=== PATIENT | female | born 1960 | race Caucasian/White ===

== ENCOUNTER 2020-02-07 09:29 | Outpatient (REF) | payer OTHER, MEDICAID, SELFPAY ==
[2020-02-07 10:11] LABS: MANUAL DIFF FLAG NO
[2020-02-07 10:12] LABS: Glucose Urine UA NEG (NEG); Leukocyte Esterase Urine NEG (NEG); Nitrite Urine NEG (NEG); Urine Blood TRACE (NEG); Urine Ketones NEG (NEG); Urine Protein NEG (NEG-TRACE)
[2020-02-07 10:14] LABS: Appearance Urine CLEAR; Color Urine YELLOW
[2020-02-07 10:17] LABS: Basophils Percent Auto 0.4 % (0-2); Eosinophils Percent Auto 0.6 % (0-4); Hematocrit 42.8 % (37-47); Imm Gran Abs Auto 0.02 X10*3/uL (0.00-0.03); Imm Gran Pct Auto 0.4 % (0.0-0.4); Lymphocytes Absolute Auto 1.8 X10*3/uL (1.2-4.9); Lymphocytes Percent Auto 33.3 % (20-40); Mean Corpuscular HGB Conc 32.7 g/dl (31.0-35.0); Mean Corpuscular Hemoglobin 30.2 pg (27.0-33.0); Mean Corpuscular Volume 92.4 fL (80-98); Mean Platelet Volume 10.6 fL (9.4-12.3); Monocytes Absolute Auto 0.3 X10*3/uL (0.1-1.2); Monocytes Percent Auto 5.4 % (2-11); Neutrophils Absolute Auto 3.2 X10*3/uL (2.0-8.3); Neutrophils Percent Auto 59.9 % (45-73); Platelet Count 236 X10*3/uL (160-400); Red Blood Count 4.63 X10*6/uL (4.20-5.50); Red Cell Distribution Width 11.9 % (11.0-16.0); White Blood Count 5.3 X10*3/uL (4.8-10.8)
[2020-02-07 11:19] LABS: Mucus Urine TRACE /LPF; RBC Urine 0-2 /HPF (0); Squamous Epithelial Cell Urine 1+ /LPF; WBC Urine 0 /HPF (0-4)
[2020-02-07 11:24] LABS: Alanine Aminotransferase 26 U/L (0-31); Albumin Level 4.7 g/dL (3.5-5.0); Alkaline Phosphatase 58 U/L (39-117); Anion Gap 10 (12-20); Aspartate Amino Transferase 19 U/L (5-31); Bilirubin Total 0.6 mg/dL (0.0-1.0); Blood Urea Nitrogen 17 mg/dL (9-16); Calcium 9.6 mg/dL (8.4-10.2); Carbon Dioxide 33 mmol/L (22-29); Chloride 102 mmol/L (96-108); Cholesterol 186 mg/dL; Estimated Glomerular Filt Rate > 60; Glucose Fasting 97 mg/dL (60-99); HDL Cholesterol 62 mg/dL; LDL Cholesterol Calculated 100 mg/dl; Potassium 4.1 mmol/l (3.3-5.1); Sodium 141 mmol/L (135-145); Total Protein 7.5 g/dL (6.5-8.0); Triglycerides 120 mg/dL
[2020-02-07 11:30] LABS: TSH reflex Free T4 0.49 mIU/mL (0.32-4.0); Vitamin D 25-OH Total 33.2 ng/mL (>30)
== END 2020-02-07 09:30 | disposition home or self-care (01) ==
LOC: HO.10HDL 09:29
PROVIDERS: Visit Provider Internal Medicine
DX: I10 Essential (primary) hypertension (principal); E55.9 Vitamin D deficiency, unspecified; Z93.1 Gastrostomy status; Z93.4 Other artificial openings of gastrointestinal tract status
CPT/HCPCS: 36415; 80053; 80061; 81001; 82306; 84443; 85025

== ENCOUNTER 2020-05-15 15:07 | Outpatient (REF) | payer OTHER, MEDICAID, SELFPAY ==
--- NOTE | ~2020-05-15 | XR_ITS ---
EXAMINATION: XR ABDOMEN COMPLETE CLINICAL INDICATION: Abdominal pain. COMPARISON: Most recent CT abdomen/pelvis dated 02/19/2019. TECHNIQUE: AP supine views of the abdomen. FINDINGS: Partially visualized gastrostomy tube. Nonobstructive bowel gas pattern. Moderate stool burden. No abnormal soft tissue calcification. No acute osseous abnormality. XR/XR abdomen 3V IMPRESSION: Gastrostomy tube. Moderate stool burden. Nonobstructive bowel gas pattern.
--- NOTE | ~2020-05-15 | XR_ITS ---
EXAMINATION: XR LUMBAR SPINE XR HIP, LEFT CLINICAL INFORMATION: Lower back pain and left hip pain. COMPARISON: None TECHNIQUE: AP, lateral, and coned-down views of the lumbar spine. AP and frog-leg lateral views of the left hip. FINDINGS: Lumbar Spine: Normal vertebral body alignment. The lumbar lordosis is maintained. No acute fracture or subluxation. Loss of intervertebral disc height with tiny anterior endplate osteophytes at L5-S1 as well as to a lesser degree at L4-L5. No lytic or blastic osseous lesion. Partially visualized gastrostomy tube. Left Hip: No acute fracture or dislocation. No significant joint space narrowing. Tiny marginal osteophytes. No osseous erosion. No abnormal soft tissue calcification. XR/XR hip LT min 2V IMPRESSION: Lumbar Spine: Mild degenerative disc disease at L5-S1 as well as to a lesser degree at L4-L5. Left Hip: Mild degenerative arthritis.
--- NOTE | ~2020-05-15 | XR_ITS ---
EXAMINATION: XR LUMBAR SPINE XR HIP, LEFT CLINICAL INFORMATION: Lower back pain and left hip pain. COMPARISON: None TECHNIQUE: AP, lateral, and coned-down views of the lumbar spine. AP and frog-leg lateral views of the left hip. FINDINGS: Lumbar Spine: Normal vertebral body alignment. The lumbar lordosis is maintained. No acute fracture or subluxation. Loss of intervertebral disc height with tiny anterior endplate osteophytes at L5-S1 as well as to a lesser degree at L4-L5. No lytic or blastic osseous lesion. Partially visualized gastrostomy tube. Left Hip: No acute fracture or dislocation. No significant joint space narrowing. Tiny marginal osteophytes. No osseous erosion. No abnormal soft tissue calcification. XR/XR lumbar spine 2-3V IMPRESSION: Lumbar Spine: Mild degenerative disc disease at L5-S1 as well as to a lesser degree at L4-L5. Left Hip: Mild degenerative arthritis.
== END 2020-05-15 15:08 | disposition home or self-care (01) ==
LOC: HO.XRAY 15:07
PROVIDERS: PCP Internal Medicine; Visit Provider Internal Medicine
DX: M25.552 Pain in left hip (principal); M54.5 Low back pain; M54.17 Radiculopathy, lumbosacral region; R10.9 Unspecified abdominal pain
CPT/HCPCS: 72100; 73502; 74021

== ENCOUNTER 2020-09-05 10:08 | Outpatient (REF) | payer OTHER, MEDICAID, SELFPAY ==
--- NOTE | ~2020-09-05 | XR_ITS ---
EXAMINATION: XR ABDOMEN WITH DECUBITUS VIEWS CLINICAL INDICATION: Abdominal pain. COMPARISON: 05/15/2020 TECHNIQUE: Five views of the abdomen with supine and upright views. FINDINGS: No free air is identified. No dilated loops of large or small bowel. There is a moderate stool burden seen throughout the colon. There appear to be T fasteners from previous gastrostomy tube, however, the gastrostomy tube is not definitely identified on today's study. No significant bony abnormality appreciated. Psoas margins are intact. XR/XR abdomen w decubitus IMPRESSION: No evidence of ileus or obstruction. Moderate stool burden.
== END 2020-09-05 10:09 | disposition home or self-care (01) ==
LOC: HO.XRAY 10:08
PROVIDERS: PCP Internal Medicine; Visit Provider Internal Medicine
DX: R10.9 Unspecified abdominal pain (principal); K59.00 Constipation, unspecified
CPT/HCPCS: 74021

== ENCOUNTER 2021-04-16 08:51 | Outpatient (REF) | payer OTHER, MEDICAID, SELFPAY ==
[2021-04-16 10:35] LABS: MANUAL DIFF FLAG NO
[2021-04-16 10:42] LABS: Basophils Percent Auto 0.5 % (0-2); Eosinophils Absolute Auto 0.1 X10*3/uL (0.0-0.4); Eosinophils Percent Auto 2.2 % (0-4); Hematocrit 43.4 % (37.0-47.0); Hemoglobin 13.9 g/dl (12.0-16.0); Imm Gran Abs Auto 0.01 X10*3/uL (0.00-0.03); Imm Gran Pct Auto 0.2 % (0.0-0.4); Lymphocytes Absolute Auto 1.9 X10*3/uL (1.2-4.9); Lymphocytes Percent Auto 32.6 % (20-40); Mean Corpuscular Hemoglobin 29.2 pg (27.0-33.0); Mean Corpuscular Volume 91.2 fL (80.0-98.0); Mean Platelet Volume 10.3 fL (9.4-12.3); Monocytes Absolute Auto 0.3 X10*3/uL (0.1-1.2); Monocytes Percent Auto 4.2 % (2-11); Neutrophils Absolute Auto 3.6 x10*3/uL (2.0-8.3); Neutrophils Percent Auto 60.3 % (45-73); Platelet Count 263 X10*3/uL (160-400); Red Blood Count 4.76 X10*6/uL (4.20-5.50); White Blood Count 5.9 X10*3/uL (4.8-10.8)
[2021-04-16 10:59] LABS: Appearance Urine CLEAR; Color Urine YELLOW; Glucose Urine UA NEG (NEG); Leukocyte Esterase Urine NEG (NEG); Nitrite Urine NEG (NEG); UACC Culture Trigger NO; Urine Blood TRACE (NEG); Urine Ketones NEG (NEG); Urine Protein NEG (NEG-TRACE)
[2021-04-16 11:18] LABS: Mucus Urine 1+ /LPF; Squamous Epithelial Cell Urine TRACE /LPF
[2021-04-16 11:19] LABS: Amorphous Sediment Urine 2+ /LPF; RBC Urine 0-2 /HPF (0)
[2021-04-16 11:20] LABS: WBC Urine 0-2 /HPF (0-4)
[2021-04-16 11:26] LABS: Alanine Aminotransferase 22 U/L (0-31); Albumin Level 4.5 g/dL (3.5-5.0); Alkaline Phosphatase 74 U/L (39-117); Anion Gap 13 (12-20); Aspartate Amino Transferase 19 U/L (5-31); Bilirubin Total 0.6 mg/dL (0.0-1.0); Blood Urea Nitrogen 14 mg/dL (9-16); Calcium 9.8 mg/dL (8.4-10.2); Carbon Dioxide 29 mmol/L (22-29); Chloride 105 mmol/L (96-108); Cholesterol 205 mg/dL; Estimated Glomerular Filt Rate > 60; Glucose Fasting 96 mg/dL (60-99); HDL Cholesterol 62 mg/dL; LDL Cholesterol Calculated 125 mg/dl; Potassium 4.2 mmol/L (3.3-5.1); Sodium 143 mmol/L (135-145); TSH reflex Free T4 1.03 uIU/mL (0.32-4.0); Total Protein 7.6 g/dL (6.5-8.0); Triglycerides 91 mg/dL; Vitamin D 25-OH Total 31.7 ng/mL (>30)
== END 2021-04-16 08:52 | disposition home or self-care (01) ==
LOC: HO.10HDL 08:51
PROVIDERS: Visit Provider Internal Medicine
DX: I10 Essential (primary) hypertension (principal); E55.9 Vitamin D deficiency, unspecified; E78.00 Pure hypercholesterolemia, unspecified
CPT/HCPCS: 36415; 80053; 80061; 81001; 81003; 82306; 84443; 85025

== ENCOUNTER 2021-08-12 09:12 | Outpatient (REF) | payer OTHER, MEDICAID, SELFPAY ==
[2021-08-12 11:18] LABS: Alanine Aminotransferase 23 U/L (0-31); Albumin Level 4.5 g/dL (3.5-5.0); Alkaline Phosphatase 74 U/L (39-117); Anion Gap 12 (12-20); Aspartate Amino Transferase 20 U/L (5-31); Bilirubin Total 0.6 mg/dL (0.0-1.0); Blood Urea Nitrogen 15 mg/dL (9-16); Calcium 9.8 mg/dL (8.4-10.2); Carbon Dioxide 28 mmol/L (22-29); Chloride 103 mmol/L (96-108); Cholesterol 205 mg/dL; Estimated Glomerular Filt Rate > 60; Glucose Fasting 96 mg/dL (60-99); HDL Cholesterol 60 mg/dL; LDL Cholesterol Calculated 127 mg/dl; Potassium 4.2 mmol/L (3.3-5.1); Sodium 139 mmol/L (135-145); Total Protein 7.5 g/dL (6.5-8.0); Triglycerides 93 mg/dL
== END 2021-08-12 09:13 | disposition home or self-care (01) ==
LOC: HO.10HDL 09:12
PROVIDERS: Visit Provider Internal Medicine
DX: E78.00 Pure hypercholesterolemia, unspecified (principal)
CPT/HCPCS: 36415; 80053; 80061

== ENCOUNTER 2021-12-17 09:05 | Outpatient (REF) | payer OTHER, SELFPAY ==
[2021-12-17 11:18] LABS: Alanine Aminotransferase 17 U/L (0-31); Albumin Level 4.6 g/dL (3.5-5.0); Alkaline Phosphatase 74 U/L (39-117); Anion Gap 14 (12-20); Aspartate Amino Transferase 18 U/L (5-31); Bilirubin Total 0.7 mg/dL (0.0-1.0); Blood Urea Nitrogen 15 mg/dL (9-16); C Reactive Protein 0.05 mg/dL (< or = 0.50); Calcium 9.7 mg/dL (8.4-10.2); Carbon Dioxide 27 mmol/L (22-29); Chloride 103 mmol/L (96-108); Cholesterol 221 mg/dL; Estimated Glomerular Filt Rate > 60; Glucose Fasting 101 mg/dL (60-99); HDL Cholesterol 61 mg/dL; LDL Cholesterol Calculated 144 mg/dl; Sodium 140 mmol/L (135-145); Total Protein 7.4 g/dL (6.5-8.0); Triglycerides 81 mg/dL
[2021-12-17 11:43] LABS: TSH reflex Free T4 0.76 uIU/mL (0.32-4.0); Vitamin D 25-OH Total 29.6 ng/mL (>30)
[2021-12-17 11:47] LABS: Erythrocyte Sedimentation Rate 5 MM/HR (0-20)
[2021-12-17 11:58] LABS: Folate > 20.0 ng/mL (> or = 4.0); Vitamin B12 391 pg/mL (200-900)
[2021-12-20 11:52] LABS: Vitamin B6 10.8 ng/mL (2.1-21.7)
[2021-12-21 06:36] LABS: Vitamin B1 13 nmol/L (8-30)
== END 2021-12-17 09:06 | disposition home or self-care (01) ==
LOC: HO.10HDL 09:05
PROVIDERS: Visit Provider Internal Medicine
DX: M54.17 Radiculopathy, lumbosacral region (principal); R20.2 Paresthesia of skin; M79.7 Fibromyalgia; E78.00 Pure hypercholesterolemia, unspecified; E53.8 Deficiency of other specified B group vitamins; E55.9 Vitamin D deficiency, unspecified
CPT/HCPCS: 36415; 80053; 80061; 82306; 82607; 82746; 84207; 84425; 84443; 85652; 86140

== ENCOUNTER 2022-04-21 08:47 | Outpatient (REF) | payer OTHER, SELFPAY ==
[2022-04-21 11:14] LABS: Alanine Aminotransferase 15 U/L (0-31); Albumin Level 4.4 g/dL (3.5-5.0); Alkaline Phosphatase 72 U/L (39-117); Anion Gap 13 (12-20); Aspartate Amino Transferase 16 U/L (5-31); Bilirubin Total 0.6 mg/dL (0.0-1.0); Blood Urea Nitrogen 14 mg/dL (9-16); Calcium 9.7 mg/dL (8.4-10.2); Carbon Dioxide 30 mmol/L (22-29); Chloride 104 mmol/L (96-108); Cholesterol 192 mg/dL; Estimated Glomerular Filt Rate > 60; Glucose Fasting 96 mg/dL (60-99); HDL Cholesterol 59 mg/dL; LDL Cholesterol Calculated 115 mg/dl; Potassium 4.6 mmol/L (3.3-5.1); Sodium 142 mmol/L (135-145); Total Protein 7.2 g/dL (6.5-8.0); Triglycerides 90 mg/dL
== END 2022-04-21 08:48 | disposition home or self-care (01) ==
LOC: HO.10HDL 08:47
PROVIDERS: Visit Provider Internal Medicine
DX: E78.00 Pure hypercholesterolemia, unspecified (principal)
CPT/HCPCS: 36415; 80053; 80061

== ENCOUNTER 2022-09-09 09:37 | Outpatient (REF) | payer OTHER, SELFPAY ==
[2022-09-09 10:43] LABS: MANUAL DIFF FLAG NO
[2022-09-09 10:51] LABS: Basophils Percent Auto 0.7 % (0-2); Eosinophils Absolute Auto 0.1 X10*3/uL (0.0-0.4); Eosinophils Percent Auto 0.8 % (0-4); Hematocrit 41.6 % (37.0-47.0); Hemoglobin 13.6 g/dl (12.0-16.0); Imm Gran Abs Auto 0.01 X10*3/uL (0.00-0.03); Imm Gran Pct Auto 0.2 % (0.0-0.4); Lymphocytes Absolute Auto 1.7 X10*3/uL (1.2-4.9); Lymphocytes Percent Auto 28.4 % (20-40); Mean Corpuscular HGB Conc 32.7 g/dl (31.0-35.0); Mean Corpuscular Volume 91.6 fL (80.0-98.0); Mean Platelet Volume 10.3 fL (9.4-12.3); Monocytes Absolute Auto 0.3 X10*3/uL (0.1-1.2); Monocytes Percent Auto 5.1 % (2-11); Neutrophils Absolute Auto 3.9 x10*3/uL (2.0-8.3); Neutrophils Percent Auto 64.8 % (45-73); Platelet Count 244 X10*3/uL (160-400); Red Blood Count 4.54 X10*6/uL (4.20-5.50); Red Cell Distribution Width 12.2 % (11.0-16.0); White Blood Count 6.1 X10*3/uL (4.8-10.8)
[2022-09-09 13:57] LABS: Alanine Aminotransferase 16 U/L (0-31); Albumin Level 4.3 g/dL (3.5-5.0); Alkaline Phosphatase 59 U/L (39-117); Anion Gap 15 (12-20); Aspartate Amino Transferase 17 U/L (5-31); Bilirubin Total 0.7 mg/dL (0.0-1.0); Blood Urea Nitrogen 11 mg/dL (9-16); Calcium 9.7 mg/dL (8.4-10.2); Carbon Dioxide 26 mmol/L (22-29); Chloride 103 mmol/L (96-108); Cholesterol 200 mg/dL; Estimated Glomerular Filt Rate > 60; Glucose Fasting 98 mg/dL (60-99); HDL Cholesterol 66 mg/dL; Iron 103 mcg/dL (30-160); LDL Cholesterol Calculated 118 mg/dl; Percent Iron Saturation 35 % (15-50); Potassium 3.6 mmol/L (3.3-5.1); Sodium 140 mmol/L (135-145); Total Iron Binding Capacity 295 mcg/dL (228-428); Total Protein 7.3 g/dL (6.5-8.0); Triglycerides 84 mg/dL; Unsaturated Iron Binding 192 ug/dL
== END 2022-09-09 09:38 | disposition home or self-care (01) ==
LOC: HO.10HDL 09:37
PROVIDERS: Visit Provider Internal Medicine
DX: E78.00 Pure hypercholesterolemia, unspecified (principal); D50.9 Iron deficiency anemia, unspecified; I10 Essential (primary) hypertension
CPT/HCPCS: 36415; 80053; 80061; 83540; 85025

== ENCOUNTER 2023-01-10 08:55 | Outpatient (REF) | payer OTHER, SELFPAY ==
[2023-01-10 10:35] LABS: MANUAL DIFF FLAG NO
[2023-01-10 10:42] LABS: Appearance Urine Cloudy; Basophils Percent Auto 0.7 % (0-2); Color Urine Yellow; Eosinophils Absolute Auto 0.1 X10*3/uL (0.0-0.4); Eosinophils Percent Auto 1.2 % (0-4); Glucose Urine UA Negative (Negative); Hematocrit 44.8 % (37.0-47.0); Hemoglobin 14.7 g/dl (12.0-16.0); Imm Gran Abs Auto 0.01 X10*3/uL (0.00-0.03); Imm Gran Pct Auto 0.2 % (0.0-0.4); Leukocyte Esterase Urine Small (1+) (Negative); Lymphocytes Absolute Auto 1.6 X10*3/uL (1.2-4.9); Lymphocytes Percent Auto 27.8 % (20-40); Mean Corpuscular HGB Conc 32.8 g/dl (31.0-35.0); Mean Corpuscular Hemoglobin 30.1 pg (27.0-33.0); Mean Corpuscular Volume 91.8 fL (80.0-98.0); Mean Platelet Volume 10.4 fL (9.4-12.3); Monocytes Absolute Auto 0.3 X10*3/uL (0.1-1.2); Monocytes Percent Auto 5.9 % (2-11); Neutrophils Absolute Auto 3.6 x10*3/uL (2.0-8.3); Neutrophils Percent Auto 64.2 % (45-73); Nitrite Urine Negative (Negative); Platelet Count 259 X10*3/uL (160-400); Red Blood Count 4.88 X10*6/uL (4.20-5.50); Red Cell Distribution Width 12.3 % (11.0-16.0); Specific Gravity - Urine 1.015 (1.005-1.025); UMIC TRIGGER UACC YES; Urine Blood Small (1+) (Negative); Urine Ketones Negative (Negative); Urine Protein Trace mg/dL (Neg-Trace); White Blood Count 5.6 X10*3/uL (4.8-10.8)
[2023-01-10 11:01] LABS: Bacteria Urine None Seen (None Seen); Hyaline Casts Urine 0-2 /LPF (0-2); RBC Urine 0-2 /HPF (0-2); Renal Epithelial Cells Urine Present; Squamous Epithelial Cell Urine 0-2 /HPF (0-2); UACC Culture Trigger YES; WBC Urine 0-5 /HPF (0-5)
[2023-01-10 13:02] LABS: Alanine Aminotransferase 17 U/L (0-31); Albumin Level 4.6 g/dL (3.5-5.0); Alkaline Phosphatase 63 U/L (39-117); Anion Gap 16 (12-20); Aspartate Amino Transferase 17 U/L (5-31); Bilirubin Total 0.6 mg/dL (0.0-1.0); Blood Urea Nitrogen 18 mg/dL (9-16); Carbon Dioxide 28 mmol/L (22-29); Chloride 103 mmol/L (96-108); Cholesterol 205 mg/dL (<200); Estimated Glomerular Filt Rate > 60; Glucose Fasting 107 mg/dL (60-99); HDL Cholesterol 65 mg/dL (>40); LDL Cholesterol Calculated 120 mg/dL (<100); Potassium 3.6 mmol/L (3.3-5.1); Sodium 143 mmol/L (135-145); TSH reflex Free T4 0.81 uIU/mL (0.32-4.0); Total Protein 7.8 g/dL (6.5-8.0); Triglycerides 103 mg/dL (<150); Vitamin D 25-OH Total 40.7 ng/mL (>30)
== END 2023-01-10 08:56 | disposition home or self-care (01) ==
LOC: HO.10HDL 08:55
PROVIDERS: Visit Provider Internal Medicine
DX: I10 Essential (primary) hypertension (principal); E55.9 Vitamin D deficiency, unspecified; E78.00 Pure hypercholesterolemia, unspecified
CPT/HCPCS: 36415; 80053; 80061; 81001; 82306; 84443; 85025

== ENCOUNTER 2023-01-14 15:13 | Outpatient (AMB) | payer OTHER, SELFPAY ==
[2023-01-14 15:26] VITALS: BP 124/80; PULSE 72; O2SAT 98; BMI 24.5
--- NOTE | 2023-01-14 15:26 | MHC.PC.OV ---
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 Accompanied by: Self / Same As Patient Allergies trazodone [TRAZODONE] Allergy (Mild, Verified 01/14/23 16:13) RASH amlodipine Allergy (Unknown, Verified 01/14/23 16:13) Depression aspirin Allergy (Unknown, Verified 01/14/23 16:13) Unknown diphenhydramine [Benadryl] Allergy (Unknown, Verified 01/14/23 16:13) Unknown duloxetine Allergy (Unknown, Verified 01/14/23 16:13) worsening depression lisinopril Allergy (Unknown, Verified 01/14/23 16:13) Cough morphine Allergy (Unknown, Verified 01/14/23 16:13) Unknown Penicillins Allergy (Unknown, Verified 01/14/23 16:13) Unknown pregabalin Allergy (Unknown, Verified 01/14/23 16:13) sleepwalking, confusion verapamil Adverse Reaction (Unknown, Verified 01/14/23 16:13) rash Medication List - Last Reconciled 01/16/23 by Venkata Banegas MD albuterol sulfate 90 mcg/actuation 2 puffs PO QID PRN beclomethasone dipropionate 80 mcg/actuation (Qvar RediHaler) 1 inh inhalation BID cetirizine (Zyrtec) 10 mg PO DAILY clobetasol 0.05% grams topical Q3D CPAP (CPAP Machine/Device) As directed dicyclomine 20 mg PO TID PRN 30 days ergocalciferol (vitamin D2) 1,250 mcg PO QWEEK fluticasone propionate 50 mcg/actuation 1 spray intranasal DAILY gabapentin 2 capsules BID (in AM and in the early afternoon) and 5 capsules at bedtime ipratropium bromide 2 sprays intranasal BID losartan 25 mg PO DAILY 30 days nortriptyline 10 mg PO BEDTIME 30 days ondansetron HCl 4 mg PO Q6H PRN 30 days riboflavin (vitamin B2) (Vitamin B-2) 400 mg PO DAILY tizanidine 4 mg PO TID PRN 10 days trazodone 1/2 to 1 tablet orally bedtime PRN; 30 days Tobacco use date assessed: 01/14/23 Dental Screening Dental Screen Date: 01/14/23 Did you have a dental visit in the last 12 months?: Yes Did you have a dental problem in the last 6 months where you did not have access to dental care?: No Was dental information given to patient?: Patient has dentist HPI 4mth f/u HPI Details Patient comes in today for her follow up visit She continues to have trouble sleeping at night (chronic) - is currently taking Trazodone with some relief Relates (+) recurrent headaches lately Was seen for follow up by nurse practitioner at neurology office in [facility] last month for follow up and had her Vitamin D2 dosage increased; was reportedly also advised to speak to me about trialing her on Nortriptyline for her headaches although there is no mention of this in her OV notes from last month She denies any dizziness Denies any chest pains, no SOB (+) occasional nausea but denies any vomiting, no abdominal pain She reports that she has been experiencing on and off diarrhea for a while now, especially after she takes her Losartan Is wondering if she really needs to be taking Losartan since her BP has been normal lately and would like to try stopping her Losartan as she is tired of getting diarrhea often She also continues to receive 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[facility] for her spasmodic dysphonia Has a follow up with Sleep Medicine next month - states that she has been using her CPAP device when sleeping at night with (+) overall improvement in her sleep quality and symptoms Had her follow up labs done last week - to discuss her results Would also like to get her flu shot today [facility] Medical History (Updated 01/16/23 @ 12:44 by Venkata Banegas MD) Benign essential hypertension Insomnia Anxiety and depression Strain of left trapezius muscle Left hip pain Left lumbosacral radiculopathy Abdominal pain Constipation Gastritis Dysphagia Epilepsy Depression Asthma Vitamin D deficiency 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 Surgical History No pertinent past surgical history Family History Father CAD (coronary artery disease) Hypertension CVD (cardiovascular disease) Mother Hypertension Maternal Aunt Vaginal cancer Paternal Uncle Throat cancer Social History Household Members: Spouse Housing: House Alcohol intake: never Patient Tobacco Use Status: Never used Tobacco e-Cigarette/Vaping Use: Never Used Second Hand Smoke Exposure: Yes service: No Current occupational status: disabled Cognitive needs: No Hearing needs: No Vision needs: Yes (gasses) Questionnaire PHQ-9 Over the last 2 weeks, how often have you been bothered by any of the following problems? 1. Little interest or pleasure in doing things: not at all 2. Feeling down, depressed, or hopeless: not at all 3. Trouble falling or staying asleep, or sleeping too much: not at all 4. Feeling tired or having little energy: not at all 5. Poor appetite or overeating: not at all 6. Feeling bad about yourself - or that you are a failure or have let yourself or your family down: not at all 7. Trouble concentrating on things, such as reading the newspaper or watching television: not at all 8. Moving or speaking so slowly that other people could have noticed. Or the opposite - being so fidgety or restless that you have been moving around a lot more than usual: not at all 9. Thoughts that you would be better off or of hurting yourself in some way: not at all Total score: 0 Depression Screening Interpretation: Negative (Rx helps) Depression Screening Done: Yes 18560 - PHQ-9 Billing: Yes Source: Developed by Drs. Rashawn Deutsch, Becca Rivera, Abdon Dominguez and colleagues, with an educational braydon from [employer]. Thrive Questionnaire Date Thrive assessed: 01/14/23 I am a: Patient What is your living situation today?: I have a steady place to live Within the past 12 months, did the food you bought not last and you didn't have the money to get more?: Never true Within the past 12 months, did you worry whether your food would run out before you got money to buy more?: Never true Do you have trouble paying for medicines?: No Do you have trouble getting transportation to medical appointments?: No Do you have trouble paying your heating and electricity bill?: No Do you have trouble taking care of your child, family member or friend?: No Do you have trouble with day-to-day activities such as bathing, preparing meals, shopping, managing finances, etc.?: No Are you currently unemployed and looking for a job?: No Are you interested in more education?: No Please select the resources that you would like help with: None Currently or been in a relationship where the following occur: no concerns reported AUDIT C Alcohol Use Questionnaire (AUDIT-C) 1. How often do you have a drink containing alcohol?: Never 3. How often do you have six or more drinks on one occasion?: Never Total Score: 0 Score Reviewed/Action Taken: Yes KATHERYN-7 AMB Questionnaire KATHERYN-7 Date KATHERYN - 7 assessed: 01/14/23 Feeling nervous, anxious, or on edge: 3 = Nearly every day Not being able to stop or control worryin = Nearly every day Worrying too much about different things: 3 = Nearly every day Trouble relaxin = Nearly every day Being so restless that it is hard to sit still: 3 = Nearly every day Becoming easily annoyed or irritable: 3 = Nearly every day Feeling afraid as if something awful might happen: 3 = Nearly every day Total KATHERYN-7 score (0-4 normal; 5-9 mild; 10-14 moderate; 15-21 severe): 21 Source: Developed by Drs. Rashawn Deutsch, Becca Rivera, Abdon Dominguze and colleagues, with an educational braydon from [employer]. Review of Systems Const Denies chills, Reports difficulty sleeping, Reports fatigue, Denies fever(s) and Reports headache(s) (recurrent) ENT Denies dysphagia, Denies dizziness, Reports headache(s) (recurrent), Reports hoarseness (chronic), Reports neck pain (at times), Denies odynophagia and Denies sore throat Card Denies chest pain, Denies palpitations and Denies dyspnea Resp Denies cough, Denies dyspnea and Denies wheezing GI Denies abdominal pain, Reports constipation (on and off), Denies dysphagia, Denies heartburn, Reports diarrhea (on and off lately - thinks is due to Losartan), Reports nausea (occasionally, often with headaches), Denies odynophagia and Denies vomiting Denies difficulty voiding, Denies nocturia and Denies dysuria Musc Reports back pain (over the left SI joint), Reports arthralgias (left hip), Reports neck pain (at times) and Reports radiating pain into limb (into the left thigh and leg) Neuro Denies dizziness, Reports headache(s) (recurrent), Denies focal weakness and Denies seizure-like activity Endo Reports fatigue and Denies palpitations Augustus/Lymph Denies easy bruising Aller/Immun Denies wheezing Physical exam (Primary Care) Vital Signs: Last Vital Signs Pulse 72 01/14/23 15:26 BP 124/80 01/14/23 15:26 Pulse Ox 98 01/14/23 15:26 Oxygen Delivery Method Room Air 01/14/23 15:26 BMI result Body Mass Index 24.5 Tobacco/Smoking Status: Tobacco use Status Tobacco use date assessed 01/14/23 01/14/23 15:27 Patient Tobacco Use Status Never used Tobacco 01/14/23 15:27 e-Cigarette/Vaping Use Never Used 01/14/23 15:27 PHQ-9: PHQ-9 Score PHQ-9: Total score 0 01/14/23 16:15 Depression Screening Interpretation: Negative (Rx helps) Thrive Assessment: Date of Thrive Assessment Date Thrive assessed 01/14/23 01/14/23 15:27 Currently or been in a relationship where the following occur: no concerns reported Const General: no acute distress and alert HENMT Ears: TM's normal bilaterally and EAC's normal Throat: Yes posterior oropharynx normal and Yes tonsils normal (no TP congestion) Neck Neck: Yes no lymphadenopathy and Yes supple Resp Auscultation: clear to auscultation bilaterally, no rales and no wheezes Cardio Rate: regular rate Rhythm: regular rhythm Heart sounds: no murmurs GI Palpation (GI): Soft to palpation and nontender Auscultation: normal bowel sounds Back/Spine/Pelvis Thoracic/Lumbar Spine: No lumbar spinal tenderness Sacroiliac joints: on the left tender to palpation Extrem General: Yes no clubbing, cyanosis or edema Left lower extremity: hip/thigh Details: tenderness Location: of the hip Office Procedures Flu Questionnaire Does the patient have a severe egg allergy?: No Does the patient have severe life threatening allergies?: No Does the patient have a fever or illness today?: No Has the patient ever had Guillain-[place] Syndrome?: No Has the patient ever had any past reaction to a flu shot?: No Immunizations flu vacc [id number] 6mos up(PF) 60 mcg(15 mcgx4)/0.5 mL IM syringe Performing Provider: Venkata Banegas MD [facility] Administered by: Luca Reid on 01/14/23 15:42 Dose Route Admin Location Dispensed Lot Number Expiration Date 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 0.5 mL IM Right Deltoid 0.5 mL [id number] 09/25/23 35571-574-00 [employer] VIS Given Date VIS Provided VIS Publication Date 01/14/23 Single Vaccine 20 Eligibility Eligibility Date Funding Source Not [facility] Eligible 01/14/23 Private Results Reviewed Results Reviewed: Laboratory Tests 01/10/23 09:00 WBC 5.6 Hgb 14.7 Hct 44.8 Plt Count 259 Sodium 143 Potassium 3.6 Creatinine 0.79 Estimated GFR > 60 Fasting Glucose 107 H Calcium 10.0 AST 17 ALT 17 Triglycerides 103 Cholesterol 205 H LDL Cholesterol, Calc 120 H HDL Cholesterol 65 25-OH Vitamin D Total 40.7 TSH 0.81 Ur Specific [place] 1.015 Urine Protein Trace Urine Glucose (UA) Negative Urine Blood Small (1+) H Assessment and Plan Assessment & Plan (1) Headache: Code(s): R51.9 - Headache, unspecified Qualifiers: Headache type: unspecified Headache chronicity pattern: unspecified pattern Intractability: not intractable Qualified Code(s): R51.9 - Headache, unspecified Plan: Most likely multifactorial headaches Continue Riboflavin 400 mg QD - dose increased by neurology last month Is also on Gabapentin and Magnesium tablets although patient does not feel that the Magnesium tablets have helped at all Has reportedly been advised to speak to PCP about trialing on Nortriptyline for her headaches but there is no mention of this in her last OV notes Per request, will start her on a trial of Nortriptyline 10 mg Q HS; have advised patient to HOLD her Trazodone while she is on Nortriptyline as we do not recommend she be on both if avoidable Follow up with neurology as scheduled (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; still has minimal residual dysphasia, dysphagia and impaired memory recall Repeat MRI of the brain done in early 2019 showed no acute pathology or abnormal enhancement, (+) cystic encephalomalacia in the right anterior temporal lobe associated with volume loss and surrounding gliosis and smaller areas of abnormal signal in the left temporal lobe - findings are consistent with sequela of prior HSV encephalitis Repeat EEG done showed remained abnormal with slowing of right temporal cortical region, no epileptiform activities were seen Has been slowly tapered off her Keppra and patient is advised to call if seizures recur or occur Code(s): B00.4 - Herpesviral encephalitis Plan: S/P Tx Symptoms have been stable with no regression so far Follow-up with Neurology as scheduled (3) Cystic encephalomalacia: Code(s): G93.89 - Other specified disorders of brain Plan: Findings of cystic encephalomalacia seen on her most recent MRI, consistent with her previous HSV encephalitis diagnosis Patient still has some minimal problems with memory recall and residual dysphasia/aphasia but these have stabilized and have been gradually improving over time (4) Epilepsy: Code(s): G40.909 - Epilepsy, unspecified, not intractable, without status epilepticus Qualifiers: Epilepsy type: unspecified Intractability: not intractable Status epilepticus: without status epilepticus Qualified Code(s): G40.909 - Epilepsy, unspecified, not intractable, without status epilepticus Plan: Patient has not had any seizures in a while now and has been slowly tapered off her Keppra by Neurology months ago Follow-up with Neurology as scheduled (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 Plan: Patient continues to receive Botox injections (from [facility]) as needed Treatments were interrupted for about a year when she contracted HSV encephalitis and by the COVID-19 pandemic but she has since resumed her Botox injection treatments (6) Pure hypercholesterolemia: Code(s): E78.00 - Pure hypercholesterolemia, unspecified Plan: Results of her labs done last week reviewed and discussed with patient Reinforced low cholesterol diet; patient would like to continue working on improving her diet and did not want to take cholesterol-lowering medications as much as possible Will recheck her labs and fasting lipids in 4 months for follow up (7) Benign essential hypertension: Code(s): I10 - Essential (primary) hypertension Plan: Reinforced low sodium diet - goal is systolic BP of at least 130 mm or less Is requesting to try stopping her Losartan 25 mg QD as she suspects that her on and off diarrhea is a side effect of the Rx Have instructed her to STOP taking Losartan over the next few days and if her diarrhea resolves off the Rx, then she is to call back for further instructions and alternative BP Rx if needed; conversely, if her diarrhea does not change at all with cessation of the Rx, then she should start back on her Losartan STUART She is reminded to continue monitoring her blood pressure regularly, especially as she is going to be stopping Losartan to see if her diarrhea will resolve OFF the Rx (8) Diarrhea: Code(s): R19.7 - Diarrhea, unspecified Qualifiers: Diarrhea type: unspecified type Qualified Code(s): R19.7 - Diarrhea, unspecified Plan: She is presuming this to be a side effect of her BP Rx (Losartan) and will try to stop this for a few days to see if her diarrhea will resolve OFF Rx (see above) (9) Asthma: Code(s): J45.909 - Unspecified asthma, uncomplicated Qualifiers: Asthma severity: mild Asthma persistence: persistent Asthma complication type: uncomplicated Qualified Code(s): J45.30 - Mild persistent asthma, uncomplicated Plan: Stable Continue Qvar 80 mcg 1 puff twice a day and Albuterol HFA 2 puffs 4 times a day as needed (10) Gastritis: Code(s): K29.70 - Gastritis, unspecified, without bleeding Qualifiers: Gastritis type: unspecified gastritis Chronicity: unspecified Gastritis bleeding: without bleeding Qualified Code(s): K29.70 - Gastritis, unspecified, without bleeding Plan: Dietary restrictions reinforced Continue Omeprazole 40 mg QD and Famotidine 20 mg 1 to 2 tablets a day at bedtime as needed Follow up with GI as scheduled (11) Constipation: Code(s): K59.00 - Constipation, unspecified Qualifiers: Constipation type: unspecified constipation type Qualified Code(s): K59.00 - Constipation, unspecified Plan: May have IBS with constipation Symptoms have Improved and has been controlled lately; encouraged again to continue increased oral fluids and dietary fiber Abdominal x-rays done a few months ago showed (+) moderate stool burden; x-rays were otherwise normal Continue OTC stool softeners as needed Continue Dicyclomine 20 mg TID PRN (12) Vitamin D deficiency: Code(s): E55.9 - Vitamin D deficiency, unspecified Plan: Corrected - continue Vitamin D2 85732 units once a week Will recheck her Vitamin D level in 4 months for follow-up (13) Insomnia: Code(s): G47.00 - Insomnia, unspecified Qualifiers: Insomnia type: unspecified Qualified Code(s): G47.00 - Insomnia, unspecified Plan: Sleep hygiene reinforced Was on Trazodone 50 mg Q HS PRN but as she would like to start on a trial of Nortriptyline for her headaches, will have her HOLD Trazodone at this time Advised that if Nortriptyline helps with her headaches, it may also help with her sleep issues (14) Anxiety and depression: Code(s): F41.9 - Anxiety disorder, unspecified; F32.9 - Major depressive disorder, single episode, unspecified Plan: Was on Hydroxyzine 10 mg BID PRN in the past but reports that Hydroxyzine made her feel nauseous Took herself off Sertraline in the past as she felt that Sertraline was causing her to become forgetful Was most recently on Mirtazapine 7.5 mg Q AM and 15 mg Q HS but she also stopped taking Rx as she wants to avoid taking antidepressants as much as possible Advised that her anxiety may actually be the main reason for her trouble sleeping and a few of her symptoms but she remains resolute in her refusal to take antidepressants or Rx for anxiety as much as possible Plan Per request, flu vaccine given todqy Follow up in 4 months Orders: Orders Comprehensive [place]. Panel Fast 4 Months E78.00 - Pure hypercholesterolemia, unspecified Lipid Panel 4 Months E78.00 - Pure hypercholesterolemia, unspecified Vitamin D 25-OH Total 4 Months E55.9 - Vitamin D deficiency, unspecified Influenza [id number] Immunization 01/14/23 Z23 - Encounter for immunization Complete Blood Count Auto Diff 4 Months I10 - Essential (primary) hypertension TSH reflex Free T4 4 Months E78.00 - Pure hypercholesterolemia, unspecified Medications: New nortriptyline 10 mg PO BEDTIME 30 days 30 caps 3RF On Hold trazodone Hold Comment: Doctor's Order 1/2 to 1 tablet orally bedtime PRN; 30 days 30 tabs 3RF sleep Coding Level of Care Code Est Pt Level 4 (35302) Diagnoses Nonintractable headache, unspecified chronicity pattern, unspecified headache type R51.9 Headache type: unspecified Headache chronicity pattern: unspecified pattern Intractability: not intractable Herpes simplex encephalitis B00.4 Cystic encephalomalacia G93.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, unspecified epilepsy type G40.909 Epilepsy type: unspecified Intractability: not intractable Status epilepticus: without status epilepticus 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 Pure hypercholesterolemia E78.00 Benign essential hypertension I10 Diarrhea, unspecified type R19.7 Diarrhea type: unspecified type Mild persistent asthma without complication J45.30 Asthma severity: mild Asthma persistence: persistent Asthma complication type: uncomplicated Gastritis without bleeding, unspecified chronicity, unspecified gastritis type K29.70 Gastritis type: unspecified gastritis Chronicity: unspecified Gastritis bleeding: without bleeding Constipation, unspecified constipation type K59.00 Constipation type: unspecified constipation type Vitamin D deficiency E55.9 Insomnia, unspecified type G47.00 Insomnia type: unspecified Anxiety and depression F41.9; F32.9
== END 2023-01-14 16:43 | disposition home or self-care (01) ==
PROVIDERS: PCP Internal Medicine; Visit Provider Internal Medicine
DX: Z23 Encounter for immunization (principal)
CPT/HCPCS: 90471; 90686; 99214

== ENCOUNTER 2023-05-20 08:21 | Outpatient (REF) | payer BC, MEDICARE, SELFPAY ==
[2023-05-20 10:31] LABS: MANUAL DIFF FLAG NO
[2023-05-20 10:46] LABS: Appearance Urine Clear; Color Urine Yellow; Glucose Urine UA Negative (Negative); Leukocyte Esterase Urine Trace (Negative); Nitrite Urine Negative (Negative); PH 8.5 (5.0-9.0); UMIC TRIGGER UACC YES; Urine Blood Negative (Negative); Urine Ketones Negative (Negative); Urine Protein Negative (Neg-Trace)
[2023-05-20 10:49] LABS: Basophils Percent Auto 0.6 % (0-2); Eosinophils Absolute Auto 0.1 X10*3/uL (0.0-0.4); Eosinophils Percent Auto 1.1 % (0-4); Hematocrit 44.9 % (37.0-47.0); Hemoglobin 14.8 g/dl (12.0-16.0); Imm Gran Abs Auto 0.02 X10*3/uL (0.00-0.03); Imm Gran Pct Auto 0.3 % (0.0-0.4); Lymphocytes Absolute Auto 1.7 X10*3/uL (1.2-4.9); Lymphocytes Percent Auto 26.5 % (20-40); Mean Corpuscular Hemoglobin 30.1 pg (27.0-33.0); Mean Corpuscular Volume 91.3 fL (80.0-98.0); Mean Platelet Volume 10.3 fL (9.4-12.3); Monocytes Absolute Auto 0.3 X10*3/uL (0.1-1.2); Monocytes Percent Auto 5.1 % (2-11); Neutrophils Absolute Auto 4.2 x10*3/uL (2.0-8.3); Neutrophils Percent Auto 66.4 % (45-73); Platelet Count 250 X10*3/uL (160-400); Red Blood Count 4.92 X10*6/uL (4.20-5.50); Red Cell Distribution Width 12.4 % (11.0-16.0); White Blood Count 6.3 X10*3/uL (4.8-10.8)
[2023-05-20 10:55] LABS: Bacteria Urine None Seen (None Seen); Hyaline Casts Urine 0-2 /LPF (0-2); RBC Urine 0-2 /HPF (0-2); Squamous Epithelial Cell Urine 0-2 /HPF (0-2); WBC Urine 0-5 /HPF (0-5)
[2023-05-20 11:02] LABS: Alanine Aminotransferase 20 U/L (0-31); Albumin Level 4.5 g/dL (3.5-5.0); Alkaline Phosphatase 66 U/L (39-117); Anion Gap 12 (12-20); Aspartate Amino Transferase 19 U/L (5-31); Bilirubin Total 0.6 mg/dL (0.0-1.0); Blood Urea Nitrogen 11 mg/dL (9-16); Calcium 9.5 mg/dL (8.4-10.2); Carbon Dioxide 29 mmol/L (22-29); Chloride 104 mmol/L (96-108); Cholesterol 206 mg/dL (<200); Estimated Glomerular Filt Rate > 60; Glucose Fasting 105 mg/dL (60-99); HDL Cholesterol 64 mg/dL (>40); LDL Cholesterol Calculated 121 mg/dL (<100); Potassium 3.9 mmol/L (3.3-5.1); Sodium 141 mmol/L (135-145); Total Protein 7.6 g/dL (6.5-8.0); Triglycerides 107 mg/dL (<150)
[2023-05-20 11:10] LABS: TSH reflex Free T4 0.98 uIU/mL (0.32-4.0); Vitamin D 25-OH Total 46.8 ng/mL (>30)
== END 2023-05-20 08:22 | disposition home or self-care (01) ==
LOC: HO.10HDL 08:21
PROVIDERS: Visit Provider Internal Medicine
DX: I10 Essential (primary) hypertension (principal); E55.9 Vitamin D deficiency, unspecified; E78.00 Pure hypercholesterolemia, unspecified
CPT/HCPCS: 36415; 80053; 80061; 81001; 82306; 84443; 85025

== ENCOUNTER 2023-05-24 15:17 | Outpatient (AMB) | payer BC, MEDICARE, SELFPAY ==
[2023-05-24 15:23] VITALS: BP 126/82; PULSE 71; O2SAT 99; BMI 25.0
--- NOTE | 2023-05-24 15:23 | A.OFFPC_ITS ---
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 Required: No Inspector Aligning: Not Required per policy Accompanied by: Self / Same As Patient Allergies trazodone [TRAZODONE] Allergy (Mild, Verified 10/11/23 16:16) RASH amlodipine Allergy (Unknown, Verified 10/11/23 16:16) Depression aspirin Allergy (Unknown, Verified 10/11/23 16:16) Unknown diphenhydramine [Benadryl] Allergy (Unknown, Verified 10/11/23 16:16) Unknown duloxetine Allergy (Unknown, Verified 10/11/23 16:16) worsening depression lisinopril Allergy (Unknown, Verified 10/11/23 16:16) Cough morphine Allergy (Unknown, Verified 10/11/23 16:16) Unknown Penicillins Allergy (Unknown, Verified 10/11/23 16:16) Unknown pregabalin Allergy (Unknown, Verified 10/11/23 16:16) sleepwalking, confusion verapamil Adverse Reaction (Unknown, Verified 10/11/23 16:16) rash Medication List - Last Reconciled 05/24/23 by Venkata Banegas MD albuterol sulfate 90 mcg/actuation 2 puffs PO QID PRN beclomethasone dipropionate 80 mcg/actuation (Qvar RediHaler) 1 inh inhalation BID cetirizine (Zyrtec) 10 mg PO DAILY clobetasol 0.05% grams topical Q3D CPAP (CPAP Machine/Device) As directed dicyclomine 20 mg PO TID PRN 30 days ergocalciferol (vitamin D2) 1,250 mcg PO QWEEK fluticasone propionate 50 mcg/actuation 1 spray intranasal DAILY gabapentin 2 capsules BID (in AM and in the early afternoon) and 5 capsules at bedtime ipratropium bromide 2 sprays intranasal BID losartan 25 mg PO DAILY 30 days ondansetron HCl 4 mg PO Q6H PRN 30 days riboflavin (vitamin B2) (Vitamin B-2) 400 mg PO DAILY tizanidine 4 mg PO TID PRN 10 days trazodone 1/2 to 1 tablet orally bedtime PRN; 30 days Tobacco use date assessed: 05/24/23 Dental Screening Dental Screen Date: 05/24/23 Did you have a dental visit in the last 12 months?: Yes Did you have a dental problem in the last 6 months where you did not have access to dental care?: No Was dental information given to patient?: Patient has dentist HPI 4MTH F/U HPI Details Patient comes in today for her follow up visit She still has recurrent headaches and dizziness - will be seeing neurology/headache specialist at [facility] (Dr. Singleton) next week about getting nerve blocks/injections for her headaches She also has an appointment scheduled with Dr. Ita tejada at [facility] next month on 06/16/23 for her tremors and other issues Patient still has chronic hoarseness for which she gets Botox injections to her vocal cords but states that it has been a while since she had Botox injections from [facility]; she denies any trouble swallowing lately Relates that she is still experiencing increased anxiety and would like to get something to help calm her down She was tried on Hydroxyzine previously but reports experiencing increased nausea every time she takes the Rx and she eventually stopped taking it She denies any chest pains, no SOB No nausea/vomiting, no abdominal pain No change in bowel habits noted Also needs her Dicyclomine Rx refilled Had her follow up labs done a few days ago - to discuss her results [facility], [facility] Medical History Spasmodic torticollis Left hand weakness Coarse tremors Vertigo Spasmodic torticollis Feeding by G-tube Benign essential hypertension Insomnia Anxiety and depression Strain of left trapezius muscle Left hip pain Left lumbosacral radiculopathy Abdominal pain Constipation Gastritis Dysphagia Epilepsy Depression Asthma Vitamin D deficiency 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 Surgical History H/O tubal ligation No pertinent past surgical history Family History Father CAD (coronary artery disease) Hypertension CVD (cardiovascular disease) Mother Hypertension Maternal Aunt Vaginal cancer Paternal Uncle Throat cancer Social History Household Members: Spouse Housing: House Alcohol intake: never Patient Tobacco Use Status: Never used Tobacco e-Cigarette/Vaping Use: Never Used Second Hand Smoke Exposure: Yes service: No Current occupational status: disabled Cognitive needs: No Hearing needs: No Vision needs: Yes (gasses) Questionnaire PHQ-9 Over the last 2 weeks, how often have you been bothered by any of the following problems? 1. Little interest or pleasure in doing things: more than half the days 2. Feeling down, depressed, or hopeless: more than half the days 3. Trouble falling or staying asleep, or sleeping too much: more than half the days 4. Feeling tired or having little energy: several days 5. Poor appetite or overeating: not at all 6. Feeling bad about yourself - or that you are a failure or have let yourself or your family down: several days 7. Trouble concentrating on things, such as reading the newspaper or watching television: several days 8. Moving or speaking so slowly that other people could have noticed. Or the opposite - being so fidgety or restless that you have been moving around a lot more than usual: several days 9. Thoughts that you would be better off or of hurting yourself in some way: not at all Total score: 10 Depression Screening Interpretation: Positive (Rx helps) Depression Screening Follow-up: Existing condition and In treatment Depression Screening Done: Yes 13961 - PHQ-9 Billing: Yes Source: Developed by Drs. Rashawn Deutsch, Becca Rivera, Abdon Dominguez and colleagues, with an educational braydon from [employer]. Thrive Questionnaire Date Thrive assessed: 05/24/23 I am a: Patient What is your living situation today?: I have a steady place to live Within the past 12 months, did the food you bought not last and you didn't have the money to get more?: Never true Within the past 12 months, did you worry whether your food would run out before you got money to buy more?: Never true Do you have trouble paying for medicines?: No Do you have trouble getting transportation to medical appointments?: No Do you have trouble paying your heating and electricity bill?: No Do you have trouble taking care of your child, family member or friend?: No Do you have trouble with day-to-day activities such as bathing, preparing meals, shopping, managing finances, etc.?: No Are you currently unemployed and looking for a job?: No Are you interested in more education?: No Please select the resources that you would like help with: None Currently or been in a relationship where the following occur: no concerns reported THRIVE Score: 0 AUDIT C Alcohol Use Questionnaire (AUDIT-C) 1. How often do you have a drink containing alcohol?: Never 3. How often do you have six or more drinks on one occasion?: Never Total Score: 0 Score Reviewed/Action Taken: Yes KATHERYN-7 AMB Questionnaire KATHERYN-7 Date KATHERYN - 7 assessed: 05/24/23 Feeling nervous, anxious, or on edge: 2 = More than half the days Not being able to stop or control worryin = Several days Worrying too much about different things: 1 = Several days Trouble relaxin = Several days Being so restless that it is hard to sit still: 0 = Not at all Becoming easily annoyed or irritable: 0 = Not at all Feeling afraid as if something awful might happen: 0 = Not at all Total KATHERYN-7 score (0-4 normal; 5-9 mild; 10-14 moderate; 15-21 severe): 5 Source: Developed by Drs. Rashawn Deutsch, Becca Rivera, Abdon Dominguez and colleagues, with an educational braydon from [employer]. Review of Systems Const Denies chills, Reports difficulty sleeping, Reports fatigue, Denies fever(s) and Reports headache(s) (recurrent) ENT Denies dysphagia, Reports vertigo, Reports dizziness (on and off; also has vertigo/motion sickness), Reports headache(s) (recurrent), Reports hoarseness (chronic), Reports neck pain (at times - mostly spasms), Denies odynophagia, Reports tinnitus (chronic) and Denies sore throat Card Denies chest pain, Denies palpitations and Denies dyspnea Resp Denies cough, Denies dyspnea and Denies wheezing GI Denies abdominal pain, Reports constipation (on and off), Denies dysphagia, Denies heartburn, Reports diarrhea (on and off lately - thinks is due to Losartan), Reports nausea (occasionally, often with headaches), Denies odynophagia and Denies vomiting Denies difficulty voiding, Denies nocturia, Denies dysuria and Denies urinary urgency Musc Reports back pain (over the left SI joint), Reports arthralgias (left hip), Reports neck pain (at times - mostly spasms) and Reports radiating pain into limb (into the left thigh and leg) Skin/Breast Denies rash Neuro Reports vertigo, Reports dizziness (on and off; also has vertigo/motion sickness), Reports headache(s) (recurrent), Denies focal weakness, Denies seizure-like activity and Reports tremor(s) Psych Reports anxiety (increasing) and Reports depression Endo Reports fatigue and Denies palpitations Augustus/Lymph Denies easy bruising Aller/Immun Denies wheezing Physical exam (Primary Care) Vital Signs: Last Vital Signs Pulse 71 05/24/23 15:23 BP 126/82 05/24/23 15:23 Pulse Ox 99 05/24/23 15:23 Oxygen Delivery Method Room Air 05/24/23 15:23 BMI result Body Mass Index 25.0 Tobacco/Smoking Status: Tobacco use Status Tobacco use date assessed 05/24/23 05/24/23 15:24 Patient Tobacco Use Status Never used Tobacco 05/24/23 15:24 e-Cigarette/Vaping Use Never Used 05/24/23 15:24 PHQ-9: PHQ-9 Score PHQ-9: Total score 10 05/24/23 15:59 Depression Screening Interpretation: Positive (Rx helps) Depression Screening Follow-up: Existing condition and In treatment Thrive Assessment: Date of Thrive Assessment Date Thrive assessed 01/14/23 05/24/23 15:24 Currently or been in a relationship where the following occur: no concerns reported Const General: no acute distress and alert HENMT Ears: TM's normal bilaterally and EAC's normal Throat: Yes posterior oropharynx normal and Yes tonsils normal (no TP congestion) Neck Neck: Yes no lymphadenopathy and Yes tender Thyroid: Thyroid normal Resp Auscultation: clear to auscultation bilaterally, no rales and no wheezes Cardio Rate: regular rate Rhythm: regular rhythm Heart sounds: no murmurs GI Palpation (GI): Soft to palpation and nontender Auscultation: normal bowel sounds General: Yes no CVA tenderness Back/Spine/Pelvis Back: no CVA tenderness Cervical Spine: cervical muscular tenderness, cervical spasm and No Cervical spine tenderness Thoracic/Lumbar Spine: No lumbar spinal tenderness Sacroiliac joints: on the left tender to palpation Skin Rashes: no rashes Neuro Motor exam (neuro): Tremors during motor activity present (mild, over both hands; (+) head tremors noted as well) Extrem General: Yes no clubbing, cyanosis or edema Left lower extremity: hip/thigh Details: tenderness Location: of the hip Results Reviewed Results Reviewed: Laboratory Tests 05/20/23 08:30 WBC 6.3 Hgb 14.8 Hct 44.9 Plt Count 250 Sodium 141 Potassium 3.9 Creatinine 0.79 Estimated GFR > 60 Fasting Glucose 105 H Calcium 9.5 AST 19 ALT 20 Triglycerides 107 Cholesterol 206 H LDL Cholesterol, Calc 121 H HDL Cholesterol 64 25-OH Vitamin D Total 46.8 TSH 0.98 Ur Specific [place] 1.010 Urine Protein Negative Urine Glucose (UA) Negative Urine Blood Negative Urine Nitrite Negative Ur Leukocyte Esterase Trace H Assessment and Plan Assessment & Plan (1) Headache: Code(s): R51.9 - Headache, unspecified Qualifiers: Headache type: unspecified Headache chronicity pattern: unspecified pattern Intractability: not intractable Qualified Code(s): R51.9 - Headache, unspecified Plan: These are most likely multifactorial Continue Riboflavin 400 mg QD - dose was increased by neurology a few months ago She also takes Gabapentin and Magnesium tablets although patient does not feel that the Magnesium tablets are helping Per request, we started her on a trial of Nortriptyline 10 mg Q HS at her last visit but she could not tolerate the Rx She will be seeing a headache specialist at [facility] (Dr. 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; still has minimal residual dysphasia, dysphagia and impaired memory recall Repeat MRI of the brain done in early 2019 showed no acute pathology or abnormal enhancement, (+) cystic encephalomalacia in the right anterior temporal lobe associated with volume loss and surrounding gliosis and smaller areas of abnormal signal in the left temporal lobe - findings are consistent with sequela of prior HSV encephalitis Repeat EEG done showed remained abnormal with slowing of right temporal cortical region, no epileptiform activities were seen Has been slowly tapered off her Keppra and patient is advised to call if seizures recur or occur Code(s): B00.4 - Herpesviral encephalitis Plan: S/P Tx; symptoms have been stable with no regression so far Follow-up with Neurology as scheduled (3) Cystic encephalomalacia: Code(s): G93.89 - Other specified disorders of brain Plan: Findings of cystic encephalomalacia were seen on her most recent MRI, consistent with her previous HSV encephalitis diagnosis Patient still has some minimal problems with memory recall and residual dysphasia/aphasia but these have stabilized over time (4) Epilepsy: Code(s): G40.909 - Epilepsy, unspecified, not intractable, without status epilepticus Qualifiers: Epilepsy type: unspecified Intractability: not intractable Status epilepticus: without status epilepticus Qualified Code(s): G40.909 - Epilepsy, unspecified, not intractable, without status epilepticus Plan: Patient has not had any seizures in a while now and she has been slowly tapered off her Keppra by Neurology months ago Follow-up with Neurology as scheduled (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 Jean Baptiste) here at [facility] next month regarding these as well as for her epilepsy and encephalomalacia (7) Pure hypercholesterolemia: Code(s): E78.00 - Pure hypercholesterolemia, unspecified Plan: Results of her labs done a few days ago reviewed and discussed with patient - is advised that her cholesterol levels are mostly unchanged from previous Reinforced low cholesterol diet; patient would like to continue working on improving her diet and did not want to take cholesterol-lowering medications as much as possible Will recheck her labs and fasting lipids in 4 months for follow up (8) Benign essential hypertension: Code(s): I10 - Essential (primary) hypertension Plan: Reinforced low sodium diet - goal is systolic BP of at least 130 mm or less Per our instructions, she stopped taking her Losartan 25 mg QD after her last visit as she was suspecting that her on and off diarrhea was a side effect of the Rx Feels that her diarrhea has improved a lot since then; she is presently not on any Rx for her blood pressure and her BP appears okay today She is reminded to continue monitoring her blood pressure regularly (9) Asthma: Code(s): J45.909 - Unspecified asthma, uncomplicated Qualifiers: Asthma severity: mild Asthma persistence: persistent Asthma complication type: uncomplicated Qualified Code(s): J45.30 - Mild persistent asthma, uncomplicated Plan: Stable Continue Qvar 80 mcg 1 puff twice a day and Albuterol HFA 2 puffs 4 times a day as needed (10) Gastritis: Code(s): K29.70 - Gastritis, unspecified, without bleeding Qualifiers: Gastritis type: unspecified gastritis Chronicity: unspecified Gastritis bleeding: without bleeding Qualified Code(s): K29.70 - Gastritis, unspecified, without bleeding Plan: Dietary restrictions reinforced Continue Omeprazole 40 mg QD and Famotidine 20 mg 1 to 2 tablets a day at bedtime as needed Follow up with GI as scheduled (11) Constipation: Code(s): K59.00 - Constipation, unspecified Qualifiers: Constipation type: unspecified constipation type Qualified Code(s): K59.00 - Constipation, unspecified Plan: She likely has IBS with constipation Symptoms have Improved and has been controlled lately; she is encouraged again to continue increased oral fluids and dietary fiber Abdominal x-rays done a few months ago showed (+) moderate stool burden; x-rays were otherwise normal Continue OTC stool softeners as needed Continue Dicyclomine 20 mg TID PRN - Rx refilled (12) Vitamin D deficiency: Code(s): E55.9 - Vitamin D deficiency, unspecified Plan: Continue Vitamin D2 06072 units once a week Will recheck her Vitamin D level in 4 months for follow-up (13) Insomnia: Code(s): G47.00 - Insomnia, unspecified Qualifiers: Insomnia type: unspecified Qualified Code(s): G47.00 - Insomnia, unspecified Plan: Sleep hygiene reinforced Her Trazodone was previously held when she was started on a trial of Nortriptyline but she was not able to tolerate Nortrtiptyline She prefers to hold off on resuming Trazodone for now (14) Anxiety and depression: Code(s): F41.9 - Anxiety disorder, unspecified; F32.9 - Major depressive disorder, single episode, unspecified Plan: She was on Hydroxyzine 10 mg BID PRN in the past but reports that Hydroxyzine made her feel nauseous She also took herself off Sertraline in the past as she felt that Sertraline was causing her to become forgetful Was most recently on Mirtazapine 7.5 mg Q AM and 15 mg Q HS but she also stopped taking Rx as she wants to avoid taking antidepressants as much as possible Have advised her previously that her anxiety may actually be the main reason for her trouble sleeping as well as a few of her symptoms Per request, we will start her on Lorazepam 0.5 mg QD PRN to see how she does on this Plan Follow up in 4 months Orders: Orders Hemoglobin A1c 4 Months R73.01 - Impaired fasting glucose UA CC w/rflx Micro + Cult 4 Months R30.0 - Dysuria Vitamin B12 and Folate 4 Months E53.8 - Deficiency of other specified B group vitamins Vitamin D 25-OH Total 4 Months E55.9 - Vitamin D deficiency, unspecified Complete Blood Count Auto Diff 4 Months D64.9 - Anemia, unspecified Comprehensive [place]. Panel Fast 4 Months E78.00 - Pure hypercholesterolemia, unspecified TSH reflex Free T4 4 Months E78.00 - Pure hypercholesterolemia, unspecified Lipid Panel 4 Months E78.00 - Pure hypercholesterolemia, unspecified Medications: New lorazepam 0.5 mg PO DAILY PRN 30 tabs 0RF anxiety Refilled dicyclomine 20 mg PO TID PRN 90 tabs 2RF bowel / abdominal spasms 30 days Coding Level of Care Code Est Pt Level 4 (89412) Complex EM visit Add On G2211 Diagnoses Nonintractable headache, unspecified chronicity pattern, unspecified headache type R51.9 Headache type: unspecified Headache chronicity pattern: unspecified pattern Intractability: not intractable Herpes simplex encephalitis B00.4 Cystic encephalomalacia G93.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, unspecified epilepsy type G40.909 Epilepsy type: unspecified Intractability: not intractable Status epilepticus: without status epilepticus 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 Coarse tremors G25.2 Pure hypercholesterolemia E78.00 Benign essential hypertension I10 Mild persistent asthma without complication J45.30 Asthma severity: mild Asthma persistence: persistent Asthma complication type: uncomplicated Gastritis without bleeding, unspecified chronicity, unspecified gastritis type K29.70 Gastritis type: unspecified gastritis Chronicity: unspecified Gastritis bleeding: without bleeding Constipation, unspecified constipation type K59.00 Constipation type: unspecified constipation type Vitamin D deficiency E55.9 Insomnia, unspecified type G47.00 Insomnia type: unspecified Anxiety and depression F41.9; F32.9
== END 2023-05-24 16:43 | disposition home or self-care (01) ==
PROVIDERS: PCP Internal Medicine; Visit Provider Internal Medicine
DX: R51.9 Headache, unspecified (principal); B00.4 Herpesviral encephalitis; G93.89 Other specified disorders of brain; G40.909 Epilepsy, unspecified, not intractable, without status epilepticus; J38.3 Other diseases of vocal cords; G25.2 Other specified forms of tremor; E78.00 Pure hypercholesterolemia, unspecified; I10 Essential (primary) hypertension; J45.30 Mild persistent asthma, uncomplicated; K29.70 Gastritis, unspecified, without bleeding; K59.00 Constipation, unspecified; E55.9 Vitamin D deficiency, unspecified; G47.00 Insomnia, unspecified; F41.9 Anxiety disorder, unspecified; F32.9 Major depressive disorder, single episode, unspecified
CPT/HCPCS: 99214; G2211

== ENCOUNTER 2023-06-16 07:49 | Outpatient (AMB) | payer BC, MEDICARE, SELFPAY ==
--- NOTE | 2023-06-16 07:53 | A.OFFVIS_ITS ---
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 Service Provider Required: No Allergies trazodone [TRAZODONE] Allergy (Mild, Verified 06/16/23 07:54) RASH amlodipine Allergy (Unknown, Verified 06/16/23 07:54) Depression aspirin Allergy (Unknown, Verified 06/16/23 07:54) Unknown diphenhydramine [Benadryl] Allergy (Unknown, Verified 06/16/23 07:54) Unknown duloxetine Allergy (Unknown, Verified 06/16/23 07:54) worsening depression lisinopril Allergy (Unknown, Verified 06/16/23 07:54) Cough morphine Allergy (Unknown, Verified 06/16/23 07:54) Unknown Penicillins Allergy (Unknown, Verified 06/16/23 07:54) Unknown pregabalin Allergy (Unknown, Verified 06/16/23 07:54) sleepwalking, confusion verapamil Adverse Reaction (Unknown, Verified 06/16/23 07:54) rash Medication List - Last Reconciled 06/16/23 by Gabby Jean Baptiste MD albuterol sulfate 90 mcg/actuation 2 puffs PO QID PRN beclomethasone dipropionate 80 mcg/actuation (Qvar RediHaler) 1 inh inhalation BID cetirizine (Zyrtec) 10 mg PO DAILY clobetasol 0.05% grams topical Q3D CPAP (CPAP Machine/Device) As directed dicyclomine 20 mg PO TID PRN 30 days ergocalciferol (vitamin D2) 1,250 mcg PO QWEEK fluticasone propionate 50 mcg/actuation 1 spray intranasal DAILY gabapentin 2 capsules BID (in AM and in the early afternoon) and 5 capsules at bedtime ipratropium bromide 2 sprays intranasal BID lorazepam 0.5 mg PO DAILY PRN losartan 25 mg PO DAILY 30 days ondansetron HCl 4 mg PO Q6H PRN 30 days propranolol 40 mg PO BID propranolol 20 mg PO BID riboflavin (vitamin B2) (Vitamin B-2) 400 mg PO DAILY tizanidine 4 mg PO TID PRN 10 days trazodone 1/2 to 1 tablet orally bedtime PRN; 30 days HPI HPI Comments History of Present Illness Details 62y/o female comes for evaluation of abel rai. 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 Lundberg for fibromyalgia, headaches and myofascial pain. Recently she has nerve block for occipital neuralgia - [facility]. she had a home sleep test 1 year ago and was given CPAP - buts he could not use it. She is here for opinion regrading her tremors. she has h/o spasmodic dysphonia since age 26. she also has vertigo , tinnitus - chronic . She had motion sickness anytime she travelled but since her Herpes - her vertigo has worsened. she used to have mild tremors in her hands L>R even before herpes encephalitis. Since her herpes her tremors have worsened and also reports spasms in her neck. SHe reports head tremors in different positions and feels like head is pulling and has pain. Hand tremors L>R and is both action , postural. when her tremors and anxiety worsens she feels nauseous.she is fully awake during episodes she also wakes up in the middle of the night with tremors. 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 Surgical History H/O tubal ligation No pertinent past surgical history Family History Father CAD (coronary artery disease) Hypertension CVD (cardiovascular disease) Mother Hypertension Maternal Aunt Vaginal cancer Paternal Uncle Throat cancer Social History Household Members: Spouse Housing: House Alcohol intake: never Patient Tobacco Use Status: Never used Tobacco e-Cigarette/Vaping Use: Never Used Second Hand Smoke Exposure: Yes service: No Current occupational status: disabled Cognitive needs: No Hearing needs: No Vision needs: Yes (gasses) Physical Exam Vital Signs: Last Vital Signs Pulse 64 06/16/23 07:56 Resp 16 06/16/23 07:56 BP 148/90 H 06/16/23 07:56 Pulse Ox 97 06/16/23 07:56 Oxygen Delivery Method Room Air 06/16/23 07:56 BMI result Body Mass Index 25.0 Const General: cooperative, healthy appearing and anxious Nutritional Appearance: average body habitus Orientation/consciousness: patient oriented x3 Eyes Pupils: Equal, round and reactive pupils present Neuro Other: voice tremors Mild dysphonia Mild head tremors Tenderness in shay trapezius and scalene muscles with dystonia Mild left hand slowness with intermittent tremors retrognathia, mallampatti grade 4 General: patient oriented x3, gait normal, moves all extremities and no focal motor deficits Cranial nerves: Yes Facial sensation intact/muscles of mastication intact, Yes Equal, round and reactive pupils present, Yes Bilaterally intact EOM present, Yes Nystagmus not present, Yes Normal facial strength present and Yes Midline tongue present Cognition (Neuro): normal cognition Gait exam (Neuro): Normal gait present Motor exam (neuro): Normal motor muscle tone present throughout Deep tendon reflexes (DTR's): Right triceps reflex intensity grade: 2+, Left triceps reflex intensity grade: 2+, Rt Biceps (C5, C6): 2+, Left biceps reflex intensity grade: 2+, Right brachioradialis reflex intensity grade: 2+, Left brachioradialis reflex intensity grade: 2+, Right patellar reflex intensity grade: 2+ and Left patellar reflex intensity grade: 2+ Coordination: [id number] test normal Psych Affect: Anxious affect present Results Reviewed Results Reviewed: EEG 12/22/21- 24 hr EEG Abnormal due to focla slowing in the Right Temporla region MRI Brain 11/2019- 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 smaller areas of abnormal signal in left temporal lobe Assessment & Plan Assessment & Plan (1) Coarse tremors: Comment: postural tremors with intermittent worsening, post viral worsened by poorly controlled mood Code(s): G25.2 - Other specified forms of tremor (2) Spasmodic torticollis: Code(s): G24.3 - Spasmodic torticollis Plan She wants to wait for treatment with botox. C spine X ray Vestibular therapy Psychiatry evaluation for anxiety and depression F/u [facility] Sleep F/u [facility] Neurology Dr. Singleton for chronic headaches and pain. Orders: Orders XR cervical spine 3V Today G24.3 - Spasmodic torticollis PT Evaluation and Treatment Today R42 - Dizziness and giddiness OT Evaluation and Treatment Today G25.2 - Other specified forms of tremor, R29.898 - Other symptoms and signs involving the musculoskeletal system Medications: New propranolol 40 mg PO BID 60 tabs 6RF Coding Level of Care Code New Pt Level 4 (13730) Diagnoses Coarse tremors G25.2 Spasmodic torticollis G24.3
[2023-06-16 07:56] VITALS: BP 148/90; PULSE 64; RESP 16; O2SAT 97; BMI 25.0
== END 2023-06-16 08:55 | disposition home or self-care (01) ==
PROVIDERS: PCP Internal Medicine; Visit Provider Psychiatry & Neurology Neurology
DX: G25.2 Other specified forms of tremor (principal); G24.3 Spasmodic torticollis
CPT/HCPCS: 99204

== ENCOUNTER → 2023-06-16 07:49 | Outpatient (BNVA) | payer BC, MEDICARE, SELFPAY | PROVIDERS: PCP Internal Medicine; Visit Provider Psychiatry & Neurology Neurology | DX: G25.2 Other specified forms of tremor (principal); G24.3 Spasmodic torticollis | CPT/HCPCS: 99202 ==

== ENCOUNTER 2023-06-18 10:22 | Outpatient (REF) | payer BC, MEDICARE, SELFPAY ==
--- NOTE | ~2023-06-18 | XR_ITS ---
EXAMINATION: XR CERVICAL SPINE CLINICAL INFORMATION: Spasmodic torticollis. COMPARISON: None available. TECHNIQUE: Four views of the cervical spine. FINDINGS: Straightening of the normal cervical lordosis. The bones are diffusely demineralized. Multilevel cervical spondylosis with advanced degenerative changes and loss of disc space height at C6-C7. XR/XR cervical spine 3V IMPRESSION: Multilevel cervical spondylosis with advanced degenerative changes at C6-C7.
== END 2023-06-18 10:23 | disposition home or self-care (01) ==
LOC: HO.XRAY 10:22
PROVIDERS: PCP Internal Medicine; Visit Provider Psychiatry & Neurology Neurology
DX: G24.3 Spasmodic torticollis (principal)
CPT/HCPCS: 72040

== ENCOUNTER 2023-07-28 14:00 | Outpatient (RCR) | payer BC, MEDICARE, SELFPAY ==
[2023-06-29 13:55] VITALS: BP 156/81; PULSE 60; O2SAT 97
--- NOTE | 2023-06-29 15:12 | MHC.PT.EP ---
[facility] [place] [facility] [place] [facility] [place] Office [address] Luisa Pierce [address] [phone] F: [phone] F: [phone] F: [phone] F: [phone] Physical Therapy Plan of Care Date of Evaluation: Date of Surgery: Diagnosis: dizziness and giddiness Assessment: 62 y/o female referred to PT with dizziness and giddiness. Pt with complex PMH including chronic migraines, herpes simplex encephalitis in 2019 (4 months in hospital, had a g-tube and 1 year in rehab), spasmodic dysphonia (gets Botox), anxiety, depression, toriticollis and fibromyalgia. She recently had a recent nerve block for occipital neuralgia and migrane, which has helped. Describes dizziness as wooziness, lightheaded, feels off, has nausea and things are not spinning. Dizziness can last 15-30minutes. No falls. Denies diplopia. Has tinnitus for several years and has become worse since HSV encephalitis. Examination shows increased nausea and feeling off with saccades/ smooth pursuits, normal coordination, 19/24 DGI with impairments H/V head turns and pivot turns, mildy impaired balance wiht eyes closed. BPPV not assessed d/t time limitations and will assess next visit. At this time, presents with vestibular hypofunction as well as residual central sx seen with smooth pursuits and saccades. Educated pt on vestibular therapy, safety, and HEP. Frequency and Duration: The patient will be seen 2x/week for 4 weeks Short Term Goals: Pt to be able to functionally move in all planes without provocation of dizziness and return to PLOF Pt to be educated on sx and indications to return to therapy when needed Care Home Goals: Pt will successfully keep center of gravity over her SAVANNA for 20 seconds while reaching overhead to grab a dish from overhead cabinets Pt will look up to rinse hair in shower without LOB or dizziness Pt will bend over to tie shoes without dizziness or difficulty I with balance HEP in order to prevent falls Treatment Plan: Modalities to reduce pain, spasms and effusion. Manual therapy to restore motion and function. Therapeutic exercise to improve strength and flexibility. Neuromuscular re-education for posture and balance. Therapeutic activities to return to functional activities of daily living. Electronically signed by: Rosa Ling PT Please sign and return to therapist. Thank you for your referral.
--- NOTE | 2023-07-28 14:58 | MHC.PT.DC ---
[facility] [place] Office [place] Office [address] Luisa Pierce [address] [phone] F: [phone] F: [phone] F: [phone] F: [phone] Physical Therapy Discharge Report Diagnosis: dizziness and giddiness Date of Surgery: Date of Evaluation: 06/29/23 Date of Discharge: 07/28/23 Treatments to Date: 6 Cancellations to Date: 0 No Shows to Date: 0 Discharge Status: Improved Function Independent with HEP Discharge Summary: Improved balance during transitional activities noted today such as getting up from a chair maintaining conversation and moving head and body quickly with no imbalance. Reviewed HEP and progressed to add yellow theraband with hip strengthening. Overall pt reports feeling better overall with less episodes of dizziness, feels more steady with walking, and is I with HEP. At this time, appropriate for d/c to I HEP. Electronically signed by: Rosa Ling PT Please sign and return to therapist. Thank you for your referral.
== END 2023-07-28 14:58 | disposition home or self-care (01) ==
LOC: HO.PT 14:00
PROVIDERS: PCP Internal Medicine; Visit Provider Psychiatry & Neurology Neurology
DX: R42 Dizziness and giddiness (principal)
CPT/HCPCS: 97110; 97112; 97162

== ENCOUNTER 2023-10-07 07:41 | Outpatient (REF) | payer BC, MEDICARE, SELFPAY ==
[2023-10-07 11:23] LABS: MANUAL DIFF FLAG NO
[2023-10-07 11:30] LABS: Appearance Urine Turbid; Color Urine Yellow; Glucose Urine UA Negative (Negative); Leukocyte Esterase Urine Trace (Negative); Nitrite Urine Negative (Negative); PH 7.5 (5.0-9.0); UMIC TRIGGER UACC YES; Urine Blood Negative (Negative); Urine Ketones Negative (Negative); Urine Protein Negative (Neg-Trace)
[2023-10-07 11:33] LABS: Alanine Aminotransferase 17 U/L (0-31); Albumin Level 4.3 g/dL (3.5-5.0); Alkaline Phosphatase 61 U/L (39-117); Anion Gap 11 (12-20); Aspartate Amino Transferase 16 U/L (5-31); Bilirubin Total 0.7 mg/dL (0.0-1.0); Blood Urea Nitrogen 17 mg/dL (9-16); Calcium 9.5 mg/dL (8.4-10.2); Carbon Dioxide 28 mmol/L (22-29); Chloride 105 mmol/L (96-108); Cholesterol 202 mg/dL (<200); Estimated Glomerular Filt Rate > 60; Glucose Fasting 108 mg/dL (60-99); HDL Cholesterol 56 mg/dL (>40); LDL Cholesterol Calculated 122 mg/dL (<100); Potassium 3.9 mmol/L (3.3-5.1); Sodium 140 mmol/L (135-145); Triglycerides 124 mg/dL (<150)
[2023-10-07 11:37] LABS: Basophils Percent Auto 0.7 % (0-2); Eosinophils Absolute Auto 0.1 X10*3/uL (0.0-0.4); Eosinophils Percent Auto 1.5 % (0-4); Hematocrit 40.8 % (37.0-47.0); Hemoglobin 13.5 g/dl (12.0-16.0); Imm Gran Abs Auto 0.02 X10*3/uL (0.00-0.03); Imm Gran Pct Auto 0.3 % (0.0-0.4); Lymphocytes Absolute Auto 1.6 X10*3/uL (1.2-4.9); Mean Corpuscular HGB Conc 33.1 g/dl (31.0-35.0); Mean Corpuscular Hemoglobin 30.7 pg (27.0-33.0); Mean Corpuscular Volume 92.7 fL (80.0-98.0); Mean Platelet Volume 10.2 fL (9.4-12.3); Monocytes Absolute Auto 0.4 X10*3/uL (0.1-1.2); Neutrophils Percent Auto 65.5 % (45-73); Platelet Count 234 X10*3/uL (160-400); Red Cell Distribution Width 12.2 % (11.0-16.0); White Blood Count 6.1 X10*3/uL (4.8-10.8)
[2023-10-07 11:48] LABS: TSH reflex Free T4 0.87 uIU/mL (0.32-4.0); Vitamin D 25-OH Total 25.3 ng/mL (>30)
[2023-10-07 11:52] LABS: Folate 13.3 ng/mL (> or = 4.0); Vitamin B12 353 pg/mL (200-900)
[2023-10-07 11:58] LABS: Bacteria Urine None Seen (None Seen); Hyaline Casts Urine 0-2 /LPF (0-2); RBC Urine 0-2 /HPF (0-2); Squamous Epithelial Cell Urine 0-2 /HPF (0-2); WBC Urine 0-5 /HPF (0-5)
[2023-10-07 12:08] LABS: Estimated Average Glucose 108 mg/dL; Hemoglobin A1c % 5.4 % (<6.0)
== END 2023-10-07 07:42 | disposition home or self-care (01) ==
LOC: HO.10HDL 07:41
PROVIDERS: Visit Provider Internal Medicine
DX: D64.9 Anemia, unspecified (principal); R73.01 Impaired fasting glucose; E53.8 Deficiency of other specified B group vitamins; E55.9 Vitamin D deficiency, unspecified; E78.00 Pure hypercholesterolemia, unspecified
CPT/HCPCS: 36415; 80053; 80061; 81001; 82306; 82607; 82746; 83036; 84443; 85025

== ENCOUNTER 2023-10-11 15:24 | Outpatient (AMB) | payer BC, MEDICARE, SELFPAY ==
--- NOTE | 2023-10-11 15:31 | MHC.PC.OV ---
Vital Signs 10/11/23 15:33 Height 5 ft 3 in Weight 147 lb 6 oz BMI 26.1 BP 140/70 H Blood Pressure Location Lt brachial Position Sitting Pulse 70 Pulse Source Pulse Oximeter Pulse Oximetry (%) 98 Oxygen Delivery Method Room Air Intake Visit Reasons: 4mth f/u Intake Note: Patient is here to follow up on Tremors, Encephalopathy, IFG, Dyslipidemia, Dysphonia. 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: No Milk Sampler: Present Accompanied by: Spouse Allergies trazodone [TRAZODONE] Allergy (Mild, Verified 10/11/23 16:16) RASH amlodipine Allergy (Unknown, Verified 10/11/23 16:16) Depression aspirin Allergy (Unknown, Verified 10/11/23 16:16) Unknown diphenhydramine [Benadryl] Allergy (Unknown, Verified 10/11/23 16:16) Unknown duloxetine Allergy (Unknown, Verified 10/11/23 16:16) worsening depression lisinopril Allergy (Unknown, Verified 10/11/23 16:16) Cough morphine Allergy (Unknown, Verified 10/11/23 16:16) Unknown Penicillins Allergy (Unknown, Verified 10/11/23 16:16) Unknown pregabalin Allergy (Unknown, Verified 10/11/23 16:16) sleepwalking, confusion verapamil Adverse Reaction (Unknown, Verified 10/11/23 16:16) rash Medication List - Last Reconciled 10/11/23 by Venkata Banegas MD albuterol sulfate 90 mcg/actuation 2 puffs PO QID PRN beclomethasone dipropionate 80 mcg/actuation (Qvar RediHaler) 1 inh inhalation BID cetirizine (Zyrtec) 10 mg PO DAILY clobetasol 0.05% grams topical Q3D CPAP (CPAP Machine/Device) As directed dicyclomine 20 mg PO TID PRN 30 days ergocalciferol (vitamin D2) 1,250 mcg PO QWEEK fluticasone propionate 50 mcg/actuation 1 spray intranasal DAILY gabapentin 2 capsules BID (in AM and in the early afternoon) and 5 capsules at bedtime ipratropium bromide 2 sprays intranasal BID lorazepam 0.5 mg PO BID PRN ondansetron HCl 4 mg PO Q6H PRN 30 days propranolol 40 mg PO BID riboflavin (vitamin B2) (Vitamin B-2) 400 mg PO DAILY tizanidine 4 mg PO TID PRN 10 days trazodone 1/2 to 1 tablet orally bedtime PRN; 30 days Tobacco use date assessed: 10/11/23 Dental Screening Dental Screen Date: 05/24/23 HPI 4mth f/u HPI Details Patient comes in today for her follow up visit States that she continues to struggle with difficulty sleeping at night lately - would like to try going back on Trazodone Admits that she has been experiencing increasing stress and anxiety lately and also appears to be having some issues with certain family members, which is making her feel more stressed out - states that she had to take her Lorazepam more often lately as a result Would like to get a referral to see psychiatry/clinical psychology at [facility] She still has on and off headaches as well as recurrent dizziness/vertigo - has been receiving nerve block from [facility] headache specialist (Dr. Singleton) with some relief Still has chronic hoarseness, which sound slightly worse than before - states that it has been a while since she had Botox injections into her vocal cords but she denies any trouble swallowing lately She denies any chest pains, no SOB No nausea/vomiting, no abdominal pain No change in bowel habits noted Needs a couple of her Rx refilled Had her follow up labs done a few days ago - to discuss her results [facility] Medical History Spasmodic torticollis Left hand weakness Coarse tremors Vertigo Spasmodic torticollis Feeding by G-tube Benign essential hypertension Insomnia Anxiety and depression Strain of left trapezius muscle Left hip pain Left lumbosacral radiculopathy Abdominal pain Constipation Gastritis Dysphagia Epilepsy Depression Asthma Vitamin D deficiency 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 Surgical History H/O tubal ligation No pertinent past surgical history Family History Father CAD (coronary artery disease) Hypertension CVD (cardiovascular disease) Mother Hypertension Maternal Aunt Vaginal cancer Paternal Uncle Throat cancer Social History Household Members: Spouse Housing: House Alcohol intake: never Patient Tobacco Use Status: Never used Tobacco e-Cigarette/Vaping Use: Never Used Second Hand Smoke Exposure: Yes service: No Current occupational status: disabled Cognitive needs: No Hearing needs: No Vision needs: Yes (gasses) Questionnaire PHQ-9 Over the last 2 weeks, how often have you been bothered by any of the following problems? 1. Little interest or pleasure in doing things: more than half the days 2. Feeling down, depressed, or hopeless: more than half the days 3. Trouble falling or staying asleep, or sleeping too much: more than half the days 4. Feeling tired or having little energy: several days 5. Poor appetite or overeating: not at all 6. Feeling bad about yourself - or that you are a failure or have let yourself or your family down: several days 7. Trouble concentrating on things, such as reading the newspaper or watching television: several days 8. Moving or speaking so slowly that other people could have noticed. Or the opposite - being so fidgety or restless that you have been moving around a lot more than usual: several days 9. Thoughts that you would be better off or of hurting yourself in some way: not at all Total score: 10 Depression Screening Interpretation: Positive Depression Screening Follow-up: Existing condition and In treatment Depression Screening Done: Yes 56494 - PHQ-9 Billing: Yes Source: Developed by Drs. Rashawn Deutsch, Becca Rivera, Abdon Dominguez and colleagues, with an educational braydon from [employer]. Thrive Questionnaire Date Thrive assessed: 10/11/23 I am a: Patient What is your living situation today?: I have a steady place to live Within the past 12 months, did the food you bought not last and you didn't have the money to get more?: Never true Within the past 12 months, did you worry whether your food would run out before you got money to buy more?: Never true Do you have trouble paying for medicines?: No Do you have trouble getting transportation to medical appointments?: No Do you have trouble paying your heating and electricity bill?: No Do you have trouble taking care of your child, family member or friend?: No Do you have trouble with day-to-day activities such as bathing, preparing meals, shopping, managing finances, etc.?: No Are you currently unemployed and looking for a job?: No Are you interested in more education?: No Please select the resources that you would like help with: None Currently or been in a relationship where the following occur: No concerns reported THRIVE Score: 0 AUDIT C Alcohol Use Questionnaire (AUDIT-C) 1. How often do you have a drink containing alcohol?: Never 3. How often do you have six or more drinks on one occasion?: Never Total Score: 0 Score Reviewed/Action Taken: Yes KATHERYN-7 AMB Questionnaire KATHERYN-7 Date KATHERYN - 7 assessed: 05/24/23 Source: Developed by Drs. Rashawn Deutsch, Becca Rivera, Abdon Dominguez and colleagues, with an educational braydon from [employer]. Review of Systems Const Denies chills, Reports difficulty sleeping, Reports fatigue, Denies fever(s) and Reports headache(s) (recurrent) Eyes Denies blurry vision ENT Denies dysphagia, Reports vertigo, Reports dizziness (on and off; also has vertigo/motion sickness), Reports headache(s) (recurrent), Reports hoarseness (chronic), Reports neck pain (at times - mostly spasms), Denies odynophagia, Reports tinnitus (chronic) and Denies sore throat Card Denies chest pain, Denies palpitations and Denies dyspnea Resp Denies cough, Denies dyspnea and Denies wheezing GI Denies abdominal pain, Reports constipation (on and off), Denies dysphagia, Denies heartburn, Reports diarrhea (on and off lately - thinks is due to Losartan), Reports nausea (occasionally, often with headaches), Denies odynophagia and Denies vomiting Denies difficulty voiding, Denies nocturia, Denies dysuria and Denies urinary urgency Musc Reports back pain (over the left SI joint), Reports arthralgias (left hip), Reports neck pain (at times - mostly spasms) and Reports radiating pain into limb (into the left thigh and leg) Skin/Breast Denies rash Neuro Reports vertigo, Reports dizziness (on and off; also has vertigo/motion sickness), Reports headache(s) (recurrent), Denies focal weakness, Denies seizure-like activity and Reports tremor(s) Psych Reports anxiety and Reports depression Endo Reports fatigue and Denies palpitations Augustus/Lymph Denies easy bruising Aller/Immun Denies wheezing Physical exam (Primary Care) Vital Signs: Last Vital Signs Pulse 70 10/11/23 15:33 BP 140/70 H 10/11/23 15:33 Pulse Ox 98 10/11/23 15:33 Oxygen Delivery Method Room Air 10/11/23 15:33 BMI result Body Mass Index 26.1 Tobacco/Smoking Status: Tobacco use Status Tobacco use date assessed 10/11/23 10/11/23 15:41 Patient Tobacco Use Status Never used Tobacco 10/11/23 15:41 e-Cigarette/Vaping Use Never Used 10/11/23 15:41 Depression Screening Interpretation: Positive Depression Screening Follow-up: Existing condition and In treatment Thrive Assessment: Date of Thrive Assessment Date Thrive assessed 01/14/23 10/11/23 15:41 Currently or been in a relationship where the following occur: No concerns reported Const General: no acute distress and alert Orientation/consciousness: patient oriented x3 HENMT Ears: TM's normal bilaterally and EAC's normal Throat: Yes posterior oropharynx normal and Yes tonsils normal (no TP congestion) Neck Neck: Yes no lymphadenopathy and Yes tender Thyroid: Thyroid normal Resp Auscultation: clear to auscultation bilaterally, no rales and no wheezes Cardio Rate: regular rate Rhythm: regular rhythm Heart sounds: no murmurs GI Palpation (GI): Soft to palpation and nontender Auscultation: normal bowel sounds General: Yes no CVA tenderness Back/Spine/Pelvis Back: no CVA tenderness Cervical Spine: cervical muscular tenderness, cervical spasm and No Cervical spine tenderness Thoracic/Lumbar Spine: No lumbar spinal tenderness Sacroiliac joints: on the left tender to palpation Skin Rashes: no rashes Neuro General: patient oriented x3 Motor exam (neuro): Tremors during motor activity present (mild, over both hands; (+) head tremors noted as well) Extrem General: Yes no clubbing, cyanosis or edema Left lower extremity: hip/thigh Details: tenderness Location: of the hip Results Reviewed Results Reviewed: Laboratory Tests 09/09/22 10/07/23 09:39 07:48 WBC 6.1 Hgb 13.5 Hct 40.8 Plt Count 234 Sodium 140 Potassium 3.9 Creatinine 0.75 Estimated GFR > 60 Fasting Glucose 108 H Hemoglobin A1c % 5.4 Calcium 9.5 Iron 103 TIBC 295 % Saturation 35 AST 16 ALT 17 Triglycerides 124 Cholesterol 202 H LDL Cholesterol, Calc 122 H HDL Cholesterol 56 Vitamin B12 353 25-OH Vitamin D Total 25.3 L TSH 0.87 Urine pH 7.5 Ur Specific Norris 1.020 Urine Protein Negative Urine Glucose (UA) Negative Urine Blood Negative Urine Nitrite Negative Ur Leukocyte Esterase Trace H Assessment and Plan Assessment & Plan (1) Headache: Code(s): R51.9 - Headache, unspecified Qualifiers: Headache chronicity pattern: unspecified pattern Headache type: unspecified Intractability: not intractable Qualified Code(s): R51.9 - Headache, unspecified Plan: These are most likely multifactorial headaches Continue Riboflavin 400 mg QD - dose increased by neurology a few months ago She is also on Gabapentin and Magnesium tablets although patient does not feel that the Magnesium tablets are helping Per request, we started her on a trial of Nortriptyline 10 mg Q HS late last year but she could not tolerate the Rx We have previously instructed patient to HOLD her Trazodone while she is on Nortriptyline - will start her back on Trazodone at this time She is also now receiving occipital nerve blocks from a headaches specialist at [facility] (Dr. 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; still has minimal residual dysphasia, dysphagia and impaired memory recall Repeat MRI of the brain done in early 2019 showed no acute pathology or abnormal enhancement, (+) cystic encephalomalacia in the right anterior temporal lobe associated with volume loss and surrounding gliosis and smaller areas of abnormal signal in the left temporal lobe - findings are consistent with sequela of prior HSV encephalitis Repeat EEG done showed remained abnormal with slowing of right temporal cortical region, no epileptiform activities were seen Has been slowly tapered off her Keppra and patient is advised to call if seizures recur or occur Code(s): B00.4 - Herpesviral encephalitis Plan: S/P Tx Symptoms have been stable with no regression so far Follow-up with Neurology as scheduled (3) Cystic encephalomalacia: Code(s): G93.89 - Other specified disorders of brain Plan: Findings of cystic encephalomalacia seen on her most recent MRI, consistent with her previous HSV encephalitis diagnosis Patient still has some minimal/residual problems with memory recall and residual dysphasia/aphasia but these have stabilized over time (4) Epilepsy: Code(s): G40.909 - Epilepsy, unspecified, not intractable, without status epilepticus Qualifiers: Epilepsy type: unspecified Intractability: not intractable Status epilepticus: without status epilepticus Qualified Code(s): G40.909 - Epilepsy, unspecified, not intractable, without status epilepticus Plan: Patient has not had any seizures in a while now and has been slowly tapered off her Keppra by Neurology months ago Follow-up with Neurology as scheduled (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 Plan: Patient continues to receive Botox injections (from [facility]) as needed Treatments were interrupted for about a year when she contracted HSV encephalitis and by the COVID-19 pandemic but she has since resumed her Botox injection treatments although she states that it has been a while now (about 9 months) since she went back for Botox injections Her hoarseness appears worse during her visit today but she denies any difficulty swallowing - plans to contact [facility] [place] to get Botox injections again soon when things calm down for her (6) Coarse tremors: Comment: postural tremors with intermittent worsening, post viral worsened by poorly controlled mood Code(s): G25.2 - Other specified forms of tremor Plan: Continue Propranolol 40 mg BID Follow up with neurology as scheduled (7) Pure hypercholesterolemia: Code(s): E78.00 - Pure hypercholesterolemia, unspecified Plan: Results of her labs done a few days ago reviewed and discussed with patient - is advised that her cholesterol levels are mostly unchanged from previous Reinforced low cholesterol diet; patient would like to continue working on improving her diet and did not want to take cholesterol-lowering medications as much as possible Will recheck her labs and fasting lipids in 4 months for follow up (8) Benign essential hypertension: Code(s): I10 - Essential (primary) hypertension Plan: Reinforced low sodium diet - goal is systolic BP of at least 130 mm or less Per our instructions, she stopped taking her Losartan 25 mg QD after her last visit as she was suspecting that her on and off diarrhea was a side effect of the Rx Feels that her diarrhea has improved a lot since then and she is currently not on any Rx for her blood pressure although she is on Propranolol 40 mg BID that was started by neurology a few months ago for her tremors She is reminded to continue monitoring her blood pressure regularly (9) Asthma: Code(s): J45.909 - Unspecified asthma, uncomplicated Qualifiers: Asthma complication type: uncomplicated Asthma persistence: persistent Asthma severity: mild Qualified Code(s): J45.30 - Mild persistent asthma, uncomplicated Plan: Stable Continue Qvar 80 mcg 1 puff twice a day and Albuterol HFA 2 puffs 4 times a day as needed (10) Spasmodic torticollis: Code(s): G24.3 - Spasmodic torticollis Plan: She has been referred by neurology to physical therapy to help with her recurrent neck spasms (11) Gastritis: Code(s): K29.70 - Gastritis, unspecified, without bleeding Qualifiers: Chronicity: unspecified Gastritis bleeding: without bleeding Gastritis type: unspecified gastritis Qualified Code(s): K29.70 - Gastritis, unspecified, without bleeding Plan: Dietary restrictions reinforced Continue Omeprazole 40 mg QD and Famotidine 20 mg 1 to 2 tablets a day at bedtime as needed Follow up with GI as scheduled (12) Constipation: Code(s): K59.00 - Constipation, unspecified Qualifiers: Constipation type: unspecified constipation type Qualified Code(s): K59.00 - Constipation, unspecified Plan: She likely has IBS with constipation Symptoms have Improved and has been controlled lately; she is encouraged again to continue increased oral fluids and dietary fiber Abdominal x-rays done a few months ago showed (+) moderate stool burden; x-rays were otherwise normal Continue OTC stool softeners as needed Continue Dicyclomine 20 mg TID PRN (13) Vitamin D deficiency: Code(s): E55.9 - Vitamin D deficiency, unspecified Plan: Corrected - continue Vitamin D2 78900 units once a week Will recheck her Vitamin D level in 4 months for follow-up (14) Insomnia: Code(s): G47.00 - Insomnia, unspecified Qualifiers: Insomnia type: unspecified Qualified Code(s): G47.00 - Insomnia, unspecified Plan: Sleep hygiene reinforced Will resume her Trazodone 50 mg Q HS PRN at this time (15) Anxiety and depression: Code(s): F41.9 - Anxiety disorder, unspecified; F32.9 - Major depressive disorder, single episode, unspecified Plan: She was on Hydroxyzine 10 mg BID PRN in the past but reports that Hydroxyzine made her feel nauseous She also took herself off Sertraline in the past as she felt that Sertraline was causing her to become forgetful Was most recently on Mirtazapine 7.5 mg Q AM and 15 mg Q HS but she also stopped taking Rx as she wants to avoid taking antidepressants as much as possible Have advised her previously that her anxiety may actually be the main reason for her trouble sleeping as well as a few of her symptoms She is currently on Lorazepam 0.5 mg BID PRN and per her request, is being referred to [facility] for counseling and therapy Plan Follow up in 4 months Orders: Orders Complete Blood Count Auto Diff 4 Months D64.9 - Anemia, unspecified TSH reflex Free T4 4 Months E78.00 - Pure hypercholesterolemia, unspecified Lipid Panel 4 Months E78.00 - Pure hypercholesterolemia, unspecified Comprehensive [place]. Panel Fast 4 Months E78.00 - Pure hypercholesterolemia, unspecified UA CC w/rflx Micro + Cult 4 Months R30.0 - Dysuria Vitamin D 25-OH Total 4 Months E55.9 - Vitamin D deficiency, unspecified Referrals Psychiatry Referral F32.9 - Major depressive disorder, single episode, unspecified, F41.9 - Anxiety disorder, unspecified Medications: Refilled dicyclomine 20 mg PO TID 30 days PRN 90 tabs 2RF bowel / abdominal spasms lorazepam 0.5 mg PO BID PRN 60 tabs 0RF anxiety Resumed trazodone 1/2 to 1 tablet orally bedtime PRN; 30 days 30 tabs 3RF sleep Coding Level of Care Code Est Pt Level 4 (25235) Complex EM visit Add On G2211 Diagnoses Nonintractable headache, unspecified chronicity pattern, unspecified headache type R51.9 Headache chronicity pattern: unspecified pattern Headache type: unspecified Intractability: not intractable Herpes simplex encephalitis B00.4 Cystic encephalomalacia G93.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, unspecified epilepsy type G40.909 Epilepsy type: unspecified Intractability: not intractable Status epilepticus: without status epilepticus 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 Coarse tremors G25.2 Pure hypercholesterolemia E78.00 Benign essential hypertension I10 Mild persistent asthma without complication J45.30 Asthma complication type: uncomplicated Asthma persistence: persistent Asthma severity: mild Spasmodic torticollis G24.3 Gastritis without bleeding, unspecified chronicity, unspecified gastritis type K29.70 Chronicity: unspecified Gastritis bleeding: without bleeding Gastritis type: unspecified gastritis Constipation, unspecified constipation type K59.00 Constipation type: unspecified constipation type Vitamin D deficiency E55.9 Insomnia, unspecified type G47.00 Insomnia type: unspecified Anxiety and depression F41.9; F32.9
[2023-10-11 15:33] VITALS: BP 140/70; PULSE 70; O2SAT 98; BMI 26.1
== END 2023-10-11 16:37 | disposition home or self-care (01) ==
PROVIDERS: PCP Internal Medicine; Visit Provider Internal Medicine
DX: R51.9 Headache, unspecified (principal); B00.4 Herpesviral encephalitis; G93.89 Other specified disorders of brain; G40.909 Epilepsy, unspecified, not intractable, without status epilepticus; J38.3 Other diseases of vocal cords; G25.2 Other specified forms of tremor; E78.00 Pure hypercholesterolemia, unspecified; I10 Essential (primary) hypertension; J45.30 Mild persistent asthma, uncomplicated; G24.3 Spasmodic torticollis; K29.70 Gastritis, unspecified, without bleeding; K59.00 Constipation, unspecified; E55.9 Vitamin D deficiency, unspecified; G47.00 Insomnia, unspecified; F41.9 Anxiety disorder, unspecified
CPT/HCPCS: 99214

== ENCOUNTER 2023-10-14 07:25 | Outpatient (AMB) | payer BC, MEDICARE, SELFPAY ==
[2023-10-14 07:30] VITALS: BMI 26.0
--- NOTE | 2023-10-14 07:30 | A.OFFVIS_ITS ---
Vital Signs 10/14/23 07:30 Height 5 ft 3 in Weight 147 lb BMI 26.0 Intake Visit Reasons: Follow up - Confirmed Intake Note: Patient presents for follow up. patient states tremors are worst especially her upper body and neck. Allergies trazodone [TRAZODONE] Allergy (Mild, Verified 10/14/23 07:33) RASH amlodipine Allergy (Unknown, Verified 10/14/23 07:33) Depression aspirin Allergy (Unknown, Verified 10/14/23 07:33) Unknown diphenhydramine [Benadryl] Allergy (Unknown, Verified 10/14/23 07:33) Unknown duloxetine Allergy (Unknown, Verified 10/14/23 07:33) worsening depression lisinopril Allergy (Unknown, Verified 10/14/23 07:33) Cough morphine Allergy (Unknown, Verified 10/14/23 07:33) Unknown Penicillins Allergy (Unknown, Verified 10/14/23 07:33) Unknown pregabalin Allergy (Unknown, Verified 10/14/23 07:33) sleepwalking, confusion verapamil Adverse Reaction (Unknown, Verified 10/14/23 07:33) rash HPI Comments Details: 63y/o female comes for follow up of cervical dystonia and head tremors. C spine X ray shows multilevel deg changes severe at C 6-7. Vestibular therapy helped her vertigo. she still has anxiety but was unable to see a psychiatrist. 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 Lundberg for fibromyalgia, headaches and myofascial pain. Recently she has nerve block for occipital neuralgia - [facility]. she had a home sleep test 1 year ago and was given CPAP - buts he could not use it. 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 Surgical History H/O tubal ligation No pertinent past surgical history Family History Father CAD (coronary artery disease) Hypertension CVD (cardiovascular disease) Mother Hypertension Maternal Aunt Vaginal cancer Paternal Uncle Throat cancer Social History Household Members: Spouse Housing: House Alcohol intake: never Patient Tobacco Use Status: Never used Tobacco e-Cigarette/Vaping Use: Never Used Second Hand Smoke Exposure: Yes service: No Current occupational status: disabled Cognitive needs: No Hearing needs: No Vision needs: Yes (gasses) Physical Exam Vital Signs: BMI result Body Mass Index 26.0 Const General: cooperative, healthy appearing and anxious Nutritional Appearance: average body habitus Orientation/consciousness: patient oriented x3 Eyes Pupils: Equal, round and reactive pupils present Neuro Other: voice tremors Mild dysphonia Mild head tremors Tenderness in shay trapezius and scalene muscles with dystonia Mild left hand slowness with intermittent tremors retrognathia, mallampatti grade 4 General: patient oriented x3, gait normal, moves all extremities and no focal motor deficits Cranial nerves: Yes Facial sensation intact/muscles of mastication intact, Yes Equal, round and reactive pupils present, Yes Bilaterally intact EOM present, Yes Nystagmus not present, Yes Normal facial strength present and Yes Midline tongue present Cognition (Neuro): normal cognition Gait exam (Neuro): Normal gait present Motor exam (neuro): Normal motor muscle tone present throughout Deep tendon reflexes (DTR's): Right triceps reflex intensity grade: 2+, Left triceps reflex intensity grade: 2+, Rt Biceps (C5, C6): 2+, Left biceps reflex intensity grade: 2+, Right brachioradialis reflex intensity grade: 2+, Left brachioradialis reflex intensity grade: 2+, Right patellar reflex intensity grade: 2+ and Left patellar reflex intensity grade: 2+ Coordination: [id number] test normal Psych Affect: Anxious affect present Assessment & Plan Assessment & Plan (1) Coarse tremors: Comment: postural tremors with intermittent worsening, post viral worsened by poorly controlled mood Code(s): G25.2 - Other specified forms of tremor Category: Medical (2) Spasmodic torticollis: Code(s): G24.3 - Spasmodic torticollis Category: Medical Plan She will call after discussing with her spouse about Botox. Psychiatry evaluation for anxiety and depression F/u [facility] F/u [facility] Dr. Singleton for chronic headaches and pain. Coding Level of Care Code Est Pt Level 4 (42547) Diagnoses Coarse tremors G25.2 Spasmodic torticollis G24.3
== END 2023-10-14 08:05 | disposition home or self-care (01) ==
PROVIDERS: PCP Internal Medicine; Visit Provider Psychiatry & Neurology Neurology
DX: G25.2 Other specified forms of tremor (principal); G24.3 Spasmodic torticollis
CPT/HCPCS: 99214

== ENCOUNTER → 2023-10-14 07:25 | Outpatient (BNVA) | payer BC, MEDICARE, SELFPAY | PROVIDERS: PCP Internal Medicine; Visit Provider Psychiatry & Neurology Neurology ==

== ENCOUNTER 2023-12-23 13:45 | Outpatient (AMB) | payer BC, MEDICARE, SELFPAY ==
[2023-12-23 13:46] VITALS: BP 122/78; PULSE 72; O2SAT 98; BMI 26.2
--- NOTE | 2023-12-23 13:46 | MHC.PC.OV ---
Vital Signs 12/23/23 13:46 Height 5 ft 3 in Weight 148 lb BMI 26.2 BP 122/78 Blood Pressure Location Lt brachial Position Sitting Pulse 72 Pulse Source Pulse Oximeter Pulse Oximetry (%) 98 Oxygen Delivery Method Room Air Intake Visit Reasons: discuss medications Manager Custom Required: No Accompanied by: Self / Same As Patient Allergies trazodone [TRAZODONE] Allergy (Mild, Verified 12/23/23 14:49) RASH amlodipine Allergy (Unknown, Verified 12/23/23 14:49) Depression aspirin Allergy (Unknown, Verified 12/23/23 14:49) Unknown diphenhydramine [Benadryl] Allergy (Unknown, Verified 12/23/23 14:49) Unknown duloxetine Allergy (Unknown, Verified 12/23/23 14:49) worsening depression lisinopril Allergy (Unknown, Verified 12/23/23 14:49) Cough morphine Allergy (Unknown, Verified 12/23/23 14:49) Unknown Penicillins Allergy (Unknown, Verified 12/23/23 14:49) Unknown pregabalin Allergy (Unknown, Verified 12/23/23 14:49) sleepwalking, confusion verapamil Adverse Reaction (Unknown, Verified 12/23/23 14:49) rash Medication List - Last Reconciled 12/23/23 by Venkata Banegas MD albuterol sulfate 90 mcg/actuation 2 puffs PO QID PRN beclomethasone dipropionate 80 mcg/actuation (Qvar RediHaler) 1 inh inhalation BID cetirizine (Zyrtec) 10 mg PO DAILY clobetasol 0.05% grams topical Q3D CPAP (CPAP Machine/Device) As directed dicyclomine 20 mg PO TID PRN 30 days ergocalciferol (vitamin D2) 1,250 mcg PO QWEEK fluticasone propionate 50 mcg/actuation 1 spray intranasal DAILY gabapentin 2 capsules BID (in AM and in the early afternoon) and 5 capsules at bedtime ipratropium bromide 2 sprays intranasal BID lorazepam 0.5 mg PO BID PRN ondansetron HCl 4 mg PO Q6H PRN 30 days propranolol 40 mg PO BID riboflavin (vitamin B2) (Vitamin B-2) 400 mg PO DAILY tizanidine 4 mg PO TID PRN 10 days trazodone 1/2 to 1 tablet orally bedtime PRN; 30 days Tobacco use date assessed: 12/23/23 Dental Screening Dental Screen Date: 12/23/23 Did you have a dental visit in the last 12 months?: Yes Did you have a dental problem in the last 6 months where you did not have access to dental care?: No Was dental information given to patient?: Patient has dentist HPI discuss medications HPI Details Patient comes in today to discuss her recent psychiatry recommendations She was seen by a Dr. Springer with [facility] over the past couple of months for her anxiety and depression and she had some recommendations/medications proposed that she was advised to speak to her PCP about Dr. Springer has advised patient that majority of her symptoms are consistent with major depressive disorder stemming from difficulties adjusting to significant changes in her work and personal life after her bout with encephalitis a few years ago She has advised patient that her anxiety, chronic pain and cognitive deficits due to her encephalitis are also contributing to her overall mood symptoms and further neuropsychological testing may be helpful in further clarification of her issues and symptoms Patient comes in today for further discussion on these and to request that she be started on the proposed meds if possible She states that she is finally coming to terms with her issues and would like to try getting these controlled better so she can start feeling better States that she is still getting botox injections for her occipital headaches at [facility] but she has not been back to [place] to get vocal cord injections in over a year now States that her voice is still hoarse but she does not think that it is any worse even though she has not had botox injections into her vocal cords in a while now She denies any dysphagia She still has on and off headaches but the occipital nerve blocks that she has been receiving have been helping; she still has on and off dizziness Denies any chest pains, no increased SOB No nausea/vomiting, no abdominal pain No change in bowel habits noted She also needs her Propranolol and Lorazepam Rx refilled today [facility] Medical History Spasmodic torticollis Left hand weakness Coarse tremors Vertigo Spasmodic torticollis Feeding by G-tube Benign essential hypertension Insomnia Anxiety and depression Strain of left trapezius muscle Left hip pain Left lumbosacral radiculopathy Abdominal pain Constipation Gastritis Dysphagia Epilepsy Depression Asthma Vitamin D deficiency 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 Surgical History H/O tubal ligation No pertinent past surgical history Family History Father CAD (coronary artery disease) Hypertension CVD (cardiovascular disease) Mother Hypertension Maternal Aunt Vaginal cancer Paternal Uncle Throat cancer Social History Household Members: Spouse Housing: House Alcohol intake: never Patient Tobacco Use Status: Never used Tobacco e-Cigarette/Vaping Use: Never Used Second Hand Smoke Exposure: Yes service: No Current occupational status: disabled Cognitive needs: No Hearing needs: No Vision needs: Yes (gasses) Questionnaire PHQ-9 Over the last 2 weeks, how often have you been bothered by any of the following problems? 1. Little interest or pleasure in doing things: more than half the days 2. Feeling down, depressed, or hopeless: more than half the days 3. Trouble falling or staying asleep, or sleeping too much: more than half the days 4. Feeling tired or having little energy: several days 5. Poor appetite or overeating: not at all 6. Feeling bad about yourself - or that you are a failure or have let yourself or your family down: several days 7. Trouble concentrating on things, such as reading the newspaper or watching television: several days 8. Moving or speaking so slowly that other people could have noticed. Or the opposite - being so fidgety or restless that you have been moving around a lot more than usual: several days 9. Thoughts that you would be better off or of hurting yourself in some way: not at all Total score: 10 Depression Screening Interpretation: Positive Depression Screening Follow-up: Existing condition and In treatment Depression Screening Done: Yes 90107 - PHQ-9 Billing: Yes Source: Developed by Drs. Rashawn Deutsch, Becca Rivera, Abdon Dominguez and colleagues, with an educational braydon from [employer]. Thrive Questionnaire Date Thrive assessed: 12/23/23 I am a: Patient What is your living situation today?: I have a steady place to live Within the past 12 months, did the food you bought not last and you didn't have the money to get more?: Never true Within the past 12 months, did you worry whether your food would run out before you got money to buy more?: Never true Do you have trouble paying for medicines?: No Do you have trouble getting transportation to medical appointments?: No Do you have trouble paying your heating and electricity bill?: No Do you have trouble taking care of your child, family member or friend?: No Do you have trouble with day-to-day activities such as bathing, preparing meals, shopping, managing finances, etc.?: No Are you currently unemployed and looking for a job?: No Are you interested in more education?: No Please select the resources that you would like help with: None Currently or been in a relationship where the following occur: No concerns reported THRIVE Score: 0 AUDIT C Alcohol Use Questionnaire (AUDIT-C) 1. How often do you have a drink containing alcohol?: Never 3. How often do you have six or more drinks on one occasion?: Never Total Score: 0 Score Reviewed/Action Taken: Yes KATHERYN-7 AMB Questionnaire KATHERYN-7 Date KATHERYN - 7 assessed: 12/23/23 Feeling nervous, anxious, or on edge: 0 = Not at all Not being able to stop or control worryin = Not at all Worrying too much about different things: 0 = Not at all Trouble relaxin = Not at all Being so restless that it is hard to sit still: 0 = Not at all Becoming easily annoyed or irritable: 0 = Not at all Feeling afraid as if something awful might happen: 0 = Not at all Total KATHERYN-7 score (0-4 normal; 5-9 mild; 10-14 moderate; 15-21 severe): 0 Source: Developed by Drs. Rashawn Deutsch, Becca Rivera, Abdon Dominguez and colleagues, with an educational braydon from [employer]. Review of Systems Const Denies chills, Reports difficulty sleeping, Reports fatigue, Denies fever(s) and Reports headache(s) (on and off) ENT Denies dysphagia, Reports dizziness (on and off), Reports headache(s) (on and off), Reports hoarseness (chronic), Reports neck pain (recurrent), Denies odynophagia, Reports tinnitus (chronic) and Denies sore throat Card Denies chest pain, Denies palpitations and Denies dyspnea Resp Denies cough, Denies dyspnea and Denies wheezing GI Denies abdominal pain, Reports constipation (on and off), Denies dysphagia, Denies heartburn, Denies diarrhea, Denies nausea, Denies odynophagia and Denies vomiting Denies difficulty voiding, Denies nocturia, Denies dysuria and Denies urinary urgency Musc Reports back pain (over the left SI joint), Reports arthralgias (left hip), Reports neck pain (recurrent) and Reports radiating pain into limb (into the left thigh and leg) Skin/Breast Denies rash Neuro Reports dizziness (on and off), Reports headache(s) (on and off), Denies focal weakness, Denies seizure-like activity and Reports tremor(s) Psych Reports anxiety and Reports depression Endo Reports fatigue and Denies palpitations Augustus/Lymph Denies easy bruising Aller/Immun Denies wheezing Physical exam (Primary Care) Vital Signs: Last Vital Signs Pulse 72 12/23/23 13:46 BP 122/78 12/23/23 13:46 Pulse Ox 98 12/23/23 13:46 Oxygen Delivery Method Room Air 12/23/23 13:46 BMI result Body Mass Index 26.2 Tobacco/Smoking Status: Tobacco use Status Tobacco use date assessed 12/23/23 12/23/23 13:51 Patient Tobacco Use Status Never used Tobacco 12/23/23 13:51 e-Cigarette/Vaping Use Never Used 12/23/23 13:51 PHQ-9: PHQ-9 Score PHQ-9: Total score 10 12/23/23 14:51 Depression Screening Interpretation: Positive Depression Screening Follow-up: Existing condition and In treatment Thrive Assessment: Date of Thrive Assessment Date Thrive assessed 12/23/23 12/23/23 13:51 Currently or been in a relationship where the following occur: No concerns reported Const General: no acute distress and alert HENMT Ears: TM's normal bilaterally and EAC's normal Throat: Yes posterior oropharynx normal and Yes tonsils normal (no TP congestion) Neck Neck: Yes no lymphadenopathy and Yes tender Thyroid: Thyroid normal Resp Auscultation: clear to auscultation bilaterally, no rales and no wheezes Cardio Rate: regular rate Rhythm: regular rhythm Heart sounds: no murmurs GI Palpation (GI): Soft to palpation and nontender Auscultation: normal bowel sounds General: Yes no CVA tenderness Back/Spine/Pelvis Back: no CVA tenderness Cervical Spine: cervical muscular tenderness, cervical spasm and No Cervical spine tenderness Thoracic/Lumbar Spine: No lumbar spinal tenderness Sacroiliac joints: on the left tender to palpation Skin Rashes: no rashes Neuro Motor exam (neuro): Tremors during motor activity present (mild, over both hands; (+) head tremors noted as well) Extrem General: Yes no clubbing, cyanosis or edema Left lower extremity: hip/thigh Details: tenderness Location: of the hip Assessment and Plan Assessment & Plan (1) Headache: Code(s): R51.9 - Headache, unspecified Qualifiers: Headache type: unspecified Headache chronicity pattern: unspecified pattern Intractability: not intractable Qualified Code(s): R51.9 - Headache, unspecified Plan: These are most likely multifactorial headaches Continue Riboflavin 400 mg QD She has also been receiving occipital nerve blocks from a headaches specialist at [facility] (Dr. Singleton) for a couple of months now and feels that these are helping somewhat - she is scheduled for her next injection next week Follow up with neurology as scheduled (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; still has minimal residual dysphasia, dysphagia and impaired memory recall Repeat MRI of the brain done in early 2019 showed no acute pathology or abnormal enhancement, (+) cystic encephalomalacia in the right anterior temporal lobe associated with volume loss and surrounding gliosis and smaller areas of abnormal signal in the left temporal lobe - findings are consistent with sequela of prior HSV encephalitis Repeat EEG done showed remained abnormal with slowing of right temporal cortical region, no epileptiform activities were seen Has been slowly tapered off her Keppra and patient is advised to call if seizures recur or occur Code(s): B00.4 - Herpesviral encephalitis Plan: S/P Tx Symptoms have been stable with no regression so far Follow-up with Neurology as scheduled (3) Cystic encephalomalacia: Code(s): G93.89 - Other specified disorders of brain Plan: Findings of cystic encephalomalacia seen on her most recent MRI, consistent with her previous HSV encephalitis diagnosis Patient still has some minimal/residual problems with memory recall and residual dysphasia/aphasia but these have stabilized over time (4) Epilepsy: Code(s): G40.909 - Epilepsy, unspecified, not intractable, without status epilepticus Qualifiers: Epilepsy type: unspecified Intractability: not intractable Status epilepticus: without status epilepticus Qualified Code(s): G40.909 - Epilepsy, unspecified, not intractable, without status epilepticus Plan: Patient has not had any seizures in a while now and has been slowly tapered off her Keppra by Neurology months ago Follow-up with Neurology as scheduled (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 Plan: Patient was receiving Botox injections (from [facility]) as needed in the past but states that she has not been getting this for over a year now States that her hoarseness has not felt any worse since she last had her injection over a year ago and she denies any difficulty swallowing She is currently still debating whether she wants to continue with the injections or not (6) Coarse tremors: Comment: postural tremors with intermittent worsening, post viral worsened by poorly controlled mood Code(s): G25.2 - Other specified forms of tremor Plan: Continue Propranolol 40 mg BID (Rx refilled) Follow up with neurology as scheduled (7) Spasmodic torticollis: Code(s): G24.3 - Spasmodic torticollis Plan: She has been referred by neurology to physical therapy to help with her recurrent neck spasms States that the botox injections she has been receiving are also helping with her symptoms (8) Insomnia: Code(s): G47.00 - Insomnia, unspecified Qualifiers: Insomnia type: unspecified Qualified Code(s): G47.00 - Insomnia, unspecified Plan: Sleep hygiene reinforced Continue Trazodone 50 mg Q HS PRN (9) Anxiety and depression: Code(s): F41.9 - Anxiety disorder, unspecified; F32.9 - Major depressive disorder, single episode, unspecified Plan: She was on Hydroxyzine 10 mg BID PRN in the past but reports that Hydroxyzine made her feel nauseous She also took herself off Sertraline in the past as she felt that Sertraline was causing her to become forgetful Was most recently on Mirtazapine 7.5 mg Q AM and 15 mg Q HS but she also stopped taking Rx as she wants to avoid taking antidepressants as much as possible Have advised her previously that her anxiety may actually be the main reason for her trouble sleeping as well as a few of her symptoms Per her request, she was referred to [facility] for counseling and therapy at her last visit and she was seen by Dr. Springer about a month ago and was advised of her depression Dx (see today's HPI for details) and her current recommendations is for her to start taking some Rx Will go ahead and start her on Escitalopram 5 mg QD She is advised that she can continue on Lorazepam 0.5 mg BID PRN but if her mood disorder is better controlled on a maintenance medication, then she may find that she does not need to take her Lorazepam as much Will also refer her to the [facility] for neuropsychiatry evaluation and management Plan Follow up as scheduled in January 2024 Orders: Referrals Neuropsychiatry Referral F32.9 - Major depressive disorder, single episode, unspecified, F41.9 - Anxiety disorder, unspecified Medications: New escitalopram oxalate 5 mg PO DAILY 30 days 30 tabs 2RF Changed From gabapentin 2 capsules BID (in AM and in the early afternoon) and 5 capsules at bedtime To gabapentin 2 capsules in AM, 2 capsules in PM (early afternoon) and 3 capsules at bedtime Refilled lorazepam 0.5 mg PO BID PRN 60 tabs 0RF anxiety propranolol 40 mg PO BID 60 tabs 6RF Coding Level of Care Code Est Pt Level 4 (12729) Diagnoses Nonintractable headache, unspecified chronicity pattern, unspecified headache type R51.9 Headache type: unspecified Headache chronicity pattern: unspecified pattern Intractability: not intractable Herpes simplex encephalitis B00.4 Cystic encephalomalacia G93.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, unspecified epilepsy type G40.909 Epilepsy type: unspecified Intractability: not intractable Status epilepticus: without status epilepticus 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 Coarse tremors G25.2 Spasmodic torticollis G24.3 Insomnia, unspecified type G47.00 Insomnia type: unspecified Anxiety and depression F41.9; F32.9
== END 2023-12-23 15:06 | disposition home or self-care (01) ==
PROVIDERS: PCP Internal Medicine; Visit Provider Internal Medicine
DX: R51.9 Headache, unspecified (principal); B00.4 Herpesviral encephalitis; G93.89 Other specified disorders of brain; G40.909 Epilepsy, unspecified, not intractable, without status epilepticus; J38.3 Other diseases of vocal cords; G25.2 Other specified forms of tremor; G24.3 Spasmodic torticollis; G47.00 Insomnia, unspecified; F41.9 Anxiety disorder, unspecified; F32.9 Major depressive disorder, single episode, unspecified

== ENCOUNTER → 2023-12-23 13:45 | Outpatient (BNVA) | payer BC, MEDICARE, SELFPAY | PROVIDERS: PCP Internal Medicine; Visit Provider Internal Medicine | DX: R51.9 Headache, unspecified (principal); B00.4 Herpesviral encephalitis; G93.89 Other specified disorders of brain; G40.909 Epilepsy, unspecified, not intractable, without status epilepticus; J38.3 Other diseases of vocal cords; G25.2 Other specified forms of tremor; G24.3 Spasmodic torticollis; G47.00 Insomnia, unspecified; F41.9 Anxiety disorder, unspecified; F32.9 Major depressive disorder, single episode, unspecified; Z79.899 Other long term (current) drug therapy | CPT/HCPCS: 96127 ==

== ENCOUNTER 2023-12-27 07:50 | Outpatient (AMB) | payer BC, MEDICARE, SELFPAY ==
[2023-12-27 07:52] VITALS: BP 132/80; PULSE 58; RESP 16; O2SAT 97; BMI 26.2
--- NOTE | 2023-12-27 07:52 | MHC.OFFVIS ---
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: No Allergies trazodone [TRAZODONE] Allergy (Mild, Verified 12/27/23 07:52) RASH amlodipine Allergy (Unknown, Verified 12/27/23 07:52) Depression aspirin Allergy (Unknown, Verified 12/27/23 07:52) Unknown diphenhydramine [Benadryl] Allergy (Unknown, Verified 12/27/23 07:52) Unknown duloxetine Allergy (Unknown, Verified 12/27/23 07:52) worsening depression lisinopril Allergy (Unknown, Verified 12/27/23 07:52) Cough morphine Allergy (Unknown, Verified 12/27/23 07:52) Unknown Penicillins Allergy (Unknown, Verified 12/27/23 07:52) Unknown pregabalin Allergy (Unknown, Verified 12/27/23 07:52) sleepwalking, confusion verapamil Adverse Reaction (Unknown, Verified 12/27/23 07:52) rash Medication List - Last Reconciled 12/27/23 by Gabby Jean Baptiste MD albuterol sulfate 90 mcg/actuation 2 puffs PO QID PRN beclomethasone dipropionate 80 mcg/actuation (Qvar RediHaler) 1 inh inhalation BID cetirizine (Zyrtec) 10 mg PO DAILY clobetasol 0.05% grams topical Q3D CPAP (CPAP Machine/Device) As directed dicyclomine 20 mg PO TID PRN 30 days ergocalciferol (vitamin D2) 1,250 mcg PO QWEEK escitalopram oxalate 5 mg PO DAILY 30 days fluticasone propionate 50 mcg/actuation 1 spray intranasal DAILY gabapentin 2 capsules in AM, 2 capsules in PM (early afternoon) and 3 capsules at bedtime ipratropium bromide 2 sprays intranasal BID lorazepam 0.5 mg PO BID PRN ondansetron HCl 4 mg PO Q6H PRN 30 days propranolol 40 mg PO BID riboflavin (vitamin B2) (Vitamin B-2) 400 mg PO DAILY tizanidine 4 mg PO TID PRN 10 days trazodone 1/2 to 1 tablet orally bedtime PRN; 30 days HPI Comments Details: 63y/0 female comes for 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 ? Side effects including spread of toxin effect, dysphagia, breathing difficulties , bronchitis etc was discussed in detail and the patient agreed to the procedure.An informed consent was obtained ??? Botulinum toxin type A 200units X 1 -was diluted with 4 cc of normal saline at a concentration of 25 units in 0.5cc saline. Lot number [id number] expiration 02/2026 ??? Muscles injected ??? shay Splenius - 50units each ??? left levator 25 units each ??? BilTrapezius 25 units each \ Right levator 50 units ??? 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 Surgical History H/O tubal ligation No pertinent past surgical history Family History Father CAD (coronary artery disease) Hypertension CVD (cardiovascular disease) Mother Hypertension Maternal Aunt Vaginal cancer Paternal Uncle Throat cancer Social History Household Members: Spouse Housing: House Alcohol intake: never Patient Tobacco Use Status: Never used Tobacco e-Cigarette/Vaping Use: Never Used Second Hand Smoke Exposure: Yes service: No Current occupational status: disabled Cognitive needs: No Hearing needs: No Vision needs: Yes (gasses) Physical Exam Vital Signs: Last Vital Signs Pulse 58 12/27/23 07:52 Resp 16 12/27/23 07:52 BP 132/80 12/27/23 07:52 Pulse Ox 97 12/27/23 07:52 Oxygen Delivery Method Room Air 12/27/23 07:52 BMI result Body Mass Index 26.2 Const General: cooperative, healthy appearing and anxious Nutritional Appearance: average body habitus Orientation/consciousness: patient oriented x3 Eyes Pupils: Equal, round and reactive pupils present Neuro Other: voice tremors Mild dysphonia Mild head tremors Tenderness in shay trapezius and scalene muscles with dystonia Mild left hand slowness with intermittent tremors retrognathia, mallampatti grade 4 General: patient oriented x3, gait normal, moves all extremities and no focal motor deficits Cranial nerves: Yes Facial sensation intact/muscles of mastication intact, Yes Equal, round and reactive pupils present, Yes Bilaterally intact EOM present, Yes Nystagmus not present, Yes Normal facial strength present and Yes Midline tongue present Cognition (Neuro): normal cognition Gait exam (Neuro): Normal gait present Motor exam (neuro): Normal motor muscle tone present throughout Coordination: [id number] test normal Psych Affect: Anxious affect present Office Procedures Botulinum toxin Injection 31425 - Dystonia Procedure code (CPT) selection complete Office Meds onabotulinumtoxinA 200 unit solution for injection Performing Provider: Gabby Jean Baptiste MD Performing Location: [facility] [place] [facility] Administered by: Gabby Jean Baptiste MD on 12/27/23 08:31 Dose Route Admin Location Dispensed Lot Number Expiration Date [facility] [employer] 175 unit IM 200 units [id number] 02/25/26 4700-3060-53 [employer]ERGAN/BOTOX Comments: see hpi Assessment & Plan Assessment & Plan (1) Spasmodic torticollis: Code(s): G24.3 - Spasmodic torticollis Category: Medical Plan Patient tolerated the procedure well she will call with any side effects Orders: Orders AMB Botulinum toxin Injection Today G24.3 - Spasmodic torticollis Coding Level of Care Code Est Pt Level 1 (40781) Diagnoses Spasmodic torticollis G24.3 CPT Codes Botox Injection - Botox 4: 12964 - Dystonia ([id number])
== END 2023-12-27 08:14 | disposition home or self-care (01) ==
PROVIDERS: PCP Internal Medicine; Visit Provider Psychiatry & Neurology Neurology
DX: G24.3 Spasmodic torticollis (principal)
CPT/HCPCS: 64616

== ENCOUNTER → 2023-12-27 07:50 | Outpatient (BNVA) | payer BC, MEDICARE, SELFPAY | PROVIDERS: PCP Internal Medicine; Visit Provider Psychiatry & Neurology Neurology | DX: G24.3 Spasmodic torticollis (principal) | CPT/HCPCS: 64616; 99211; J0585 ==

== ENCOUNTER 2024-02-09 08:16 | Outpatient (REF) | payer BC, MEDICARE, SELFPAY ==
[2024-02-09 10:37] LABS: MANUAL DIFF FLAG NO
[2024-02-09 10:41] LABS: Basophils Absolute Auto 0.1 X10*3/uL (0.0-0.2); Basophils Percent Auto 0.8 % (0-2); Eosinophils Absolute Auto 0.1 X10*3/uL (0.0-0.4); Eosinophils Percent Auto 1.2 % (0-4); Hematocrit 43.4 % (37.0-47.0); Hemoglobin 14.3 g/dl (12.0-16.0); Imm Gran Abs Auto 0.02 X10*3/uL (0.00-0.03); Imm Gran Pct Auto 0.3 % (0.0-0.4); Lymphocytes Absolute Auto 1.6 X10*3/uL (1.2-4.9); Lymphocytes Percent Auto 24.8 % (20-40); Mean Corpuscular HGB Conc 32.9 g/dl (31.0-35.0); Mean Corpuscular Hemoglobin 30.3 pg (27.0-33.0); Mean Corpuscular Volume 91.9 fL (80.0-98.0); Mean Platelet Volume 9.9 fL (9.4-12.3); Monocytes Absolute Auto 0.4 X10*3/uL (0.1-1.2); Monocytes Percent Auto 5.6 % (2-11); Neutrophils Absolute Auto 4.4 x10*3/uL (2.0-8.3); Neutrophils Percent Auto 67.3 % (45-73); Platelet Count 254 X10*3/uL (160-400); Red Blood Count 4.72 X10*6/uL (4.20-5.50); Red Cell Distribution Width 12.2 % (11.0-16.0); White Blood Count 6.5 X10*3/uL (4.8-10.8)
[2024-02-09 11:04] LABS: Alanine Aminotransferase 25 U/L (0-31); Albumin Level 4.4 g/dL (3.5-5.0); Alkaline Phosphatase 65 U/L (39-117); Anion Gap 9 (12-20); Aspartate Amino Transferase 22 U/L (5-31); Bilirubin Total 0.6 mg/dL (0.0-1.0); Blood Urea Nitrogen 9 mg/dL (9-16); Calcium 8.9 mg/dL (8.4-10.2); Carbon Dioxide 31 mmol/L (22-29); Chloride 102 mmol/L (96-108); Cholesterol 211 mg/dL (<200); Estimated Glomerular Filt Rate > 60; Glucose Fasting 105 mg/dL (60-99); HDL Cholesterol 53 mg/dL (>40); LDL Cholesterol Calculated 128 mg/dL (<100); Potassium 3.8 mmol/L (3.3-5.1); Sodium 138 mmol/L (135-145); Total Protein 7.4 g/dL (6.5-8.0); Triglycerides 153 mg/dL (<150)
[2024-02-09 11:05] LABS: Appearance Urine Cloudy; Color Urine Yellow; Glucose Urine UA Negative (Negative); Leukocyte Esterase Urine Trace (Negative); Nitrite Urine Negative (Negative); Specific Gravity - Urine <= 1.005 (1.005-1.025); UMIC TRIGGER UACC YES; Urine Blood Negative (Negative); Urine Ketones Negative (Negative); Urine Protein Negative (Neg-Trace)
[2024-02-09 11:11] LABS: Bacteria Urine None Seen (None Seen); Hyaline Casts Urine 0-2 /LPF (0-2); RBC Urine 0-2 /HPF (0-2); Squamous Epithelial Cell Urine 0-2 /HPF (0-2); WBC Urine 0-5 /HPF (0-5)
[2024-02-09 11:19] LABS: TSH reflex Free T4 0.88 uIU/mL (0.32-4.0); Vitamin D 25-OH Total 28.8 ng/mL (>30)
== END 2024-02-09 08:17 | disposition home or self-care (01) ==
LOC: HO.10HDL 08:16
PROVIDERS: Visit Provider Internal Medicine
DX: D64.9 Anemia, unspecified (principal); E78.00 Pure hypercholesterolemia, unspecified; E55.9 Vitamin D deficiency, unspecified
CPT/HCPCS: 36415; 80053; 80061; 81001; 81003; 82306; 84443; 85025

== ENCOUNTER 2024-02-14 15:19 | Outpatient (AMB) | payer BC, MEDICARE, SELFPAY ==
[2024-02-14 15:24] VITALS: BP 140/82; PULSE 61; O2SAT 98; BMI 26.2
--- NOTE | 2024-02-14 15:24 | MHC.PC.OV ---
Vital Signs 02/14/24 15:24 Height 5 ft 3 in Weight 148 lb BMI 26.2 BP 140/82 H Blood Pressure Location Lt brachial Position Sitting Pulse 61 Pulse Source Pulse Oximeter Pulse Oximetry (%) 98 Oxygen Delivery Method Room Air Intake Visit Reasons: 4mth f/u [employer] Required: No Accompanied by: Self / Same As Patient Allergies trazodone [TRAZODONE] Allergy (Mild, Verified 02/14/24 15:57) RASH amlodipine Allergy (Unknown, Verified 02/14/24 15:57) Depression aspirin Allergy (Unknown, Verified 02/14/24 15:57) Unknown diphenhydramine [Benadryl] Allergy (Unknown, Verified 02/14/24 15:57) Unknown duloxetine Allergy (Unknown, Verified 02/14/24 15:57) worsening depression lisinopril Allergy (Unknown, Verified 02/14/24 15:57) Cough morphine Allergy (Unknown, Verified 02/14/24 15:57) Unknown Penicillins Allergy (Unknown, Verified 02/14/24 15:57) Unknown pregabalin Allergy (Unknown, Verified 02/14/24 15:57) sleepwalking, confusion verapamil Adverse Reaction (Unknown, Verified 02/14/24 15:57) rash Medication List - Last Reconciled 02/14/24 by Venkata Banegas MD albuterol sulfate 90 mcg/actuation 2 puffs PO QID PRN beclomethasone dipropionate 80 mcg/actuation (Qvar RediHaler) 1 inh inhalation BID cetirizine (Zyrtec) 10 mg PO DAILY clobetasol 0.05% grams topical Q3D CPAP (CPAP Machine/Device) As directed dicyclomine 20 mg PO TID PRN 30 days ergocalciferol (vitamin D2) 1,250 mcg PO QWEEK fluticasone propionate 50 mcg/actuation 1 spray intranasal DAILY gabapentin 2 capsules in AM, 2 capsules in PM (early afternoon) and 3 capsules at bedtime 30 days ipratropium bromide 2 sprays intranasal BID lorazepam 0.5 mg PO BID PRN ondansetron HCl 4 mg PO Q6H PRN 30 days propranolol 40 mg PO BID riboflavin (vitamin B2) (Vitamin B-2) 400 mg PO DAILY tizanidine 4 mg PO TID PRN 10 days Tobacco use date assessed: 02/14/24 Dental Screening Dental Screen Date: 02/14/24 Did you have a dental visit in the last 12 months?: Yes Did you have a dental problem in the last 6 months where you did not have access to dental care?: No Was dental information given to patient?: Patient has dentist HPI 4mth f/u HPI Details Patient comes in today for her follow up visit States that she was recently started on Botox injections to her neck by Dr. Jean Baptiste; her 2nd dose is scheduled in March 2024 States that she has not noticed any significant improvement in her neck yet so far She is still getting botox injections for her occipital headaches at [facility] She has not been back to [place] to get vocal cord injections in over a year now and she is currently trying to reach out to her doctors at [facility] to get this scheduled again States that her voice is still hoarse but she does not think that it is any worse even though she has not had botox injections into her vocal cords in a while now She denies any dysphagia She still has on and off headaches but the occipital nerve blocks that she has been receiving have been helping; she still has on and off dizziness Denies any increased SOB but reports that she has been experiencing on and off mild chest pain and discomfort lately No nausea/vomiting, no abdominal pain No change in bowel habits noted Needs a couple of her Rx refilled She had her follow-up labs done last week - to discuss her results [facility] Medical History (Updated 02/20/24 @ 02:41 by Venkata Banegas MD) Overweight (BMI 25.0-29.9) Mixed hyperlipidemia Spasmodic torticollis Left hand weakness Coarse tremors Vertigo Spasmodic torticollis Feeding by G-tube Benign essential hypertension Insomnia Anxiety and depression Strain of left trapezius muscle Left hip pain Left lumbosacral radiculopathy Abdominal pain Constipation Gastritis Dysphagia Epilepsy Depression Asthma Vitamin D deficiency 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 Surgical History H/O tubal ligation No pertinent past surgical history Family History Father CAD (coronary artery disease) Hypertension CVD (cardiovascular disease) Mother Hypertension Maternal Aunt Vaginal cancer Paternal Uncle Throat cancer Social History Household Members: Spouse Housing: House Alcohol intake: never Patient Tobacco Use Status: Never used Tobacco e-Cigarette/Vaping Use: Never Used Second Hand Smoke Exposure: Yes service: No Current occupational status: disabled Cognitive needs: No Hearing needs: No Vision needs: Yes (gasses) Questionnaire PHQ-9 Over the last 2 weeks, how often have you been bothered by any of the following problems? 1. Little interest or pleasure in doing things: more than half the days 2. Feeling down, depressed, or hopeless: more than half the days 3. Trouble falling or staying asleep, or sleeping too much: more than half the days 4. Feeling tired or having little energy: several days 5. Poor appetite or overeating: not at all 6. Feeling bad about yourself - or that you are a failure or have let yourself or your family down: several days 7. Trouble concentrating on things, such as reading the newspaper or watching television: several days 8. Moving or speaking so slowly that other people could have noticed. Or the opposite - being so fidgety or restless that you have been moving around a lot more than usual: several days 9. Thoughts that you would be better off or of hurting yourself in some way: not at all Total score: 10 Depression Screening Interpretation: Positive Depression Screening Follow-up: Existing condition and In treatment Depression Screening Done: Yes 11755 - PHQ-9 Billing: Yes Source: Developed by Drs. Rashawn Deutsch, Becca Rivera, Abdon Dominguez and colleagues, with an educational braydon from [employer]. Thrive Questionnaire Date Thrive assessed: 02/14/24 I am a: Patient What is your living situation today?: I have a steady place to live Within the past 12 months, did the food you bought not last and you didn't have the money to get more?: Never true Within the past 12 months, did you worry whether your food would run out before you got money to buy more?: Never true Do you have trouble paying for medicines?: No Do you have trouble getting transportation to medical appointments?: No Do you have trouble paying your heating and electricity bill?: No Do you have trouble taking care of your child, family member or friend?: No Do you have trouble with day-to-day activities such as bathing, preparing meals, shopping, managing finances, etc.?: No Are you currently unemployed and looking for a job?: No Are you interested in more education?: No Please select the resources that you would like help with: None Currently or been in a relationship where the following occur: No concerns reported THRIVE Score: 0 AUDIT C Alcohol Use Questionnaire (AUDIT-C) 1. How often do you have a drink containing alcohol?: Never 3. How often do you have six or more drinks on one occasion?: Never Total Score: 0 Score Reviewed/Action Taken: Yes KATHERYN-7 AMB Questionnaire KATHERYN-7 Date KATHERYN - 7 assessed: 02/14/24 Feeling nervous, anxious, or on edge: 0 = Not at all Not being able to stop or control worryin = Not at all Worrying too much about different things: 0 = Not at all Trouble relaxin = Not at all Being so restless that it is hard to sit still: 0 = Not at all Becoming easily annoyed or irritable: 0 = Not at all Feeling afraid as if something awful might happen: 0 = Not at all Total KATHERYN-7 score (0-4 normal; 5-9 mild; 10-14 moderate; 15-21 severe): 0 Source: Developed by Drs. Rashawn Deutsch, Becca Rivera, Abdon Dominguez and colleagues, with an educational braydon from [employer]. Review of Systems Const Denies chills, Reports difficulty sleeping, Reports fatigue, Denies fever(s) and Reports headache(s) (on and off) ENT Denies dysphagia, Reports dizziness (on and off), Reports headache(s) (on and off), Reports hoarseness (chronic), Reports neck pain (recurrent), Denies odynophagia, Reports tinnitus (chronic) and Denies sore throat Card Reports chest pain, Denies palpitations and Denies dyspnea Resp Denies cough, Denies dyspnea and Denies wheezing GI Denies abdominal pain, Reports constipation (on and off), Denies dysphagia, Denies heartburn, Denies diarrhea, Denies nausea, Denies odynophagia and Denies vomiting Denies difficulty voiding, Denies nocturia, Denies dysuria and Denies urinary urgency Musc Reports back pain (over the left SI joint), Reports arthralgias (left hip), Reports neck pain (recurrent) and Reports radiating pain into limb (into the left thigh and leg) Skin/Breast Denies rash Neuro Reports dizziness (on and off), Reports headache(s) (on and off), Denies focal weakness, Denies seizure-like activity and Reports tremor(s) Psych Reports anxiety and Reports depression Endo Reports fatigue and Denies palpitations Augustus/Lymph Denies easy bruising Aller/Immun Denies wheezing Physical exam (Primary Care) Vital Signs: Last Vital Signs Pulse 61 02/14/24 15:24 BP 140/82 H 02/14/24 15:24 Pulse Ox 98 02/14/24 15:24 Oxygen Delivery Method Room Air 02/14/24 15:24 BMI result Body Mass Index 26.2 Tobacco/Smoking Status: Tobacco use Status Tobacco use date assessed 02/14/24 02/14/24 15:26 Patient Tobacco Use Status Never used Tobacco 02/14/24 15:26 e-Cigarette/Vaping Use Never Used 02/14/24 15:26 PHQ-9: PHQ-9 Score PHQ-9: Total score 10 02/14/24 15:58 Depression Screening Interpretation: Positive Depression Screening Follow-up: Existing condition and In treatment Thrive Assessment: Date of Thrive Assessment Date Thrive assessed 02/14/24 02/14/24 15:29 Currently or been in a relationship where the following occur: No concerns reported Const General: no acute distress and alert HENMT Ears: TM's normal bilaterally and EAC's normal Throat: Yes posterior oropharynx normal and Yes tonsils normal (no TP congestion) Neck Neck: Yes no lymphadenopathy and Yes tender Thyroid: Thyroid normal Resp Auscultation: clear to auscultation bilaterally, no rales and no wheezes Cardio Rate: regular rate Rhythm: regular rhythm Heart sounds: no murmurs GI Palpation (GI): Soft to palpation and nontender Auscultation: normal bowel sounds General: Yes no CVA tenderness Back/Spine/Pelvis Back: no CVA tenderness Cervical Spine: cervical muscular tenderness, cervical spasm and No Cervical spine tenderness Thoracic/Lumbar Spine: No lumbar spinal tenderness Sacroiliac joints: on the left tender to palpation Skin Rashes: no rashes Neuro Motor exam (neuro): Tremors during motor activity present (mild, over both hands; (+) head tremors noted as well) Extrem General: Yes no clubbing, cyanosis or edema Left lower extremity: hip/thigh Details: tenderness Location: of the hip Results Reviewed Results Reviewed: Laboratory Tests 10/07/23 02/09/24 07:48 08:21 WBC 6.5 Hgb 14.3 Hct 43.4 Plt Count 254 Sodium 138 Potassium 3.8 Creatinine 0.73 Estimated GFR > 60 Fasting Glucose 105 H Calcium 8.9 D AST 22 ALT 25 Triglycerides 124 153 H Cholesterol 202 H 211 H LDL Cholesterol, Calc 122 H 128 H HDL Cholesterol 56 53 25-OH Vitamin D Total 28.8 L TSH 0.88 Ur Specific [place] <= 1.005 Urine Protein Negative Urine Glucose (UA) Negative Urine Blood Negative Urine Nitrite Negative Ur Leukocyte Esterase Trace H Coding Level of Care Code Est Pt Level 4 (18833) Complex EM visit Add On G2211 Diagnoses Nonintractable headache, unspecified chronicity pattern, unspecified headache type R51.9 Headache chronicity pattern: unspecified pattern Headache type: unspecified Intractability: not intractable Herpes simplex encephalitis B00.4 Cystic encephalomalacia G93.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, unspecified epilepsy type G40.909 Epilepsy type: unspecified Intractability: not intractable Status epilepticus: without status epilepticus 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 Coarse tremors G25.2 Spasmodic torticollis G24.3 Chest pain, unspecified type R07.9 Chest pain type: unspecified Mixed hyperlipidemia E78.2 Benign essential hypertension I10 Impaired fasting glucose R73.01 Mild persistent asthma without complication J45.30 Asthma severity: mild Asthma persistence: persistent Asthma complication type: uncomplicated Vitamin D deficiency E55.9 Gastritis without bleeding, unspecified chronicity, unspecified gastritis type K29.70 Gastritis type: unspecified gastritis Chronicity: unspecified Gastritis bleeding: without bleeding Constipation, unspecified constipation type K59.00 Constipation type: unspecified constipation type Insomnia, unspecified type G47.00 Insomnia type: unspecified Anxiety and depression F41.9; F32.9 Overweight (BMI 25.0-29.9) E66.3 Additional Codes PHQ-9 - 16472 - PHQ-9 Billing: Yes ([id number]) Assessment & Plan Assessment & Plan (1) Headache: Code(s): R51.9 - Headache, unspecified Category: Medical Qualifiers: Headache chronicity pattern: unspecified pattern Headache type: unspecified Intractability: not intractable Qualified Code(s): R51.9 - Headache, unspecified Plan: These are most likely multifactorial headaches Continue Riboflavin 400 mg QD She has also been receiving occipital nerve blocks from a headaches specialist at [facility] (Dr. Singleton) for a few months now and feels that these are helping somewhat Follow up with neurology as scheduled (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; still has minimal residual dysphasia, dysphagia and impaired memory recall Repeat MRI of the brain done in early 2019 showed no acute pathology or abnormal enhancement, (+) cystic encephalomalacia in the right anterior temporal lobe associated with volume loss and surrounding gliosis and smaller areas of abnormal signal in the left temporal lobe - findings are consistent with sequela of prior HSV encephalitis Repeat EEG done showed remained abnormal with slowing of right temporal cortical region, no epileptiform activities were seen Has been slowly tapered off her Keppra and patient is advised to call if seizures recur or occur Code(s): B00.4 - Herpesviral encephalitis Category: Medical Plan: S/P Tx Symptoms have been stable with no regression so far Follow-up with Neurology as scheduled (3) Cystic encephalomalacia: Code(s): G93.89 - Other specified disorders of brain Category: Medical Plan: Findings of cystic encephalomalacia seen on her most recent MRI, consistent with her previous HSV encephalitis diagnosis Patient still has some minimal/residual problems with memory recall and residual dysphasia/aphasia but these have stabilized over time (4) Epilepsy: Code(s): G40.909 - Epilepsy, unspecified, not intractable, without status epilepticus Category: Medical Qualifiers: Epilepsy type: unspecified Intractability: not intractable Status epilepticus: without status epilepticus Qualified Code(s): G40.909 - Epilepsy, unspecified, not intractable, without status epilepticus Plan: Patient has not had any seizures in a while now and has been slowly tapered off her Keppra by Neurology months ago Follow-up with Neurology as scheduled (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 Category: Medical Plan: Patient was receiving Botox injections (from [facility]) as needed in the past but states that she has not been getting this for over a year now States that her hoarseness has not felt any worse since she last had her injection over a year ago and she denies any difficulty swallowing She is currently trying to reach out to her doctors in [place] to schedule her vocal cord injections again but has not yet been able to contact them (6) Coarse tremors: Comment: postural tremors with intermittent worsening, post viral worsened by poorly controlled mood Code(s): G25.2 - Other specified forms of tremor Category: Medical Plan: Continue Propranolol 40 mg BID (Rx refilled) Follow up with neurology as scheduled (7) Spasmodic torticollis: Code(s): G24.3 - Spasmodic torticollis Category: Medical Plan: She has been referred by neurology to physical therapy to help with her recurrent neck spasms, which she states helped only minimally She recently started getting botox injections into her neck from Dr. Jean Baptiste and will be getting her second injection in March 2024 (8) Chest pain: Code(s): R07.9 - Chest pain, unspecified Category: Medical Qualifiers: Chest pain type: unspecified Qualified Code(s): R07.9 - Chest pain, unspecified Plan: Will refer her to cardiology for further evaluation and management (9) Mixed hyperlipidemia: Code(s): E78.2 - Mixed hyperlipidemia Category: Medical Plan: Results of her labs done last week reviewed and discussed with patient Reinforce low-cholesterol diet - patient would like to continue working on improving her diet and does not want to take cholesterol-lowering medications as much as possible Will recheck her labs and fasting lipids in 4 months for follow up (10) Benign essential hypertension: Code(s): I10 - Essential (primary) hypertension Category: Medical Plan: Reinforced low sodium diet - goal is systolic BP of at least 130 mm or less Per our instructions, she stopped taking her Losartan 25 mg QD after her last visit as she was suspecting that her on and off diarrhea was a side effect of the Rx Feels that her diarrhea has improved a lot since then and she is currently not on any Rx for her blood pressure although she is on Propranolol 40 mg BID that was started by neurology a few months ago for her tremors She is reminded to continue monitoring her blood pressure regularly (11) Impaired fasting glucose: Code(s): R73.01 - Impaired fasting glucose Category: Medical Plan: Her HgbA1c was normal at 5.4% even though her FBS was slightly elevated on her recent lab Reinforce low calorie/low carb diet (12) Asthma: Code(s): J45.909 - Unspecified asthma, uncomplicated Category: Medical Qualifiers: Asthma severity: mild Asthma persistence: persistent Asthma complication type: uncomplicated Qualified Code(s): J45.30 - Mild persistent asthma, uncomplicated Plan: Stable Continue Qvar 80 mcg 1 puff twice a day and Albuterol HFA 2 puffs 4 times a day as needed (13) Vitamin D deficiency: Code(s): E55.9 - Vitamin D deficiency, unspecified Category: Medical Plan: Continue Vitamin D2 01916 units once a week (14) Gastritis: Code(s): K29.70 - Gastritis, unspecified, without bleeding Category: Medical Qualifiers: Gastritis type: unspecified gastritis Chronicity: unspecified Gastritis bleeding: without bleeding Qualified Code(s): K29.70 - Gastritis, unspecified, without bleeding Plan: Dietary restrictions reinforced Continue Omeprazole 40 mg QD and Famotidine 20 mg 1 to 2 tablets a day at bedtime as needed Follow up with GI as scheduled (15) Constipation: Code(s): K59.00 - Constipation, unspecified Category: Medical Qualifiers: Constipation type: unspecified constipation type Qualified Code(s): K59.00 - Constipation, unspecified Plan: She likely has IBS with constipation Symptoms have Improved and has been controlled lately; she is encouraged again to continue increased oral fluids and dietary fiber Abdominal x-rays done a few months ago showed (+) moderate stool burden; x-rays were otherwise normal Continue OTC stool softeners as needed Continue Dicyclomine 20 mg TID PRN (16) Insomnia: Code(s): G47.00 - Insomnia, unspecified Category: Medical Qualifiers: Insomnia type: unspecified Qualified Code(s): G47.00 - Insomnia, unspecified Plan: Sleep hygiene reinforced Will start her back on Trazodone 50 mg Q HS PRN (17) Anxiety and depression: Comment: hydroxyzine - nausea sertraline - forgetful mirtazapine - escitalopram - headaches Code(s): F41.9 - Anxiety disorder, unspecified; F32.9 - Major depressive disorder, single episode, unspecified Category: Medical Plan: She was on Hydroxyzine 10 mg BID PRN in the past but reports that Hydroxyzine made her feel nauseous She also took herself off Sertraline in the past as she felt that Sertraline was causing her to become forgetful She also could not tolerate Mirtazapine 7.5 mg Q AM and 15 mg Q HS but cannot remember her exact reaction to this Per her request, she was referred to [facility] for counseling and therapy a few months ago and she was seen by Dr. Springer and was advised of her depression Dx and her recommendation was for her to start taking some Rx She was started on Escitalopram 5 mg QD a couple of months ago but she experienced increased headaches from the Rx so she stopped taking it after a few days She has been advised in the past that she can continue on Lorazepam 0.5 mg BID PRN but if her mood disorder is better controlled on a maintenance medication, then she may find that she does not need to take her Lorazepam as much We also referred her to the [facility] for neuropsychiatry evaluation and management (18) Overweight (BMI 25.0-29.9): Code(s): E66.3 - Overweight Category: Medical Plan: Reinforce diet/exercise as tolerated/lose weight Plan Follow up in 4 months Orders: Orders Lipid Panel 4 Months E78.00 - Pure hypercholesterolemia, unspecified TSH reflex Free T4 4 Months E78.00 - Pure hypercholesterolemia, unspecified Vitamin D 25-OH Total 4 Months E55.9 - Vitamin D deficiency, unspecified Complete Blood Count Auto Diff 4 Months D64.9 - Anemia, unspecified Comprehensive [place]. Panel Fast 4 Months E78.00 - Pure hypercholesterolemia, unspecified UA CC w/rflx Micro + Cult 4 Months R30.0 - Dysuria Hemoglobin A1c 4 Months R73.01 - Impaired fasting glucose Referrals Cardiology Referral R07.9 - Chest pain, unspecified Medications: New trazodone 50 mg PO BEDTIME 30 days PRN 30 tabs 3RF sleep Refilled lorazepam 0.5 mg PO BID PRN 60 tabs 0RF anxiety dicyclomine 20 mg PO TID 30 days PRN 90 tabs 2RF bowel / abdominal spasms
== END 2024-02-14 16:36 | disposition home or self-care (01) ==
PROVIDERS: PCP Internal Medicine; Visit Provider Internal Medicine
DX: R51.9 Headache, unspecified (principal); B00.4 Herpesviral encephalitis; G93.89 Other specified disorders of brain; G40.909 Epilepsy, unspecified, not intractable, without status epilepticus; J38.3 Other diseases of vocal cords; G25.2 Other specified forms of tremor; G24.3 Spasmodic torticollis; R07.9 Chest pain, unspecified; E78.2 Mixed hyperlipidemia; I10 Essential (primary) hypertension; R73.01 Impaired fasting glucose; J45.30 Mild persistent asthma, uncomplicated; E55.9 Vitamin D deficiency, unspecified; K29.70 Gastritis, unspecified, without bleeding; K59.00 Constipation, unspecified; G47.00 Insomnia, unspecified; F41.9 Anxiety disorder, unspecified; F32.9 Major depressive disorder, single episode, unspecified; E66.3 Overweight

== ENCOUNTER → 2024-02-14 15:19 | Outpatient (BNVA) | payer BC, MEDICARE, SELFPAY | PROVIDERS: PCP Internal Medicine; Visit Provider Internal Medicine | DX: R51.9 Headache, unspecified (principal); B00.4 Herpesviral encephalitis; G93.89 Other specified disorders of brain; G40.909 Epilepsy, unspecified, not intractable, without status epilepticus; J38.3 Other diseases of vocal cords; G25.2 Other specified forms of tremor; G24.3 Spasmodic torticollis; R07.9 Chest pain, unspecified; E78.2 Mixed hyperlipidemia; I10 Essential (primary) hypertension; R73.01 Impaired fasting glucose; J45.30 Mild persistent asthma, uncomplicated; E55.9 Vitamin D deficiency, unspecified; K29.70 Gastritis, unspecified, without bleeding; K59.00 Constipation, unspecified; G47.00 Insomnia, unspecified; F41.9 Anxiety disorder, unspecified; F32.9 Major depressive disorder, single episode, unspecified; E66.3 Overweight; Z79.899 Other long term (current) drug therapy | CPT/HCPCS: 96127 ==

== ENCOUNTER 2024-03-29 08:19 | Outpatient (AMB) | payer BC, MEDICARE, SELFPAY ==
--- NOTE | 2024-03-29 08:21 | A.OFFVIS_ITS ---
Vital Signs 03/29/24 08:24 Height 5 ft 3 in Weight 150 lb BMI 26.6 BP 140/82 H Blood Pressure Location Rt brachial Position Sitting Intake Visit Reasons: Follow up Intake Note: Patent presents for follow up. Allergies trazodone [TRAZODONE] Allergy (Mild, Verified 03/29/24 08:25) RASH amlodipine Allergy (Unknown, Verified 03/29/24 08:25) Depression aspirin Allergy (Unknown, Verified 03/29/24 08:25) Unknown diphenhydramine [Benadryl] Allergy (Unknown, Verified 03/29/24 08:25) Unknown duloxetine Allergy (Unknown, Verified 03/29/24 08:25) worsening depression lisinopril Allergy (Unknown, Verified 03/29/24 08:25) Cough morphine Allergy (Unknown, Verified 03/29/24 08:25) Unknown Penicillins Allergy (Unknown, Verified 03/29/24 08:25) Unknown pregabalin Allergy (Unknown, Verified 03/29/24 08:25) sleepwalking, confusion verapamil Adverse Reaction (Unknown, Verified 03/29/24 08:25) rash Medication List - Last Reconciled 03/29/24 by Gabby Jean Baptiste MD albuterol sulfate 90 mcg/actuation 2 puffs PO QID PRN beclomethasone dipropionate 80 mcg/actuation (Qvar RediHaler) 1 inh inhalation BID cetirizine (Zyrtec) 10 mg PO DAILY clobetasol 0.05% grams topical Q3D CPAP (CPAP Machine/Device) As directed dicyclomine 20 mg PO TID PRN 30 days ergocalciferol (vitamin D2) 1,250 mcg PO QWEEK fluticasone propionate 50 mcg/actuation 1 spray intranasal DAILY gabapentin 2 capsules in AM, 2 capsules in PM (early afternoon) and 3 capsules at bedtime 30 days ipratropium bromide 2 sprays intranasal BID lorazepam 0.5 mg PO BID PRN ondansetron HCl 4 mg PO Q6H PRN 30 days propranolol 40 mg PO BID riboflavin (vitamin B2) (Vitamin B-2) 400 mg PO DAILY tizanidine 4 mg PO TID PRN 10 days trazodone 50 mg PO BEDTIME PRN 30 days HPI Comments Details: 63y/0 female comes for follow up.she was treated with botox 3 months ago but she did not notice any response.she reports spasm in the neck muscles and headaches , sharp pain in the posterior neck .. she also reports episodes of feeling - she feels like as if her body is rocking when she is sitting down , nauseaous, headaches , tremors - can last 5 min to 2- 3hrs. she has 1-2 episodes a day since she had encephalitis since 2019.Her PCP gave her lorazepam and it helps.she used to see a psychiatrist. she has anxiety and even small activities like making breakfast can make her anxious. 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 Surgical History H/O tubal ligation No pertinent past surgical history Family History Father CAD (coronary artery disease) Hypertension CVD (cardiovascular disease) Mother Hypertension Maternal Aunt Vaginal cancer Paternal Uncle Throat cancer Social History Household Members: Spouse Housing: House Alcohol intake: never Patient Tobacco Use Status: Never used Tobacco e-Cigarette/Vaping Use: Never Used Second Hand Smoke Exposure: Yes service: No Current occupational status: disabled Cognitive needs: No Hearing needs: No Vision needs: Yes (gasses) Physical Exam Vital Signs: Last Vital Signs BP 140/82 H 03/29/24 08:24 BMI result Body Mass Index 26.6 Const General: cooperative, healthy appearing and anxious Nutritional Appearance: average body habitus Orientation/consciousness: patient oriented x3 Eyes Pupils: Equal, round and reactive pupils present Neuro Other: voice tremors Mild dysphonia Mild head tremors Tenderness in shay trapezius and scalene muscles with dystonia Mild left hand slowness with intermittent tremors retrognathia, mallampatti grade 4 General: patient oriented x3, gait normal, moves all extremities and no focal motor deficits Cranial nerves: Yes Facial sensation intact/muscles of mastication intact, Yes Equal, round and reactive pupils present, Yes Bilaterally intact EOM present, Yes Nystagmus not present, Yes Normal facial strength present and Yes Midline tongue present Cognition (Neuro): normal cognition Gait exam (Neuro): Normal gait present Motor exam (neuro): Normal motor muscle tone present throughout Coordination: [id number] test normal Psych Affect: Anxious affect present Assessment & Plan Assessment & Plan (1) Spasmodic torticollis: Comment: she did not respond to botox, i will hold off on her second dose Code(s): G24.3 - Spasmodic torticollis Category: Medical (2) Coarse tremors: Comment: postural tremors with intermittent worsening, post viral worsened by poorly controlled mood Code(s): G25.2 - Other specified forms of tremor Category: Medical (3) Vertigo: Code(s): R42 - Dizziness and giddiness Category: Medical (4) Anxiety and depression: Comment: hydroxyzine - nausea sertraline - forgetful mirtazapine - escitalopram - headaches Code(s): F41.9 - Anxiety disorder, unspecified; F32.9 - Major depressive disorder, single episode, unspecified Category: Medical Plan EEG- to r/o seizures continue trazadone 50mg qhs Clonazepam 0.5mg qhs Gabpentin 300mg tid Psychiatry evaluation Orders: Orders EEG electroencephalogram Today B00.4 - Herpesviral encephalitis Medications: New clonazepam 0.5 mg PO BEDTIME 30 tabs 3RF Coding Level of Care Code Est Pt Level 4 (64236) Complex EM visit Add On G2211 Diagnoses Spasmodic torticollis G24.3 Coarse tremors G25.2 Vertigo R42 Anxiety and depression F41.9; F32.9
[2024-03-29 08:24] VITALS: BP 140/82; BMI 26.6
== END 2024-03-29 09:10 | disposition home or self-care (01) ==
PROVIDERS: PCP Internal Medicine; Visit Provider Psychiatry & Neurology Neurology
DX: G24.3 Spasmodic torticollis (principal); G25.2 Other specified forms of tremor; R42 Dizziness and giddiness; F41.9 Anxiety disorder, unspecified; F32.9 Major depressive disorder, single episode, unspecified
CPT/HCPCS: 99214

== ENCOUNTER → 2024-03-29 08:19 | Outpatient (BNVA) | payer BC, MEDICARE, SELFPAY | PROVIDERS: PCP Internal Medicine; Visit Provider Psychiatry & Neurology Neurology ==

== ENCOUNTER 2024-04-16 10:51 | Emergency (ER) | payer BC, MEDICARE, SELFPAY ==
--- NOTE | ~2024-04-16 | CT_ITS ---
EXAMINATION: CT ABDOMEN AND PELVIS WITHOUT CONTRAST CLINICAL INFORMATION: Left upper quadrant pain. Left flank pain. COMPARISON: CT abdomen and pelvis without contrast 02/19/2019 TECHNIQUE: Multidetector volumetric imaging was performed from the superior aspect of the liver through the pubic symphysis. Sagittal and coronal reformatted images were obtained on the technologist's workstation. This CT examination was performed using dose optimization techniques as appropriate, variously including the following: *Automated exposure control *Adjustment of mA and/or kV according to patient size (this includes techniques or standardized protocols for targeted exams where dose is matched to indication/reason for exam; i.e. extremities or head) *Use of iterative reconstruction technique DLP: 477 FINDINGS: LUNG BASES: The visualized lung bases are unremarkable. LIVER, GALLBLADDER, AND BILIARY TREE: The liver is normal in size, shape, and attenuation. There are multiple hypodense liver lesions most likely cyst. Similar lesions are seen on the previous exam and are stable. The gallbladder is unremarkable with no evidence of radiopaque gallstones, gallbladder wall thickening, or obvious pericholecystic inflammatory changes. PANCREAS: Unremarkable. SPLEEN: Unremarkable. ADRENAL GLANDS: Unremarkable. KIDNEYS AND URETERS: The kidneys are normal in size, shape, and attenuation. No hydronephrosis, hydroureter, or calculi seen. There is minimal bilateral perinephric stranding. BLADDER: Unremarkable. GASTROINTESTINAL TRACT: There is diffuse colonic diverticulosis with scattered stool and gas but no evidence of diverticulitis. No bowel obstruction. Small bowel loops are normal caliber. Appendix is normal caliber. The stomach is nondistended. There are at least 2 surgical carina along upper greater curvature of the stomach. ABDOMINAL WALL: No significant hernia is appreciated. LYMPH NODES: Normal. VASCULAR: Unremarkable. PELVIC VISCERA: There is anteverted uterus appearing unremarkable. OSSEOUS STRUCTURES: Degenerative disc changes L4-5 and L5-S1 disc levels. No aggressive lytic or sclerotic process seen. CT/CT abdomen pelvis wo IV con IMPRESSION: Moderate diverticulosis without diverticulitis . Mild constipation. No radiopaque urolith or hydroureteronephrosis. Fleischner guidelines were followed. Electronically signed by: Dejuan Hinson MD 04/16/2024 04:17 PM [facility] [place]
[2024-04-16 11:22] VITALS: BP 154/94; PULSE 85; RESP 20; TEMP 36.8; O2SAT 97; BMI 26.0
--- NOTE | 2024-04-16 11:23 | ED.GENADULT ---
HPI - General Adult General Chief complaint: Abdominal Pain Stated complaint: L flank pain Time Seen by Provider: 04/16/24 13:57 Source: patient, RN notes reviewed and old records reviewed Mode of arrival: ambulatory Limitations: no limitations History of Present Illness ED Provider: KENNEY DU PA-C HPI narrative: 63 year old female with pmhx significant for anxiet, depression, insomnia, HTN, asthma, GERD, and esophageal motility presents to the ED today for evaluation of LUQ/ epigastric abdominal pain x months, gradually worsening. She reports pain is worse after eating. Describes this as a burning sensation that radiates substernally. She states that she has been followed for this in the past. Previously on medication such as Zofran, omeprazole. These were eventually discontinued. She does not recall why these medications were discontinued. She states she has not followed up with her provider in some time. She also endorses increased urinary frequency times 24 hours. Denies dysuria, hematuria, flank pain. Reports constipation x3 days however had a normal bowel movement yesterday. Passing flatus. Denies fever, chills, N/V, diarrhea. Surgical history: tubal ligation. Related Data Home Medications ?Medication ?Instructions ?Recorded ?Confirmed beclomethasone dipropionate 80 1 inh inhalation BID 02/12/20 03/29/24 mcg/actuation HFA breath activated aerosol (Qvar RediHaler) cetirizine 10 mg tablet (Zyrtec) 10 mg PO DAILY 02/12/20 03/29/24 clobetasol 0.05 % topical ointment g topical Q3D 04/23/20 03/29/24 CPAP (CPAP Machine/Device) 09/13/22 03/29/24 ipratropium bromide 21 mcg (0.03 2 spray intranasal BID 09/13/22 03/29/24 %) nasal spray riboflavin (vitamin B2) 100 mg 400 mg PO DAILY 01/16/23 03/29/24 tablet (Vitamin B-2) Previous Rx's ?Medication ?Instructions ?Recorded fluticasone propionate 50 1 spray intranasal DAILY #16 grams 03/03/21 mcg/actuation nasal spray,suspension ondansetron HCl 4 mg tablet 4 mg PO Q6H PRN nausea and 04/27/22 vomiting 30 days #120 tabs ergocalciferol (vitamin D2) 1,250 1,250 mcg PO QWEEK #13 caps 08/24/23 mcg (50,000 unit) capsule tizanidine 4 mg tablet 4 mg PO TID PRN muscle spasms 10 10/18/23 days #30 tabs propranolol 40 mg tablet 40 mg PO BID #60 tabs 12/23/23 albuterol sulfate 90 mcg/actuation 2 puff PO QID PRN for wheezing 01/31/24 aerosol inhaler #8.5 grams dicyclomine 20 mg tablet 20 mg PO TID PRN bowel / abdominal 02/14/24 spasms 30 days #90 tabs trazodone 50 mg tablet 50 mg PO BEDTIME PRN sleep 30 days 02/14/24 #30 tabs lorazepam 0.5 mg tablet 0.5 mg PO BID PRN anxiety #60 tabs 02/17/24 gabapentin 100 mg capsule See Rx Instructions PO .COMPLEX 30 03/07/24 days #210 caps clonazepam 0.5 mg tablet 0.5 mg PO BEDTIME #30 tabs 03/29/24 docusate sodium 100 mg capsule 100 mg PO DAILY PRN constipation 04/16/24 (Colace) #10 caps polyethylene glycol 3350 17 17 g PO DAILY PRN constipation 04/16/24 gram/dose oral powder (Miralax) #238 grams sucralfate 1 gram tablet 1 g PO BID 14 days #28 tabs 04/16/24 Allergies Allergy/AdvReac Type Severity Reaction Status Date / Time amlodipine Allergy Unknown Depression Verified 04/16/24 11:24 aspirin Allergy Unknown Unknown Verified 04/16/24 11:24 diphenhydramine [Benadryl] Allergy Unknown Unknown Verified 04/16/24 11:24 duloxetine Allergy Unknown worsening Verified 04/16/24 11:24 depression lisinopril Allergy Unknown Cough Verified 04/16/24 11:24 morphine Allergy Unknown Unknown Verified 04/16/24 11:24 Penicillins Allergy Unknown Unknown Verified 04/16/24 11:24 pregabalin Allergy Unknown sleepwalking, Verified 04/16/24 11:24 confusion verapamil AdvReac Unknown rash Verified 04/16/24 11:24 Review of Systems Review of Systems: Constitutional: No fever, chills, fatigue, night sweats, weight changes ENT/Mouth: No ear pain, hearing loss, nasal congestion, sinus pain, rhinorrhea, sore throat Eyes: No eye pain, swelling, redness, vision changes, discharge Cardio: No chest pain, palpitations, PABLO, orthopnea, peripheral edema Pulm: No SOB, cough, sputum, wheezing, dyspnea, hemoptysis GI: No nausea, vomiting, hematemesis, diarrhea, constipation, hematochezia, melena, +abd pain : No irregular bleeding, dysuria, frequency, urgency, hesitancy, hematuria, flank pain, urinary flow changes, urinary incontinence or retention MSK: No back pain, neck pain, joint pain, myalgias Skin: No lesions, rashes Neuro: No weakness, numbness, paresthesias, LOC, dizziness, headache Psych: No anxiety/panic, depression, SI/HI, AH/VH All other systems reviewed and are negative. [facility] Past Medical History Attestation statement: The following information was validated with the patient. 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 Surgical History H/O tubal ligation No pertinent past surgical history Family History Family History Father CAD (coronary artery disease) Hypertension CVD (cardiovascular disease) Mother Hypertension Maternal Aunt Vaginal cancer Paternal Uncle Throat cancer Social History Social History Household Members: Spouse Housing: House Alcohol intake: never Patient Tobacco Use Status: Never used Tobacco Smoked in Last 30 Days: No e-Cigarette/Vaping Use: Never Used Second Hand Smoke Exposure: Yes Use of substances other than those prescribed or required for medical reasons: No Advance Directives: No Advance Directives Information Provided: Yes Patient : No service: No Current occupational status: disabled Cognitive needs: No Hearing needs: No Vision needs: Yes (gasses) Physical Exam ED Vital Signs: Vital Signs - 24 hr 04/16/24 11:22 04/16/24 13:12 04/16/24 15:13 Temperature 98.3 F 98.3 F Pulse Rate 85 61 81 Respiratory Rate 20 16 18 Blood Pressure 154/94 H 146/82 H 149/94 H Pulse Oximetry 97 97 99 Oxygen Delivery Method Room Air Room Air Room Air BMI result Body Mass Index 26.0 hypertensive General: Well appearing, in no acute distress. Skin: Warm, dry, intact. No rashes or lesions. Head: Normocephalic, atraumatic. EENT: Hearing is intact b/l. Conjunctiva clear. PERRLA. EOM intact. Moist mucous membranes.? Neck: Supple without LAD Cardiac: Chest wall symmetric. RRR Lungs: Normal respiratory effort without accessory muscle use. CTA bilaterally Abdomen: Soft, non-tender, non-distended. No rebound tenderness or guarding. Positive BS x4. no cvat. Back: No midline spinous or paraspinal tenderness. No step off deformity. Ext: Upper and lower extremities atraumatic, without tenderness, deformity, swelling or erythema. Neuro: AOx3. Normal speech. Ambulating with steady gait. Psych: Appropriate mood and affect. Responds appropriately to questions. Course Course Course Narrative: This is an RME: Additional HPI, ROS, PE not included below will be deferred to primary provider. RME assessment and note performed by: Yamini Martinez PA-C This is a 63 y/o F, with a hx of HLD, anxiety, depression, asthma, who presents to the ER with complaints of left flank pain, epigastric pain x months, worsening this morning Took tylenol and lorazepam this AM. Patient has pain in her left flank however does have left-sided abdominal pain, and epigastric pain. Plan: X-ray, labs, UA, further ER evaluation. Deferred imaging until seen by primary provider as well as when labs return Reevaluation(s) Reevaluation #1: 0907 -- CBC without leukocytosis or left shift. No anemia. H&H stable. Chemistry without acute electrolyte abnormality requiring intervention. No NIYAH. Liver function WNL. Initial troponin 5.2. Repeat trop flat. Urine without infection or blood. CTA/P showing mild constipation without evidence of obstruction. Moderate diverticulosis without evidence of diverticulitis. No renal calculi or hydroureter nephrosis. > on re-evaluation, patient reports significant improvement in discomfort after receiving GI cocktail. Her clinical presentation is consistent with possible gastric ulcer. No concern for bleeding ulcer. No anemia. No vomiting hematemesis. I feel she would benefit from sucralfate. I have also provided her with a GI referral and advised her to call their office tomorrow morning for an appointment as she may require an upper endoscopy. Patient has remained stable throughout ED visit today. Discussed worrisome signs and symptoms and when to return to the ED. All questions answered at this time. Patient is agreeable with disposition and stable for discharge. Medications Administered Discontinued Medications Generic Name Dose Route Start Last Admin Trade Name Freq PRN Reason Stop Dose Admin Al Hydroxide/Mg Hydroxide 30 ml 04/16/24 16:00 04/16/24 16:26 Magnesium Hydrox/Alum Hydrox 30 Ml Oral.Susp PO 04/16/24 16:01 30 ml ONCE ONE Administration Belladonna Alkaloids/Phenobarbital 10 ml 04/16/24 16:00 04/16/24 16:27 Phenobarb/Hyoscy/Atropine/Scop 10 Ml Elixir PO 04/16/24 16:01 10 ml ONCE ONE Administration Ondansetron HCl 4 mg 04/16/24 16:00 04/16/24 16:28 Ondansetron Odt 4 Mg Tab.Rapdis TRANSLINGU 04/16/24 16:01 4 mg ONCE ONE Administration Medical Decision Making Medical Decision Making MDM Narrative: 63 year old female with pmhx significant for anxiet, depression, insomnia, HTN, asthma, GERD, and esophageal motility presents to the ED today for evaluation of LUQ/ epigastric abdominal pain x months, gradually worsening. Hypertensive, vitals are otherwise WNL. She is nontoxic appearing in no acute distress. Exam is quite benign. Abdomen is soft, nondistended, nontender to palpation without rebound tenderness or guarding. No CVAT bilaterally. Differential diagnosis includes gastroenteritis, gastritis, gastric ulcer, duodenal ulcer, constipation. Lower suspicion for pancreatitis, cholecystitis, biliary colic, nephrolithiasis, renal colic, hydroureter nephrosis, urinary tract infection. Unlikely appendicitis, bowel obstruction, diverticulitis, ischemic bowel, acute abdomen. Plan for labs, UA, CT AP, GI cocktail and re-evaluation Differential Diagnosis Differential Diagnoses: The differential diagnosis associated with the presentation includes as above. Admission/Observation not indicated. Lab Data MDM Lab Attestation statement: I reviewed the patient's lab results. as above. 04/16/24 11:38 04/16/24 11:38 Labs: Lab Results 04/16/24 04/16/24 Range/Units 11:38 15:08 WBC 6.2 (4.8-10.8) X10*3/uL RBC 4.71 (4.20-5.50) X10*6/uL Hgb 14.1 (12.0-16.0) g/dl Hct 42.6 (37.0-47.0) % MCV 90.4 (80.0-98.0) fL MCH 29.9 (27.0-33.0) pg MCHC 33.1 (31.0-35.0) g/dl RDW 12.2 (11.0-16.0) % Plt Count 239 (160-400) X10*3/uL MPV 9.5 (9.4-12.3) fL Immature Gran % (Auto) 0.3 (0.0-0.4) % Neut % (Auto) 63.5 (45-73) % Lymph % (Auto) 28.7 (20-40) % [place] % (Auto) 6.3 (2-11) % Eos % (Auto) 1.0 (0-4) % Baso % (Auto) 0.2 (0-2) % Lymph # (Auto) 1.8 (1.2-4.9) X10*3/uL [place] # (Auto) 0.4 (0.1-1.2) X10*3/uL Eos # (Auto) 0.1 (0.0-0.4) X10*3/uL Baso # (Auto) 0.0 (0.0-0.2) X10*3/uL Abs Immat Gran (auto) 0.02 (0.00-0.03) X10*3/uL Absolute Neuts (auto) 3.9 (2.0-8.3) x10*3/uL Absolute Nucleated RBC 0.000 (0.0-0.012) X10*3/uL Nucleated RBC % (auto) 0.0 (0.0-0.2) /100WBC Sodium 140 (135-145) mmol/L Potassium 4.4 (3.3-5.1) mmol/L Chloride 105 (96-108) mmol/L Carbon Dioxide 27 (22-29) mmol/L Anion Gap 12 (12-20) BUN 9 (9-16) mg/dL Creatinine 0.64 (0.5-1.4) mg/dL Estim Creat Clear Calc 82.5 Estimated GFR > 60 Random Glucose 106 (60-115) mg/dL Calcium 9.0 (8.4-10.2) mg/dL Magnesium 2.1 (1.6-2.6) mg/dL Total Bilirubin 0.5 (0.0-1.0) mg/dL Direct Bilirubin 0.1 (0.0-0.5) mg/dL AST 19 (5-31) U/L ALT 18 (0-31) U/L Alkaline Phosphatase 65 (39-117) U/L Troponin I High Sens 5.2 7.6 (<3.5-17.0) ng/L Total Protein 7.7 (6.5-8.0) g/dL Albumin 4.4 (3.5-5.0) g/dL Lipase 26 (8-78) U/L Urine Color Yellow Urine Appearance Clear Urine pH 6.0 (5.0-9.0) Ur Specific [place] 1.010 (1.005-1.025) Urine Protein Negative (Neg-Trace) mg/dL Urine Glucose (UA) Negative (Negative) mg/dL Urine Ketones Negative (Negative) mg/dL Urine Blood Negative (Negative) Urine Nitrite Negative (Negative) Ur Leukocyte Esterase Trace H (Negative) Urine RBC 0-2 (0-2) /HPF Urine WBC 0-5 (0-5) /HPF Ur Squamous Epith Cells 0-2 (0-2) /HPF Urine Bacteria None Seen (None Seen) Hyaline Casts 0-2 (0-2) /LPF Independent Interpretation I performed an independent interpretation of an: CT Scan Interpretation: CT a/p without evidence of bowel obstruction Radiology Impression Discussion of test interpretation with radiology: I have reviewed the radiologist's reading. Radiologist Impression: EXAMINATION: CT ABDOMEN AND PELVIS WITHOUT CONTRAST CLINICAL INFORMATION: Left upper quadrant pain. Left flank pain. COMPARISON: CT abdomen and pelvis without contrast 02/19/2019 TECHNIQUE: Multidetector volumetric imaging was performed from the superior aspect of the liver through the pubic symphysis. Sagittal and coronal reformatted images were obtained on the technologist's workstation. This CT examination was performed using dose optimization techniques as appropriate, variously including the following: *Automated exposure control *Adjustment of mA and/or kV according to patient size (this includes techniques or standardized protocols for targeted exams where dose is matched to indication/reason for exam; i.e. extremities or head) *Use of iterative reconstruction technique DLP: 477 FINDINGS: LUNG BASES: The visualized lung bases are unremarkable. LIVER, GALLBLADDER, AND BILIARY TREE: The liver is normal in size, shape, and attenuation. There are multiple hypodense liver lesions most likely cyst. Similar lesions are seen on the previous exam and are stable. The gallbladder is unremarkable with no evidence of radiopaque gallstones, gallbladder wall thickening, or obvious pericholecystic inflammatory changes. PANCREAS: Unremarkable. SPLEEN: Unremarkable. ADRENAL GLANDS: Unremarkable. KIDNEYS AND URETERS: The kidneys are normal in size, shape, and attenuation. No hydronephrosis, hydroureter, or calculi seen. There is minimal bilateral perinephric stranding. BLADDER: Unremarkable. GASTROINTESTINAL TRACT: There is diffuse colonic diverticulosis with scattered stool and gas but no evidence of diverticulitis. No bowel obstruction. Small bowel loops are normal caliber. Appendix is normal caliber. The stomach is nondistended. There are at least 2 surgical carina along upper greater curvature of the stomach. ABDOMINAL WALL: No significant hernia is appreciated. LYMPH NODES: Normal. VASCULAR: Unremarkable. PELVIC VISCERA: There is anteverted uterus appearing unremarkable. OSSEOUS STRUCTURES: Degenerative disc changes L4-5 and L5-S1 disc levels. No aggressive lytic or sclerotic process seen. CT/CT abdomen pelvis wo IV con IMPRESSION: Moderate diverticulosis without diverticulitis . Mild constipation. No radiopaque urolith or hydroureteronephrosis. Fleischner guidelines were followed. Electronically signed by: Dejuan Hinson MD 04/16/2024 04:17 PM [facility] [place] Independent Historian Clinical information obtained from an independent historian. History obtained from or confirmed by: Spouse External Record Review External record reviewed: Inpatient record, Office record, Outpatient record, Prior outpatient labs, Prior outpatient radiology, Primary care record and Outside ED record Prescription Management I considered prescription management with: Other (Sucralfate, Colace, MiraLax) Social Determinants Patient?s care significantly limited by Social Determinants of Health including: Other Social Determinant of Health Critical Care Time Critical Care Time Critical Care Time: No Discharge Plan Discharge Clinical Impression: Epigastric abdominal pain Patient Disposition: Home, Self-Care Instructions: Gastritis (ED), Gastroesophageal Reflux Disease (ED), Abdominal Pain (ED) Additional Instructions: You were evaluated in the ED today for upper abdominal pain/burning. Your blood and urine workup is reassuring. The CT scan of your abdomen shows mild constipation and diverticulosis without evidence of infection or obstruction. As discussed, have concern you may have gastritis vs gastric ulcer. Your symptoms improved with medications today. Sucralfate has been sent to your pharmacy for you to take twice daily. I have also sent a laxative and a stool softener for your constipation. Please follow up with your primary care provider. I have also provided you with a referral to a GI specialist. Call them to establish care. They will not call you. Return with new or worsening symptoms. In the case of an emergency call 911. Prescriptions: New sucralfate 1 gram tablet 1 g PO BID 14 Days Qty: 28 0RF docusate sodium [Colace] 100 mg capsule 100 mg PO DAILY PRN (Reason: constipation) Qty: 10 0RF polyethylene glycol 3350 [Miralax] 17 gram/dose powder 17 g PO DAILY PRN (Reason: constipation) Qty: 238 0RF No Action fluticasone propionate 50 mcg/actuation spray,suspension 1 spray intranasal DAILY Qty: 16 3RF ergocalciferol (vitamin D2) 1,250 mcg (50,000 unit) capsule 1,250 mcg PO QWEEK Qty: 13 3RF tizanidine 4 mg tablet 4 mg PO TID PRN (Reason: muscle spasms) 10 Days Qty: 30 1RF albuterol sulfate 90 mcg/actuation HFA aerosol inhaler 2 puff PO QID PRN (Reason: for wheezing) Qty: 8.5 0RF lorazepam 0.5 mg tablet 0.5 mg PO BID PRN (Reason: anxiety) Qty: 60 0RF gabapentin 100 mg capsule See Rx Instructions PO .COMPLEX 30 Days Qty: 210 1RF Rx Instructions: 2 capsules in AM, 2 capsules in PM (early afternoon) and 3 capsules at bedtime cetirizine [Zyrtec] 10 mg tablet 10 mg PO DAILY Qvar RediHaler 80 mcg/actuation HFA aerosol breath activated 1 inh inhalation BID clobetasol 0.05 % ointment topical Q3D ipratropium bromide 21 mcg (0.03 %) spray,non-aerosol 2 spray intranasal BID Rx Instructions: administer into each nostril (DME) CPAP Machine/Device Device See Rx Instructions .Route Rx Instructions: As directed riboflavin (vitamin B2) [Vitamin B-2] 100 mg tablet 400 mg PO DAILY ondansetron HCl 4 mg tablet 4 mg PO Q6H PRN (Reason: nausea and vomiting) 30 Days Qty: 120 0RF propranolol 40 mg tablet 40 mg PO BID Qty: 60 6RF clonazepam 0.5 mg tablet 0.5 mg PO BEDTIME Qty: 30 3RF trazodone 50 mg tablet 50 mg PO BEDTIME PRN (Reason: sleep) 30 Days Qty: 30 3RF dicyclomine 20 mg tablet 20 mg PO TID PRN (Reason: bowel / abdominal spasms) 30 Days Qty: 90 2RF Referrals: [facility] [place] Group] Venkata Banegas MD [Primary Care Provider] - Print Language: [place]
--- NOTE | 2024-04-16 11:27 | ECG_ITS ---
Test Reason : epigastric pain Blood Pressure : */* mmHG Vent. Rate : 72 BPM Atrial Rate : 72 BPM P-R Int : 142 ms QRS Dur : 76 ms QT Int : 382 ms P-R-T Axes : 40 -11 12 degrees QTcB Int : 418 ms Normal sinus rhythm Minimal voltage criteria for LVH, may be normal variant ( R in aVL ) Nonspecific T wave abnormality Abnormal ECG When compared with ECG of 20-Feb-2019 16:09, Sinus rhythm has replaced Junctional rhythm Vent. rate has decreased by 46 bpm Nonspecific T wave abnormality now evident in Anterolateral leads Referred By: Yamini Martinez Electronically Signed By: ROSARIO GONZÁLES MD
[2024-04-16 11:43] LABS: MANUAL DIFF FLAG NO
[2024-04-16 11:44] LABS: Basophils Percent Auto 0.2 % (0-2); Eosinophils Absolute Auto 0.1 X10*3/uL (0.0-0.4); Hematocrit 42.6 % (37.0-47.0); Hemoglobin 14.1 g/dl (12.0-16.0); Imm Gran Abs Auto 0.02 X10*3/uL (0.00-0.03); Imm Gran Pct Auto 0.3 % (0.0-0.4); Lymphocytes Absolute Auto 1.8 X10*3/uL (1.2-4.9); Lymphocytes Percent Auto 28.7 % (20-40); Mean Corpuscular HGB Conc 33.1 g/dl (31.0-35.0); Mean Corpuscular Hemoglobin 29.9 pg (27.0-33.0); Mean Corpuscular Volume 90.4 fL (80.0-98.0); Mean Platelet Volume 9.5 fL (9.4-12.3); Monocytes Absolute Auto 0.4 X10*3/uL (0.1-1.2); Monocytes Percent Auto 6.3 % (2-11); Neutrophils Absolute Auto 3.9 x10*3/uL (2.0-8.3); Neutrophils Percent Auto 63.5 % (45-73); Platelet Count 239 X10*3/uL (160-400); Red Blood Count 4.71 X10*6/uL (4.20-5.50); Red Cell Distribution Width 12.2 % (11.0-16.0); White Blood Count 6.2 X10*3/uL (4.8-10.8)
[2024-04-16 12:05] LABS: Alanine Aminotransferase 18 U/L (0-31); Albumin Level 4.4 g/dL (3.5-5.0); Alkaline Phosphatase 65 U/L (39-117); Anion Gap 12 (12-20); Aspartate Amino Transferase 19 U/L (5-31); Bilirubin Direct 0.1 mg/dL (0.0-0.5); Bilirubin Total 0.5 mg/dL (0.0-1.0); Blood Urea Nitrogen 9 mg/dL (9-16); Carbon Dioxide 27 mmol/L (22-29); Chloride 105 mmol/L (96-108); Creatinine Clr Calc Pharmacy 82.5; Estimated Glomerular Filt Rate > 60; Glucose Random 106 mg/dL (60-115); Lipase 26 U/L (8-78); Magnesium 2.1 mg/dL (1.6-2.6); Potassium 4.4 mmol/L (3.3-5.1); Sodium 140 mmol/L (135-145); Total Protein 7.7 g/dL (6.5-8.0)
[2024-04-16 12:11] LABS: Troponin-I High Sensitivity 5.2 ng/L (<3.5-17.0)
[2024-04-16 13:12] VITALS: BP 146/82; PULSE 61; RESP 16; TEMP 36.8; O2SAT 97
[2024-04-16 15:13] VITALS: BP 149/94; PULSE 81; RESP 18; O2SAT 99
[2024-04-16 15:21] LABS: Appearance Urine Clear; Color Urine Yellow; Glucose Urine UA Negative (Negative); Leukocyte Esterase Urine Trace (Negative); Nitrite Urine Negative (Negative); UMIC TRIGGER UACC YES; Urine Blood Negative (Negative); Urine Ketones Negative (Negative); Urine Protein Negative (Neg-Trace)
[2024-04-16 15:26] LABS: Bacteria Urine None Seen (None Seen); Hyaline Casts Urine 0-2 /LPF (0-2); RBC Urine 0-2 /HPF (0-2); Squamous Epithelial Cell Urine 0-2 /HPF (0-2); WBC Urine 0-5 /HPF (0-5)
[2024-04-16 15:39] LABS: Troponin-I High Sensitivity 7.6 ng/L (<3.5-17.0)
[2024-04-16] MEDS: Magnesium Hydrox/Alum Hydrox 30 ML ORAL.SUSP PO (16:26)
[2024-04-16] MEDS: PHENobarb/Hyoscy/Atropine/Scop 10 ML ELIXIR PO (16:27)
[2024-04-16] MEDS: Ondansetron ODT 4 MG TAB.RAPDIS TRANSLINGU (16:28)
[2024-04-16 18:11] VITALS: BP 149/94; PULSE 81; RESP 18; TEMP 36.7; O2SAT 99
== END 2024-04-16 18:15 | disposition home or self-care (01) ==
PROVIDERS: Physician Assistant Medical; Emergency Provider Emergency Medicine Emergency Medical Services; PCP Internal Medicine
DX: R10.13 Epigastric pain (principal); R10.12 Left upper quadrant pain; I10 Essential (primary) hypertension; Z79.899 Other long term (current) drug therapy
CPT/HCPCS: 36415; 74176; 80048; 80076; 81001; 83690; 83735; 84484; 85025; 93005; 99284; 99285

== ENCOUNTER → 2024-04-16 11:27 | Outpatient (BNV) | payer BC, MEDICARE, SELFPAY | PROVIDERS: PCP Internal Medicine; Visit Provider Internal Medicine Cardiovascular Disease | DX: R94.31 Abnormal electrocardiogram [ECG] [EKG] (principal); R10.13 Epigastric pain | CPT/HCPCS: 93010 ==

== ENCOUNTER → 2024-04-16 15:20 | Outpatient (BNV) | payer BC, MEDICARE, SELFPAY | PROVIDERS: Emergency Provider Emergency Medicine Emergency Medical Services; PCP Internal Medicine; Visit Provider Radiology Diagnostic Radiology | DX: R10.32 Left lower quadrant pain (principal) | CPT/HCPCS: 74176 ==

== ENCOUNTER 2024-05-28 09:22 | Outpatient (AMB) | payer BC, MEDICARE, SELFPAY ==
[2024-05-28 09:28] VITALS: BP 136/70; PULSE 82; BMI 25.9
--- NOTE | 2024-05-28 09:28 | A.OFFVIS_ITS ---
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: No Accompanied by: Self / Same As Patient Allergies amlodipine Allergy (Unknown, Verified 04/16/24 11:24) Depression aspirin Allergy (Unknown, Verified 04/16/24 11:24) Unknown diphenhydramine [Benadryl] Allergy (Unknown, Verified 04/16/24 11:24) Unknown duloxetine Allergy (Unknown, Verified 04/16/24 11:24) worsening depression lisinopril Allergy (Unknown, Verified 04/16/24 11:24) Cough morphine Allergy (Unknown, Verified 04/16/24 11:24) Unknown Penicillins Allergy (Unknown, Verified 04/16/24 11:24) Unknown pregabalin Allergy (Unknown, Verified 04/16/24 11:24) sleepwalking, confusion verapamil Adverse Reaction (Unknown, Verified 04/16/24 11:24) rash Medication List - Last Reconciled 05/28/24 by Girish Blount MD albuterol sulfate 90 mcg/actuation 2 puffs PO QID PRN beclomethasone dipropionate 80 mcg/actuation (Qvar RediHaler) 1 inh inhalation BID cetirizine (Zyrtec) 10 mg PO DAILY clobetasol 0.05% grams topical Q3D clonazepam 0.5 mg PO BEDTIME CPAP (CPAP Machine/Device) As directed dicyclomine 20 mg PO TID PRN 30 days docusate sodium (Colace) 100 mg PO DAILY PRN ergocalciferol (vitamin D2) 1,250 mcg PO QWEEK gabapentin 2 capsules in AM, 2 capsules in PM (early afternoon) and 3 capsules at bedtime 30 days ipratropium bromide 2 sprays intranasal BID lorazepam 0.5 mg PO BID PRN polyethylene glycol 3350 (Miralax) 17 grams PO DAILY PRN propranolol 40 mg PO BID riboflavin (vitamin B2) (Vitamin B-2) 400 mg PO DAILY tizanidine 4 mg PO TID PRN 10 days HPI Comments Details: Chelsi is here for consultation regarding chest pain and other concerns. She does not have any known cardiac issues including coronary disease or myocardial infarction or cardiomyopathy or in fact anything cardiac sounding. She states that she had encephalitis few years back and after that, has been having a lot of memory issues. She discussed various symptoms. She feels short of breath with activities as well as talking. However, this does not sound truly cardiac especially when it is shortness of breath with just talking. More so a local issue like being related to the vocal cord. Per neuro notes, she has listed diagnosis includes cervical dystonia, spasmodic dysphonia and gets Botox. Otherwise, she also gets sensations of chest pressure/discomfort at random denice es. With and without activity. She feels that the whole of the upper body is shaking and again not clear if it is more of a neurological issue/tremors as opposed to palpitations. She is concerned as there is a family history of cardiac issues in in many family members. 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 Surgical History H/O tubal ligation No pertinent past surgical history Family History Father CAD (coronary artery disease) Hypertension CVD (cardiovascular disease) Mother Hypertension Maternal Aunt Vaginal cancer Paternal Uncle Throat cancer Social History Household Members: Spouse Housing: House Alcohol intake: never Patient Tobacco Use Status: Never used Tobacco e-Cigarette/Vaping Use: Never Used Second Hand Smoke Exposure: Yes service: No Current occupational status: disabled Cognitive needs: No Hearing needs: No Vision needs: Yes (gasses) Review of Systems Const Denies chills, Denies daytime sleepiness, Reports fatigue, Denies fever(s), Denies poor appetite, Denies snoring, Denies stops breathing during sleep, Denies weakness, Denies weight gain and Denies weight loss Eyes Denies loss of vision ENT Denies dizziness and Denies hearing loss Card Denies chest pain, Denies irregular heart rhythm, Denies claudication, Denies leg edema, Denies lightheadedness, Denies palpitations, Reports dyspnea on exertion and Denies orthopnea Resp Denies cough, Denies excessive phlegm production, Reports dyspnea on exertion, Denies snoring and Denies wheezing GI Denies abdominal pain, Denies hematochezia, Denies change in bowel habits, Denies nausea and Denies vomiting Denies urinary frequency and Denies dysuria Musc Denies arthralgias, Denies muscle weakness, Denies numbness and Denies other Skin/Breast Denies nail changes and Denies rash Neuro Denies Abnormal speech present, Denies dizziness, Denies loss of vision, Denies memory loss, Denies numbness and Denies weakness Psych Denies depression and Denies memory loss Endo Reports fatigue and Denies palpitations Augustus/Lymph Denies easy bruising Aller/Immun Denies wheezing Physical Exam Vital Signs: Last Vital Signs Pulse 82 05/28/24 09:28 BP 136/70 05/28/24 09:28 BMI result Body Mass Index 25.9 Const General: comfortable and no acute distress Orientation/consciousness: patient oriented x3 HEENT Other: Unremarkable Head: Yes normal to inspection Neck Neck: Yes normal visual inspection Chest Chest palpation & inspection: normal inspection of the chest Resp Auscultation: clear to auscultation bilaterally Cardio Palpation: normal PMI Heart sounds: S1 normal heart sound present, S2 normal heart sound present, no gallops, no murmurs and no rubs GI Palpation (GI): Soft to palpation Back/Spine/Pelvis Other: unremarkable Skin General skin exam: no rashes or lesions noted Neuro General: patient oriented x3 Speech: No Abnormal speech present Extrem General: Yes normal to inspection Psych Mental Status: mental status grossly normal Assessment & Plan Assessment & Plan (1) Chest pain: Code(s): R07.9 - Chest pain, unspecified Category: Medical Qualifiers: Chest pain type: unspecified Qualified Code(s): R07.9 - Chest pain, unspecified (2) SOB (shortness of breath): Code(s): R06.02 - Shortness of breath Category: Medical (3) Heart palpitations: Code(s): R00.2 - Palpitations Category: Medical Plan In the EKG, underlying rhythm is sinus at 72/Min; minimal criteria for LVH; nonspecific ST-T changes; normal WA and corrected QT. Available high sensitivity troponins are within range. In the recent abdomen is CT scan, no mention of any vascular findings. Overall, many neurological issues at baseline with symptoms of shortness of breath, chest discomfort and palpitations. We will perform a comprehensive workup including echocardiogram, coronary CTA and Holter. Follow-up after the above. It seems that she has got many allergies. However, she does not recall any prior contrast allergy although she states that she forgets a lot of things because of encephalitis. Hence we agreed that she will take prednisone prophylaxis prior to CTA. Not giving Benadryl as she has listed allergy for that too. Discussed in detail with patient as well as significant other and they are in full agreement. They will contact us with ongoing concerns. Orders: Orders CT Cardiac Coronary Angio Today I25.10 - Atherosclerotic heart disease of [place] coronary artery without angina pectoris, R07.9 - Chest pain, unspecified ECG 7 day holter monitor Today R00.2 - Palpitations CA echo transthoracic complete Today R06.02 - Shortness of breath Medications: New prednisone Take 1 tablet on night prior to and 1 tablet on morning of CT. 50 mg PO DAILY 2 tabs 0RF Coding Level of Care Code New Pt Level 4 (58941) Complex EM visit Add On G2211 Diagnoses Chest pain, unspecified type R07.9 Chest pain type: unspecified SOB (shortness of breath) R06.02 Heart palpitations R00.2
--- OUTSIDE RECORDS SUMMARY | 2024-05-28 10:11 | XMS_ITS | Clinical Summary ---
Author Organization [facility] Address [address] [place] [address] Care Team Providers Care Pecan Cleaner Name Role Phone Unavailable Primary Care Provider Unavailabl e Source Comments PLEASE NOTE, if this patient is a minor, it may be UNLAWFUL to discuss sensitive information that is contained in these records (such as FAMILY PLANNING, MENTAL HEALTH or SUBSTANCE ABUSE) with the minor patient's parent or other person without the patient's specific authorization.[facility] Immunizations Name Administration Dates Next Due Moderna COVID-19 Vaccine, re d cap blue label, 12+ Primary Series 07/29/2020,06/30/2020 Social History Tobacco Use Types Packs/Day Years Used Date Smoking Tobacco: Never Assessed Social Connections Answer Date Recorded Social Connections and Isolation 0 06/30/2020 Financial Resource Strain Answer Date R ecorded Financial Resource Strain 0 2020 Stress Answer Date Recorded Stress 0 06/30/2020 Physical Activity Answer Date Recorded Physical Activity 0 06/30/2020 Food Insecurity Answer Date Recorded Food 0 06/30/2020 Transportation Needs Answer Date Record ed Transportation 0 06/30/2020 Housing Stability Answer Date Recorded Housing 0 06/30/2020 Safety and Environment Answer Date Valdez rded Safety 0 06/30/2020 Utilities Answer Date Recorded Utilities 0 06/30/2020 Employment Answer Date Recorded Employment 0 06/30/2020 Comments Unknown Sex and Gender Information Value Date Recorded Sex Assigned at Not on file Legal Sex Female 5:38 AM PDT Gender Identity Not on file Sexual Orientation Not on file Plan of Treatment Health Maintenance Due Date Last Done Comments Diabetes Screening 1960 HPV Screening 1960 Hepatitis C Screening 1960 Lipid Screening 1960 Pap + HPV 1960 Tobacco Screening 1960 HIV Screening 07/14/1975 Annual Preventive Care Visit 1978 Hypertension Screening (#1) 1978 Cervical Cancer Screening 1981 Pap Smear 1981 Breast Cancer Screening (Mammogram) 2000 CT Colonography 2005 Colonoscopy 2005 Colorectal Cancer Screening 2005 FIT/gFOBT 2005 Fecal DNA 2005 Flexible Sigmoidoscopy 2005 Imm-Zoster, Recombinant (1 of 2) 2010 Imm-DTaP/Tdap/Td (2 - Td or Tdap) 07/11/2021 012 [id number] (3 - season) 2023 021, 06/30/2020 Imm-Influenza (#1) 2023 02/12/2020, 1 04/16/2018, 01/02/2018, Additional history exists Alcohol and Drug Screen 03/28/2024 Depression Annual Screen 03/28/2024 Cervical Ablation/Cold-Knife Conization Discontinued Cervical Cryotherapy Discontinued Colposcopy Discontinued Endometrial Biopsy Discontinued Excision/Leep Discontinued HPV Genotyping Discontinued Vaginal Pap Discontinued Vulvoscopy Discontinued Insurance [facility]
== END 2024-05-28 10:07 | disposition home or self-care (01) ==
PROVIDERS: PCP Internal Medicine; Visit Provider Internal Medicine
DX: R07.9 Chest pain, unspecified (principal); R06.02 Shortness of breath; R00.2 Palpitations
CPT/HCPCS: 99204

== ENCOUNTER → 2024-06-12 13:58 | Outpatient (REF) | payer MEDICARE, BC, SELFPAY ==
--- NOTE | 2024-06-12 14:01 | CA_ITS ---
Transthoracic Echocardiogram Patient (Last, First, Middle): Chelsi Gomez N Gender: Female Date of : 1960 Age: 63 Procedure Date: 06/12/2024 Procedure Type: Transthoracic Echocardiogram Location: OP Height: 160.02 cm Weight: 63.5 kg BSA: 1.66 m2 Heart Rate: bpm BP: 124 / 80 mmHg Make Up Girl: Referring MD: Girish Blount MD Intellectual Property Lawyer: August Tinoco MD Symptoms: R06.02 - Shortness of breath Study Quality: Adequate w contrast ECG Rhythm: Sinus Conclusions: - 1. Normal LV ejection fraction at 60 65% with mild LVH with moderate asymmetric septal hypertrophy with impaired relaxation filling pattern 2. Normal cardiac valvular Dopplers 3. No gross pericardial effusion Findings Procedure Information Contrast agent, definity, is being given per protocol without apparent complications. Left Ventricle Normal left ventricular size and systolic function. There is mildly increased left ventricular wall thickness. The visually estimated ejection fraction is between 60-65%. There is no dynamic left ventricular outflow tract obstruction. There is systolic anterior motion of the chordae of the mitral valve. Spectral Doppler is indicative of an impaired relaxation filling pattern. E/E prime ratio is <8, consistent with normal filling pressures. Evidence suggests grade I (mild) diastolic dysfunction. There is moderate septal asymmetric hypertrophy. Right Ventricle Normal right ventricular cavity size and systolic function. Atria Both atria are normal in size. Interatrial shunt cannot be excluded. Aortic Valve Normal aortic valve structure and function. There is no aortic valve stenosis. There is no aortic valve regurgitation. Mitral Valve Normal mitral valve structure and function. There is trace mitral valve regurgitation. There is no mitral valve stenosis. Pulmonic Valve The pulmonic valve is likely normal. Tricuspid Valve Likely normal tricuspid valve structure and function. Tricuspid regurgitation envelope is inadequate for calculation of right ventricular systolic pressure. Normal right atrial pressure. Great Vessels All visible segments of the aorta are normal in size. The pulmonary artery was not well visualized. There is no dilatation of the ascending aorta measuring 3.10 cm. Venous The inferior vena cava is normal in size and collapses greater than 50% with inspiration. Pericardium/Pleural There is no evidence of pericardial effusion. Prior Study Comparison no prior study in the last 5 years for comparison Measurements 2D Linear Measurements IVSd: 1.44 0.6-0.9/0.6-1.0 cm LVIDd: 4.35 3.9-5.3/4.2-5.9 cm LVIDd Index: 2.62 2.4-3.2/2.2-3.1 cm/m2 LVIDs: 2.68 2.0-3.6 cm LVPWd: 1.23 0.7-1.1 cm Ao Root: 3.00 2.1-3.5 cm LA Diam: 3.40 2.7-3.8/3.0-4.0 cm LAIDs Index: 2.05 1.5-2.3 cm/m2 LV Mass: 274.18 67-162/88-224 g LV Mass Index: 165.17 43-95/49-115 g/m2 LVOT Diam: 2.10 3.0+(-)1.3 cm 2D Systolic Function EF 4C: 66.10 >55% EF 2C: 60.50 >55% EF BiP: 61.60 >55% Mitral Valve MV Pk E: 0.51 MV PK A: 0.68 MV Decel Time: 279.00 E/A: 0.70 E'Lateral: 7.83 E'Medial: 4.24 E/E' Med: 11.90 E/E' Lat: 6.50 PHT: 82.00 MVA PHT: 2.68 Decel [place]: 1.81 Aortic Valve AoV Pk Rei: 1.36 AoV Mn Rei: 0.93 AoV VTI: 0.33 AoV Pk Grad: 7.00 Aov Mn Grad: 4.00 BARBARA Cont.VTI: 2.10 LVOT LVOT Pk Rei: 0.79 LVOT Mn Rei: 0.56 LVOT VTI: 0.20 LVOT Pk Grad: 2.00 LVOT Mn Grad: 2.00 LVOT Diam: 2.10 LVOT Area: 3.46 Diastolic Function MV Pk E: 0.51 MV Pk A: 0.68 E/A: 0.70 E'Medial: 4.24 E/E' Med: 11.90 E' Laterial: 7.83 E/E' Lat: 6.50 Right Ventricle TAPSE (mm): 19.20 TVS' Rei: 9.90 Tricuspid Valve TR Pk Rei: 2.23 TR Pk Grad: 20.00 Great Vessels Aorta Ao Root-2D: 3.00 2.0-3.7 cm Ao Asc: 3.10 2.1-3.4 cm Pulmonary Valve PV Pk Rei: 0.88 Peak PV Grad: 3.00 Updated in Other Vendor System with Status of Final August Tinoco MD electronically signed on 06/12/2024 4:39:15 PM with status of Final
--- OUTSIDE RECORDS SUMMARY | 2024-06-12 16:45 | XMS_ITS | Clinical Summary ---
Author Organization [facility] Address [address] [place] [address] Care Team Providers Care Director Learning And Development Name Role Phone Unavailable Primary Care Provider [...] (2 - Td or Tdap) 07/11/2021 012 [id number] (3 - season) 2023 021, 06/30/2020 Imm-Influenza (#1) 2023 02/12/2020, 1 04/16/2018, 01/02/2018, Additional history exists Alcohol and Drug Screen 03/28/2024 Depression Annual Screen 03/28/2024 Cervical Ablation/Cold-Knife Conization Discontinued Cervical Cryotherapy Discontinued Colposcopy Discontinued Endometrial Biopsy Discontinued Excision/Leep Discontinued HPV Genotyping Discontinued Vaginal Pap Discontinued Vulvoscopy Discontinued Insurance [facility]
== END ==
LOC: HO.CARD 13:58
PROVIDERS: PCP Internal Medicine; Visit Provider Internal Medicine
DX: R06.02 Shortness of breath (principal); R00.2 Palpitations
CPT/HCPCS: 93242; 93306; Q9957

== ENCOUNTER → 2024-06-12 14:01 | Outpatient (BNV) | payer MEDICARE, BC, SELFPAY | PROVIDERS: PCP Internal Medicine; Visit Provider Internal Medicine Cardiovascular Disease | DX: I42.2 Other hypertrophic cardiomyopathy (principal) | CPT/HCPCS: 93306 ==

== ENCOUNTER 2024-06-13 14:13 | Outpatient (AMB) | payer BC, MEDICARE, SELFPAY ==
--- NOTE | 2024-06-13 14:30 | A.OFFVIS_ITS ---
Vital Signs 06/13/24 14:39 Height 5 ft 3 in Weight 146 lb BMI 25.9 BP 131/68 Blood Pressure Location Lt brachial Position Sitting Pulse 74 Intake Visit Reasons: Abdominal pain/HX of G tube seen in ER Intake Note: Patient new consult for abdominal pain/ hx ot G tube Patient cc: nauseas, dizziness, abdominal pain with bloating, GERD with burning sensation, some swallowing difficulty, gassy, and irritation on her colon/diarrhea. Analyst Food And Beverage Required: Yes Accompanied by: Spouse Allergies amlodipine Allergy (Unknown, Verified 06/13/24 14:30) Depression aspirin Allergy (Unknown, Verified 06/13/24 14:30) Unknown diphenhydramine [Benadryl] Allergy (Unknown, Verified 06/13/24 14:30) Unknown duloxetine Allergy (Unknown, Verified 06/13/24 14:30) worsening depression lisinopril Allergy (Unknown, Verified 06/13/24 14:30) Cough morphine Allergy (Unknown, Verified 06/13/24 14:30) Unknown Penicillins Allergy (Unknown, Verified 06/13/24 14:30) Unknown pregabalin Allergy (Unknown, Verified 06/13/24 14:30) sleepwalking, confusion verapamil Adverse Reaction (Unknown, Verified 06/13/24 14:30) rash HPI Comments Details: 63 y.o F with PMH of 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 Pt reports an array of GI issues as below. Reports almost 2 months ago had an episode of severe left sided pain which was assoc with heartburn and nausea. Was seen in ER and given omeprazole which hel ped. Takes omeprazole 20 once a day. Was taking ibuprofen 800 frequently around that time but has since then stopped. Has known underlying IBS per her report. Occ has abd cramping with bowel movement. This is mostly lower abd with pressure like sensation. This is constipation predominant. Has 3 BMs per week. Pt prev used to be seen by [facility]. Prev w/up: Barium swallow 2020 ([facility]): Mild esophageal dysmotility. EGD/colo 2019 ([facility]): Normal duo bx. No H pylori. Tubular adenoma. No microscopic colitis. Diverticulosis. 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 Surgical History H/O tubal ligation No pertinent past surgical history Family History Father CAD (coronary artery disease) Hypertension CVD (cardiovascular disease) Mother Hypertension Maternal Aunt Vaginal cancer Paternal Uncle Throat cancer Social History Household Members: Spouse Housing: House Alcohol intake: never Patient Tobacco Use Status: Never used Tobacco e-Cigarette/Vaping Use: Never Used Second Hand Smoke Exposure: Yes service: No Current occupational status: disabled Cognitive needs: No Hearing needs: No Vision needs: Yes (gasses) Review of Systems Const All systems reviewed & are unremarkable except as noted in HPI and below Physical Exam Vital Signs: Last Vital Signs Pulse 74 06/13/24 14:39 BP 131/68 06/13/24 14:39 BMI result Body Mass Index 25.9 No apparent distress Nonicteric Abdomen soft, nondistended, 3 finger diastasis Alert and oriented x3, normal gait Assessment & Plan Assessment & Plan (1) Left sided abdominal pain: Code(s): R10.9 - Unspecified abdominal pain Category: Medical (2) Esophageal dysmotility: Code(s): K22.4 - Dyskinesia of esophagus Category: Medical (3) Irritable bowel syndrome with constipation: Code(s): K58.1 - Irritable bowel syndrome with constipation Category: Medical Plan 1. 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 This is better now. Plan: - Cont omeprazole 20 daily - Can DC sucralfate - Check UGIS - will do with barium swallow due to prev hx of dysmotility - EGD guided by results 2. IBS-C: Pt reminded low FODMAP foods and fiber intake. In addition, can also add miralax and titrate to effect. Has diastasis on exam which is likely contributing to bloating sx. 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 Follow up 2 months Orders: Orders [place] upper GI w Ba Swallow Today K22.4 - Dyskinesia of esophagus, R10.9 - Unspecified abdominal pain Medications: New omeprazole 20 mg PO DAILY 90 caps 1RF Refilled polyethylene glycol 3350 (Miralax) 17 grams PO DAILY PRN 238 grams 0RF constipation Patient Instructions: - We have ordered xray test of the esophagus and stomach - Cont omeprazole, you may discontinue sucralfate - Add fiber such as benefiber or psyllium. 1 tbsp mixed in 8 oz water daily. - Take miralax every day or every other day for constipation Coding Level of Care Code New Pt Level 4 (79888) Diagnoses Left sided abdominal pain R10.9 Esophageal dysmotility K22.4 Irritable bowel syndrome with constipation K58.1
[2024-06-13 14:39] VITALS: BP 131/68; PULSE 74; BMI 25.9
--- OUTSIDE RECORDS SUMMARY | 2024-06-13 16:36 | XMS_ITS | Clinical Summary ---
Author Organization [facility] Address [address] [place] [address] Care Team Providers Care Labor Conciliator Name Role Phone Unavailable Primary Care Provider [...] (2 - Td or Tdap) 07/11/2021 012 [id number] (3 - season) 2023 021, 06/30/2020 Imm-Influenza (#1) 2023 02/12/2020, 1 04/16/2018, 01/02/2018, Additional history exists Alcohol and Drug Screen 03/28/2024 Depression Annual Screen 03/28/2024 Cervical Ablation/Cold-Knife Conization Discontinued Cervical Cryotherapy Discontinued Colposcopy Discontinued Endometrial Biopsy Discontinued Excision/Leep Discontinued HPV Genotyping Discontinued Vaginal Pap Discontinued Vulvoscopy Discontinued Insurance [facility]
== END 2024-06-13 15:09 | disposition home or self-care (01) ==
LOC: HO.HGI 14:14
PROVIDERS: PCP Internal Medicine; Visit Provider Internal Medicine
DX: R10.9 Unspecified abdominal pain (principal); K22.4 Dyskinesia of esophagus; K58.1 Irritable bowel syndrome with constipation
CPT/HCPCS: 99204

== ENCOUNTER 2024-06-22 08:17 | Outpatient (REF) | payer BC, MEDICARE, SELFPAY ==
[2024-06-22 09:38] LABS: MANUAL DIFF FLAG NO
[2024-06-22 09:55] LABS: Appearance Urine Clear; Color Urine Yellow; Glucose Urine UA Negative (Negative); Leukocyte Esterase Urine Trace (Negative); Nitrite Urine Negative (Negative); UMIC TRIGGER UACC YES; Urine Blood Negative (Negative); Urine Ketones Negative (Negative); Urine Protein Negative (Neg-Trace)
[2024-06-22 09:56] LABS: Basophils Percent Auto 0.6 % (0-2); Eosinophils Absolute Auto 0.1 X10*3/uL (0.0-0.4); Hematocrit 43.3 % (37.0-47.0); Imm Gran Abs Auto 0.03 X10*3/uL (0.00-0.03); Imm Gran Pct Auto 0.5 % (0.0-0.4); Lymphocytes Absolute Auto 1.7 X10*3/uL (1.2-4.9); Lymphocytes Percent Auto 26.9 % (20-40); Mean Corpuscular HGB Conc 32.3 g/dl (31.0-35.0); Mean Corpuscular Hemoglobin 29.6 pg (27.0-33.0); Mean Corpuscular Volume 91.5 fL (80.0-98.0); Mean Platelet Volume 10.2 fL (9.4-12.3); Monocytes Absolute Auto 0.4 X10*3/uL (0.1-1.2); Monocytes Percent Auto 6.4 % (2-11); Neutrophils Percent Auto 64.6 % (45-73); Platelet Count 264 X10*3/uL (160-400); Red Blood Count 4.73 X10*6/uL (4.20-5.50); Red Cell Distribution Width 12.5 % (11.0-16.0); White Blood Count 6.2 X10*3/uL (4.8-10.8)
[2024-06-22 10:00] LABS: Bacteria Urine None Seen (None Seen); Hyaline Casts Urine 0-2 /LPF (0-2); RBC Urine 0-2 /HPF (0-2); Squamous Epithelial Cell Urine 0-2 /HPF (0-2); WBC Urine 0-5 /HPF (0-5)
[2024-06-22 10:05] LABS: Estimated Average Glucose 114 mg/dL; Hemoglobin A1c % 5.6 % (<6.0); Total Hemoglobin (HGBA1C) 3758.2814 umol/L
[2024-06-22 10:17] LABS: Alanine Aminotransferase 15 U/L (0-31); Albumin Level 4.3 g/dL (3.5-5.0); Alkaline Phosphatase 67 U/L (39-117); Anion Gap 8 (12-20); Aspartate Amino Transferase 18 U/L (5-31); Bilirubin Total 0.6 mg/dL (0.0-1.0); Blood Urea Nitrogen 15 mg/dL (9-16); Calcium 9.3 mg/dL (8.4-10.2); Carbon Dioxide 29 mmol/L (22-29); Chloride 107 mmol/L (96-108); Cholesterol 193 mg/dL (<200); Estimated Glomerular Filt Rate > 60; Glucose Fasting 105 mg/dL (60-99); HDL Cholesterol 49 mg/dL (>40); LDL Cholesterol Calculated 123 mg/dL (<100); Potassium 4.3 mmol/L (3.3-5.1); Sodium 140 mmol/L (135-145); Total Protein 7.3 g/dL (6.5-8.0); Triglycerides 105 mg/dL (<150)
[2024-06-22 10:35] LABS: TSH reflex Free T4 0.73 uIU/mL (0.32-4.0); Vitamin D 25-OH Total 26.1 ng/mL (>30)
== END 2024-06-22 08:18 | disposition home or self-care (01) ==
LOC: HO.10HDL 08:17
PROVIDERS: Visit Provider Internal Medicine
DX: D64.9 Anemia, unspecified (principal); E78.00 Pure hypercholesterolemia, unspecified; E55.9 Vitamin D deficiency, unspecified; R73.01 Impaired fasting glucose
CPT/HCPCS: 36415; 80053; 80061; 81001; 82306; 83036; 84443; 85025

== ENCOUNTER 2024-06-26 15:26 | Outpatient (AMB) | payer BC, MEDICARE, SELFPAY ==
[2024-06-26 15:32] VITALS: BP 110/70; PULSE 61; O2SAT 97; BMI 26.3
--- NOTE | 2024-06-26 15:32 | MHC.PC.OV ---
Vital Signs 06/26/24 15:32 Height 5 ft 3 in Weight 148 lb 6 oz BMI 26.3 BP 110/70 Blood Pressure Location Lt brachial Position Sitting Pulse 61 Pulse Source Pulse Oximeter Pulse Oximetry (%) 97 Oxygen Delivery Method Room Air Intake Visit Reasons: 4mth f/u Flatbed Driver Required: No Accompanied by: Self / Same As Patient Allergies amlodipine Allergy (Unknown, Verified 06/26/24 15:59) Depression aspirin Allergy (Unknown, Verified 06/26/24 15:59) Unknown diphenhydramine [Benadryl] Allergy (Unknown, Verified 06/26/24 15:59) Unknown duloxetine Allergy (Unknown, Verified 06/26/24 15:59) worsening depression lisinopril Allergy (Unknown, Verified 06/26/24 15:59) Cough morphine Allergy (Unknown, Verified 06/26/24 15:59) Unknown Penicillins Allergy (Unknown, Verified 06/26/24 15:59) Unknown pregabalin Allergy (Unknown, Verified 06/26/24 15:59) sleepwalking, confusion verapamil Adverse Reaction (Unknown, Verified 06/26/24 15:59) rash perflutren Adverse Reaction (Verified 06/29/24 15:52) Back Pain Medication List - Last Reconciled 06/26/24 by Venkata Banegas MD albuterol sulfate 90 mcg/actuation 2 puffs PO QID PRN beclomethasone dipropionate 80 mcg/actuation (Qvar RediHaler) 1 inh inhalation BID cetirizine (Zyrtec) 10 mg PO DAILY clobetasol 0.05% grams topical Q3D clonazepam 0.5 mg PO BEDTIME CPAP (CPAP Machine/Device) As directed dicyclomine 20 mg PO TID PRN 30 days docusate sodium (Colace) 100 mg PO DAILY PRN ergocalciferol (vitamin D2) 1,250 mcg PO QWEEK gabapentin 2 capsules in AM, 2 capsules in PM (early afternoon) and 3 capsules at bedtime 30 days ipratropium bromide 2 sprays intranasal BID lorazepam 0.5 mg PO BID PRN omeprazole 20 mg PO DAILY polyethylene glycol 3350 (Miralax) 17 grams PO DAILY PRN propranolol 40 mg PO BID riboflavin (vitamin B2) (Vitamin B-2) 400 mg PO DAILY tizanidine 4 mg PO TID PRN 10 days Tobacco use date assessed: 06/26/24 Dental Screening Dental Screen Date: 06/26/24 Did you have a dental visit in the last 12 months?: Yes Did you have a dental problem in the last 6 months where you did not have access to dental care?: No Was dental information given to patient?: Patient has dentist HPI 4mth f/u HPI Details Patient comes in today for her follow up visit States that she continues to struggle with anxiety and depression She has been tried on several different medications in the past but so far has not been able to tolerate any of them due to side effects (meds tried include Sertraline, Mirtazapine, Escitalopram, Hydroxyzine and Duloxetine) She is currently only taking Lorazepam PRN She has been referred for neuropsychiatry evaluation and is scheduled to be seen in a few more weeks She still has on and off headaches; denies any dizziness lately She denies any increased SOB but still reports (+) on and off chest pains She was seen by cardiology a few weeks ago and is being sent for a Holter monitor and coronary CTA, which are still awaiting scheduling No nausea/vomiting, no abdominal pain No change in bowel habits noted She had her follow up labs done a few days ago - to discuss her results [facility] Medical History Overweight (BMI 25.0-29.9) Mixed hyperlipidemia Spasmodic torticollis Left hand weakness Coarse tremors Vertigo Spasmodic torticollis Feeding by G-tube Benign essential hypertension Insomnia Anxiety and depression Strain of left trapezius muscle Left hip pain Left lumbosacral radiculopathy Abdominal pain Constipation Gastritis Dysphagia Epilepsy Depression Asthma Vitamin D deficiency 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 Surgical History H/O tubal ligation No pertinent past surgical history Family History Father CAD (coronary artery disease) Hypertension CVD (cardiovascular disease) Mother Hypertension Maternal Aunt Vaginal cancer Paternal Uncle Throat cancer Social History Household Members: Spouse Housing: House Alcohol intake: never Patient Tobacco Use Status: Never used Tobacco e-Cigarette/Vaping Use: Never Used Second Hand Smoke Exposure: Yes service: No Current occupational status: disabled Cognitive needs: No Hearing needs: No Vision needs: Yes (gasses) Questionnaire PHQ-9 Over the last 2 weeks, how often have you been bothered by any of the following problems? 1. Little interest or pleasure in doing things: more than half the days 2. Feeling down, depressed, or hopeless: more than half the days 3. Trouble falling or staying asleep, or sleeping too much: more than half the days 4. Feeling tired or having little energy: several days 5. Poor appetite or overeating: not at all 6. Feeling bad about yourself - or that you are a failure or have let yourself or your family down: several days 7. Trouble concentrating on things, such as reading the newspaper or watching television: several days 8. Moving or speaking so slowly that other people could have noticed. Or the opposite - being so fidgety or restless that you have been moving around a lot more than usual: several days 9. Thoughts that you would be better off or of hurting yourself in some way: not at all Total score: 10 Depression Screening Interpretation: Positive Depression Screening Follow-up: Existing condition and In treatment Depression Screening Done: Yes 11998 - PHQ-9 Billing: Yes Source: Developed by Drs. Rashawn Deutsch, Becca Rivera, Abdon Dominguez and colleagues, with an educational braydon from [employer]. Thrive Questionnaire Date Thrive assessed: 06/26/24 I am a: Patient What is your living situation today?: I have a steady place to live Within the past 12 months, did the food you bought not last and you didn't have the money to get more?: Never true Within the past 12 months, did you worry whether your food would run out before you got money to buy more?: Never true Do you have trouble paying for medicines?: No Do you have trouble getting transportation to medical appointments?: No Do you have trouble paying your heating and electricity bill?: No Do you have trouble taking care of your child, family member or friend?: No Do you have trouble with day-to-day activities such as bathing, preparing meals, shopping, managing finances, etc.?: No Are you currently unemployed and looking for a job?: No Are you interested in more education?: No Please select the resources that you would like help with: None Currently or been in a relationship where the following occur: No concerns reported THRIVE Score: 0 AUDIT C Alcohol Use Questionnaire (AUDIT-C) 1. How often do you have a drink containing alcohol?: Monthly or less 2. How many drinks containing alcohol do you have on a typical day when you are drinking?: 1 or 2 3. How often do you have six or more drinks on one occasion?: Never Total Score: 1 Score Reviewed/Action Taken: Yes KATHERYN-7 AMB Questionnaire KATHERYN-7 Date KATHERYN - 7 assessed: 06/26/24 Feeling nervous, anxious, or on edge: 0 = Not at all Not being able to stop or control worryin = Not at all Worrying too much about different things: 0 = Not at all Trouble relaxin = Not at all Being so restless that it is hard to sit still: 0 = Not at all Becoming easily annoyed or irritable: 0 = Not at all Feeling afraid as if something awful might happen: 0 = Not at all Total KATHERYN-7 score (0-4 normal; 5-9 mild; 10-14 moderate; 15-21 severe): 0 Source: Developed by Drs. Rashawn Deutsch, Becca Rivera, Abdon Dominguez and colleagues, with an educational braydon from [employer]. Review of Systems Const Denies chills, Reports difficulty sleeping, Reports fatigue, Denies fever(s) and Reports headache(s) (on and off) ENT Denies dysphagia, Reports dizziness (on and off), Reports headache(s) (on and off), Reports hoarseness (chronic), Reports neck pain (recurrent), Denies odynophagia, Reports tinnitus (chronic) and Denies sore throat Card Reports chest pain, Denies palpitations and Denies dyspnea Resp Denies cough, Denies dyspnea and Denies wheezing GI Denies abdominal pain, Reports constipation (on and off), Denies dysphagia, Denies heartburn, Denies diarrhea, Denies nausea, Denies odynophagia and Denies vomiting Denies difficulty voiding, Denies nocturia, Denies dysuria and Denies urinary urgency Musc Reports back pain (over the left SI joint), Reports arthralgias (left hip), Reports neck pain (recurrent) and Reports radiating pain into limb (into the left thigh and leg) Skin/Breast Denies rash Neuro Reports dizziness (on and off), Reports headache(s) (on and off), Denies focal weakness, Denies seizure-like activity and Reports tremor(s) Psych Reports anxiety and Reports depression Endo Reports fatigue and Denies palpitations Augustus/Lymph Denies easy bruising Aller/Immun Denies wheezing Physical exam (Primary Care) Vital Signs: Last Vital Signs Pulse 61 06/26/24 15:32 BP 110/70 06/26/24 15:32 Pulse Ox 97 06/26/24 15:32 Oxygen Delivery Method Room Air 06/26/24 15:32 BMI result Body Mass Index 26.3 Tobacco/Smoking Status: Tobacco use Status Tobacco use date assessed 06/26/24 06/26/24 15:34 Patient Tobacco Use Status Never used Tobacco 06/26/24 15:34 e-Cigarette/Vaping Use Never Used 06/26/24 15:34 PHQ-9: PHQ-9 Score PHQ-9: Total score 10 06/26/24 16:03 Depression Screening Interpretation: Positive Depression Screening Follow-up: Existing condition and In treatment Thrive Assessment: Date of Thrive Assessment Date Thrive assessed 06/26/24 06/26/24 15:34 Currently or been in a relationship where the following occur: No concerns reported Const General: no acute distress and alert HENMT Ears: TM's normal bilaterally and EAC's normal Throat: Yes posterior oropharynx normal and Yes tonsils normal (no TP congestion) Neck Neck: Yes no lymphadenopathy and Yes tender Thyroid: Thyroid normal Resp Auscultation: clear to auscultation bilaterally, no rales and no wheezes Cardio Rate: regular rate Rhythm: regular rhythm Heart sounds: no murmurs GI Palpation (GI): Soft to palpation and nontender Auscultation: normal bowel sounds General: Yes no CVA tenderness Back/Spine/Pelvis Back: no CVA tenderness Cervical Spine: cervical muscular tenderness, cervical spasm and No Cervical spine tenderness Thoracic/Lumbar Spine: No lumbar spinal tenderness Sacroiliac joints: on the left tender to palpation Skin Rashes: no rashes Neuro Motor exam (neuro): Tremors during motor activity present (mild, over both hands; (+) head tremors noted as well) Extrem General: Yes no clubbing, cyanosis or edema Left lower extremity: hip/thigh Details: tenderness Location: of the hip Results Reviewed Results Reviewed: Laboratory Tests 06/22/24 08:22 WBC 6.2 Hgb 14.0 Hct 43.3 Plt Count 264 Sodium 140 Potassium 4.3 Creatinine 0.71 Estimated GFR > 60 Fasting Glucose 105 H Hemoglobin A1c % 5.6 Calcium 9.3 AST 18 ALT 15 Triglycerides 105 Cholesterol 193 LDL Cholesterol, Calc 123 H HDL Cholesterol 49 25-OH Vitamin D Total 26.1 L TSH 0.73 Ur Specific [place] 1.010 Urine Protein Negative Urine Glucose (UA) Negative Urine Blood Negative Urine Nitrite Negative Ur Leukocyte Esterase Trace H Coding Level of Care Code Est Pt Level 4 (14669) Complex EM visit Add On G2211 Diagnoses Nonintractable headache, unspecified chronicity pattern, unspecified headache type R51.9 Headache chronicity pattern: unspecified pattern Headache type: unspecified Intractability: not intractable Herpes simplex encephalitis B00.4 Cystic encephalomalacia G93.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, unspecified epilepsy type G40.909 Epilepsy type: unspecified Intractability: not intractable Status epilepticus: without status epilepticus 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 Coarse tremors G25.2 Spasmodic torticollis G24.3 Chest pain, unspecified type R07.9 Chest pain type: unspecified Mixed hyperlipidemia E78.2 Benign essential hypertension I10 Impaired fasting glucose R73.01 Mild persistent asthma without complication J45.30 Asthma complication type: uncomplicated Asthma persistence: persistent Asthma severity: mild Vitamin D deficiency E55.9 Gastritis without bleeding, unspecified chronicity, unspecified gastritis type K29.70 Chronicity: unspecified Gastritis bleeding: without bleeding Gastritis type: unspecified gastritis Constipation, unspecified constipation type K59.00 Constipation type: unspecified constipation type Insomnia, unspecified type G47.00 Insomnia type: unspecified Anxiety and depression F41.9; F32.9 Overweight (BMI 25.0-29.9) E66.3 Additional Codes PHQ-9 - 76503 - PHQ-9 Billing: Yes ([id number]) Assessment & Plan Assessment & Plan (1) Headache: Code(s): R51.9 - Headache, unspecified Category: Medical Qualifiers: Headache chronicity pattern: unspecified pattern Headache type: unspecified Intractability: not intractable Qualified Code(s): R51.9 - Headache, unspecified Plan: These are most likely multifactorial headaches Continue Riboflavin 400 mg QD She has also been receiving occipital nerve blocks from a headaches specialist at [facility] (Dr. Singleton) for a few months now and feels that these are helping somewhat Follow up with neurology as scheduled (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; still has minimal residual dysphasia, dysphagia and impaired memory recall Repeat MRI of the brain done in early 2019 showed no acute pathology or abnormal enhancement, (+) cystic encephalomalacia in the right anterior temporal lobe associated with volume loss and surrounding gliosis and smaller areas of abnormal signal in the left temporal lobe - findings are consistent with sequela of prior HSV encephalitis Repeat EEG done showed remained abnormal with slowing of right temporal cortical region, no epileptiform activities were seen Has been slowly tapered off her Keppra and patient is advised to call if seizures recur or occur Code(s): B00.4 - Herpesviral encephalitis Category: Medical Plan: S/P Tx Symptoms have been stable with no regression so far Follow-up with Neurology as scheduled (3) Cystic encephalomalacia: Code(s): G93.89 - Other specified disorders of brain Category: Medical Plan: Findings of cystic encephalomalacia seen on her most recent MRI, consistent with her previous HSV encephalitis diagnosis Patient still has some minimal/residual problems with memory recall and residual dysphasia/aphasia but these have stabilized over time (4) Epilepsy: Code(s): G40.909 - Epilepsy, unspecified, not intractable, without status epilepticus Category: Medical Qualifiers: Epilepsy type: unspecified Intractability: not intractable Status epilepticus: without status epilepticus Qualified Code(s): G40.909 - Epilepsy, unspecified, not intractable, without status epilepticus Plan: Patient has not had any seizures in a while now and has been slowly tapered off her Keppra by Neurology months ago Follow-up with Neurology as scheduled (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 Category: Medical Plan: Patient was receiving Botox injections (from [facility]) as needed in the past but states that she has not been getting this for over a year now States that her hoarseness has not felt any worse since she last had her injection over a year ago and she denies any difficulty swallowing States that she has been trying to reach out to her doctors in [place] to schedule her vocal cord injections again but has not yet been able to contact them (6) Coarse tremors: Comment: postural tremors with intermittent worsening, post viral worsened by poorly controlled mood Code(s): G25.2 - Other specified forms of tremor Category: Medical Plan: Continue Propranolol 40 mg BID Follow up with neurology as scheduled (7) Spasmodic torticollis: Code(s): G24.3 - Spasmodic torticollis Category: Medical Plan: She has been referred by neurology to physical therapy to help with her recurrent neck spasms, which she states helped only minimally She received some botox injections into her neck from Dr. Jean Baptiste over the past few months but did not feel that they have helped much (8) Chest pain: Code(s): R07.9 - Chest pain, unspecified Category: Medical Qualifiers: Chest pain type: unspecified Qualified Code(s): R07.9 - Chest pain, unspecified Plan: She was referred to and seen by cardiology a few weeks ago and is currently being scheduled for Holter monitoring and coronary CTA for further evaluation Follow up with cardiology as scheduled (9) Mixed hyperlipidemia: Code(s): E78.2 - Mixed hyperlipidemia Category: Medical Plan: Results of her labs done a few days ago reviewed and discussed with patient Reinforce low-cholesterol diet - patient would like to continue working on improving her diet and avoid taking cholesterol-lowering medications as much as possible Will recheck her labs and fasting lipids in 4 months for follow up (10) Benign essential hypertension: Code(s): I10 - Essential (primary) hypertension Category: Medical Plan: Reinforced low sodium diet - goal is systolic BP of at least 130 mm or less Per our instructions, she stopped taking her Losartan 25 mg QD after her last visit as she was suspecting that her on and off diarrhea was a side effect of the Rx Feels that her diarrhea has improved a lot since then and she is currently not on any Rx for her blood pressure although she is on Propranolol 40 mg BID that was started by neurology for her tremors last year She is reminded to continue monitoring her blood pressure regularly (11) Impaired fasting glucose: Code(s): R73.01 - Impaired fasting glucose Category: Medical Plan: Her HgbA1c was normal at 5.6% even though her FBS was slightly elevated at 105 mg/dl on her recent lab Reinforce low calorie/low carb diet (12) Asthma: Code(s): J45.909 - Unspecified asthma, uncomplicated Category: Medical Qualifiers: Asthma complication type: uncomplicated Asthma persistence: persistent Asthma severity: mild Qualified Code(s): J45.30 - Mild persistent asthma, uncomplicated Plan: Controlled Continue Qvar 80 mcg 1 puff twice a day and Albuterol HFA 2 puffs 4 times a day as needed (13) Vitamin D deficiency: Code(s): E55.9 - Vitamin D deficiency, unspecified Category: Medical Plan: Continue Vitamin D2 62179 units once a week (14) Gastritis: Code(s): K29.70 - Gastritis, unspecified, without bleeding Category: Medical Qualifiers: Chronicity: unspecified Gastritis bleeding: without bleeding Gastritis type: unspecified gastritis Qualified Code(s): K29.70 - Gastritis, unspecified, without bleeding Plan: Dietary restrictions reinforced Continue Omeprazole 40 mg QD and Famotidine 20 mg 1 to 2 tablets a day at bedtime as needed Follow up with GI as scheduled (15) Constipation: Code(s): K59.00 - Constipation, unspecified Category: Medical Qualifiers: Constipation type: unspecified constipation type Qualified Code(s): K59.00 - Constipation, unspecified Plan: She likely has IBS with constipation Symptoms have Improved and has been controlled lately; she is encouraged again to continue increased oral fluids and dietary fiber Abdominal x-rays done a few months ago showed (+) moderate stool burden; x-rays were otherwise normal Continue OTC stool softeners as needed Continue Dicyclomine 20 mg TID PRN (16) Insomnia: Code(s): G47.00 - Insomnia, unspecified Category: Medical Qualifiers: Insomnia type: unspecified Qualified Code(s): G47.00 - Insomnia, unspecified Plan: Sleep hygiene reinforced Continue Trazodone 50 mg Q HS PRN (17) Anxiety and depression: Comment: hydroxyzine - nausea sertraline - forgetful mirtazapine - escitalopram - headaches Code(s): F41.9 - Anxiety disorder, unspecified; F32.9 - Major depressive disorder, single episode, unspecified Category: Medical Plan: Patient so far has not been able to tolerate Sertraline, Venlafaxine, Hydroxyzine, Duloxetine and Mirtazapine Per her request, she was referred to [facility] for counseling and therapy a few months ago and she was seen by Dr. Springer and was advised of her depression Dx and her recommendation was for her to start taking some Rx She has been advised in the past that she can continue on Lorazepam 0.5 mg BID PRN but if her mood disorder is better controlled on a maintenance medication, then she may find that she does not need to take her Lorazepam as much We have referred her to the [facility] for neuropsychiatry evaluation and management previously - she is scheduled for her appointment in a few weeks (18) Overweight (BMI 25.0-29.9): Code(s): E66.3 - Overweight Category: Medical Plan: Reinforce diet/exercise as tolerated/lose weight Plan Follow up in 4 months Orders: Orders Complete Blood Count Auto Diff 4 Months D64.9 - Anemia, unspecified Comprehensive [place]. Panel Fast 4 Months E78.00 - Pure hypercholesterolemia, unspecified Lipid Panel 4 Months E78.00 - Pure hypercholesterolemia, unspecified
--- OUTSIDE RECORDS SUMMARY | 2024-06-26 18:22 | XMS_ITS | Clinical Summary ---
Author Organization [facility] Address [address] [place] [address] Care Team Providers Care Stock Layer Name Role Phone Unavailable Primary Care Provider Unavailabl e Source Comments PLEASE NOTE, if this patient is a minor, it may be UNLAWFUL to discuss sensitive information that is contained in these records (such as FAMILY PLANNING, MENTAL HEALTH or SUBSTANCE ABUSE) with the minor patient's parent or other person without the patient's specific authorization.[facility] Immunizations Immunization Administration Dates Next Due Moderna COVID-19 Vaccine, [...] (2 - Td or Tdap) 07/11/2021 012 [id number] (3 - season) 2023 021, 06/30/2020 Imm-Influenza (#1) 2023 02/12/2020, 1 04/16/2018, 01/02/2018, Additional history exists Alcohol and Drug Screen 03/28/2024 Depression Annual Screen 03/28/2024 Cervical Ablation/Cold-Knife Conization Discontinued Cervical Cryotherapy Discontinued Colposcopy Discontinued Endometrial Biopsy Discontinued Excision/Leep Discontinued HPV Genotyping Discontinued Vaginal Pap Discontinued Vulvoscopy Discontinued Insurance [facility]
== END 2024-06-26 16:33 | disposition home or self-care (01) ==
LOC: HO.HMCH 15:27
PROVIDERS: PCP Internal Medicine; Visit Provider Internal Medicine
DX: R51.9 Headache, unspecified (principal); B00.4 Herpesviral encephalitis; G93.89 Other specified disorders of brain; G40.909 Epilepsy, unspecified, not intractable, without status epilepticus; J38.3 Other diseases of vocal cords; G25.2 Other specified forms of tremor; G24.3 Spasmodic torticollis; R07.9 Chest pain, unspecified; E78.2 Mixed hyperlipidemia; I10 Essential (primary) hypertension; R73.01 Impaired fasting glucose; J45.30 Mild persistent asthma, uncomplicated; E55.9 Vitamin D deficiency, unspecified; K29.70 Gastritis, unspecified, without bleeding; K59.00 Constipation, unspecified; G47.00 Insomnia, unspecified; F41.9 Anxiety disorder, unspecified; F32.9 Major depressive disorder, single episode, unspecified; E66.3 Overweight

== ENCOUNTER → 2024-06-26 15:26 | Outpatient (BNVA) | payer BC, MEDICARE, SELFPAY | PROVIDERS: PCP Internal Medicine; Visit Provider Internal Medicine | DX: R51.9 Headache, unspecified (principal); B00.4 Herpesviral encephalitis; G93.89 Other specified disorders of brain; G40.909 Epilepsy, unspecified, not intractable, without status epilepticus; J38.3 Other diseases of vocal cords; G25.2 Other specified forms of tremor; G24.3 Spasmodic torticollis; R07.9 Chest pain, unspecified; E78.2 Mixed hyperlipidemia; I10 Essential (primary) hypertension; R73.01 Impaired fasting glucose; J45.30 Mild persistent asthma, uncomplicated; E55.9 Vitamin D deficiency, unspecified; K29.70 Gastritis, unspecified, without bleeding; K59.00 Constipation, unspecified; G47.00 Insomnia, unspecified; F41.9 Anxiety disorder, unspecified; F32.9 Major depressive disorder, single episode, unspecified; E66.3 Overweight; Z79.899 Other long term (current) drug therapy | CPT/HCPCS: 96127 ==

== ENCOUNTER 2024-07-03 15:44 | Outpatient (REF) | payer BC, MEDICARE, SELFPAY ==
[2024-07-03 17:35] LABS: Anion Gap 13 (12-20); Blood Urea Nitrogen 13 mg/dL (9-16); Calcium 9.6 mg/dL (8.4-10.2); Carbon Dioxide 28 mmol/L (22-29); Chloride 106 mmol/L (96-108); Estimated Glomerular Filt Rate > 60; Glucose Random 100 mg/dL (60-115); Potassium 4.5 mmol/L (3.3-5.1); Sodium 142 mmol/L (135-145)
--- OUTSIDE RECORDS SUMMARY | 2024-07-03 18:41 | XMS_ITS | Clinical Summary ---
Author Organization [facility] Address [address] [place] [address] Care Team Providers Care Legal Director Name Role Phone Unavailable Primary Care Provider [...] Health Maintenance Due Date Last Done Comments Anxiety Screening 1960 Diabetes Screening 1960 HPV Screening 1960 Hepatitis C Screening 1960 Lipid Screening 1960 Pap + HPV 1960 Tobacco Screening 1960 HIV Screening 07/14/1975 Hypertension Screening (#1) 1978 Cervical Cancer Screening 1981 Pap Smear 1981 Breast Cancer Screening (Mammogram) 2000 CT Colonography 2005 Colonoscopy 2005 Colorectal Cancer Screening 2005 FIT/gFOBT 2005 Fecal DNA 2005 Flexible Sigmoidoscopy 2005 Imm-Zoster, Recombinant (1 of 2) 2010 Imm-DTaP/Tdap/Td (2 - Td or Tdap) 07/11/2021 012 [id number] (3 - season) 2023 021, 06/30/2020 Imm-Influenza (#1) 2023 02/12/2020, 1 04/16/2018, 01/02/2018, Additional history exists Alcohol and Drug Screen 03/28/2024 Depression Annual Screen 03/28/2024 Cervical Ablation/Cold-Knife Conization Discontinued Cervical Cryotherapy Discontinued Colposcopy Discontinued Endometrial Biopsy Discontinued Excision/Leep Discontinued HPV Genotyping Discontinued Vaginal Pap Discontinued Vulvoscopy Discontinued Insurance [facility]
== END 2024-07-03 15:45 | disposition home or self-care (01) ==
LOC: HO.LAB 15:44
PROVIDERS: PCP Internal Medicine; Visit Provider Internal Medicine
DX: R07.9 Chest pain, unspecified (principal)
CPT/HCPCS: 36415; 80048

== ENCOUNTER 2024-07-20 08:04 | Outpatient (AMB) | payer BC, MEDICARE, SELFPAY ==
--- NOTE | 2024-07-20 08:02 | A.OFFVIS_ITS ---
Vital Signs 07/20/24 08:11 Height 5 ft 3 in Weight 148 lb BMI 26.2 BP 124/82 Blood Pressure Location Rt brachial Position Sitting Intake Visit Reasons: f/u appt after EEG-Conf Intake Note: patient following up per workload and patient EEG results were given to her already. states she is still not sleeping and wants to keep appointment Allergies amlodipine Allergy (Unknown, Verified 07/20/24 08:06) Depression aspirin Allergy (Unknown, Verified 07/20/24 08:06) Unknown diphenhydramine [Benadryl] Allergy (Unknown, Verified 07/20/24 08:06) Unknown duloxetine Allergy (Unknown, Verified 07/20/24 08:06) worsening depression lisinopril Allergy (Unknown, Verified 07/20/24 08:06) Cough morphine Allergy (Unknown, Verified 07/20/24 08:06) Unknown Penicillins Allergy (Unknown, Verified 07/20/24 08:06) Unknown pregabalin Allergy (Unknown, Verified 07/20/24 08:06) sleepwalking, confusion verapamil Adverse Reaction (Unknown, Verified 07/20/24 08:06) rash perflutren Adverse Reaction (Verified 07/20/24 08:06) Back Pain Medication List - Last Reconciled 07/20/24 by ROSALIO De Anda albuterol sulfate 90 mcg/actuation 2 puffs PO QID PRN beclomethasone dipropionate 80 mcg/actuation (Qvar RediHaler) 1 inh inhalation BID cetirizine (Zyrtec) 10 mg PO DAILY clobetasol 0.05% grams topical Q3D clonazepam 0.5 mg PO BEDTIME CPAP (CPAP Machine/Device) As directed dicyclomine 20 mg PO TID PRN 30 days docusate sodium (Colace) 100 mg PO DAILY PRN ergocalciferol (vitamin D2) 1,250 mcg PO QWEEK gabapentin 2 capsules in AM, 2 capsules in PM (early afternoon) and 3 capsules at bedtime 30 days ipratropium bromide 2 sprays intranasal BID lorazepam 0.5 mg PO BID PRN omeprazole 20 mg PO DAILY polyethylene glycol 3350 (Miralax) 17 grams PO DAILY PRN propranolol 40 mg PO BID riboflavin (vitamin B2) (Vitamin B-2) 400 mg PO DAILY tizanidine 4 mg PO TID PRN 10 days HPI Comments Details: 64-year-old female presents for follow-up of recent EEG results. Patient is accompanied by . Today is this medical technical writer's 1st time meeting this patient. 06/08/2024, routine EEG results were abnormal due to focal slowing in the right temporal-posterior temporal region, which is indicative of an underlying functional or structural abnormality in this region. However there was no epileptogenic discharges or electrographic seizure activity recorded. Patient reports that she was worried that recent EEG results showed continued inflammation from her previous herpetic encephalitis infection in 2019. Patient reports she is concerned about this as she continues to have a number of symptoms that either worsened or started after the herpetic encephalitis infection. 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 She also reports bothersome head tremor and body movements and upper extremity tremor. She did have Botox therapy from Dr. Jean Baptiste, however she felt that this increased her involuntary cervical movements so did not want to proceed with this. She reports generalized body pain, states was diagnosed with fibromyalgia prior to the encephalitis. She reports cognitive difficulties- forgetfulness. 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 However after her initial discharge home from the hospital from the encephalitis, she could not remember how to do her job, states things around the house sometimes do not look familiar. Even now it is hard for her to do things around the house, we will forget what things were/are, this can make her sad and cry. Her typically manages the finances, however patient writes the checks. cooks the main meal of the day (which he has always done), however patient does cook small meals for herself such as eggs or oatmeal- states she may forget to turn the stove off until she walks back into the kitchen. She also states that she is not sleeping well- but lorazepam helps more so than the clonazepam. She felt clonazepam caused worsening symptoms. However does need to take 2 tabs the lorazepam at bedtime for it to be effective. She endorses anxiety more so than depression. Notes that her sons do not understand her condition. She has tried therapy once, and it was not a good fit. She has tried a number of antidepressant medications in the past, which caused various side effects. Patient states she is very sensitive to medications. Patient does not recall well, however per PCP note meds tried include Sertraline, Mirtazapine, Escitalopram, Hydroxyzine and Duloxetine. She does state that the propranolol is helpful for her tremor, is compliant with gabapentin but wonders if it worsens her tremor. Patient is also having migraine type headache 1-2 times per week. She states riboflavin can be helpful, but there is not enough time in a day to take it. She was offered sumatriptan previously by [facility] neuro, however she has not tried it yet. She is currently under evaluation by Cardiology for complaints of chest pain, so far thought likely not to be cardiogenic. She is scheduled for neuropsych testing in July at [facility]. Initial 06/16/[address] Jean Baptiste: 62y/o female comes for evaluation of tremors. 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 Lundberg for fibromyalgia, headaches and myofascial pain. Recently she has nerve block for occipital neuralgia - [facility] Headache Specialist. she had a home sleep test 1 year ago and was given CPAP - buts he could not use it. She is here for opinion regrading her tremors. she has h/o spasmodic dysphonia since age 26. she also has vertigo , tinnitus - chronic . She had motion sickness anytime she travelled but since her Herpes - her vertigo has worsened. she used to have mild tremors in her hands L>R even before herpes encephalitis. Since her herpes her tremors have worsened and also reports spasms in her neck. SHe reports head tremors in different positions and feels like head is pulling and has pain. Hand tremors L>R and is both action , postural. when her tremors and anxiety worsens she feels nauseous.she is fully awake during episodes she also wakes up in the middle of the night with tremors. 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 Surgical History (Updated 07/20/24 @ 10:38 by ROSALIO De Anda) H/O tubal ligation Family History Father CAD (coronary artery disease) Hypertension CVD (cardiovascular disease) Mother Hypertension Maternal Aunt Vaginal cancer Paternal Uncle Throat cancer Social History Household Members: Spouse Housing: House Alcohol intake: never Patient Tobacco Use Status: Never used Tobacco e-Cigarette/Vaping Use: Never Used Second Hand Smoke Exposure: Yes service: No Current occupational status: disabled Cognitive needs: No Hearing needs: No Vision needs: Yes (gasses) Physical Exam Vital Signs: Last Vital Signs BP 124/82 07/20/24 08:11 BMI result Body Mass Index 26.2 Const General: cooperative, healthy appearing and anxious Nutritional Appearance: average body habitus Orientation/consciousness: patient oriented x3 Eyes Pupils: Equal, round and reactive pupils present Neuro Other: No audible voice tremor today. Mild dysphonia- mild voice hoarseness Mild head tremors Mild LUE tremor Retrognathia General: patient oriented x3, gait normal, moves all extremities and no focal motor deficits Cranial nerves: Yes Facial sensation intact/muscles of mastication intact, Yes Equal, round and reactive pupils present, Yes Bilaterally intact EOM present, Yes Nystagmus not present, Yes Normal facial strength present and Yes Midline tongue present Cognition (Neuro): normal cognition Gait exam (Neuro): Normal gait present Motor exam (neuro): Normal motor muscle tone present throughout Psych Appearance: grossly normal Mental Status: mental status grossly normal Affect: Anxious affect present Attitude: cooperative Assessment & Plan Assessment & Plan (1) Herpes simplex encephalitis: Comment: S/P Tx with Acyclovir; still has minimal residual dysphasia, dysphagia and impaired memory recall Repeat MRI of the brain done in early 2019 showed no acute pathology or abnormal enhancement, (+) cystic encephalomalacia in the right anterior temporal lobe associated with volume loss and surrounding gliosis and smaller areas of abnormal signal in the left temporal lobe - findings are consistent with sequela of prior HSV encephalitis Repeat EEG done showed remained abnormal with slowing of right temporal cortical region, no epileptiform activities were seen Has been slowly tapered off her Keppra and patient is advised to call if seizures recur or occur Code(s): B00.4 - Herpesviral encephalitis Category: Medical (2) Abnormal EEG: Code(s): R94.01 - Abnormal electroencephalogram [EEG] Category: Medical (3) Spasmodic torticollis: Comment: she did not respond to botox, will hold off on second dose Code(s): G24.3 - Spasmodic torticollis Category: Medical (4) Coarse tremors: Comment: postural tremors with intermittent worsening, post viral worsened by poorly controlled mood Code(s): G25.2 - Other specified forms of tremor Category: Medical (5) Cystic encephalomalacia: Code(s): G93.89 - Other specified disorders of brain Category: Medical (6) Spasmodic dysphonia: Code(s): J38.3 - Other diseases of vocal cords Category: Medical (7) Anxiety and depression: Comment: hydroxyzine - nausea sertraline - forgetful mirtazapine - escitalopram - headaches Code(s): F41.9 - Anxiety disorder, unspecified; F32.9 - Major depressive disorder, single episode, unspecified Category: Medical (8) Insomnia: Code(s): G47.00 - Insomnia, unspecified Category: Medical Qualifiers: Insomnia type: unspecified Qualified Code(s): G47.00 - Insomnia, unspecified Plan Reviewed recent EEG findings of focal slowing in the right temporal-posterior temporal region, which is likely secondary to known area of right-frontal encephalomalecia s/p herpetic encephalitis. Patient ask what specifically can be done for the focal slowing and area of encephalomalacia. Reviewed natural trajectory of sequelae from intracerebral infections such as encephalitis. Encouraged patient to engage in a healthy lifestyle to to maintain a healthy cardiovascular and metabolic control- such as through eating healthy diet, maintaining a good sleep schedule, engaging in regular physical activity, engaging in regular social and cognitively stimulating activities. Patient advised to undergo brain MRI with and without contrast to assess status of right frontal encephalomalacia in setting of bothersome anxiety, cognitive difficulties, headaches. We will adjust lorazepam from 0.5 mg b.i.d. to 0.5 mg q.a.m. and 1 mg q.h.s. p.r.n.insomnia/anxiety. Discussed that maintenance antianxiety/antidepressant medication be will be a more effective care home treatment option in combination with psychotherapy- however patient would like to wait until after upcoming neuropsychological evaluation prior to making any changes. Encouraged to take riboflavin 400 mg daily in the morning- advised she can take this with her gabapentin. Continue gabapentin- advised that this can actually help with tremor and anxiety. Continue propranolol 40 mg twice a day. Patient states she is not taking tizanidine- cause confusion. Discontinue clonazepam- states worsened sleep and tremors. Future considerations- PT for tremor/spasmodic torticollis, Savella- for fibromyalgia/migraine. Will follow-up upon review of above and patient to follow-up in clinic in 3-6 months or sooner prn. Orders: Orders MR head/brain wo/w con Today B00.4 - Herpesviral encephalitis, G93.89 - Other specified disorders of brain, R94.01 - Abnormal electroencephalogram [EEG] Medications: Changed From lorazepam 0.5 mg PO BID PRN 60 tabs 0RF anxiety To lorazepam 0.5mg qam and 1mg qhs orally . PRN; 30 days 90 tabs 1RF anxiety Discontinued tizanidine Discontinued Reason: Patient no longer taking 4 mg PO TID 10 days PRN 30 tabs 1RF muscle spasms clonazepam Discontinued Reason: Doctor's Order 0.5 mg PO BEDTIME 30 tabs 3RF Coding Level of Care Code Est Pt Level 4 (26461) Complex EM visit Add On G2211 Diagnoses Herpes simplex encephalitis B00.4 Abnormal EEG R94.01 Spasmodic torticollis G24.3 Coarse tremors G25.2 Cystic encephalomalacia G93.89 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 Anxiety and depression F41.9; F32.9 Insomnia, unspecified type G47.00 Insomnia type: unspecified
--- OUTSIDE RECORDS SUMMARY | 2024-07-20 08:08 | XMS_ITS | Clinical Summary ---
Author Organization [facility] Address [address] [place] [address] Care Team Providers Care Academic Affairs Dean Name Role Phone Unavailable Primary Care Provider [...] (2 - Td or Tdap) 07/11/2021 012 [id number] (3 - season) 2023 021, 06/30/2020 Imm-Influenza (#1) 2023 02/12/2020, 1 04/16/2018, 01/02/2018, Additional history exists Alcohol and Drug Screen 03/28/2024 Depression Annual Screen 03/28/2024 Cervical Ablation/Cold-Knife Conization Discontinued Cervical Cryotherapy Discontinued Colposcopy Discontinued Endometrial Biopsy Discontinued Excision/Leep Discontinued HPV Genotyping Discontinued Vaginal Pap Discontinued Vulvoscopy Discontinued Insurance [facility]
[2024-07-20 08:11] VITALS: BP 124/82; BMI 26.2
== END 2024-07-20 09:50 | disposition home or self-care (01) ==
PROVIDERS: PCP Internal Medicine; Visit Provider Nurse Practitioner Family
DX: B00.4 Herpesviral encephalitis (principal); R94.01 Abnormal electroencephalogram [EEG]; G24.3 Spasmodic torticollis; G25.2 Other specified forms of tremor; G93.89 Other specified disorders of brain; J38.3 Other diseases of vocal cords; F41.9 Anxiety disorder, unspecified; F32.9 Major depressive disorder, single episode, unspecified; G47.00 Insomnia, unspecified
CPT/HCPCS: 99214

== ENCOUNTER 2024-08-22 13:57 | Outpatient (AMB) | payer BC, MEDICARE, SELFPAY ==
[2024-08-22 14:00] VITALS: BP 120/82; PULSE 68; BMI 26.2
--- NOTE | 2024-08-22 14:00 | MHC.OFFVIS ---
Vital Signs 08/22/24 14:00 Height 5 ft 3 in Weight 147 lb 11.355 oz BMI 26.2 BP 120/82 Blood Pressure Location Lt brachial Position Sitting Pulse 68 Intake Visit Reasons: follow up CTA/Holter/echo Intake Note: Follow-up after CTA, holter, and echo c/o palpitations Pharmaceutical Process Engineer Required: No Allergies amlodipine Allergy (Unknown, Verified 07/20/24 08:06) Depression aspirin Allergy (Unknown, Verified 07/20/24 08:06) Unknown diphenhydramine [Benadryl] Allergy (Unknown, Verified 07/20/24 08:06) Unknown duloxetine Allergy (Unknown, Verified 07/20/24 08:06) worsening depression lisinopril Allergy (Unknown, Verified 07/20/24 08:06) Cough morphine Allergy (Unknown, Verified 07/20/24 08:06) Unknown Penicillins Allergy (Unknown, Verified 07/20/24 08:06) Unknown pregabalin Allergy (Unknown, Verified 07/20/24 08:06) sleepwalking, confusion verapamil Adverse Reaction (Unknown, Verified 07/20/24 08:06) rash perflutren Adverse Reaction (Verified 07/20/24 08:06) Back Pain Medication List - Last Reconciled 08/22/24 by Girish Blount MD albuterol sulfate 90 mcg/actuation 2 puffs PO QID PRN beclomethasone dipropionate 80 mcg/actuation (Qvar RediHaler) 1 inh inhalation BID cetirizine (Zyrtec) 10 mg PO DAILY clobetasol 0.05% grams topical Q3D coenzyme Q10 (Ultra CoQ10) 75 mg PO DAILY CPAP (CPAP Machine/Device) As directed dicyclomine 20 mg PO TID PRN 30 days docusate sodium (Colace) 100 mg PO DAILY PRN ergocalciferol (vitamin D2) 1,250 mcg PO QWEEK escitalopram oxalate 5 mg PO DAILY gabapentin 2 capsules in AM, 2 capsules in PM (early afternoon) and 3 capsules at bedtime 30 days ipratropium bromide 2 sprays intranasal BID lorazepam 0.5mg qam and 1mg qhs orally . PRN; 30 days omeprazole 20 mg PO DAILY polyethylene glycol 3350 (Miralax) 17 grams PO DAILY PRN propranolol 40 mg PO BID riboflavin (vitamin B2) (Vitamin B-2) 400 mg PO DAILY HPI Comments Details: Chelsi returns for follow-up. Recently seen in consultation regarding chest pain and other concerns. She does not have any known cardiac issues including coronary disease or myocardial infarction or cardiomyopathy or in fact anything cardiac sounding. She states that she had encephalitis few years back and after that, has been having a lot of memory issues. She discussed various symptoms. She feels short of breath with activities as well as talking. However, this does not sound truly cardiac especially when it is shortness of breath with just talking. More so a local issue like being related to the vocal cord. Per neuro notes, she has listed diagnosis includes cervical dystonia, spasmodic dysphonia and gets Botox. Otherwise, she also gets sensations of chest pressure/discomfort at random times. With and without activity. She feels that the whole of the upper body is shaking and again not clear if it is more of a neurological issue/tremors as opposed to palpitations. She is concerned as there is a family history of cardiac issues in in many family members. She has completed an echocardiogram, coronary CTA as well as Holter monitor. More or less same as before. 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 Surgical History (Updated 07/20/24 @ 10:38 by ROSALIO De Anda) H/O tubal ligation Family History Father CAD (coronary artery disease) Hypertension CVD (cardiovascular disease) Mother Hypertension Maternal Aunt Vaginal cancer Paternal Uncle Throat cancer Social History Household Members: Spouse Housing: House Alcohol intake: never Patient Tobacco Use Status: Never used Tobacco e-Cigarette/Vaping Use: Never Used Second Hand Smoke Exposure: Yes service: No Current occupational status: disabled Cognitive needs: No Hearing needs: No Vision needs: Yes (gasses) Review of Systems Const Denies chills, Denies fatigue, Denies fever(s), Denies frequent falls, Denies weakness, Denies weight gain and Denies weight loss ENT Denies dizziness Card Denies chest pain, Denies leg edema, Denies lightheadedness, Denies palpitations, Denies dyspnea, Denies dyspnea on exertion, Denies orthopnea and Denies other (loss of consciousness) Resp Denies cough, Denies dyspnea and Denies dyspnea on exertion GI Denies hematochezia and Denies change in stool character Musc Denies abnormal gait, Denies muscle weakness, Denies numbness, Denies radiating pain into limb and Denies tingling Neuro Denies abnormal gait, Denies dizziness, Denies frequent falls, Denies numbness, Denies tingling and Denies weakness Endo Denies fatigue and Denies palpitations Physical Exam Vital Signs: Last Vital Signs Pulse 68 08/22/24 14:00 BP 120/82 08/22/24 14:00 BMI result Body Mass Index 26.2 Const General: comfortable and no acute distress Orientation/consciousness: patient oriented x3 HEENT Other: Unremarkable Head: Yes normal to inspection Neck Neck: Yes normal visual inspection Chest Chest palpation & inspection: normal inspection of the chest Resp Auscultation: clear to auscultation bilaterally Cardio Palpation: normal PMI Heart sounds: S1 normal heart sound present, S2 normal heart sound present, no gallops, no murmurs and no rubs GI Palpation (GI): Soft to palpation Back/Spine/Pelvis Other: unremarkable Skin General skin exam: no rashes or lesions noted Neuro General: patient oriented x3 Extrem General: Yes normal to inspection Psych Mental Status: mental status grossly normal Assessment & Plan Assessment & Plan (1) Chest pain: Code(s): R07.9 - Chest pain, unspecified Category: Medical Qualifiers: Chest pain type: unspecified Qualified Code(s): R07.9 - Chest pain, unspecified (2) SOB (shortness of breath): Code(s): R06.02 - Shortness of breath Category: Medical (3) Heart palpitations: Code(s): R00.2 - Palpitations Category: Medical (4) Asymmetric septal hypertrophy: Code(s): I51.7 - Cardiomegaly Category: Medical Plan Cardiac studies reviewed. In the EKG, underlying rhythm is sinus at 72/Min; minimal criteria for LVH; nonspecific ST-T changes; normal NM and corrected QT. Available high sensitivity troponins are within range. Echocardiogram with LVEF of 60-65%. Moderate septal hypertrophy but no dynamic LV outflow tract obstruction. No significant valvular findings. Coronary CTA without any significant findings. In the Holter monitor, underlying rhythm is sinus with rare supraventricular/ventricular ectopy. Patient's symptoms of palpitations correlate with sinus rhythm. Overall, based on the above no clear cardiac etiology to explain her symptoms. With regard to the septal hypertrophy, no specific implications and unlikely to be causing her symptoms. We will recheck with another echocardiogram in one year. Discussion Notes During the visit, I discussed with the patient that her palpitations could be just related to muscular spasms extra and maybe neurological than cardiac. The cardiac evaluations showed no significant problems, and the left ventricular hypertrophy may be age-related. I emphasized that her current cardiac status does not necessitate any interventions. I recommended a follow-up echocardiogram in a year to monitor changes. We also talked about her breathlessness while speaking, likely due to vocal cord dysfunction. The patient was reassured about her cardiac health and agreed with the plan. Patient was informed and verbally consented to the use of an ambient scribe for clinic note documentation during this visit. Total time spent including review of data, counseling, documentation, coordination of care-31 min. Orders: Orders CA echo transthoracic complete 1 Year I51.7 - Cardiomegaly Patient Instructions: - Monitor your symptoms and note any changes. - Follow up with an echocardiogram in one year. - Be reassured that your heart is functioning normally at this time. - Seek care if you experience any new or worsening symptoms. Coding Level of Care Code Est Pt Level 4 (75596) Diagnoses Chest pain, unspecified type R07.9 Chest pain type: unspecified SOB (shortness of breath) R06.02 Heart palpitations R00.2 Asymmetric septal hypertrophy I51.7
--- OUTSIDE RECORDS SUMMARY | 2024-08-22 14:53 | XMS_ITS | Clinical Summary ---
Author Organization [facility] Address [address] [place] [address] Care Team Providers Care Noc Engineer Name Role Phone Unavailable Primary Care Provider [...] (2 - Td or Tdap) 07/11/2021 012 [id number] (3 - season) 2023 021, 06/30/2020 Imm-Influenza (#1) 2023 02/12/2020, 1 04/16/2018, 01/02/2018, Additional history exists Alcohol and Drug Screen 03/28/2024 Depression Annual Screen 03/28/2024 Cervical Ablation/Cold-Knife Conization Discontinued Cervical Cryotherapy Discontinued Colposcopy Discontinued Endometrial Biopsy Discontinued Excision/Leep Discontinued HPV Genotyping Discontinued Vaginal Pap Discontinued Vulvoscopy Discontinued Insurance [facility]
== END 2024-08-22 14:20 | disposition home or self-care (01) ==
LOC: HO.HCS 13:58
PROVIDERS: PCP Internal Medicine; Visit Provider Internal Medicine
DX: R07.9 Chest pain, unspecified (principal); R06.02 Shortness of breath; R00.2 Palpitations; I51.7 Cardiomegaly
CPT/HCPCS: 99214

== ENCOUNTER 2024-08-31 08:24 | Outpatient (REF) | payer BC, MEDICARE, SELFPAY ==
--- NOTE | ~2024-08-31 | FL_ITS ---
EXAMINATION: XR UPPER GI SERIES WITH SMALL BOWEL CLINICAL INFORMATION: Abdominal pain COMPARISON: None available. TECHNIQUE: Routine upper GI air contrast study was performed in upright and lying position. FINDINGS: Bilateral administration of thick barium and effervescent granules is normal propagation bolus from the oral cavity through the pharynx, esophagus into stomach without any evidence of obstruction, narrowing or stricture. No laryngeal penetration or aspiration seen. On lying visualized mucosal pattern of the stomach, duodenal bulb and this CT is normal. The course, caliber, peristalsis stomach and the duodenum is normal. There is mild increased gastric secretions noted. There is evidence of previous cholecystectomy. FLUOROSCOPY TIME: 2 minutes 21 seconds DOSE AREA PRODUCT: 1903 uGy-m2 (microgray-meter squared) FL/FL upper GI w air w Ba Swallow IMPRESSION: Unremarkable upper GI air contrast examination. Electronically signed by: Dejuan Hinson MD 08/31/2024 12:52 PM EDT
== END 2024-08-31 08:25 | disposition home or self-care (01) ==
LOC: HO.XRAY 08:24
PROVIDERS: PCP Internal Medicine; Visit Provider Internal Medicine
DX: R10.9 Unspecified abdominal pain (principal); K22.4 Dyskinesia of esophagus
CPT/HCPCS: 74246

== ENCOUNTER → 2024-08-31 08:28 | Outpatient (BNV) | payer BC, MEDICARE, SELFPAY | PROVIDERS: PCP Internal Medicine; Visit Provider Radiology Diagnostic Radiology | DX: R10.9 Unspecified abdominal pain (principal) | CPT/HCPCS: 74246 ==

== ENCOUNTER 2024-09-25 07:28 | Outpatient (AMB) | payer BC, MEDICARE, SELFPAY ==
--- OUTSIDE RECORDS SUMMARY | 2024-09-25 07:29 | XMS_ITS | Clinical Summary ---
Author Organization [facility] Address [address] [place] [address] Care Team Providers Care Turkey Picker Name Role Phone Unavailable Primary Care Provider [...] 2005 Fecal DNA 2005 Flexible Sigmoidoscopy 2005 Imm-Pneumococcal 50+ (1 of 1 - PCV) 2010 Imm-Zoster, Recombinant (1 of 2) 2010 Imm-DTaP/Tdap/Td (2 - Td or Tdap) 07/11/2021 012 [id number] ( season) 2023 021, 06/30/2020 Alcohol and Drug Screen 03/28/2024 Depression Annual Screen 03/28/2024 Imm-Influenza (Season Ended) 2024, 02/14/2019, 01/02/2018, Additional history exists Cervical Ablation/Cold-Knife Conization Discontinued Cervical Cryotherapy Discontinued Colposcopy Discontinued Endometrial Biopsy Discontinued Excision/Leep Discontinued HPV Genotyping Discontinued Vaginal Pap Discontinued Vulvoscopy Discontinued Insurance [facility]
--- NOTE | 2024-09-25 07:30 | A.OFFVIS_ITS ---
Vital Signs 09/25/24 07:35 Height 5 ft 3 in Weight 147 lb BMI 26.0 BP 134/84 Blood Pressure Location Rt brachial Position Sitting Intake Visit Reasons: MRI follow up Intake Note: Patient following up MRI done 09/08/2024 EEG done 06/08/24 neuropsych eval consult 09/17/24 Allergies amlodipine Allergy (Unknown, Verified 09/25/24 07:33) Depression aspirin Allergy (Unknown, Verified 09/25/24 07:33) Unknown diphenhydramine (Benadryl) Allergy (Unknown, Verified 09/25/24 07:33) Unknown duloxetine Allergy (Unknown, Verified 09/25/24 07:33) worsening depression lisinopril Allergy (Unknown, Verified 09/25/24 07:33) Cough morphine Allergy (Unknown, Verified 09/25/24 07:33) Unknown Penicillins Allergy (Unknown, Verified 09/25/24 07:33) Unknown pregabalin Allergy (Unknown, Verified 09/25/24 07:33) sleepwalking, confusion verapamil Adverse Reaction (Unknown, Verified 09/25/24 07:33) rash perflutren Adverse Reaction (Verified 09/25/24 07:33) Back Pain HPI Comments Details: 64-year-old female presents for follow-up of MRI Brain with thelma . 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 neuropsych reviewed. MCI sec to anxiety depression post HSV and possible medications. History from last visit- Patient is accompanied by . 06/08/2024, routine EEG results were abnormal due to focal slowing in the right temporal-posterior temporal region, which is indicative of an underlying functional or structural abnormality in this region. However there was no epileptogenic discharges or electrographic seizure activity recorded. Patient reports that she was worried that recent EEG results showed continued inflammation from her previous herpetic encephalitis infection in 2019. Patient reports she is concerned about this as she continues to have a number of symptoms that either worsened or started after the herpetic encephalitis infection. 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 She also reports bothersome head tremor and body movements and upper extremity tremor. She did have Botox therapy from Dr. Jean Baptiste, however she felt that this increased her involuntary cervical movements so did not want to proceed with this. She reports generalized body pain, states was diagnosed with fibromyalgia prior to the encephalitis. She reports cognitive difficulties- forgetfulness. 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 However after her initial discharge home from the hospital from the encephalitis, she could not remember how to do her job, states things around the house sometimes do not look familiar. Even now it is hard for her to do things around the house, we will forget what things were/are, this can make her sad and cry. Her typically manages the finances, however patient writes the checks. cooks the main meal of the day (which he has always done), however patient does cook small meals for herself such as eggs or oatmeal- states she may forget to turn the stove off until she walks back into the kitchen. She also states that she is not sleeping well- but lorazepam helps more so than the clonazepam. She felt clonazepam caused worsening symptoms. However does need to take 2 tabs the lorazepam at bedtime for it to be effective. She endorses anxiety more so than depression. Notes that her sons do not understand her condition. She has tried therapy once, and it was not a good fit. She has tried a number of antidepressant medications in the past, which caused various side effects. Patient states she is very sensitive to medications. Patient does not recall well, however per PCP note meds tried include Sertraline, Mirtazapine, Escitalopram, Hydroxyzine and Duloxetine. She does state that the propranolol is helpful for her tremor, is compliant with gabapentin but wonders if it worsens her tremor. Patient is also having migraine type headache 1-2 times per week. She states riboflavin can be helpful, but there is not enough time in a day to take it. She was offered sumatriptan previously by [facility] neuro, however she has not tried it yet. She is currently under evaluation by Cardiology for complaints of chest pain, so far thought likely not to be cardiogenic. She is scheduled for neuropsych testing in July at [facility]. Initial 06/16/[address] Jean Baptiste: 62y/o female comes for evaluation of tremors. 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 Lundberg for fibromyalgia, headaches and myofascial pain. Recently she has nerve block for occipital neuralgia - [facility]. she had a home sleep test 1 year ago and was given CPAP - but she could not use it. She is here for opinion regrading her tremors. she has h/o spasmodic dysphonia since age 26. she also has vertigo , tinnitus - chronic . She had motion sickness anytime she travelled but since her Herpes - her vertigo has worsened. she used to have mild tremors in her hands L>R even before herpes encephalitis. Since her herpes her tremors have worsened and also reports spasms in her neck. SHe reports head tremors in different positions and feels like head is pulling and has pain. Hand tremors L>R and is both action , postural. when her tremors and anxiety worsens she feels nauseous.she is fully awake during episodes she also wakes up in the middle of the night with tremors. 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 Surgical History H/O tubal ligation Family History Father CAD (coronary artery disease) Hypertension CVD (cardiovascular disease) Mother Hypertension Maternal Aunt Vaginal cancer Paternal Uncle Throat cancer Social History Household Members: Spouse Housing: House Alcohol intake: never Patient Tobacco Use Status: Never used Tobacco e-Cigarette/Vaping Use: Never Used Second Hand Smoke Exposure: Yes service: No Current occupational status: disabled Cognitive needs: No Hearing needs: No Vision needs: Yes (gasses) Physical Exam Vital Signs: Last Vital Signs BP 134/84 09/25/24 07:35 BMI result Body Mass Index 26.0 Const General: cooperative, healthy appearing and anxious Nutritional Appearance: average body habitus Orientation/consciousness: patient oriented x3 Eyes Pupils: Equal, round and reactive pupils present Neuro Other: No audible voice tremor today. Mild dysphonia- mild voice hoarseness Mild head tremors Mild LUE tremor Retrognathia General: patient oriented x3, gait normal, moves all extremities and no focal motor deficits Cranial nerves: Yes Facial sensation intact/muscles of mastication intact, Yes Equal, round and reactive pupils present, Yes Bilaterally intact EOM present, Yes Nystagmus not present, Yes Normal facial strength present and Yes Midline tongue present Cognition (Neuro): normal cognition Gait exam (Neuro): Normal gait present Motor exam (neuro): Normal motor muscle tone present throughout Psych Appearance: grossly normal Mental Status: mental status grossly normal Affect: Anxious affect present Attitude: cooperative Assessment & Plan Assessment & Plan (1) Herpes simplex encephalitis: Comment: S/P Tx with Acyclovir; still has minimal residual dysphasia, dysphagia and impaired memory recall Repeat MRI of the brain done in early 2019 showed no acute pathology or abnormal enhancement, (+) cystic encephalomalacia in the right anterior temporal lobe associated with volume loss and surrounding gliosis and smaller areas of abnormal signal in the left temporal lobe - findings are consistent with sequela of prior HSV encephalitis Repeat EEG done showed remained abnormal with slowing of right temporal cortical region, no epileptiform activities were seen Has been slowly tapered off her Keppra and patient is advised to call if seizures recur or occur Code(s): B00.4 - Herpesviral encephalitis Category: Medical (2) Spasmodic torticollis: Comment: she did not respond to botox, will hold off on second dose Code(s): G24.3 - Spasmodic torticollis Category: Medical (3) Coarse tremors: Comment: postural tremors with intermittent worsening, post viral worsened by poorly controlled mood Code(s): G25.2 - Other specified forms of tremor Category: Medical (4) Spasmodic dysphonia: Code(s): J38.3 - Other diseases of vocal cords Category: Medical (5) Anxiety and depression: Comment: hydroxyzine - nausea sertraline - forgetful mirtazapine - escitalopram - headaches Code(s): F41.9 - Anxiety disorder, unspecified; F32.9 - Major depressive disorder, single episode, unspecified Category: Medical (6) Insomnia: Code(s): G47.00 - Insomnia, unspecified Category: Medical Qualifiers: Insomnia type: unspecified Qualified Code(s): G47.00 - Insomnia, unspecified Plan Reviewed MRI and neuropsych report Increase escitalopram 10mg qd Call [facility] for more psych eval and support lorazepam 0.5 mg q.a.m. and 1 mg q.h.s. p.r.n.insomnia/anxiety. Discussed that maintenance antianxiety/antidepressant medication be will be a more effective planting material remover treatment option in combination with psychotherapy- Encouraged to take riboflavin 400 mg daily in the morning- advised she can take this with her gabapentin. Continue gabapentin- advised that this can actually help with tremor and anxiety. Continue propranolol 40 mg twice a day. Will follow-up upon review of above and patient to follow-up in clinic in 3-6 months or sooner prn. Orders: Referrals Psychology Referral F32.9 - Major depressive disorder, single episode, unspecified, F41.9 - Anxiety disorder, unspecified Medications: Changed From escitalopram oxalate 5 mg PO DAILY To escitalopram oxalate 10 mg PO DAILY 30 tabs 6RF Coding Level of Care Code Est Pt Level 4 (35580) Complex EM visit Add On G2211 Diagnoses Herpes simplex encephalitis B00.4 Spasmodic torticollis G24.3 Coarse tremors G25.2 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 Anxiety and depression F41.9; F32.9 Insomnia, unspecified type G47.00 Insomnia type: unspecified
--- OUTSIDE RECORDS SUMMARY | 2024-09-25 07:30 | XMS_ITS | Patient Health Record ---
Author Organization [facility] Address [address] [place] [address] Care Team Providers Care Family Court Counsellor Name Role Phone Bassam HECTOR, [place] Primary Care Provider Jose Browne Jr [phone] Reason For Referral No Information Plan Of Treatment No Information Insurance Providers Payer Name Payer Address Payer Phone Subscriber Number Group Number Insured Name Patient Relationship to Insured Coverage Start Date Coverage End Date [facility] BLUE [employer] PROF[employer]AL CLAIMS [address] [place] [address] [phone] [id number] KENDALLCONI Dotson Self - patient is the insured
[2024-09-25 07:35] VITALS: BP 134/84; BMI 26.0
== END 2024-09-25 08:19 | disposition home or self-care (01) ==
LOC: HO.HSMS 07:28
PROVIDERS: PCP Internal Medicine; Visit Provider Psychiatry & Neurology Neurology
DX: B00.4 Herpesviral encephalitis (principal); G24.3 Spasmodic torticollis; G25.2 Other specified forms of tremor; J38.3 Other diseases of vocal cords; F41.9 Anxiety disorder, unspecified; F32.9 Major depressive disorder, single episode, unspecified; G47.00 Insomnia, unspecified
CPT/HCPCS: 99214

== ENCOUNTER 2024-10-26 07:52 | Outpatient (REF) | payer BC, MEDICARE, SELFPAY ==
--- OUTSIDE RECORDS SUMMARY | 2024-10-26 07:54 | XMS_ITS | Patient Health Record ---
Author Organization [facility] Address [address] [place] [address] Care Team Providers Care It Admin Name Role Phone Bassam HECTOR, [place] Primary Care Provider Jose Browne Jr Reason For Referral No Information Plan Of Treatment No Information Insurance Providers Payer Name Payer Address Payer Phone Subscriber Number Group Number Insured Name Patient Relationship to Insured Coverage Start Date Coverage End Date [facility] BLUE BS PROFESSIONAL CLAIMS [address] [place] [address] [phone] [id number] KENDALLDARIANACONI Self - patient is the insured
--- OUTSIDE RECORDS SUMMARY | 2024-10-26 07:54 | XMS_ITS | Encounter Summary ---
Author Organization [facility] Address [address] [address] Phone Care Team Providers Care Water Jet Operator Name Role Phone Venkata Banegas MD Primary Care Provider [phone] Reason for Referral * Physical Therapy (Routine) - Closed Specialty Diagnoses / Procedures Referred By Contac t Referred To Contact Physical Therapy Diagnoses Female stress incontinence Duane Higginbotham MD Phone: tel: fax: mailto:[email or web address] [address] [place] [address] Phone: tel: Referral ID Status Reason Start Date Expiration Date Visits Re quested Visits Authorized [id number] Closed 08/01/2018 08/02/2019 1 1 Encounter Details Date Type Department Care Team (Latest Contact Info) Description 08/01/2018 Transcribe Orders [facility] [address] [place] [address] Duane Higginbotham MD [address] [facility] [address] [place] [address] [email or web address] Female stress incontinence (Primary Dx) Social History Tobacco Use Types Packs/Day Years Used Date Smoking Tobacco: Never Smokeless Tobacco: Never Alcohol Use Standard Drinks/Week Comments Yes 0 (1 standard drink = 0.6 oz pur e alcohol) Comments No Sex and Gender Information Value Date Recorded Sex Assigned at Female 04/24/2017 1:36 PM EST Legal Sex Female 3:53 PM EST Gender Identity Female 04/24/2017 1:36 PM EST Sexual Orientation Straight 04/24/2017 1: 36 PM EST 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 Not on file Not on file documented as of this encounter Plan of Treatment Scheduled Referrals Name Type Priority Associated Diagnoses Orde r Schedule Ambulatory referral to [facility] Physical Therapy Outpatient Referral Routine Female stress incontinence Ordered: 08/01/2018 documented as of this encounter Visit Diagnoses Diagnosis Female stress incontinence- Primary documented in this encounter Care Teams Water Jet Operator Relationship Specialty Start Date End Date Venkata Banegas MD [address] [place] [address] [place] [address] PCP - General Internal Medicine 02/16/17 documented as of this encounter Additional Source Comments The information contained in this document represents components of the legal health record. It is not the complete legal health record.[facility]
[2024-10-26 08:09] LABS: MANUAL DIFF FLAG NO
[2024-10-26 08:36] LABS: Hematocrit 43.7 % (37.0-47.0); Hemoglobin 14.3 g/dl (12.0-16.0); Imm Gran Abs Auto 0.06 X10*3/uL (0.00-0.03); Imm Gran Pct Auto 0.9 % (0.0-0.4); Lymphocytes Absolute Auto 1.9 X10*3/uL (1.2-4.9); Mean Corpuscular HGB Conc 32.7 g/dl (31.0-35.0); Mean Corpuscular Hemoglobin 29.8 pg (27.0-33.0); Mean Corpuscular Volume 91.0 fL (80.0-98.0); NRBC Abs Auto 0.000 X10*3/uL (0.0-0.012); NRBC Pct Auto 0.0 /100WBC (0.0-0.2); Platelet Count 306 X10*3/uL (160-400); Red Blood Count 4.80 X10*6/uL (4.20-5.50); White Blood Count 7.1 X10*3/uL (4.8-10.8)
[2024-10-26 09:12] LABS: Alanine Aminotransferase 22 U/L (0-31); Albumin Level 4.6 g/dL (3.5-5.0); Alkaline Phosphatase 77 U/L (39-117); Anion Gap 12 (12-20); Aspartate Amino Transferase 22 U/L (5-31); Blood Urea Nitrogen 13 mg/dL (9-16); Calcium 9.3 mg/dL (8.4-10.2); Carbon Dioxide 30 mmol/L (22-29); Chloride 104 mmol/L (96-108); Cholesterol 209 mg/dL (<200); Estimated Glomerular Filt Rate > 60; HDL Cholesterol 44 mg/dL (>40); Potassium 4.8 mmol/L (3.3-5.1); Sodium 141 mmol/L (135-145); Total Protein 7.6 g/dL (6.5-8.0); Triglycerides 156 mg/dL (<150)
[2024-10-26 09:38] LABS: Appearance Urine Clear; Glucose Urine UA Negative (Negative); PH 7.0 (5.0-9.0); Specific Gravity - Urine 1.010 (1.005-1.025); UMIC TRIGGER UACC YES
[2024-10-26 10:05] LABS: UACC Culture Trigger YES
== END 2024-10-26 07:53 | disposition home or self-care (01) ==
LOC: HO.LAB 07:52
PROVIDERS: PCP Internal Medicine; Visit Provider Internal Medicine
DX: D64.9 Anemia, unspecified (principal); E78.00 Pure hypercholesterolemia, unspecified
CPT/HCPCS: 36415; 80053; 80061; 81001; 81003; 85025; 87086

== ENCOUNTER 2024-10-29 15:29 | Outpatient (AMB) | payer BC, MEDICARE, SELFPAY ==
--- OUTSIDE RECORDS SUMMARY | 2024-10-29 15:32 | XMS_ITS | Clinical Summary ---
Author Organization [facility] Address [address] [place] [address] Care Team Providers Care Mobile Mechanic Name Role Phone Unavailable Primary Care Provider [...] (2 - Td or Tdap) 07/11/2021 012 [id number] (3 - season) 2023 021, 06/30/2020 Alcohol and Drug Screen 03/28/2024 Depression Annual Screen 03/28/2024 Imm-Influenza (#1) 2024 02/12/2020, 1 04/16/2018, 01/02/2018, Additional history exists Cervical Ablation/Cold-Knife Conization Discontinued Cervical Cryotherapy Discontinued Colposcopy Discontinued Endometrial Biopsy Discontinued Excision/Leep Discontinued HPV Genotyping Discontinued Vaginal Pap Discontinued Vulvoscopy Discontinued Insurance [facility]
--- OUTSIDE RECORDS SUMMARY | 2024-10-29 15:32 | XMS_ITS | Encounter Summary ---
Author Organization [facility] Address [address] [address] Phone Care Team Providers Care Cash Analyst Name Role Phone Venkata Banegas MD Primary Care Provider [phone] Reason for Referral * Physical Therapy (Routine) - Closed Specialty Diagnoses / Procedures Referred By Contac t Referred To Contact Physical Therapy Diagnoses Female stress incontinence Duane Higginbotham MD Phone: tel: fax: mailto:[email or web address] [address] [place] [address] Phone: tel: Referral ID Status Reason Start Date Expiration Date Visits Re quested Visits Authorized [id number] Closed 08/01/2018 08/02/2019 1 1 Encounter Details Date Type Department Care Team (Latest Contact Info) Description 08/01/2018 Transcribe Orders [facility] Rehabilitation Services [address] [place] [address] Duane Higginbotham MD [address] [facility] [address] [place] [address] [email or web address] Female stress incontinence (Primary Dx) Social History [...] Diagnoses Orde r Schedule Ambulatory referral to [facility] Physical Therapy Outpatient Referral Routine Female stress incontinence Ordered: 08/01/2018 documented as of this encounter Visit Diagnoses Diagnosis Female stress incontinence- Primary documented in this encounter Care Teams Cash Analyst Relationship Specialty Start Date End Date Venkata Banegas MD [address] [place] [address] [place] [address] PCP - General Internal Medicine 02/16/17 documented as of this encounter Additional Source Comments The information contained in this document represents components of the legal health record. It is not the complete legal health record.[facility]
--- OUTSIDE RECORDS SUMMARY | 2024-10-29 15:33 | XMS_ITS | Patient Health Record ---
Author Organization [facility] Address [address] [place] [address] Care Team Providers Care Truck Repair Supervisor Name Role Phone Bassam HECTOR, [place] Primary Care Provider Jose Browne Jr Reason For Referral No Information Plan Of Treatment No Information Insurance Providers Payer Name Payer Address Payer Phone Subscriber Number Group Number Insured Name Patient Relationship to Insured Coverage Start Date Coverage End Date [facility] BLUE BS PROFESSIONAL CLAIMS [address] [place] [address] [phone] [id number] KENDALLDARIANACONI Self - patient is the insured
--- NOTE | 2024-10-29 15:35 | MHC.PC.OV ---
Vital Signs 10/29/24 15:36 Height 5 ft 3 in Weight 150 lb BMI 26.6 BP 130/70 Blood Pressure Location Lt brachial Position Sitting Pulse 65 Pulse Source Pulse Oximeter Pulse Oximetry (%) 96 Oxygen Delivery Method Room Air Intake Visit Reasons: 4mth f/u Geomagnetician Required: No Accompanied by: Self / Same As Patient Allergies amlodipine Allergy (Unknown, Verified 10/29/24 16:24) Depression aspirin Allergy (Unknown, Verified 10/29/24 16:24) Unknown diphenhydramine (Benadryl) Allergy (Unknown, Verified 10/29/24 16:24) Unknown duloxetine Allergy (Unknown, Verified 10/29/24 16:24) worsening depression lisinopril Allergy (Unknown, Verified 10/29/24 16:24) Cough morphine Allergy (Unknown, Verified 10/29/24 16:24) Unknown Penicillins Allergy (Unknown, Verified 10/29/24 16:24) Unknown pregabalin Allergy (Unknown, Verified 10/29/24 16:24) sleepwalking, confusion verapamil Adverse Reaction (Unknown, Verified 10/29/24 16:24) rash perflutren Adverse Reaction (Verified 10/29/24 16:24) Back Pain Medication List - Last Reconciled 10/29/24 by Venkata Baengas MD albuterol sulfate 90 mcg/actuation 2 puffs PO QID PRN beclomethasone dipropionate 80 mcg/actuation (Qvar RediHaler) 1 inh inhalation BID cetirizine (Zyrtec) 10 mg PO DAILY clobetasol 0.05% grams topical Q3D coenzyme Q10 (Ultra CoQ10) 75 mg PO DAILY CPAP (CPAP Machine/Device) As directed dicyclomine 20 mg PO TID PRN 30 days docusate sodium (Colace) 100 mg PO DAILY PRN ergocalciferol (vitamin D2) 1,250 mcg PO QWEEK escitalopram oxalate 10 mg PO DAILY gabapentin 2 capsules in AM, 2 capsules in PM (early afternoon) and 3 capsules at bedtime 30 days ipratropium bromide 2 sprays intranasal BID lorazepam 0.5mg qam and 1mg qhs orally . PRN; 30 days omeprazole 20 mg PO DAILY polyethylene glycol 3350 (Miralax) 17 grams PO DAILY PRN propranolol 40 mg PO BID riboflavin (vitamin B2) (Vitamin B-2) 400 mg PO DAILY Tobacco use date assessed: 10/29/24 Fall risk assessment: No Falls in past year Last assessed Fall Risk: 10/29/24 Dental Screening Dental Screen Date: 10/29/24 Did you have a dental visit in the last 12 months?: Yes Did you have a dental problem in the last 6 months where you did not have access to dental care?: No Was dental information given to patient?: No HPI 4mth f/u HPI Details Patient comes in today for her follow-up visit As before, she presents with multiple complaints, including her neck pain, tremors, persistent sensation of brain fog and mood symptoms Feels that her current Propranolol Rx is not really helping much with her tremors She also continues to experience increased neck stiffness and pain and would like to see if there is anything else she can take to help with this as she often wakes up in the middle of the night with neck stiffness She is still experiencing on and off headaches and dizziness Denies any exertional chest pains or increased shortness of breath No nausea/vomiting, no abdominal pain No change in bowel habits noted She had her follow-up labs done a few days ago - to discuss her results [facility] Medical History Overweight (BMI 25.0-29.9) Mixed hyperlipidemia Spasmodic torticollis Left hand weakness Coarse tremors Vertigo Spasmodic torticollis Feeding by G-tube Benign essential hypertension Insomnia Anxiety and depression Strain of left trapezius muscle Left hip pain Left lumbosacral radiculopathy Abdominal pain Constipation Gastritis Dysphagia Epilepsy Depression Asthma Vitamin D deficiency 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 Surgical History H/O tubal ligation Family History Father CAD (coronary artery disease) Hypertension CVD (cardiovascular disease) Mother Hypertension Maternal Aunt Vaginal cancer Paternal Uncle Throat cancer Social History Household Members: Spouse Housing: House Alcohol intake: never Patient Tobacco Use Status: Never used Tobacco e-Cigarette/Vaping Use: Never Used Second Hand Smoke Exposure: Yes service: No Current occupational status: disabled Cognitive needs: No Hearing needs: No Vision needs: Yes (gasses) Questionnaire PHQ-9 Over the last 2 weeks, how often have you been bothered by any of the following problems? 1. Little interest or pleasure in doing things: nearly every day 2. Feeling down, depressed, or hopeless: nearly every day 3. Trouble falling or staying asleep, or sleeping too much: nearly every day 4. Feeling tired or having little energy: nearly every day 5. Poor appetite or overeating: several days 6. Feeling bad about yourself - or that you are a failure or have let yourself or your family down: several days 7. Trouble concentrating on things, such as reading the newspaper or watching television: nearly every day 8. Moving or speaking so slowly that other people could have noticed. Or the opposite - being so fidgety or restless that you have been moving around a lot more than usual: several days 9. Thoughts that you would be better off or of hurting yourself in some way: not at all Total score: 18 Depression Screening Interpretation: Positive Depression Screening Follow-up: Existing condition and In treatment Depression Screening Done: Yes 17757 - PHQ-9 Billing: Yes Source: Developed by Drs. Rashawn Deutsch, Becca Rivera, Abdon Dominguez and colleagues, with an educational braydon from [employer]. Thrive Questionnaire Date Thrive assessed: 10/29/24 I am a: Patient What is your living situation today?: I have a steady place to live Within the past 12 months, did the food you bought not last and you didn't have the money to get more?: Never true Within the past 12 months, did you worry whether your food would run out before you got money to buy more?: Never true Do you have trouble paying for medicines?: No Do you have trouble getting transportation to medical appointments?: No Do you have trouble paying your heating and electricity bill?: No Do you have trouble taking care of your child, family member or friend?: No Do you have trouble with day-to-day activities such as bathing, preparing meals, shopping, managing finances, etc.?: No Are you currently unemployed and looking for a job?: No Are you interested in more education?: No Please select the resources that you would like help with: None Currently or been in a relationship where the following occur: I choose not to answer THRIVE Score: 0 AUDIT C Alcohol Use Questionnaire (AUDIT-C) 1. How often do you have a drink containing alcohol?: Monthly or less Total Score: 1 Score Reviewed/Action Taken: Yes KATHERYN-7 AMB Questionnaire KATHERYN-7 Date KATHERYN - 7 assessed: 10/29/24 Feeling nervous, anxious, or on edge: 3 = Nearly every day Not being able to stop or control worryin = Nearly every day Worrying too much about different things: 3 = Nearly every day Trouble relaxin = Nearly every day Being so restless that it is hard to sit still: 3 = Nearly every day Becoming easily annoyed or irritable: 3 = Nearly every day Feeling afraid as if something awful might happen: 2 = More than half the days Total KATHERYN-7 score (0-4 normal; 5-9 mild; 10-14 moderate; 15-21 severe): 20 Source: Developed by Drs. Rashawn Deutsch, Becca Rivera, Abdon Dominguez and colleagues, with an educational braydon from [employer]. KATHERYN-7 Assessment Billing KATHERYN-7 Assessment Tool: KATHERYN-7 Assessment 48499 Review of Systems Const Denies chills, Reports difficulty sleeping, Reports fatigue, Denies fever(s) and Reports headache(s) (on and off) ENT Denies dysphagia, Reports dizziness (on and off), Reports headache(s) (on and off), Reports hoarseness (chronic), Reports neck pain (recurrent), Denies odynophagia, Reports tinnitus (chronic) and Denies sore throat Card Reports chest pain, Denies palpitations and Denies dyspnea Resp Denies cough, Denies dyspnea and Denies wheezing GI Denies abdominal pain, Reports constipation (on and off), Denies dysphagia, Denies heartburn, Denies diarrhea, Denies nausea, Denies odynophagia and Denies vomiting Denies difficulty voiding, Denies nocturia, Denies dysuria and Denies urinary urgency Musc Reports back pain (over the left SI joint), Reports arthralgias (left hip), Reports neck pain (recurrent) and Reports radiating pain into limb (into the left thigh and leg) Skin/Breast Denies rash Neuro Reports dizziness (on and off), Reports headache(s) (on and off), Denies focal weakness, Denies seizure-like activity and Reports tremor(s) Psych Reports anxiety and Reports depression Endo Reports fatigue and Denies palpitations Augustus/Lymph Denies easy bruising Aller/Immun Denies wheezing Physical exam (Primary Care) Vital Signs: Last Vital Signs Pulse 65 10/29/24 15:36 BP 130/70 10/29/24 15:36 Pulse Ox 96 10/29/24 15:36 Oxygen Delivery Method Room Air 10/29/24 15:36 BMI result Body Mass Index 26.6 Tobacco/Smoking Status: Tobacco use Status Tobacco use date assessed 10/29/24 10/29/24 15:38 Patient Tobacco Use Status Never used Tobacco 10/29/24 15:38 e-Cigarette/Vaping Use Never Used 10/29/24 15:38 PHQ-9: PHQ-9 Score PHQ-9: Total score 18 10/29/24 16:24 Depression Screening Interpretation: Positive Depression Screening Follow-up: Existing condition and In treatment Thrive Assessment: Date of Thrive Assessment Date Thrive assessed 10/29/24 10/29/24 15:38 Currently or been in a relationship where the following occur: I choose not to answer Const General: no acute distress and alert HENMT Ears: TM's normal bilaterally and EAC's normal Throat: Yes posterior oropharynx normal and Yes tonsils normal (no TP congestion) Neck Neck: Yes no lymphadenopathy and Yes tender Thyroid: Thyroid normal Resp Auscultation: clear to auscultation bilaterally, no rales and no wheezes Cardio Rate: regular rate Rhythm: regular rhythm Heart sounds: no murmurs GI Palpation (GI): Soft to palpation and nontender Auscultation: normal bowel sounds General: Yes no CVA tenderness Back/Spine/Pelvis Back: no CVA tenderness Cervical Spine: cervical muscular tenderness, cervical spasm and No Cervical spine tenderness Thoracic/Lumbar Spine: No lumbar spinal tenderness Sacroiliac joints: on the left tender to palpation Skin Rashes: no rashes Neuro Motor exam (neuro): Tremors during motor activity present (mild, over both hands; (+) head tremors noted as well) Extrem General: Yes no clubbing, cyanosis or edema Left lower extremity: hip/thigh Details: tenderness Location: of the hip Results Reviewed Results Reviewed: Laboratory Tests 10/26/24 10/26/24 08:03 08:04 WBC 7.1 Hgb 14.3 Hct 43.7 Plt Count 306 Sodium 141 Potassium 4.8 Creatinine 0.73 Estimated GFR > 60 Fasting Glucose 109 H Calcium 9.3 AST 22 ALT 22 Triglycerides 156 H Cholesterol 209 H LDL Cholesterol, Calc 134 H HDL Cholesterol 44 Ur Specific [place] 1.010 Urine Protein Negative Urine Glucose (UA) Negative Urine Blood Negative Urine Nitrite Negative Ur Leukocyte Esterase Small (1+) H Coding Level of Care Code Est Pt Level 4 (04812) Diagnoses Nonintractable headache, unspecified chronicity pattern, unspecified headache type R51.9 Headache chronicity pattern: unspecified pattern Headache type: unspecified Intractability: not intractable Herpes simplex encephalitis B00.4 Cystic encephalomalacia G93.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, unspecified epilepsy type G40.909 Epilepsy type: unspecified Intractability: not intractable Status epilepticus: without status epilepticus 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 Coarse tremors G25.2 Spasmodic torticollis G24.3 Chest pain, unspecified type R07.9 Chest pain type: unspecified Mixed hyperlipidemia E78.2 Benign essential hypertension I10 Impaired fasting glucose R73.01 Mild persistent asthma without complication J45.30 Asthma complication type: uncomplicated Asthma persistence: persistent Asthma severity: mild Vitamin D deficiency E55.9 Gastritis without bleeding, unspecified chronicity, unspecified gastritis type K29.70 Chronicity: unspecified Gastritis bleeding: without bleeding Gastritis type: unspecified gastritis Constipation, unspecified constipation type K59.00 Constipation type: unspecified constipation type Insomnia, unspecified type G47.00 Insomnia type: unspecified Anxiety and depression F41.9; F32.9 Overweight (BMI 25.0-29.9) E66.3 Additional Codes KATHERYN-7 Assessment Billing - KATHERYN-7 Assessment Tool: KATHERYN-7 Assessment 02421 ([id number]) PHQ-9 - 83620 - PHQ-9 Billing: Yes ([id number]) Assessment & Plan Assessment & Plan (1) Headache: Code(s): R51.9 - Headache, unspecified Category: Medical Qualifiers: Headache chronicity pattern: unspecified pattern Headache type: unspecified Intractability: not intractable Qualified Code(s): R51.9 - Headache, unspecified Plan: These are most likely multifactorial headaches Continue Riboflavin 400 mg QD She has also been receiving occipital nerve blocks from a headaches specialist at [facility] (Dr. Singleton) for a few months now and feels that these are helping somewhat Follow up with neurology as scheduled (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; still has minimal residual dysphasia, dysphagia and impaired memory recall Repeat MRI of the brain done in early 2019 showed no acute pathology or abnormal enhancement, (+) cystic encephalomalacia in the right anterior temporal lobe associated with volume loss and surrounding gliosis and smaller areas of abnormal signal in the left temporal lobe - findings are consistent with sequela of prior HSV encephalitis Repeat EEG done showed remained abnormal with slowing of right temporal cortical region, no epileptiform activities were seen Has been slowly tapered off her Keppra and patient is advised to call if seizures recur or occur Code(s): B00.4 - Herpesviral encephalitis Category: Medical Plan: S/P Tx Symptoms have been stable with no regression so far Follow-up with Neurology as scheduled (3) Cystic encephalomalacia: Code(s): G93.89 - Other specified disorders of brain Category: Medical Plan: Findings of cystic encephalomalacia seen on her most recent MRI, consistent with her previous HSV encephalitis diagnosis Patient still has some minimal/residual problems with memory recall and residual dysphasia/aphasia but these have stabilized over time (4) Epilepsy: Code(s): G40.909 - Epilepsy, unspecified, not intractable, without status epilepticus Category: Medical Qualifiers: Epilepsy type: unspecified Intractability: not intractable Status epilepticus: without status epilepticus Qualified Code(s): G40.909 - Epilepsy, unspecified, not intractable, without status epilepticus Plan: Patient has not had any seizures in a while now and has been slowly tapered off her Keppra by Neurology months ago Follow-up with Neurology as scheduled (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 Category: Medical Plan: Patient was receiving Botox injections (from [facility]) as needed in the past but states that she has not been getting this for over a year now States that her hoarseness has not felt any worse since she last had her injection over a year ago and she denies any difficulty swallowing States that she has been trying to reach out to her doctors in [place] to schedule her vocal cord injections again but has not yet been able to contact them (6) Coarse tremors: Comment: postural tremors with intermittent worsening, post viral worsened by poorly controlled mood Code(s): G25.2 - Other specified forms of tremor Category: Medical Plan: Continue Propranolol 40 mg BID for now Follow up with neurology as scheduled and have advised patient to speak with Neurology about her perception that propranolol is no longer working for her tremors (7) Spasmodic torticollis: Code(s): G24.3 - Spasmodic torticollis Category: Medical Plan: She has been referred by neurology to physical therapy to help with her recurrent neck spasms, which she states helped only minimally She received some botox injections into her neck from Dr. Jean Baptiste over the past few months but did not feel that they have helped much Will start her on a trial of tizanidine 4 mg TID PRN to help with her neck pain and stiffness (8) Chest pain: Code(s): R07.9 - Chest pain, unspecified Category: Medical Qualifiers: Chest pain type: unspecified Qualified Code(s): R07.9 - Chest pain, unspecified Plan: Mostly resolved She was referred to and seen by cardiology a few months ago and underwent cardiac evaluation, including Holter monitoring and coronary CTA She was reportedly advised that all of her tests so far have come back normal Follow up with cardiology as scheduled (9) Mixed hyperlipidemia: Code(s): E78.2 - Mixed hyperlipidemia Category: Medical Plan: Results of her labs done a few days ago reviewed and discussed with patient Reinforce low-cholesterol diet - patient would like to continue working on improving her diet and avoid taking cholesterol-lowering medications as much as possible Will recheck her labs and fasting lipids in 4 months for follow up (10) Benign essential hypertension: Code(s): I10 - Essential (primary) hypertension Category: Medical Plan: Reinforced low sodium diet - goal is systolic BP of at least 130 mm or less Per our instructions, she stopped taking her Losartan 25 mg QD after her last visit as she was suspecting that her on and off diarrhea was a side effect of the Rx Feels that her diarrhea has improved a lot since then and she is currently not on any Rx for her blood pressure although she is on Propranolol 40 mg BID that was started by neurology for her tremors last year She is reminded to continue monitoring her blood pressure regularly (11) Impaired fasting glucose: Code(s): R73.01 - Impaired fasting glucose Category: Medical Plan: Her HgbA1c was normal at 5.6% even though her FBS was slightly elevated at 109 mg/dl on her recent lab Reinforced low calorie/low carb diet (12) Asthma: Code(s): J45.909 - Unspecified asthma, uncomplicated Category: Medical Qualifiers: Asthma complication type: uncomplicated Asthma persistence: persistent Asthma severity: mild Qualified Code(s): J45.30 - Mild persistent asthma, uncomplicated Plan: Controlled Continue Qvar 80 mcg 1 puff twice a day and Albuterol HFA 2 puffs 4 times a day as needed (13) Vitamin D deficiency: Code(s): E55.9 - Vitamin D deficiency, unspecified Category: Medical Plan: Continue Vitamin D2 10644 units once a week (14) Gastritis: Code(s): K29.70 - Gastritis, unspecified, without bleeding Category: Medical Qualifiers: Chronicity: unspecified Gastritis bleeding: without bleeding Gastritis type: unspecified gastritis Qualified Code(s): K29.70 - Gastritis, unspecified, without bleeding Plan: Dietary restrictions reinforced Continue Omeprazole 40 mg QD and Famotidine 20 mg 1 to 2 tablets a day at bedtime as needed Follow up with GI as scheduled (15) Constipation: Code(s): K59.00 - Constipation, unspecified Category: Medical Qualifiers: Constipation type: unspecified constipation type Qualified Code(s): K59.00 - Constipation, unspecified Plan: She likely has IBS with constipation Symptoms have Improved and has been controlled lately; she is encouraged again to continue increased oral fluids and dietary fiber Abdominal x-rays done a few months ago showed (+) moderate stool burden; x-rays were otherwise normal Continue OTC stool softeners as needed Continue Dicyclomine 20 mg TID PRN (16) Insomnia: Code(s): G47.00 - Insomnia, unspecified Category: Medical Qualifiers: Insomnia type: unspecified Qualified Code(s): G47.00 - Insomnia, unspecified Plan: Sleep hygiene reinforced Continue Trazodone 50 mg Q HS PRN (17) Anxiety and depression: Comment: hydroxyzine - nausea sertraline - forgetful mirtazapine - escitalopram - headaches Code(s): F41.9 - Anxiety disorder, unspecified; F32.9 - Major depressive disorder, single episode, unspecified Category: Medical Plan: Patient so far has not been able to tolerate Sertraline, Venlafaxine, Hydroxyzine, Duloxetine and Mirtazapine Per her request, she was referred to [facility] for counseling and therapy a few months ago and she was seen by Dr. Springer and was advised of her depression Dx and her recommendation was for her to start taking some Rx She has been advised in the past that she can continue on Lorazepam 0.5 mg BID PRN but if her mood disorder is better controlled on a maintenance medication, then she may find that she does not need to take her Lorazepam as much We have referred her to the [facility] for neuropsychiatry evaluation and management previously - she is scheduled for her appointment in a few weeks (18) Overweight (BMI 25.0-29.9): Code(s): E66.3 - Overweight Category: Medical Plan: Reinforce diet/exercise as tolerated/lose weight Plan Follow up in 4 months Orders: Orders Comprehensive [place]. Panel Fast 4 Months E78.00 - Pure hypercholesterolemia, unspecified Vitamin B12 and Folate 4 Months E53.8 - Deficiency of other specified B group vitamins Complete Blood Count Auto Diff 4 Months D64.9 - Anemia, unspecified Lipid Panel 4 Months E78.00 - Pure hypercholesterolemia, unspecified TSH reflex Free T4 4 Months E78.00 - Pure hypercholesterolemia, unspecified UA CC w/rflx Micro + Cult 4 Months R30.0 - Dysuria Vitamin D 25-OH Total 4 Months E55.9 - Vitamin D deficiency, unspecified Hemoglobin A1c 4 Months R73.01 - Impaired fasting glucose Medications: Refilled tizanidine 4 mg PO TID PRN 30 tabs 3RF muscle spasms 10 days
[2024-10-29 15:36] VITALS: BP 130/70; PULSE 65; O2SAT 96; BMI 26.6
== END 2024-10-29 16:56 | disposition home or self-care (01) ==
LOC: HO.HMCH 15:30
PROVIDERS: PCP Internal Medicine; Visit Provider Internal Medicine
DX: R51.9 Headache, unspecified (principal); B00.4 Herpesviral encephalitis; G93.89 Other specified disorders of brain; G40.909 Epilepsy, unspecified, not intractable, without status epilepticus; J38.3 Other diseases of vocal cords; G25.2 Other specified forms of tremor; G24.3 Spasmodic torticollis; R07.9 Chest pain, unspecified; E78.2 Mixed hyperlipidemia; I10 Essential (primary) hypertension; R73.01 Impaired fasting glucose; J45.30 Mild persistent asthma, uncomplicated; E55.9 Vitamin D deficiency, unspecified; K29.70 Gastritis, unspecified, without bleeding; K59.00 Constipation, unspecified; G47.00 Insomnia, unspecified; F41.9 Anxiety disorder, unspecified; F32.9 Major depressive disorder, single episode, unspecified; E66.3 Overweight

== ENCOUNTER → 2024-10-29 15:29 | Outpatient (BNVA) | payer BC, MEDICARE, SELFPAY | PROVIDERS: PCP Internal Medicine; Visit Provider Internal Medicine | DX: R51.9 Headache, unspecified (principal); B00.4 Herpesviral encephalitis; G93.89 Other specified disorders of brain; G40.909 Epilepsy, unspecified, not intractable, without status epilepticus; J38.3 Other diseases of vocal cords; G25.2 Other specified forms of tremor; G24.3 Spasmodic torticollis; R07.9 Chest pain, unspecified; E78.2 Mixed hyperlipidemia; I10 Essential (primary) hypertension; R73.01 Impaired fasting glucose; J45.30 Mild persistent asthma, uncomplicated; E55.9 Vitamin D deficiency, unspecified; K29.70 Gastritis, unspecified, without bleeding; K59.00 Constipation, unspecified; G47.00 Insomnia, unspecified; F41.9 Anxiety disorder, unspecified; F32.9 Major depressive disorder, single episode, unspecified; E66.3 Overweight; Z68.26 Body mass index [BMI] 26.0-26.9, adult; Z79.899 Other long term (current) drug therapy; Z13.31 Encounter for screening for depression; Z13.39 Encounter for screening examination for other mental health and behavioral disorders | CPT/HCPCS: 96127 ==

== ENCOUNTER 2024-12-07 08:54 | Outpatient (AMB) | payer BC, MEDICARE, SELFPAY ==
[2024-12-07 08:55] VITALS: BP 144/90; PULSE 72; O2SAT 97; BMI 26.3
--- NOTE | 2024-12-07 08:55 | A.OFFVIS_ITS ---
Vital Signs 12/07/24 08:55 Height 5 ft 3 in Weight 148 lb 6 oz BMI 26.3 BP 144/90 H Blood Pressure Location Lt brachial Position Sitting Pulse 72 Pulse Source Pulse Oximeter Pulse Oximetry (%) 97 Oxygen Delivery Method Room Air Intake Visit Reasons: 3-6 mo follow up Occupational Therapy Department Chair Required: No Occupational Therapy Department Chair Services: Occupational Therapy Department Chair Offered & Declined Accompanied by: Spouse Allergies amlodipine Allergy (Unknown, Verified 12/07/24 09:53) Depression aspirin Allergy (Unknown, Verified 12/07/24 09:53) Unknown diphenhydramine (Benadryl) Allergy (Unknown, Verified 12/07/24 09:53) Unknown duloxetine Allergy (Unknown, Verified 12/07/24 09:53) worsening depression lisinopril Allergy (Unknown, Verified 12/07/24 09:53) Cough morphine Allergy (Unknown, Verified 12/07/24 09:53) Unknown Penicillins Allergy (Unknown, Verified 12/07/24 09:53) Unknown pregabalin Allergy (Unknown, Verified 12/07/24 09:53) sleepwalking, confusion verapamil Adverse Reaction (Unknown, Verified 12/07/24 09:53) rash perflutren Adverse Reaction (Verified 12/07/24 09:53) Back Pain Medication List - Last Reconciled 12/07/24 by ROSALIO De Anda albuterol sulfate 90 mcg/actuation 2 puffs PO QID PRN beclomethasone dipropionate 80 mcg/actuation (Qvar RediHaler) 1 inh inhalation BID cetirizine (Zyrtec) 10 mg PO DAILY clobetasol 0.05% grams topical Q3D coenzyme Q10 (Ultra CoQ10) 75 mg PO DAILY CPAP (CPAP Machine/Device) As directed dicyclomine 20 mg PO TID PRN 30 days docusate sodium (Colace) 100 mg PO DAILY PRN ergocalciferol (vitamin D2) 1,250 mcg PO QWEEK escitalopram oxalate 10 mg PO DAILY gabapentin 2 capsules in AM, 2 capsules in PM (early afternoon) and 3 capsules at bedtime 30 days ipratropium bromide 2 sprays intranasal BID lorazepam 0.5mg qam and 1mg qhs orally . PRN; 30 days omeprazole 20 mg PO DAILY polyethylene glycol 3350 (Miralax) 17 grams PO DAILY PRN propranolol 40 mg PO BID riboflavin (vitamin B2) (Vitamin B-2) 400 mg PO DAILY tizanidine 4 mg PO TID PRN 10 days HPI Comments Details: 64-year-old female presents for follow-up of tremor, spasmodic dysphonia, dysphagia, cognitive difficulties, and anxiety in setting of h/o herpetic encephalitis. Patient is accompanied by her . Pt reports she underwent a recent follow-up sleep study at [facility] due to having an episode of nocturnal SOB, and her CPAP machine was not working- she states this may have been triggered by increased allergy s/s in the setting of spasmodic dysphonia. Her last Botox injection was 2 years ago, and she has had difficulty making an appointment to resume the Botox. Currently, her voice is more raspy, and she has intermittent vocal spasms. She states that generally, people can understand her; however, she becomes tired if she has been talking for a long time. Her tremor is stable. Sometimes her head moves, so she will lie or lean back to prevent this from happening. She states she is taking Gabapentin mostly in the evening, and she feels that it has helped her spasmodic dysphonia. Using Lorazepam prn for anxiety attacks. Overall, she is trying to minimize the number of medications she is taking. She has a feeling inside of her, not sure what she would call it, maybe anxiety or an internal tremor. She expresses frustration when other people do not understand that she needs them to speak more slowly or to reiterate what they have told her or asked her to do. She has to pay attention to concentrate and focus, for instance, when babysitting a larger number of her grandchildren. She is now seeing a therapist to help with her anxiety. She states she has not had a panic attack in over a month. She is still prone to getting tired after walking. She reports she is having infrequent migraine attacks. She is using riboflavin at the onset of a migraine, with good effect. She has not tolerated the magnesium tablet She is trying Calm Mag instead. 09/25/2024, HPI: 64-year-old female presents for follow-up of MRI Brain with thelma . 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 neuropsych reviewed. [facility] sec to anxiety depression post HSV and possible medications. 07/20/2024, previous HPI: Patient is accompanied by . 06/08/2024, routine EEG results were abnormal due to focal slowing in the right temporal-posterior temporal region, which is indicative of an underlying functional or structural abnormality in this region. However there was no epileptogenic discharges or electrographic seizure activity recorded. Patient reports that she was worried that recent EEG results showed continued inflammation from her previous herpetic encephalitis infection in 2019. Patient reports she is concerned about this as she continues to have a number of symptoms that either worsened or started after the herpetic encephalitis infection. She states she has had dysphonic hypophonia for decades- prone to hoarse voice and breakthrough episodes dysphonia- followed in [place] for Botox therapy. She also reports bothersome head tremor and body movements and upper extremity tremor. She did have Botox therapy from Dr. Jean Baptiste, however she felt that this increased her involuntary cervical movements so did not want to proceed with this. She reports generalized body pain, states was diagnosed with fibromyalgia prior to the encephalitis. She reports cognitive difficulties- forgetfulness. 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 However after her initial discharge home from the hospital from the encephalitis, she could not remember how to do her job, states things around the house sometimes do not look familiar. Even now it is hard for her to do things around the house, we will forget what things were/are, this can make her sad and cry. Her typically manages the finances, however patient writes the checks. cooks the main meal of the day (which he has always done), however patient does cook small meals for herself such as eggs or oatmeal- states she may forget to turn the stove off until she walks back into the kitchen. She also states that she is not sleeping well- but lorazepam helps more so than the clonazepam. She felt clonazepam caused worsening symptoms. However does need to take 2 tabs the lorazepam at bedtime for it to be effective. She endorses anxiety more so than depression. Notes that her sons do not understand her condition. She has tried therapy once, and it was not a good fit. She has tried a number of antidepressant medications in the past, which caused various side effects. Patient states she is very sensitive to medications. Patient does not recall well, however per PCP note meds tried include Sertraline, Mirtazapine, Escitalopram, Hydroxyzine and Duloxetine. She does state that the propranolol is helpful for her tremor, is compliant with gabapentin but wonders if it worsens her tremor. Patient is also having migraine type headache 1-2 times per week. She states riboflavin can be helpful, but there is not enough time in a day to take it. She was offered sumatriptan previously by [facility] neuro, however she has not tried it yet. She is currently under evaluation by Cardiology for complaints of chest pain, so far thought likely not to be cardiogenic. She is scheduled for neuropsych testing in July at [facility]. Initial 06/16/[address] Jean Baptiste: 62y/o female comes for evaluation of tremors. 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 Lundberg for fibromyalgia, headaches and myofascial pain. Recently she has nerve block for occipital neuralgia - [facility] Specialist. she had a home sleep test 1 year ago and was given CPAP - but she could not use it. She is here for opinion regrading her tremors. she has h/o spasmodic dysphonia since age 26. she also has vertigo , tinnitus - chronic . She had motion sickness anytime she travelled but since her Herpes - her vertigo has worsened. she used to have mild tremors in her hands L>R even before herpes encephalitis. Since her herpes her tremors have worsened and also reports spasms in her neck. SHe reports head tremors in different positions and feels like head is pulling and has pain. Hand tremors L>R and is both action , postural. when her tremors and anxiety worsens she feels nauseous.she is fully awake during episodes she also wakes up in the middle of the night with tremors. Review [facility] Neurology- scanned notes for further history [facility] Medical History Overweight (BMI 25.0-29.9) Mixed hyperlipidemia Spasmodic torticollis Left hand weakness Coarse tremors Vertigo Spasmodic torticollis Feeding by G-tube Benign essential hypertension Insomnia Anxiety and depression Strain of left trapezius muscle Left hip pain Left lumbosacral radiculopathy Abdominal pain Constipation Gastritis Dysphagia Epilepsy Depression Asthma Vitamin D deficiency 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 Surgical History H/O tubal ligation Family History Father CAD (coronary artery disease) Hypertension CVD (cardiovascular disease) Mother Hypertension Maternal Aunt Vaginal cancer Paternal Uncle Throat cancer Social History Household Members: Spouse Housing: House Alcohol intake: never Patient Tobacco Use Status: Never used Tobacco e-Cigarette/Vaping Use: Never Used Second Hand Smoke Exposure: Yes service: No Current occupational status: disabled Cognitive needs: No Hearing needs: No Vision needs: Yes (gasses) Physical Exam Vital Signs: Last Vital Signs Pulse 72 12/07/24 08:55 BP 144/90 H 12/07/24 08:55 Pulse Ox 97 12/07/24 08:55 Oxygen Delivery Method Room Air 12/07/24 08:55 BMI result Body Mass Index 26.3 Const General: cooperative, healthy appearing and anxious Nutritional Appearance: average body habitus Orientation/consciousness: patient oriented x3 Eyes Pupils: Equal, round and reactive pupils present Neuro Other: No audible voice tremor today. Mild dysphonia- mild voice hoarseness Mild intermittent head tremors No visible LUE tremor today. Retrognathia General: patient oriented x3, gait normal, moves all extremities and no focal motor deficits Cranial nerves: Yes Facial sensation intact/muscles of mastication intact, Yes Equal, round and reactive pupils present, Yes Normal facial strength present and Yes Midline tongue present Cognition (Neuro): normal cognition Gait exam (Neuro): Normal gait present Psych Appearance: grossly normal Mental Status: mental status grossly normal Affect: Anxious affect present Attitude: cooperative Assessment & Plan Assessment & Plan (1) Herpes simplex encephalitis: Comment: S/P Tx with Acyclovir; still has minimal residual dysphasia, dysphagia and impaired memory recall Repeat MRI of the brain done in early 2019 showed no acute pathology or abnormal enhancement, (+) cystic encephalomalacia in the right anterior temporal lobe associated with volume loss and surrounding gliosis and smaller areas of abnormal signal in the left temporal lobe - findings are consistent with sequela of prior HSV encephalitis Repeat EEG done showed remained abnormal with slowing of right temporal cortical region, no epileptiform activities were seen Has been slowly tapered off her Keppra and patient is advised to call if seizures recur or occur Code(s): B00.4 - Herpesviral encephalitis Category: Medical (2) Spasmodic torticollis: Comment: she did not respond to botox, will hold off on second dose Code(s): G24.3 - Spasmodic torticollis Category: Medical (3) Coarse tremors: Comment: postural tremors with intermittent worsening, post viral worsened by poorly controlled mood Code(s): G25.2 - Other specified forms of tremor Category: Medical (4) Spasmodic dysphonia: Code(s): J38.3 - Other diseases of vocal cords Category: Medical (5) Anxiety and depression: Comment: hydroxyzine - nausea sertraline - forgetful mirtazapine - escitalopram - headaches Code(s): F41.9 - Anxiety disorder, unspecified; F32.9 - Major depressive disorder, single episode, unspecified Category: Medical (6) Insomnia: Code(s): G47.00 - Insomnia, unspecified Category: Medical Qualifiers: Insomnia type: unspecified Qualified Code(s): G47.00 - Insomnia, unspecified Plan Discussion notes: Advised that the gabapentin, propranolol, and lorazepam can help to reduce tremor and anxiety symptoms; however, she acknowledged that she is not comfortable taking all of these to their full prescribed doses. Patient expressed desire to have her autonomous decisions respected regarding her medication regimen. However, the patient requests that we not change any of the current orders. Plan: Continue psychotherapy. We will initiate a referral back to [facility] for evaluation of resuming Botox for spasmodic dysphonia symptoms. For now, continue the following orders as written: * Continue escitalopram 10mg qd * Continue lorazepam 0.5 mg q.a.m. and 1 mg q.h.s. p.r.n.insomnia/anxiety/panic attack. * Continue riboflavin 400 mg daily in the morning, though currently using as needed for migraine attacks. * Continue gabapentin, ordered as 200 mg in the a.m., early afternoon, and 300 mg at bedtime. * Continue propranolol 40 mg twice a day. Will follow up upon review of the above, and the patient will follow up in the clinic in 3-6 months or sooner as needed. Orders: Referrals Ear/Nose/Throat Referral G24.3 - Spasmodic torticollis Medications: Refilled lorazepam 0.5mg qam and 1mg qhs orally . PRN; 90 tabs 2RF anxiety 30 days Coding Level of Care Code Est Pt Level 4 (87326) Complex EM visit Add On G2211 Diagnoses Herpes simplex encephalitis B00.4 Spasmodic torticollis G24.3 Coarse tremors G25.2 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 Anxiety and depression F41.9; F32.9 Insomnia, unspecified type G47.00 Insomnia type: unspecified
--- OUTSIDE RECORDS SUMMARY | 2024-12-07 09:44 | XMS_ITS | Patient Health Record ---
Author Organization [facility] Address [address] [place] [address] Care Team Providers Care Treating Machine Operator Name Role Phone Bassam HECTOR, [place] Primary Care Provider Jose Browne Jr [phone] Reason For Referral No Information Plan Of Treatment No Information Insurance Providers Payer Name Payer Address Payer Phone Subscriber Number Group Number Insured Name Patient Relationship to Insured Coverage Start Date Coverage End Date [facility] [employer] [address] [place] [address] [id number] Self - patient is the insured
--- OUTSIDE RECORDS SUMMARY | 2024-12-07 09:44 | XMS_ITS | Clinical Summary ---
Author Organization [facility] Address [address] [place] [address] Care Team Providers Care Preparation Room Worker Name Role Phone Unavailable Primary Care Provider [...] (2 - Td or Tdap) 07/11/2021 012 Alcohol and Drug Screen 03/28/2024 Depression Annual Screen 03/28/2024 [id number] ( season) 2024 021, 06/30/2020 Imm-Influenza (#1) 2024 02/12/2020, 1 04/16/2018, 01/02/2018, Additional history exists Cervical Ablation/Cold-Knife Conization Discontinued Cervical Cryotherapy Discontinued Colposcopy Discontinued Endometrial Biopsy Discontinued Excision/Leep Discontinued HPV Genotyping Discontinued Vaginal Pap Discontinued Vulvoscopy Discontinued Insurance [facility]
--- OUTSIDE RECORDS SUMMARY | 2024-12-07 09:44 | XMS_ITS | Encounter Summary ---
Author Organization [facility] Address [address] [address] Phone Care Team Providers Care Mobile Security Specialist Name Role Phone Venkata Banegas MD Primary Care Provider [phone] Reason for Referral * Physical Therapy (Routine) - Closed Specialty Diagnoses / Procedures Referred By Contac t Referred To Contact Physical Therapy Diagnoses Female stress incontinence Duane Higginbotham MD Phone: tel: fax: [email or web address] [address] [place] [address] Phone: tel: Referral ID Status Reason Start Date Expiration Date Visits Re quested Visits Authorized [id number] Closed 08/01/2018 08/02/2019 1 1 Encounter Details Date Type Department Care Team (Latest Contact Info) Description 08/01/2018 Transcribe Orders [facility] [address] [place] [address] Duane Higginbotham MD [address] [facility] [address] [place] [address] [email or web address] [employer] Female stress incontinence (Primary Dx) Social [...] Diagnoses Orde r Schedule Ambulatory referral to [facility] Physical Therapy Outpatient Referral Routine Female stress incontinence Ordered: 08/01/2018 documented as of this encounter Visit Diagnoses Diagnosis Female stress incontinence- Primary documented in this encounter Care Teams Mobile Security Specialist Relationship Specialty Start Date End Date Venkata Banegas MD [address] [place] [address] [place] [address] PCP - General Internal Medicine 02/16/17 documented as of this encounter Additional Source Comments The information contained in this document represents components of the legal health record. It is not the complete legal health record.[facility]
== END 2024-12-07 10:01 | disposition home or self-care (01) ==
LOC: HO.HSMS 08:54
PROVIDERS: PCP Internal Medicine; Visit Provider Nurse Practitioner Family
DX: B00.4 Herpesviral encephalitis (principal); G24.3 Spasmodic torticollis; G25.2 Other specified forms of tremor; J38.3 Other diseases of vocal cords; F41.9 Anxiety disorder, unspecified; F32.9 Major depressive disorder, single episode, unspecified; G47.00 Insomnia, unspecified
CPT/HCPCS: 99214

== ENCOUNTER 2024-12-19 15:50 | Outpatient (AMB) | payer BC, MEDICARE, SELFPAY ==
--- NOTE | 2024-12-19 16:00 | A.OFFVIS_ITS ---
Vital Signs 12/19/24 16:06 Height 5 ft 3 in Weight 148 lb BMI 26.2 BP 132/84 Blood Pressure Location Rt brachial Position Sitting Pulse 64 Pulse Source Pulse Oximeter Pulse Oximetry (%) 98 Oxygen Delivery Method Room Air Intake Visit Reasons: G.I and BS results Intake Note: Est pt for mgmt of IBS + GERD. CC; C.O. GERD and epigastric pain persistence despite current therapy. 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 Accompanied by: Spouse Allergies amlodipine Allergy (Unknown, Verified 12/19/24 16:00) Depression aspirin Allergy (Unknown, Verified 12/19/24 16:00) Unknown diphenhydramine (Benadryl) Allergy (Unknown, Verified 12/19/24 16:00) Unknown duloxetine Allergy (Unknown, Verified 12/19/24 16:00) worsening depression lisinopril Allergy (Unknown, Verified 12/19/24 16:00) Cough morphine Allergy (Unknown, Verified 12/19/24 16:00) Unknown Penicillins Allergy (Unknown, Verified 12/19/24 16:00) Unknown pregabalin Allergy (Unknown, Verified 12/19/24 16:00) sleepwalking, confusion verapamil Adverse Reaction (Unknown, Verified 12/19/24 16:00) rash perflutren Adverse Reaction (Verified 12/19/24 16:00) Back Pain Medication List - Last Reconciled 12/19/24 by Elena Robb MD albuterol sulfate 90 mcg/actuation 2 puffs PO QID PRN beclomethasone dipropionate 80 mcg/actuation (Qvar RediHaler) 1 inh inhalation BID cetirizine (Zyrtec) 10 mg PO DAILY clobetasol 0.05% grams topical Q3D coenzyme Q10 (Ultra CoQ10) 75 mg PO DAILY CPAP (CPAP Machine/Device) As directed ergocalciferol (vitamin D2) 1,250 mcg PO QWEEK gabapentin 2 capsules in AM, 2 capsules in PM (early afternoon) and 3 capsules at bedtime 30 days ipratropium bromide 2 sprays intranasal BID lorazepam 0.5mg qam and 1mg qhs orally . 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 Pt reports an array of GI issues as below. Reports almost 2 months ago had an episode of severe left sided pain which was assoc with heartburn and nausea. Was seen in ER and given omeprazole which helped. Takes omeprazole 20 once a day. Was taking ibuprofen 800 frequently around that time but has since then stopped. Has known underlying IBS per her report. Occ has abd cramping with bowel movement. This is mostly lower abd with pressure like sensation. This is constipation predominant. Has 3 BMs per week. Pt prev used to be seen by [facility]. Prev w/up: Barium swallow 2020 ([facility]): Mild esophageal dysmotility. EGD/colo 2019 ([facility]): Normal duo bx. No H pylori. Tubular adenoma. No microscopic colitis. Diverticulosis. 08/31/24: Barium swallow: Bilateral administration of thick barium and effervescent granules is normal propagation bolus from the oral cavity through the pharynx, esophagus into stomach without any evidence of obstruction, narrowing or stricture. No laryngeal penetration or aspiration seen. On lying visualized mucosal pattern of the stomach, duodenal bulb and this CT is normal. The course, caliber, peristalsis stomach and the duodenum is normal. There is mild increased gastric secretions noted. There is evidence of previous cholecystectomy. 12/19/24: Here for follow-up. Barium swallow results reviewed with the patient. Surprised to hear the findings. Reports significant intermittent difficulty swallowing, often with epigastric discomfort. Omeprazole does not always help. Also reports bowel movements continue to fluctuate between diarrhea and constipation. Diarrhea is bothersome, with cramping. Triggered by food, certain smells and change of environment. 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 Surgical History H/O tubal ligation Family History Father CAD (coronary artery disease) Hypertension CVD (cardiovascular disease) Mother Hypertension Maternal Aunt Vaginal cancer Paternal Uncle Throat cancer Social History Household Members: Spouse Housing: House Alcohol intake: never Patient Tobacco Use Status: Never used Tobacco e-Cigarette/Vaping Use: Never Used Second Hand Smoke Exposure: Yes service: No Current occupational status: disabled Cognitive needs: No Hearing needs: No Vision needs: Yes (gasses) Review of Systems Const All systems reviewed & are unremarkable except as noted in HPI and below Physical Exam Exam Exam: No apparent distress Nonicteric Abdomen soft, nondistended Alert and oriented x3, normal gait Vital Signs: Last Vital Signs Pulse 64 12/19/24 16:06 BP 132/84 12/19/24 16:06 Pulse Ox 98 12/19/24 16:06 Oxygen Delivery Method Room Air 12/19/24 16:06 BMI result Body Mass Index 26.2 Assessment & Plan Assessment & Plan (1) Left sided abdominal pain: Code(s): R10.9 - Unspecified abdominal pain Category: Medical (2) Esophageal dysmotility: Code(s): K22.4 - Dyskinesia of esophagus Category: Medical (3) Irritable bowel syndrome with mixed bowel habits: Code(s): K58.2 - Mixed irritable bowel syndrome Category: Medical (4) Dysphagia: Code(s): R13.10 - Dysphagia, unspecified Category: Medical Qualifiers: Dysphagia type: pharyngoesophageal phase Qualified Code(s): R13.14 - Dysphagia, pharyngoesophageal phase Plan 1. Dysphagia Reviewed normal presents a barium swallow, however given persistent report of intermittent dysphagia, will book for an upper endoscopy for luminal evaluation and biopsies to rule out eosinophilic esophagitis. Plan: -EGD to be booked -OK to cont omeprazole in the meantime 2. Reports left-sided pain and bloating shortly after eating. Again, no PUD, gastritis noted on upper GI series. Plan: -gastric emptying study ordered 3. IBS-mixed Has significant global symptoms. Reports diarrhea is more bothersome than constipation. Reviewed cautious use of nortriptyline, patient agreeable. Plan: -start nortriptyline 10 mg, increase to 20 mg after 2 weeks Follow up 3 months Orders: Referrals GI Procedure Notification R13.14 - Dysphagia, pharyngoesophageal phase Medications: New nortriptyline Takes 1 capsule for 2 weeks and then increase to 2 capsules daily 20 mg (2 x 10 mg) PO BEDTIME 180 caps 0RF 90 days Patient Instructions: - A gastric emptying scan has been ordered for you - Office will also call you to book upper endoscopy to assess difficulty swallowing and abd pain - Start nortriptyline 1 capsule at night time for 2 weeks and then increase to 2 capsule at bedtime - Follow up in 2 months Coding Level of Care Code Est Pt Level 4 (98238) Complex EM visit Add On G2211 Diagnoses Left sided abdominal pain R10.9 Esophageal dysmotility K22.4 Irritable bowel syndrome with mixed bowel habits K58.2 Pharyngoesophageal dysphagia R13.14 Dysphagia type: pharyngoesophageal phase
[2024-12-19 16:06] VITALS: BP 132/84; PULSE 64; O2SAT 98; BMI 26.2
--- OUTSIDE RECORDS SUMMARY | 2024-12-19 17:58 | XMS_ITS | Patient Health Record ---
Author Organization [facility] Address [address] [place] [address] Care Team Providers Care Channel Development Director Name Role Phone Bassam HECTOR, [place] Primary Care Provider Jose Browne Jr Reason For Referral No Information Plan Of Treatment No Information Insurance Providers Payer Name Payer Address Payer Phone Subscriber Number Group Number Insured Name Patient Relationship to Insured Coverage Start Date Coverage End Date [facility] [employer] [address] [place] [address] [id number] KENDALL CONI Self - patient is the insured
--- OUTSIDE RECORDS SUMMARY | 2024-12-19 17:58 | XMS_ITS | Encounter Summary ---
Author Organization [facility] Address [address] [address] Phone Care Team Providers Care Design Technician Name Role Phone Venkata Banegas MD Primary Care Provider [phone] Reason for Referral * Physical Therapy (Routine) - Closed Specialty Diagnoses / Procedures Referred By Contac t Referred To Contact Physical Therapy Diagnoses Female stress incontinence Duane Higginbotham MD Phone: tel: fax: mailto:[email or web address] [address] [place] [address] Phone: tel: Referral ID Status Reason Start Date Expiration Date Visits Re quested Visits Authorized [id number] Closed 08/01/2018 08/02/2019 1 1 Encounter Details Date Type Department Care Team (Latest Contact Info) Description 08/01/2018 Transcribe Orders [facility] [address] [place] [address] Duane Higginbotham MD [address] [facility] [address] [place] [address] [email or web address] Female stress incontinence (Primary Dx) Social History [...] Diagnoses Orde r Schedule Ambulatory referral to [facility] Physical Therapy Outpatient Referral Routine Female stress incontinence Ordered: 08/01/2018 documented as of this encounter Visit Diagnoses Diagnosis Female stress incontinence- Primary documented in this encounter Care Teams Design Technician Relationship Specialty Start Date End Date Venkata Banegas MD [address] [place] [address] [place] [address] PCP - General Internal Medicine 02/16/17 documented as of this encounter Additional Source Comments The information contained in this document represents components of the legal health record. It is not the complete legal health record.[facility]
--- OUTSIDE RECORDS SUMMARY | 2024-12-19 17:58 | XMS_ITS | Clinical Summary ---
Author Organization [facility] Address [address] [place] [address] Care Team Providers Care Trombone Slide Assembler Name Role Phone Unavailable Primary Care Provider [...] Drug Screen 03/28/2024 Depression Annual Screen 03/28/2024 [id number] ( season) 2024 021, 06/30/2020 Imm-Influenza (#1) 2024 02/12/2020, 1 04/16/2018, 01/02/2018, Additional history exists Cervical Ablation/Cold-Knife Conization Discontinued Cervical Cryotherapy Discontinued Colposcopy Discontinued Endometrial Biopsy Discontinued Excision/Leep Discontinued HPV Genotyping Discontinued Vaginal Pap Discontinued Vulvoscopy Discontinued Insurance [facility]
--- OUTSIDE RECORDS SUMMARY | 2024-12-19 17:58 | XMS_ITS | Clinical Summary ---
Author Organization [facility] Address [address] [place] [id number] Phone Care Team Providers Care Roll Line Operator Name Role Phone Venkata Banegas MD Primary Care Provider [phone] Allergies Active Allergy Reactions Criticality Noted Date Comments Amlodipine Cough 04/15/2017 Citalopram Headaches 04/15/2017 Codeine Headaches 04/15/2017 Lisinopril Cough 04/15/2017 Morphine Headaches 04/15/2017 Trazodone Rash Low 04/15/2017 Medications albuterol 2.5 mg/0.5 mL nebulizer solution Take 2.5 mg by nebulization 3 (three) times a day. Active hyoscyamine sulfate 0.125 mg-0.25 mg (0.375 mg) TbMP Take by mouth. Active losartan (COZAAR) 50 MG tablet Take 50 mg by mouth daily. Active ergocalciferol (VITAMIN D2) 50,000 unit capsule Take 50,000 Units by mouth once a week. Active LORazepam (ATIVAN) 0.5 MG tablet Take 0.5 mg by mouth every 6 (six) hours as needed for anxiety. Active cetirizine (ZYRTEC) 10 MG tablet Take 10 mg by mouth daily. Active fluocinonide 0.05 % ointment Apply topically daily. Apply lentil sized amount to the vulva once daily 15 g 1 8 Active estradiol (ESTRACE) 0.01 % (0.1 mg/gram) vaginal cream Apply 0.5 g (pea sized amount) to the vaginal opening nightly for two weeks, then MWF. 42.5 g 1 8 Active Active Problems Problem Noted Date Diagnosed Date Lichen sclerosus 04/15/2017 Overview (04/15/2017): Reports biopsy confirmed in [place], diagnosis approximately 2006 Family History Medical History Relation Comments Hypertension Father Hypertension Mother Relation Status Comments Father Alive Mother Alive Social History Tobacco Use Types Packs/Day Years Used Date Smoking Tobacco: Never Smokeless Tobacco: Never Alcohol Use Standard Drinks/Week Comments Yes 0 (1 standard drink = 0.6 oz pur e alcohol) Education Answer Date Recorded Are you interested in more education? Not on boone e 07/23/2022 Are you concerned about learning? Not on file 07/23/2022 No 07/23/2022 No 07/23/2022 Digital Access Answer Date Recorded No 08/21/2022 No 08/21/2022 Reliable internet access at home? Not on file 08/21/2022 Device with a working camera? 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 Not on file Not on file Last Filed Vital Signs Vital Sign Reading Time Taken Comments Blood Pressure 146/96 06/15/2017 3:20 PM EDT Pulse - - Temperature - - Respiratory Rate - - Oxygen Saturation - - Inhaled Oxygen Concentration - - Weight 70.8 kg (156 lb) 06/15/2017 3:20 PM EDT Height 160 cm (5' 3 ) 04/15/2017 2:51 PM EST Body Mass Index 27.63 04/15/2017 2:51 PM EST Plan of Treatment Health Maintenance Due Date Last Done Comments CREATININE LEVEL 1960 LIPID PANEL 1960 POTASSIUM LEVEL 1960 DEPRESSION SCREENING 1972 HEPATITIS C SCREENING 1978 HIV ONE-TIME SCREENING (18-65 YEARS) 1978 PAP SMEAR 1981 MAMMOGRAM 2000 COLOGUARD 2005 COLONOSCOPY 2005 COLORECTAL CANCER SCREENING 2005 FIT TEST 2005 FOBT 2005 SIGMOIDOSCOPY 2005 VIRTUAL COLONOSCOPY 2005 PNEUMOCOCCAL VACCINES (50+ years) (1 of 1 - PCV) 2010 ZOSTER VACCINES (1 of 2) 2010 Adult Td,Tdap Booster 07/11/2021 07/12/2011 INFLUENZA VACCINE (#1) 2024 0, 02/14/2019, 01/02/2018, Additional history exists COVID-19 VACCINE (2 - 2024- season) 2024 06/30/2020 RSV VACCINE (1 - 1-dose 75+ series) 07/14/2035 SMOKING STATUS SCREENING (Once After 26 Yrs) Completed 06/15/2017 HEPATITIS A VACCINES Aged Out No long er eligible based on patient's age to complete this topic HIB VACCINES Aged Out No longer eligi ble based on patient's age to complete this topic MENINGOCOCCAL VACCINES (ACWY) Aged Out No longer eligible based on patient's age to complete this topic MENINGOCOCCAL VACCINES (B) Aged Out N o longer eligible based on patient's age to complete this topic Medical Devices Not on file Insurance [employer] POS O POS O POS O POS O POS SENG [address] POS O POS O POS Care Teams Roll Line Operator Relationship Specialty Start Date End Date Venkata Banegas MD [address] [place] [address] [facility] [address] PCP - General Internal Medicine 02/16/17 Additional Source Comments The information contained in this document represents components of the legal health record. It is not the complete legal health record.[facility]
== END 2024-12-19 16:37 | disposition home or self-care (01) ==
LOC: HO.HGI 15:51
PROVIDERS: PCP Internal Medicine; Visit Provider Internal Medicine
DX: R10.9 Unspecified abdominal pain (principal); K22.4 Dyskinesia of esophagus; K58.2 Mixed irritable bowel syndrome; R13.14 Dysphagia, pharyngoesophageal phase
CPT/HCPCS: 99214

== ENCOUNTER 2025-01-10 07:06 | Day surgery (SDC) | payer BC, MEDICARE, SELFPAY ==
--- OUTSIDE RECORDS SUMMARY | 2024-12-20 14:20 | XMS_ITS | Clinical Summary ---
Author Organization [facility] Address [address] [place] [address] Care Team Providers Care Stage Driver Name Role Phone Unavailable Primary Care Provider [...] Drug Screen 03/28/2024 Depression Annual Screen 03/28/2024 [id number] ( season) 2024 021, 06/30/2020 Imm-Influenza (#1) 2024 02/12/2020, 1 04/16/2018, 01/02/2018, Additional history exists Cervical Ablation/Cold-Knife Conization Discontinued Cervical Cryotherapy Discontinued Colposcopy Discontinued Endometrial Biopsy Discontinued Excision/Leep Discontinued HPV Genotyping Discontinued Vaginal Pap Discontinued Vulvoscopy Discontinued Insurance [facility]
[2025-01-08 07:58] VITALS: BMI 26.2
--- NOTE | 2025-01-08 11:03 | HO.ANESPROP2 ---
Documented by User: Desiree Gibbons NP 01/08/25 11:11 HPI - Anesthesia Eval Consult details Narrative: 64 yr old female for upper endoscopy LETICIA: not currently using CPAP Asthma: on prn albuterol, prn ICS H/O Herpes simplex encephalitis: follows with [facility] neuro, feels she has residual memory issues, dysphagia, mild minimal dysphasia. H/O spasmodic torticollis: sees neurology for Botox injection H/O seizures: was tapered off Keprra months ago [facility] Active Problems Active Problems: All Active Problems Irritable bowel syndrome with mixed bowel habits (Acute) Asymmetric septal hypertrophy (Acute) Abnormal EEG (Acute) Esophageal dysmotility (Acute) Left sided abdominal pain (Acute) Heart palpitations (Acute) SOB (shortness of breath) (Acute) Chest pain (Acute) Recurrent chest pain (Acute) Spasmodic torticollis (Acute) Impaired fasting glucose (Acute) Diarrhea (Acute) Headache (Acute) Pure hypercholesterolemia (Acute) Paresthesia of left leg (Acute) Scalp lesion (Acute) Tinnitus of both ears (Acute) Annual physical exam (Acute) Overweight (BMI 25.0-29.9) (Acute) Mixed hyperlipidemia (Acute) Spasmodic torticollis (Acute) Left hand weakness (Acute) Coarse tremors (Acute) Vertigo (Acute) Benign essential hypertension (Acute) Insomnia (Acute) Anxiety and depression (Acute) Strain of left trapezius muscle (Acute) Left hip pain (Acute) Left lumbosacral radiculopathy (Acute) Abdominal pain (Acute) Constipation (Acute) Gastritis (Acute) Dysphagia (Acute) Epilepsy (Acute) Depression (Acute) Asthma (Acute) Vitamin D deficiency (Acute) Spasmodic dysphonia (Acute) Cystic encephalomalacia (Acute) Herpes simplex encephalitis (Acute) Past Medical History Medical History (Updated 01/10/25 @ 08:17 by Malathi Rivers RN) Abnormal colonoscopy Sleep apnea Overweight (BMI 25.0-29.9) Mixed hyperlipidemia Spasmodic torticollis Left hand weakness Coarse tremors Vertigo Feeding by G-tube Benign essential hypertension Insomnia Anxiety and depression Strain of left trapezius muscle Left hip pain Left lumbosacral radiculopathy Abdominal pain Constipation Gastritis Dysphagia Epilepsy Depression Asthma Vitamin D deficiency 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 Family History Family History Father CAD (coronary artery disease) Hypertension CVD (cardiovascular disease) Mother Hypertension Maternal Aunt Vaginal cancer Paternal Uncle Throat cancer Surgical History Surgical History (Updated 01/10/25 @ 08:17 by Malathi Rivers RN) H/O endoscopy H/O tubal ligation Social History Social History Household Members: Spouse Housing: House Alcohol intake: never Patient Tobacco Use Status: Never used Tobacco e-Cigarette/Vaping Use: Never Used Second Hand Smoke Exposure: Yes Use of substances other than those prescribed or required for medical reasons: No Advance Directives: No Advance Directives Information Provided: Yes Patient : No : No Poor oral hygiene: No service: No Current occupational status: disabled Cognitive needs: No Hearing needs: No Vision needs: Yes (gasses) Meds Allergies Allergy/AdvReac Type Severity Reaction Status Date / Time amlodipine Allergy Unknown Depression Verified 12/19/24 16:00 aspirin Allergy Unknown Unknown Verified 12/19/24 16:00 diphenhydramine (Benadryl) Allergy Unknown Unknown Verified 12/19/24 16:00 duloxetine Allergy Unknown worsening Verified 12/19/24 16:00 depression lisinopril Allergy Unknown Cough Verified 12/19/24 16:00 morphine Allergy Unknown Unknown Verified 12/19/24 16:00 Penicillins Allergy Unknown Unknown Verified 12/19/24 16:00 pregabalin Allergy Unknown sleepwalking, Verified 12/19/24 16:00 confusion verapamil AdvReac Unknown rash Verified 12/19/24 16:00 perflutren AdvReac Back Pain Verified 12/19/24 16:00 Home Medications ?Medication ?Instructions ?Recorded ?Confirmed ?Last Taken ?Type beclomethasone dipropionate 80 1 inh inhalation BID 02/12/20 01/08/25 Unknown History mcg/actuation HFA breath activated aerosol (Qvar RediHaler) cetirizine 10 mg tablet (Zyrtec) 10 mg PO DAILY 02/12/20 01/08/25 Unknown History clobetasol 0.05 % topical ointment g topical Q3D 04/23/20 12/19/24 Unknown History CPAP (CPAP Machine/Device) 09/13/22 12/19/24 Unknown History riboflavin (vitamin B2) 100 mg 400 mg PO DAILY 01/16/23 01/08/25 Unknown History tablet (Vitamin B-2) coenzyme Q10 75 mg capsule (Ultra 75 mg PO DAILY 08/22/24 01/08/25 Unknown History CoQ10) Exam Height,Weight and Vital Signs: Height 5 ft 3 in Weight 67.132 kg Documented by User: Kala Canela MD 01/10/25 08:35 [facility] Past Medical History Medical History (Updated 01/10/25 @ 08:17 by Malathi Rivers RN) Abnormal colonoscopy Sleep apnea Overweight (BMI 25.0-29.9) Mixed hyperlipidemia Spasmodic torticollis Left hand weakness Coarse tremors Vertigo Feeding by G-tube Benign essential hypertension Insomnia Anxiety and depression Strain of left trapezius muscle Left hip pain Left lumbosacral radiculopathy Abdominal pain Constipation Gastritis Dysphagia Epilepsy Depression Asthma Vitamin D deficiency 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 Family History Family History Father CAD (coronary artery disease) Hypertension CVD (cardiovascular disease) Mother Hypertension Maternal Aunt Vaginal cancer Paternal Uncle Throat cancer Family history of problems with anesthesia: No Surgical History Surgical History (Updated 01/10/25 @ 08:17 by Malathi Rivers RN) H/O endoscopy H/O tubal ligation History of Problems with Anesthesia: No Social History Social History Household Members: Spouse Housing: House Alcohol intake: never Patient Tobacco Use Status: Never used Tobacco e-Cigarette/Vaping Use: Never Used Second Hand Smoke Exposure: Yes Use of substances other than those prescribed or required for medical reasons: No Advance Directives: No Advance Directives Information Provided: Yes Patient : No : No Poor oral hygiene: No service: No Current occupational status: disabled Cognitive needs: No Hearing needs: No Vision needs: Yes (gasses) Meds Allergies Allergy/AdvReac Type Severity Reaction Status Date / Time amlodipine Allergy Unknown Depression Verified 12/19/24 16:00 aspirin Allergy Unknown Unknown Verified 12/19/24 16:00 diphenhydramine (Benadryl) Allergy Unknown Unknown Verified 12/19/24 16:00 duloxetine Allergy Unknown worsening Verified 12/19/24 16:00 depression lisinopril Allergy Unknown Cough Verified 12/19/24 16:00 morphine Allergy Unknown Unknown Verified 12/19/24 16:00 Penicillins Allergy Unknown Unknown Verified 12/19/24 16:00 pregabalin Allergy Unknown sleepwalking, Verified 12/19/24 16:00 confusion verapamil AdvReac Unknown rash Verified 12/19/24 16:00 perflutren AdvReac Back Pain Verified 12/19/24 16:00 Home Medications ?Medication ?Instructions ?Recorded ?Confirmed ?Last Taken ?Type beclomethasone dipropionate 80 1 inh inhalation BID 02/12/20 01/08/25 Unknown History mcg/actuation HFA breath activated aerosol (Qvar RediHaler) cetirizine 10 mg tablet (Zyrtec) 10 mg PO DAILY 02/12/20 01/08/25 Unknown History clobetasol 0.05 % topical ointment g topical Q3D 04/23/20 12/19/24 Unknown History CPAP (CPAP Machine/Device) 09/13/22 12/19/24 Unknown History riboflavin (vitamin B2) 100 mg 400 mg PO DAILY 01/16/23 01/08/25 Unknown History tablet (Vitamin B-2) coenzyme Q10 75 mg capsule (Ultra 75 mg PO DAILY 08/22/24 01/08/25 Unknown History CoQ10) Exam Airway Mallampati Class: II TM Dist: >3cm Neck ROM: Full Denture: Upper Heart: rrr Lungs: cta Assessment and Plan Assessment Anesthesia Assessment: Anesthesia Plan Discussed and Chart Reviewed Final Anesthetic Review Family History of Problems with Anesthesia: No History of Problems with Anesthesia: No NPO: Yes ASA Class: III Final Preanesthetic Review: No Changes in Pt Med Stat, Meds/Allgs Chart Reviewed, Consent Obtained/Reviewed and Anes Risks/Benef Reviewed Patient Risk: Intermediate Procedure Risk: Intermediate Anesthetic Plan Anesthetic Plan: MAC: Disposition: Standard PACU
[2025-01-10 08:18] VITALS: BMI 26.7
[2025-01-10 08:22] VITALS: BP 141/72; PULSE 56; RESP 16; TEMP 36.2; O2SAT 99
[2025-01-10] MEDS: Lactated Ringers 1,000 ML 100 ML IVCONT (08:38)
--- NOTE | 2025-01-10 08:59 | MHC.SHP ---
Pre-Procedural Eval Section A - 24 Hr Update-Section A only Date of Service: 01/10/25 The patient is an INPATIENT: No The patient has been examined within 24 hours of the surgical procedure. The History & Physical has been completed within 30 days and I have reviewed it.: Yes Section B - Complete if H&P > 30 days Chief Complaint: Dysphagia, pharyngoesophageal phase Allergies: Allergies Allergy/AdvReac Type Severity Reaction Status Date / Time amlodipine Allergy Unknown Depression Verified 12/19/24 16:00 aspirin Allergy Unknown Unknown Verified 12/19/24 16:00 diphenhydramine (Benadryl) Allergy Unknown Unknown Verified 12/19/24 16:00 duloxetine Allergy Unknown worsening Verified 12/19/24 16:00 depression lisinopril Allergy Unknown Cough Verified 12/19/24 16:00 morphine Allergy Unknown Unknown Verified 12/19/24 16:00 Penicillins Allergy Unknown Unknown Verified 12/19/24 16:00 pregabalin Allergy Unknown sleepwalking, Verified 12/19/24 16:00 confusion verapamil AdvReac Unknown rash Verified 12/19/24 16:00 perflutren AdvReac Back Pain Verified 12/19/24 16:00 Plan Diagnosis/Plan: Unchanged I have reviewed the history and physical and performed a pertinent physical examination on my patient. No changes have occurred unless specified. Time Spent With Patient Time: Total time managing care of this patient today ____ minutes.
--- NOTE | 2025-01-10 09:11 | P.OP_ITS ---
Operative Note Operative Note Date of Service: 01/10/25 Narrative: Procedure: Esophagogastroduodenoscopy Endoscopist: Elena Robb MD Indication: Dysphagia Anesthesia Provider: Muna Littlejohn CRNA Anesthesia Type: MAC ?? EGD Procedure:?? The procedure, indications, preparation and potential complications were reviewed with the patient, who indicated understanding and gave written informed consent to proceed. A physical exam was performed. The endoscope was introduced through the mouth, and advanced to the second part of duodenum. The mucosa was carefully examined on slow withdrawal of the endoscope. The patient tolerated the procedure well. There were no immediate complications.? ? EGD Findings:? * Esophagus:? Normal mucosa noted in the entire esophagus. The Z line was at 35 cm. Middle and lower esophagus forceps biopsies were obtained to rule out eosinophilic esophagitis. * Stomach:? Normal mucosa was noted in the stomach. Retroflexion was performed in the cardia. * Duodenum:? Normal mucosa was noted in the whole of the examined duodenum. Additional intervention: Soft tipped Savary wire was introduced through the biopsy channel of the gastroscope and advanced to the antrum. ?The gastroscope was then backed out. ?Savary Radha bougie was advanced over the guidewire and the esophagus was dilated from 17 to 20 mm with resistance felt. ?On relook, superficial heme and tear was noted in upper esophagus confirming successful dilation. ? ? EGD Impressions:? * Normal esophagus (biopsy) * Cricopharyngeal stenosis (dilation) * Normal stomach * Normal duodenum ?? Recommendations:?? * Follow biopsy results. Our office will call or send a letter with results within 7-10 days. * Avoid NSAIDs. * If has improvement in dysphagia with dilation, this can be repeated as needed for recurrence of sx. Above has been reviewed with the patient.
[2025-01-10 09:31] VITALS: BP 100/61; PULSE 63; RESP 16; TEMP 37; O2SAT 92
[2025-01-10 09:40] VITALS: BP 109/71; PULSE 65; RESP 16; O2SAT 94
[2025-01-10 09:46] VITALS: BP 106/80; PULSE 66; RESP 16; TEMP 36.8; O2SAT 95
== END 2025-01-10 10:14 | disposition home or self-care (01) ==
PROVIDERS: PCP Internal Medicine; Visit Provider Internal Medicine
PROC: 0DJ08ZZ Inspection of Upper Intestinal Tract, Via Natural or Artificial Opening Endoscopic (ICD-10-PCS; CPT 43235; principal; 2025-01-10 09:00)
DX: R13.14 Dysphagia, pharyngoesophageal phase (principal); J39.2 Other diseases of pharynx; K21.9 Gastro-esophageal reflux disease without esophagitis; R10.13 Epigastric pain; K29.70 Gastritis, unspecified, without bleeding; Z93.1 Gastrostomy status; K58.2 Mixed irritable bowel syndrome; I10 Essential (primary) hypertension; G40.909 Epilepsy, unspecified, not intractable, without status epilepticus; E78.2 Mixed hyperlipidemia; F41.8 Other specified anxiety disorders; G93.89 Other specified disorders of brain; B00.4 Herpesviral encephalitis; E55.9 Vitamin D deficiency, unspecified; E66.3 Overweight; Z68.26 Body mass index [BMI] 26.0-26.9, adult; Z88.0 Allergy status to penicillin; Z88.5 Allergy status to narcotic agent; Z88.8 Allergy status to other drugs, medicaments and biological substances; Z79.51 Long term (current) use of inhaled steroids; Z79.899 Other long term (current) drug therapy; Z99.89 Dependence on other enabling machines and devices; Z98.890 Other specified postprocedural states
CPT/HCPCS: 43248; 43239; 88305; C1769; J2003; J2704

== ENCOUNTER → 2025-01-10 07:06 | Outpatient (BNV) | payer BC, MEDICARE, SELFPAY | PROVIDERS: PCP Internal Medicine; Visit Provider Internal Medicine | DX: R13.10 Dysphagia, unspecified (principal); J39.2 Other diseases of pharynx | CPT/HCPCS: 43239; 43248 ==

== ENCOUNTER 2025-01-24 13:46 | Outpatient (AMB) | payer BC, MEDICARE, SELFPAY ==
--- NOTE | 2025-01-24 13:55 | A.OFFPC_ITS ---
Vital Signs 01/24/25 14:02 Height 5 ft 3 in Weight 146 lb 8 oz BMI 25.9 BP 136/82 Blood Pressure Location Lt brachial Position Sitting Pulse 75 Pulse Source Pulse Oximeter Pulse Oximetry (%) 96 Oxygen Delivery Method Room Air Intake Visit Reasons: follow up Order Puller Required: No Accompanied by: Self / Same As Patient Allergies amlodipine Allergy (Unknown, Verified 01/24/25 14:14) Depression aspirin Allergy (Unknown, Verified 01/24/25 14:14) Unknown diphenhydramine (Benadryl) Allergy (Unknown, Verified 01/24/25 14:14) Unknown duloxetine Allergy (Unknown, Verified 01/24/25 14:14) worsening depression lisinopril Allergy (Unknown, Verified 01/24/25 14:14) Cough morphine Allergy (Unknown, Verified 01/24/25 14:14) Unknown Penicillins Allergy (Unknown, Verified 01/24/25 14:14) Unknown pregabalin Allergy (Unknown, Verified 01/24/25 14:14) sleepwalking, confusion verapamil Adverse Reaction (Unknown, Verified 01/24/25 14:14) rash perflutren Adverse Reaction (Verified 01/24/25 14:14) Back Pain Medication List - Last Reconciled 01/24/25 by KRISTOFER Dobson albuterol sulfate 90 mcg/actuation 2 puffs PO QID PRN beclomethasone dipropionate 80 mcg/actuation (Qvar RediHaler) 1 inh inhalation BID cetirizine (Zyrtec) 10 mg PO DAILY clobetasol 0.05% grams topical Q3D coenzyme Q10 (Ultra CoQ10) 75 mg PO DAILY CPAP (CPAP Machine/Device) As directed ergocalciferol (vitamin D2) 1,250 mcg PO QWEEK gabapentin 2 capsules in AM, 2 capsules in PM (early afternoon) and 3 capsules at bedtime 30 days ipratropium bromide 2 sprays intranasal BID lorazepam 0.5mg qam and 1mg qhs orally . PRN; 30 days nortriptyline 20 mg (2 x 10 mg) PO BEDTIME 90 days omeprazole 20 mg PO DAILY propranolol 40 mg PO BID riboflavin (vitamin B2) (Vitamin B-2) 400 mg PO DAILY tizanidine 4 mg PO TID PRN 10 days Tobacco use date assessed: 01/24/25 Fall risk assessment: No Falls in past year Last assessed Fall Risk: 01/24/25 Dental Screening Dental Screen Date: 01/24/25 Did you have a dental visit in the last 12 months?: Yes Did you have a dental problem in the last 6 months where you did not have access to dental care?: No Was dental information given to patient?: Patient has dentist HPI follow up HPI Details The patient is a 64-year-old female with significant past medical history of spasmodic torticollis, gastritis, dysphagia. The patient is following up for results of her EGD. The patient had an EGD due to dysphagia, pharyngoesophageal phase. Shows lower esophageal squamous epithelium within normal limits; no inflammation seen. Middle esophageal shows squamous epithelium within normal limits; no inflammation seen. Dilatation completed if the patient has a improvement this could be repeated as needed per GI. 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 Surgical History H/O endoscopy H/O tubal ligation Family History Father CAD (coronary artery disease) Hypertension CVD (cardiovascular disease) Mother Hypertension Maternal Aunt Vaginal cancer Paternal Uncle Throat cancer Social History Household Members: Spouse Housing: House Alcohol intake: never Patient Tobacco Use Status: Never used Tobacco e-Cigarette/Vaping Use: Never Used Second Hand Smoke Exposure: Yes service: No Current occupational status: disabled Cognitive needs: No Hearing needs: No Vision needs: Yes (gasses) Questionnaire Thrive Questionnaire Date Thrive assessed: 10/22/24 I am a: Patient What is your living situation today?: I have a steady place to live Within the past 12 months, did the food you bought not last and you didn't have the money to get more?: Never true Within the past 12 months, did you worry whether your food would run out before you got money to buy more?: Never true Do you have trouble paying for medicines?: No Do you have trouble getting transportation to medical appointments?: No Do you have trouble paying your heating and electricity bill?: No Do you have trouble taking care of your child, family member or friend?: No Do you have trouble with day-to-day activities such as bathing, preparing meals, shopping, managing finances, etc.?: No Are you currently unemployed and looking for a job?: No Are you interested in more education?: No Please select the resources that you would like help with: None Currently or been in a relationship where the following occur: I choose not to answer THRIVE Score: 0 AUDIT C Alcohol Use Questionnaire (AUDIT-C) 1. How often do you have a drink containing alcohol?: Monthly or less 2. How many drinks containing alcohol do you have on a typical day when you are drinking?: 1 or 2 3. How often do you have six or more drinks on one occasion?: Never Total Score: 1 Score Reviewed/Action Taken: Yes KATHERYN-7 AMB Questionnaire KATHERYN-7 Date KATHERYN - 7 assessed: 10/29/24 Source: Developed by Drs. Rashawn Deutsch, Becca Rivera, Abdon Dominguez and colleagues, with an educational braydon from [employer]. Review of Systems Const Denies body aches, Denies chills, Reports difficulty sleeping, Denies fever(s), Reports headache(s) (Chronic on and off), Reports lethargy and Denies poor appetite Eyes Reports no additional complaints ENT Reports change in voice, Reports dysphagia, Denies dizziness, Reports headache(s) (Chronic on and off), Reports neck pain (Chronic) and Denies odynophagia Card Denies chest pain, Denies syncope, Denies edema, Denies irregular heart rhythm, Denies lightheadedness and Denies dyspnea Resp Denies cough and Denies dyspnea GI Denies abdominal pain, Reports constipation (On and off), Reports dysphagia, Reports heartburn (Recurrent), Denies diarrhea, Denies nausea, Denies odynophagia and Denies vomiting Reports no additional complaints Musc Reports no additional complaints, Denies abnormal gait and Reports neck pain (Chronic) Skin/Breast Reports system reviewed and no additional complaints, except as documented Neuro Denies abnormal gait, Denies dizziness, Denies syncope and Reports headache(s) (Chronic on and off) Psych Reports no additional complaints Physical exam (Primary Care) Vital Signs: Last Vital Signs Pulse 75 01/24/25 14:02 BP 136/82 01/24/25 14:02 Pulse Ox 96 01/24/25 14:02 Oxygen Delivery Method Room Air 01/24/25 14:02 BMI result Body Mass Index 25.9 Tobacco/Smoking Status: Tobacco use Status Tobacco use date assessed 01/24/25 01/24/25 14:07 Patient Tobacco Use Status Never used Tobacco 01/24/25 13:57 e-Cigarette/Vaping Use Never Used 01/24/25 13:57 Thrive Assessment: Date of Thrive Assessment Date Thrive assessed 10/22/24 01/24/25 13:57 Currently or been in a relationship where the following occur: I choose not to answer Const General: cooperative, healthy appearing, comfortable and no acute distress Orientation/consciousness: patient oriented x3 HENMT Head: Yes normocephalic Ears: hearing grossly normal bilaterally General nose exam: Normal external nose present Eyes General: appearance normal, both eyes and all related structures Conjunctivae: conjunctivae normal Neck Neck: Yes full ROM and Yes no lymphadenopathy Resp Effort & Inspection: normal respiratory effort Auscultation: clear to auscultation bilaterally, no crackles, no rales, no rhonchi and no wheezes Cardio Rate: regular rate Rhythm: regular rhythm Back/Spine/Pelvis Cervical Spine: cervical spasm and Cervical spine tenderness Skin General skin exam: no rashes or lesions noted Neuro General: patient oriented x3 Gait exam (Neuro): Normal gait present Extrem General: Yes normal to inspection, Yes full ROM and No edema Psych Affect: normal affect Attitude: cooperative Insight: Good insight present (Psych) Judgement: Good judgement present (Psych) Coding Level of Care Code Est Pt Level 3 (56770) Diagnoses 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 Pharyngoesophageal dysphagia R13.14 Dysphagia type: pharyngoesophageal phase Gastritis without bleeding, unspecified chronicity, unspecified gastritis type K29.70 Gastritis type: unspecified gastritis Chronicity: unspecified Gastritis bleeding: without bleeding Constipation, unspecified constipation type K59.00 Constipation type: unspecified constipation type Spasmodic torticollis G24.3 Time Spent (min) 38 Assessment & Plan Assessment & Plan (1) Spasmodic dysphonia: Code(s): J38.3 - Other diseases of vocal cords Category: Medical Plan: The patient has a long-standing history of spasmodic dysphonia, previously managed with Botox injections in [place]. She has not had treatment for two years and is concerned she will be discharged from her specialist's care. The plan is to strongly encourage the patient to contact her neurologist to schedule a follow-up appointment and re-establish care. (2) Dysphagia: Code(s): R13.10 - Dysphagia, unspecified Category: Medical Qualifiers: Dysphagia type: pharyngoesophageal phase Qualified Code(s): R13.14 - Dysphagia, pharyngoesophageal phase Plan: The patient had an EGD that showed normal squamous epithelium of the lower and middle esophagus. The patient was also provided dilatation of the esophagus with plans to repeat this if she has positive outcomes. The patient repeated [id number] improvement. The patient is prescribed omeprazole 20 mg but feels it is not helping and reports inconsistent adherence, sometimes taking it after food, with coffee, or forgetting it. She finds that [id number] Pepcid provides more relief. Discussed with the patient that if she is taking the medication incorrectly it is not going to work and that's probably part of the issue. (3) Gastritis: Code(s): K29.70 - Gastritis, unspecified, without bleeding Category: Medical Qualifiers: Gastritis type: unspecified gastritis Chronicity: unspecified Gastritis bleeding: without bleeding Qualified Code(s): K29.70 - Gastritis, unspecified, without bleeding Plan: Reinforced dietary restriction. The patient's symptoms of burning, belching, and gas have persisted despite a prescription for omeprazole 20 mg. The lack of efficacy is likely due to improper administration, as the patient reports taking it with coffee or after meals. The plan is to continue omeprazole 20 mg but to clinical mental health counselor the patient on correct usage: take it on an empty stomach with water at least 30-60 minutes before any food or coffee. It was also recommended to add [id number] Pepcid at night to help manage symptoms. The patient was informed that her chronic cough may be a result of acid reflux. (4) Constipation: Code(s): K59.00 - Constipation, unspecified Category: Medical Qualifiers: Constipation type: unspecified constipation type Qualified Code(s): K59.00 - Constipation, unspecified Plan: Increase fiber in diet (fruits/vegetables 4-5 servings daily) Increase fluid intake and decrease caffeine/energy drinks (may cause mild dehydration) Encouraged regular exercise (e.g., biking, walking, running) (5) Spasmodic torticollis: Code(s): G24.3 - Spasmodic torticollis Category: Medical Plan: She has been referred by neurology to physical therapy to help with her recurrent neck spasms, which she states helped only minimally She received some botox injections into her neck from Dr. Jean Baptiste over the past few months but did not feel that they have helped much She was started on tizanidine 4 mg t.i.d. p.r.n. for neck pain and stiffness by Dr. Banegas. The patient has mixed reports about her symptoms, which seem to be ignited by her not being able to sleep well as she is still struggling with wearing CPAP machine.
[2025-01-24 14:02] VITALS: BP 136/82; PULSE 75; O2SAT 96; BMI 25.9
--- OUTSIDE RECORDS SUMMARY | 2025-01-24 16:47 | XMS_ITS | Encounter Summary ---
Author Organization [facility] Address [address] [address] Phone Care Team Providers Care Ceramic Saw Tender Name Role Phone Venkata Banegas MD Primary Care Provider [phone] Reason for Referral * Physical Therapy (Routine) - Closed Specialty Diagnoses / Procedures Referred By Contac t Referred To Contact Physical Therapy Diagnoses Female stress incontinence Duane Higginbotham MD Phone: tel: fax: mailto:[email or web address] [address] [place] [address] Phone: tel: Referral ID Status Reason Start Date Expiration Date Visits Re quested Visits Authorized [id number] Closed 08/01/2018 08/02/2019 1 1 Encounter Details Date Type Department Care Team (Latest Contact Info) Description 08/01/2018 Transcribe Orders [facility] [address] [place] [address] Duane Higginbotham MD [address] [facility] [address] [place] [address] [email or web address] Direct Auto Female stress incontinence (Primary Dx) Social History [...] Diagnoses Orde r Schedule Ambulatory referral to [facility] Physical Therapy Outpatient Referral Routine Female stress incontinence Ordered: 08/01/2018 documented as of this encounter Visit Diagnoses Diagnosis Female stress incontinence- Primary documented in this encounter Care Teams Ceramic Saw Tender Relationship Specialty Start Date End Date Venkata Banegas MD [address] [place] [address] [place] [address] PCP - General Internal Medicine 02/16/17 documented as of this encounter Additional Source Comments The information contained in this document represents components of the legal health record. It is not the complete legal health record.[facility]
--- OUTSIDE RECORDS SUMMARY | 2025-01-24 16:47 | XMS_ITS | Patient Health Record ---
Author Organization [facility] Address [address] [place] [address] Care Team Providers Care Prop Cutter Name Role Phone Bassam HECTOR, [place] Primary Care Provider Jose Browne Jr Reason For Referral No Information Plan Of Treatment No Information Insurance Providers Payer Name Payer Address Payer Phone Subscriber Number Group Number Insured Name Patient Relationship to Insured Coverage Start Date Coverage End Date [facility] BLUE BS PROFESSIONAL CLAIMS [address] [place] [address] [id number] KENDALLDARIANACONI Self - patient is the insured
--- OUTSIDE RECORDS SUMMARY | 2025-01-24 16:47 | XMS_ITS | Clinical Summary ---
Author Organization [facility] Address [address] [facility] [address] [place] [address] Phone Care Team Providers Care Network Strategist Name Role Phone Venkata Banegas MD Primary Care Provider [phone] Allergies Active Allergy Reactions Criticality Noted Date [...] 04/15/2017 Overview (04/15/2017): Reports biopsy confirmed in [place], diagnosis approximately 2006 Family History Medical History [...] topic Medical Devices Not on file [facility] POS O POS O POS O POS SENG [address] POS O POS O POS Care Teams Network Strategist Relationship Specialty Start Date End Date Venkata Banegas MD [address] [place] [address] [place] [address] PCP - General Internal Medicine 02/16/17 Additional Source Comments The information contained in this document represents components of the legal health record. It is not the complete legal health record.[facility]
== END 2025-01-24 14:49 | disposition home or self-care (01) ==
LOC: HO.HMCH 13:47
PROVIDERS: PCP Internal Medicine
DX: J38.3 Other diseases of vocal cords (principal); R13.14 Dysphagia, pharyngoesophageal phase; K29.70 Gastritis, unspecified, without bleeding; K59.00 Constipation, unspecified; G24.3 Spasmodic torticollis

== ENCOUNTER 2025-01-28 12:23 | Outpatient (AMB) | payer BC, MEDICARE, SELFPAY ==
--- NOTE | 2025-01-28 12:24 | MHC.OFFVIS ---
Vital Signs 01/28/25 12:25 Height 5 ft 3 in Weight 146 lb 4 oz BMI 25.9 BP 124/72 Blood Pressure Location Rt brachial Position Sitting Pulse 68 Pulse Source Pulse Oximeter Pulse Oximetry (%) 99 Oxygen Delivery Method Room Air Intake Visit Reasons: 6 mo follow up Intake Note: Follow up Herpes Simplex Encephalitis, Spasmodic Torcotilis, Tremors, Dysphonia, Anxiety and depression. 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 Required: No Accompanied by: Spouse Allergies amlodipine Allergy (Unknown, Verified 01/28/25 12:25) Depression aspirin Allergy (Unknown, Verified 01/28/25 12:25) Unknown diphenhydramine (Benadryl) Allergy (Unknown, Verified 01/28/25 12:25) Unknown duloxetine Allergy (Unknown, Verified 01/28/25 12:25) worsening depression lisinopril Allergy (Unknown, Verified 01/28/25 12:25) Cough morphine Allergy (Unknown, Verified 01/28/25 12:25) Unknown Penicillins Allergy (Unknown, Verified 01/28/25 12:25) Unknown pregabalin Allergy (Unknown, Verified 01/28/25 12:25) sleepwalking, confusion verapamil Adverse Reaction (Unknown, Verified 01/28/25 12:25) rash perflutren Adverse Reaction (Verified 01/28/25 12:25) Back Pain HPI Comments Details: 64-year-old female presents for follow-up of tremor, spasmodic dysphonia, dysphagia, cognitive difficulties, and anxiety in setting of h/o herpetic encephalitis. Patient is accompanied by her .she was seen by GI and had Endoscopy and had dilation cricopharyngeal stenosis. she is scheduled for a virtual visit with [facility] to evaluate for botox for cervical dystonia. she is using CPAP regularly and f.u with [facility] she stopped escitalopram due to side effects . she was started on nortriptyline for IBS and is helping her mood.Her mood is stable Initial 06/16/[address] Jean Baptiste: 62y/o female comes for evaluation of tremors. 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 Lundberg for fibromyalgia, headaches and myofascial pain. Recently she has nerve block for occipital neuralgia - [facility] Headache Specialist. she had a home sleep test 1 year ago and was given CPAP - but she could not use it. She is here for opinion regrading her tremors. she has h/o spasmodic dysphonia since age 26. she also has vertigo , tinnitus - chronic . She had motion sickness anytime she travelled but since her Herpes - her vertigo has worsened. she used to have mild tremors in her hands L>R even before herpes encephalitis. Since her herpes her tremors have worsened and also reports spasms in her neck. SHe reports head tremors in different positions and feels like head is pulling and has pain. Hand tremors L>R and is both action , postural. when her tremors and anxiety worsens she feels nauseous.she is fully awake during episodes she also wakes up in the middle of the night with tremors. 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 Surgical History H/O endoscopy H/O tubal ligation Family History Father CAD (coronary artery disease) Hypertension CVD (cardiovascular disease) Mother Hypertension Maternal Aunt Vaginal cancer Paternal Uncle Throat cancer Social History Household Members: Spouse Housing: House Alcohol intake: never Patient Tobacco Use Status: Never used Tobacco e-Cigarette/Vaping Use: Never Used Second Hand Smoke Exposure: Yes service: No Current occupational status: disabled Cognitive needs: No Hearing needs: No Vision needs: Yes (gasses) Physical Exam Vital Signs: Last Vital Signs Pulse 68 01/28/25 12:25 BP 124/72 01/28/25 12:25 Pulse Ox 99 01/28/25 12:25 Oxygen Delivery Method Room Air 01/28/25 12:25 BMI result Body Mass Index 25.9 Const General: cooperative, healthy appearing and anxious Nutritional Appearance: average body habitus Orientation/consciousness: patient oriented x3 Eyes Pupils: Equal, round and reactive pupils present Neuro Other: No audible voice tremor today. Mild dysphonia- mild voice hoarseness Mild head tremors Mild LUE tremor Retrognathia General: patient oriented x3, gait normal, moves all extremities and no focal motor deficits Cranial nerves: Yes Facial sensation intact/muscles of mastication intact, Yes Equal, round and reactive pupils present, Yes Bilaterally intact EOM present, Yes Nystagmus not present, Yes Normal facial strength present and Yes Midline tongue present Cognition (Neuro): normal cognition Gait exam (Neuro): Normal gait present Motor exam (neuro): Normal motor muscle tone present throughout Psych Appearance: grossly normal Mental Status: mental status grossly normal Affect: Anxious affect present Attitude: cooperative Assessment & Plan Assessment & Plan (1) Herpes simplex encephalitis: Comment: S/P Tx with Acyclovir; still has minimal residual dysphasia, dysphagia and impaired memory recall Repeat MRI of the brain done in early 2019 showed no acute pathology or abnormal enhancement, (+) cystic encephalomalacia in the right anterior temporal lobe associated with volume loss and surrounding gliosis and smaller areas of abnormal signal in the left temporal lobe - findings are consistent with sequela of prior HSV encephalitis Repeat EEG done showed remained abnormal with slowing of right temporal cortical region, no epileptiform activities were seen Has been slowly tapered off her Keppra and patient is advised to call if seizures recur or occur Code(s): B00.4 - Herpesviral encephalitis Category: Medical (2) Spasmodic torticollis: Comment: she did not respond to botox, will hold off on second dose Code(s): G24.3 - Spasmodic torticollis Category: Medical (3) Coarse tremors: Comment: postural tremors with intermittent worsening, post viral worsened by poorly controlled mood Code(s): G25.2 - Other specified forms of tremor Category: Medical (4) Spasmodic dysphonia: Code(s): J38.3 - Other diseases of vocal cords Category: Medical (5) Anxiety and depression: Comment: hydroxyzine - nausea sertraline - forgetful mirtazapine - escitalopram - headaches Code(s): F41.9 - Anxiety disorder, unspecified; F32.9 - Major depressive disorder, single episode, unspecified Category: Medical (6) Insomnia: Code(s): G47.00 - Insomnia, unspecified Category: Medical Qualifiers: Insomnia type: unspecified Qualified Code(s): G47.00 - Insomnia, unspecified Plan Nortriptyline 20mg qhs lorazepam 0.5 mg q.a.m. and 1 mg q.h.s. p.r.n.insomnia/anxiety. 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 Continue gabapentin- advised that this can actually help with tremor and anxiety. Continue propranolol 40 mg twice a day for now. discussed about propranolol worsening her asthma -she will try to taper after starting another natihypertensive F/u GI F/U [facility] SLeep F/U with [facility] for vocal cord botox. Will follow-up upon review of above and patient to follow-up in clinic in 3-6 months or sooner prn. Medications: Refilled gabapentin 2 capsules in AM, 2 capsules in PM (early afternoon) and 3 capsules at bedtime 210 caps 6RF 30 days lorazepam 0.5mg qam and 1mg qhs orally . PRN; 90 tabs 2RF anxiety 30 days propranolol 40 mg PO BID 60 tabs 6RF Coding Level of Care Code Est Pt Level 4 (73061) Complex EM visit Add On G2211 Diagnoses Herpes simplex encephalitis B00.4 Spasmodic torticollis G24.3 Coarse tremors G25.2 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 Anxiety and depression F41.9; F32.9 Insomnia, unspecified type G47.00 Insomnia type: unspecified
[2025-01-28 12:25] VITALS: BP 124/72; PULSE 68; O2SAT 99; BMI 25.9
--- OUTSIDE RECORDS SUMMARY | 2025-01-28 15:34 | XMS_ITS | Patient Health Record ---
Author Organization [facility] Address [address] [place] [address] Care Team Providers Care Warehouse Record Clerk Name Role Phone Bassam HECTOR, [place] Primary Care Provider Jose Browne Jr Reason For Referral No Information Plan Of Treatment No Information Insurance Providers Payer Name Payer Address Payer Phone Subscriber Number Group Number Insured Name Patient Relationship to Insured Coverage Start Date Coverage End Date [facility] BLUE BS PROFESSIONAL CLAIMS [address] [place] [address] [phone] [id number] KENDALLCONI Dotson Self - patient is the insured
--- OUTSIDE RECORDS SUMMARY | 2025-01-28 15:34 | XMS_ITS | Encounter Summary ---
Author Organization [facility] Address [address] [address] Phone Care Team Providers Care Rewriter Name Role Phone Venkata Banegas MD Primary Care Provider [phone] Reason for Referral * Physical Therapy (Routine) - Closed Specialty Diagnoses / Procedures Referred By Contac t Referred To Contact Physical Therapy Diagnoses Female stress incontinence Duane Higginbotham MD Phone: tel: fax: mailto:[email or web address] [address] [place] [address] Phone: tel: Referral ID Status Reason Start Date Expiration Date Visits Re quested Visits Authorized [id number] Closed 08/01/2018 08/02/2019 1 1 Encounter Details Date Type Department Care Team (Latest Contact Info) Description 08/01/2018 Transcribe Orders [facility] [address] [place] [address] Duane Higginbotham MD [address] [facility] [address] [place] [address] [email or web address] Female stress incontinence (Primary Dx) Social History [...] Diagnoses Orde r Schedule Ambulatory referral to [facility] Physical Therapy Outpatient Referral Routine Female stress incontinence Ordered: 08/01/2018 documented as of this encounter Visit Diagnoses Diagnosis Female stress incontinence- Primary documented in this encounter Care Teams Rewriter Relationship Specialty Start Date End Date Venkata Banegas MD [address] [place] [address] [place] [address] PCP - General Internal Medicine 02/16/17 documented as of this encounter Additional Source Comments The information contained in this document represents components of the legal health record. It is not the complete legal health record.[facility]
--- OUTSIDE RECORDS SUMMARY | 2025-01-28 15:34 | XMS_ITS | Clinical Summary ---
Author Organization [facility] Address [address] [facility] [address] [place] [address] Phone Care Team Providers Care Manager Sterile Processing Name Role Phone Venkata Banegas MD Primary Care Provider [phone] Allergies Active Allergy Reactions Criticality Noted Date [...] 04/15/2017 Overview (04/15/2017): Reports biopsy confirmed in [place], diagnosis approximately 2006 Family History Medical History [...] O POS O POS O POS SENG [address] POS O POS O POS Care Teams Manager Sterile Processing Relationship Specialty Start Date End Date Venkata Banegas MD [address] [place] [address] [address] [place] [address] PCP - General Internal Medicine 02/16/17 Additional Source Comments The information contained in this document represents components of the legal health record. It is not the complete legal health record.[facility]
== END 2025-01-28 13:04 | disposition home or self-care (01) ==
LOC: HO.HSMS 12:24
PROVIDERS: PCP Internal Medicine; Visit Provider Psychiatry & Neurology Neurology
DX: B00.4 Herpesviral encephalitis (principal); G24.3 Spasmodic torticollis; G25.2 Other specified forms of tremor; J38.3 Other diseases of vocal cords; F41.9 Anxiety disorder, unspecified; F32.9 Major depressive disorder, single episode, unspecified; G47.00 Insomnia, unspecified
CPT/HCPCS: 99214

== ENCOUNTER 2025-03-01 08:13 | Outpatient (REF) | payer BC, MEDICARE, SELFPAY ==
[2025-03-01 10:17] LABS: MANUAL DIFF FLAG NO
[2025-03-01 10:37] LABS: Alanine Aminotransferase 20 U/L (0-31); Albumin Level 4.7 g/dL (3.5-5.0); Alkaline Phosphatase 80 U/L (39-117); Anion Gap 12 (12-20); Aspartate Amino Transferase 22 U/L (5-31); Blood Urea Nitrogen 13 mg/dL (9-16); Calcium 9.5 mg/dL (8.4-10.2); Carbon Dioxide 30 mmol/L (22-29); Chloride 103 mmol/L (96-108); Cholesterol 216 mg/dL (<200); Estimated Glomerular Filt Rate > 60; HDL Cholesterol 48 mg/dL (>40); Potassium 4.0 mmol/L (3.3-5.1); Sodium 141 mmol/L (135-145); Total Protein 7.5 g/dL (6.5-8.0); Triglycerides 157 mg/dL (<150)
[2025-03-01 10:39] LABS: Hematocrit 45.2 % (37.0-47.0); Hemoglobin 14.3 g/dl (12.0-16.0); Imm Gran Abs Auto 0.04 X10*3/uL (0.00-0.03); Imm Gran Pct Auto 0.5 % (0.0-0.4); Lymphocytes Absolute Auto 1.9 X10*3/uL (1.2-4.9); Mean Corpuscular HGB Conc 31.6 g/dl (31.0-35.0); Mean Corpuscular Hemoglobin 29.4 pg (27.0-33.0); Mean Corpuscular Volume 93.0 fL (80.0-98.0); NRBC Abs Auto 0.000 X10*3/uL (0.0-0.012); NRBC Pct Auto 0.0 /100WBC (0.0-0.2); Platelet Count 291 X10*3/uL (160-400); Red Blood Count 4.86 X10*6/uL (4.20-5.50); White Blood Count 7.4 X10*3/uL (4.8-10.8)
[2025-03-01 10:42] LABS: Appearance Urine Clear; Glucose Urine UA Negative (Negative); PH 6.5 (5.0-9.0); Specific Gravity - Urine 1.010 (1.005-1.025); UMIC TRIGGER UACC YES
[2025-03-01 11:11] LABS: Folate 12.9 ng/mL (> or = 4.0); Vitamin B12 403 pg/mL (200-900)
== END 2025-03-01 08:14 | disposition home or self-care (01) ==
LOC: HO.10HDL 08:13
PROVIDERS: Visit Provider Internal Medicine
DX: E53.8 Deficiency of other specified B group vitamins (principal); E78.00 Pure hypercholesterolemia, unspecified; E55.9 Vitamin D deficiency, unspecified; D64.9 Anemia, unspecified; R73.01 Impaired fasting glucose
CPT/HCPCS: 36415; 80053; 80061; 81001; 82306; 82607; 82746; 83036; 84443; 85025

== ENCOUNTER 2025-03-04 15:24 | Outpatient (AMB) | payer BC, MEDICARE, SELFPAY ==
--- NOTE | 2025-03-04 15:45 | A.OFFPC_ITS ---
Vital Signs 03/04/25 15:46 Height 5 ft 3 in Weight 148 lb 6 oz BMI 26.3 BP 132/70 Blood Pressure Location Lt brachial Position Sitting Pulse 61 Pulse Source Pulse Oximeter Temp 97.3 F Temp Source Temporal Artery Scan Pulse Oximetry (%) 97 Oxygen Delivery Method Room Air Intake Visit Reasons: 4 mnth f/u Corn Press Operator Required: No Balancing Machine Operator: Present Accompanied by: Spouse Allergies amlodipine Allergy (Unknown, Verified 03/04/25 16:31) Depression aspirin Allergy (Unknown, Verified 03/04/25 16:31) Unknown diphenhydramine (Benadryl) Allergy (Unknown, Verified 03/04/25 16:31) Unknown duloxetine Allergy (Unknown, Verified 03/04/25 16:31) worsening depression lisinopril Allergy (Unknown, Verified 03/04/25 16:31) Cough morphine Allergy (Unknown, Verified 03/04/25 16:31) Unknown Penicillins Allergy (Unknown, Verified 03/04/25 16:31) Unknown pregabalin Allergy (Unknown, Verified 03/04/25 16:31) sleepwalking, confusion verapamil Adverse Reaction (Unknown, Verified 03/04/25 16:31) rash perflutren Adverse Reaction (Verified 03/04/25 16:31) Back Pain Medication List - Last Reconciled 03/04/25 by Venkata Banegas MD albuterol sulfate 90 mcg/actuation 2 puffs PO QID PRN cetirizine (Zyrtec) 10 mg PO DAILY clobetasol 0.05% grams topical Q3D coenzyme Q10 (Ultra CoQ10) 75 mg PO DAILY CPAP (CPAP Machine/Device) As directed ergocalciferol (vitamin D2) 1,250 mcg PO QWEEK fluoxetine 10 mg PO DAILY gabapentin 2 capsules in AM, 2 capsules in PM (early afternoon) and 3 capsules at bedtime 30 days ipratropium bromide 2 sprays intranasal BID lorazepam 0.5mg qam and 1mg qhs orally . PRN; 30 days nortriptyline 20 mg (2 x 10 mg) PO BEDTIME 90 days omeprazole 20 mg PO DAILY propranolol 40 mg PO BID riboflavin (vitamin B2) (Vitamin B-2) 400 mg PO DAILY tizanidine 4 mg PO TID PRN 10 days Tobacco use date assessed: 03/04/25 Fall risk assessment: No Falls in past year Last assessed Fall Risk: 03/04/25 Dental Screening Dental Screen Date: 01/24/25 HPI 4 mnth f/u HPI Details - The patient is a 64 year old female pr esenting for review of lab results and chronic condition management. - She continues to complain of frequent neck pain, tremors, persistent sensation of brain fog and mood symptoms - Her blood pressure today was 132/70 mm Hg, which is similar to a previous reading of 136/84 mmHg. - She acknowledges that factors like chaim n, stress, and poor sleep can elevate her blood pressure readings. - She takes propranolol, which was presc ribed for headache prevention but also helps with her blood pressure. - Regarding her lipids, her total choles terol on her labs done a few days ago have increased from 209 to 216, and was 193 earlier in the year. - Her triglycerides increased from 105 t o 157 and her LDL increased from 123 to 137. - Her HDL level has decreased. - She has never taken cholesterol medica tion. - She reports inconsistent adherence to her vitamin D supplement, and her levels have decreased. - An endoscopy performed in December show ed a normal esophagus, stomach, and small bowel, with normal biopsies, but revealed stenosis in the throat area, which was dilated. - For her sleep apnea, she has noticed t hat since the throat dilation, she does not snore, gasp for air, or wake up coughing as she used to. - She continues to use her CPAP machine, though not every day. - She recently started seeing a psychiat rist and a psychologist, starting fluoxetine two weeks ago at 10 mg QD - She has a history of fibromyalgia and previously took a medication, possibly amitriptyline, for it in 2018. 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 Surgical History H/O endoscopy H/O tubal ligation Family History Father CAD (coronary artery disease) Hypertension CVD (cardiovascular disease) Mother Hypertension Maternal Aunt Vaginal cancer Paternal Uncle Throat cancer Social History Household Members: Spouse Housing: House Alcohol intake: never Patient Tobacco Use Status: Never used Tobacco e-Cigarette/Vaping Use: Never Used Second Hand Smoke Exposure: Yes service: No Current occupational status: disabled Cognitive needs: No Hearing needs: No Vision needs: Yes (gasses) Questionnaire Thrive Questionnaire Date Thrive assessed: 10/22/24 I am a: Patient What is your living situation today?: I have a steady place to live Within the past 12 months, did the food you bought not last and you didn't have the money to get more?: Never true Within the past 12 months, did you worry whether your food would run out before you got money to buy more?: Never true Do you have trouble paying for medicines?: No Do you have trouble getting transportation to medical appointments?: No Do you have trouble paying your heating and electricity bill?: No Do you have trouble taking care of your child, family member or friend?: No Do you have trouble with day-to-day activities such as bathing, preparing meals, shopping, managing finances, etc.?: No Are you currently unemployed and looking for a job?: No Are you interested in more education?: No Please select the resources that you would like help with: None Currently or been in a relationship where the following occur: I choose not to answer THRIVE Score: 0 KATHERYN-7 AMB Questionnaire KATHERYN-7 Date KATHERYN - 7 assessed: 10/29/24 Source: Developed by Drs. Rashawn Deutsch, Becca Rivera, Abdon Dominguez and colleagues, with an educational braydon from [employer]. Review of Systems Const Denies chills, Reports difficulty sleeping, Reports fatigue, Denies fever(s) and Reports headache(s) (on and off) ENT Denies dysphagia, Reports dizziness (on and off), Reports headache(s) (on and off), Reports hoarseness (chronic), Reports neck pain (recurrent), Denies odynophagia, Reports tinnitus (chronic) and Denies sore throat Card Reports chest pain, Denies palpitations and Denies dyspnea Resp Denies cough, Denies dyspnea and Denies wheezing GI Denies abdominal pain, Reports constipation (on and off), Denies dysphagia, Denies heartburn, Denies diarrhea, Denies nausea, Denies odynophagia and Denies vomiting Denies difficulty voiding, Denies nocturia, Denies dysuria and Denies urinary urgency Musc Reports back pain (over the left SI joint), Reports arthralgias (left hip), Reports neck pain (recurrent) and Reports radiating pain into limb (into the left thigh and leg) Skin/Breast Denies rash Neuro Reports dizziness (on and off), Reports headache(s) (on and off), Denies focal weakness, Denies seizure-like activity and Reports tremor(s) Psych Reports anxiety and Reports depression Endo Reports fatigue and Denies palpitations Augustus/Lymph Denies easy bruising Aller/Immun Denies wheezing Physical exam (Primary Care) Vital Signs: Last Vital Signs Temp 97.3 F 03/04/25 15:46 Pulse 61 03/04/25 15:46 BP 132/70 03/04/25 15:46 Pulse Ox 97 03/04/25 15:46 Oxygen Delivery Method Room Air 03/04/25 15:46 BMI result Body Mass Index 26.3 Tobacco/Smoking Status: Tobacco use Status Tobacco use date assessed 03/04/25 03/04/25 15:47 Patient Tobacco Use Status Never used Tobacco 03/04/25 15:47 e-Cigarette/Vaping Use Never Used 03/04/25 15:47 Thrive Assessment: Date of Thrive Assessment Date Thrive assessed 10/22/24 03/04/25 15:47 Currently or been in a relationship where the following occur: I choose not to answer Const General: no acute distress and alert HENMT Ears: TM's normal bilaterally and EAC's normal Throat: Yes posterior oropharynx normal and Yes tonsils normal (no TP congestion) Neck Neck: Yes no lymphadenopathy and Yes tender Thyroid: Thyroid normal Resp Auscultation: clear to auscultation bilaterally, no rales and no wheezes Cardio Rate: regular rate Rhythm: regular rhythm Heart sounds: no murmurs GI Palpation (GI): Soft to palpation and nontender Auscultation: normal bowel sounds General: Yes no CVA tenderness Back/Spine/Pelvis Back: no CVA tenderness Cervical Spine: cervical muscular tenderness, cervical spasm and No Cervical spine tenderness Thoracic/Lumbar Spine: No lumbar spinal tenderness Sacroiliac joints: on the left tender to palpation Skin Rashes: no rashes Neuro Motor exam (neuro): Tremors during motor activity present (mild, over both hands; (+) head tremors noted as well) Extrem General: Yes no clubbing, cyanosis or edema Left lower extremity: hip/thigh Details: tenderness Location: of the hip Results Reviewed Results Reviewed: Laboratory Tests 03/01/25 08:20 WBC 7.4 Hgb 14.3 Hct 45.2 Plt Count 291 Sodium 141 Potassium 4.0 Creatinine 0.78 Estimated GFR > 60 Fasting Glucose 105 H Hemoglobin A1c % 5.6 Calcium 9.5 AST 22 ALT 20 Triglycerides 157 H Cholesterol 216 H LDL Cholesterol, Calc 137 H HDL Cholesterol 48 Vitamin B12 403 25-OH Vitamin D Total 25.2 L TSH 1.04 Ur Specific [place] 1.010 Urine Protein Negative Urine Glucose (UA) Negative Urine Blood Negative Urine Nitrite Negative Ur Leukocyte Esterase Trace H Coding Level of Care Code Est Pt Level 4 (38372) Diagnoses Nonintractable headache, unspecified chronicity pattern, unspecified headache type R51.9 Headache chronicity pattern: unspecified pattern Headache type: unspecified Intractability: not intractable Herpes simplex encephalitis B00.4 Cystic encephalomalacia G93.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, unspecified epilepsy type G40.909 Epilepsy type: unspecified Intractability: not intractable Status epilepticus: without status epilepticus 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 Coarse tremors G25.2 Spasmodic torticollis G24.3 Chest pain, unspecified type R07.9 Chest pain type: unspecified Mixed hyperlipidemia E78.2 Benign essential hypertension I10 Impaired fasting glucose R73.01 Mild persistent asthma without complication J45.30 Asthma complication type: uncomplicated Asthma persistence: persistent Asthma severity: mild Vitamin D deficiency E55.9 Gastritis without bleeding, unspecified chronicity, unspecified gastritis type K29.70 Chronicity: unspecified Gastritis bleeding: without bleeding Gastritis type: unspecified gastritis Constipation, unspecified constipation type K59.00 Constipation type: unspecified constipation type Insomnia, unspecified type G47.00 Insomnia type: unspecified Anxiety and depression F41.9; F32.9 Overweight (BMI 25.0-29.9) E66.3 Assessment & Plan Assessment & Plan (1) Headache: Code(s): R51.9 - Headache, unspecified Category: Medical Qualifiers: Headache chronicity pattern: unspecified pattern Headache type: unspecified Intractability: not intractable Qualified Code(s): R51.9 - Headache, unspecified Plan: These are most likely multifactorial headaches Continue Riboflavin 400 mg QD She has also been receiving occipital nerve blocks from a headaches specialist at [facility] (Dr. iSngleton) for a few months now and feels that these are helping somewhat Follow up with neurology as scheduled (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; still has minimal residual dysphasia, dysphagia and impaired memory recall Repeat MRI of the brain done in early 2019 showed no acute pathology or abnormal enhancement, (+) cystic encephalomalacia in the right anterior temporal lobe associated with volume loss and surrounding gliosis and smaller areas of abnormal signal in the left temporal lobe - findings are consistent with sequela of prior HSV encephalitis Repeat EEG done showed remained abnormal with slowing of right temporal cortical region, no epileptiform activities were seen Has been slowly tapered off her Keppra and patient is advised to call if seizures recur or occur Code(s): B00.4 - Herpesviral encephalitis Category: Medical Plan: S/P Tx Symptoms have been stable with no regression so far Follow-up with Neurology as scheduled (3) Cystic encephalomalacia: Code(s): G93.89 - Other specified disorders of brain Category: Medical Plan: Findings of cystic encephalomalacia seen on her most recent MRI, consistent with her previous HSV encephalitis diagnosis Patient still has some minimal/residual problems with memory recall and residual dysphasia/aphasia but these have stabilized over time (4) Epilepsy: Code(s): G40.909 - Epilepsy, unspecified, not intractable, without status epilepticus Category: Medical Qualifiers: Epilepsy type: unspecified Intractability: not intractable Status epilepticus: without status epilepticus Qualified Code(s): G40.909 - Epilepsy, unspecified, not intractable, without status epilepticus Plan: Patient has not had any seizures in a while now and has been slowly tapered off her Keppra by Neurology months ago Follow-up with Neurology as scheduled (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 Category: Medical Plan: Patient was receiving Botox injections (from [facility]) as needed in the past but states that she has not been getting this for over a year now States that her hoarseness has not felt any worse since she last had her injection over a year ago and she denies any difficulty swallowing States that she has been trying to reach out to her doctors in [place] to schedule her vocal cord injections again but has not yet been able to contact them (6) Coarse tremors: Comment: postural tremors with intermittent worsening, post viral worsened by poorly controlled mood Code(s): G25.2 - Other specified forms of tremor Category: Medical Plan: Continue Propranolol 40 mg BID for now Follow up with neurology as scheduled and have advised patient to speak with Neurology about her perception that propranolol is no longer working for her tremors (7) Spasmodic torticollis: Code(s): G24.3 - Spasmodic torticollis Category: Medical Plan: She has been referred by neurology to physical therapy to help with her recurrent neck spasms, which she states helped only minimally She received some botox injections into her neck from Dr. Jean Baptiste over the past few months but did not feel that they have helped much Will start her on a trial of tizanidine 4 mg TID PRN to help with her neck pain and stiffness (8) Chest pain: Code(s): R07.9 - Chest pain, unspecified Category: Medical Qualifiers: Chest pain type: unspecified Qualified Code(s): R07.9 - Chest pain, unspecified Plan: Mostly resolved She was referred to and seen by cardiology a few months ago and underwent cardiac evaluation, including Holter monitoring and coronary CTA She was reportedly advised that all of her tests so far have come back normal Follow up with cardiology as scheduled (9) Mixed hyperlipidemia: Code(s): E78.2 - Mixed hyperlipidemia Category: Medical Plan: Results of her labs done a few days ago reviewed and discussed with patient Reinforce low-cholesterol diet - patient would like to continue working on improving her diet and avoid taking cholesterol-lowering medications as much as possible Will recheck her labs and fasting lipids in 4 months for follow up (10) Benign essential hypertension: Code(s): I10 - Essential (primary) hypertension Category: Medical Plan: Reinforced low sodium diet - goal is systolic BP of at least 130 mm or less Per our instructions, she stopped taking her Losartan 25 mg QD after her last visit as she was suspecting that her on and off diarrhea was a side effect of the Rx Feels that her diarrhea has improved a lot since then and she is currently not on any Rx for her blood pressure although she is on Propranolol 40 mg BID that was started by neurology for her tremors last year She is reminded to continue monitoring her blood pressure regularly (11) Impaired fasting glucose: Code(s): R73.01 - Impaired fasting glucose Category: Medical Plan: Her HgbA1c was normal at 5.6% even though her FBS was slightly elevated at 109 mg/dl on her recent lab Reinforced low calorie/low carb diet (12) Asthma: Code(s): J45.909 - Unspecified asthma, uncomplicated Category: Medical Qualifiers: Asthma complication type: uncomplicated Asthma persistence: persistent Asthma severity: mild Qualified Code(s): J45.30 - Mild persistent asthma, uncomplicated Plan: Controlled Continue Qvar 80 mcg 1 puff twice a day and Albuterol HFA 2 puffs 4 times a day as needed (13) Vitamin D deficiency: Code(s): E55.9 - Vitamin D deficiency, unspecified Category: Medical Plan: Continue Vitamin D2 28047 units once a week (14) Gastritis: Code(s): K29.70 - Gastritis, unspecified, without bleeding Category: Medical Qualifiers: Chronicity: unspecified Gastritis bleeding: without bleeding Gastritis type: unspecified gastritis Qualified Code(s): K29.70 - Gastritis, unspecified, without bleeding Plan: Dietary restrictions reinforced Continue Omeprazole 40 mg QD and Famotidine 20 mg 1 to 2 tablets a day at bedtime as needed Follow up with GI as scheduled (15) Constipation: Code(s): K59.00 - Constipation, unspecified Category: Medical Qualifiers: Constipation type: unspecified constipation type Qualified Code(s): K59.00 - Constipation, unspecified Plan: She likely has IBS with constipation Symptoms have Improved and has been controlled lately; she is encouraged again to continue increased oral fluids and dietary fiber Abdominal x-rays done a few months ago showed (+) moderate stool burden; x-rays were otherwise normal Continue OTC stool softeners as needed Continue Dicyclomine 20 mg TID PRN (16) Insomnia: Code(s): G47.00 - Insomnia, unspecified Category: Medical Qualifiers: Insomnia type: unspecified Qualified Code(s): G47.00 - Insomnia, unspecified Plan: Sleep hygiene reinforced Continue Trazodone 50 mg Q HS PRN (17) Anxiety and depression: Comment: hydroxyzine - nausea sertraline - forgetful mirtazapine - escitalopram - headaches Code(s): F41.9 - Anxiety disorder, unspecified; F32.9 - Major depressive disorder, single episode, unspecified Category: Medical Plan: Patient so far has not been able to tolerate Sertraline, Venlafaxine, Hydroxyzi ne, Duloxetine and Mirtazapine Per her request, she was referred to [facility] for counseling and therapy a few months ago and she was seen by Dr. Springer and was advised of her depression Dx and her recommendation was for her to start taking some Rx She has been advised in the past that she can continue on Lorazepam 0.5 mg BID PRN but if her mood disorder is better controlled on a maintenance medication, then she may find that she does not need to take her Lorazepam as much We have referred her to the [facility] for neuropsychiatry evaluation and management previously - she is scheduled for her appointment in a few weeks (18) Overweight (BMI 25.0-29.9): Code(s): E66.3 - Overweight Category: Medical Plan: Reinforce diet/exercise as tolerated/lose weight Plan Follow up in 4 months Orders: Orders Hemoglobin A1c 4 Months R73.01 - Impaired fasting glucose TSH reflex Free T4 4 Months E78.00 - Pure hypercholesterolemia, unspecified UA CC w/rflx Micro + Cult 4 Months R30.0 - Dysuria Vitamin D 25-OH Total 4 Months E55.9 - Vitamin D deficiency, unspecified Complete Blood Count Auto Diff 4 Months D64.9 - Anemia, unspecified Comprehensive [place]. Panel Fast 4 Months E78.00 - Pure hypercholesterolemia, unspecified Lipid Panel 4 Months E78.00 - Pure hypercholesterolemia, unspecified Vitamin B12 and Folate 4 Months E53.8 - Deficiency of other specified B group vitamins
[2025-03-04 15:46] VITALS: BP 132/70; PULSE 61; TEMP 36.3; O2SAT 97; BMI 26.3
--- OUTSIDE RECORDS SUMMARY | 2025-03-05 00:54 | XMS_ITS | Encounter Summary ---
Author Organization [facility] Address [address] [address] Phone Care Team Providers Care Superintendent Gas Distribution Name Role Phone Venkata Banegas MD Primary Care Provider [phone] Reason for Referral * Physical Therapy (Routine) - Closed Specialty Diagnoses / Procedures Referred By Contac t Referred To Contact Physical Therapy Diagnoses Female stress incontinence Duane Higginbotham MD Phone: tel: fax: [email or web address] [address] [place] [address] Phone: tel: Referral ID Status Reason Start Date Expiration Date Visits Re quested Visits Authorized [id number] Closed 08/01/2018 08/02/2019 1 1 Encounter Details Date Type Department Care Team (Latest Contact Info) Description 08/01/2018 Transcribe Orders [facility] [address] [place] [id number] Duane Higginbotham MD [address] [facility] [address] [place] [address] [email or web address] Female stress incontinence (Primary Dx) Social History [...] referral to [facility] Physical Therapy Outpatient Referral Routine Female stress incontinence Ordered: 08/01/2018 documented as of this encounter Visit Diagnoses Diagnosis Female stress incontinence- Primary documented in this encounter Care Teams Superintendent Gas Distribution Relationship Specialty Start Date End Date Venkata Banegas MD [address] [place] [address] [place] [id number] PCP - General Internal Medicine 02/16/17 documented as of this encounter Additional Source Comments The information contained in this document represents components of the legal health record. It is not the complete legal health record.[facility]
--- OUTSIDE RECORDS SUMMARY | 2025-03-05 00:54 | XMS_ITS | Patient Health Record ---
Author Organization [facility] Address [address] [place] [address] Care Team Providers Care Delimber Operator Name Role Phone Bassam HECTOR, Royal Primary Care Provider Jose Browne Jr Reason For Referral No Information Plan Of Treatment No Information Insurance Providers Payer Name Payer Address Payer Phone Subscriber Number Group Number Insured Name Patient Relationship to Insured Coverage Start Date Coverage End Date [facility] [employer] [address] [place] [address] [phone] [id number] KENDALLDARIANA CASPERETTE Self - patient is the insured
--- OUTSIDE RECORDS SUMMARY | 2025-03-05 00:55 | XMS_ITS | Clinical Summary ---
Author Organization [facility] Address [address] [facility] [address] [place] [address] Phone Care Team Providers Care Annealing Furnace Tender Name Role Phone Venkata Banegas MD Primary Care Provider [phone] Allergies Active Allergy Reactions Criticality Noted Date [...] 04/15/2017 Overview (04/15/2017): Reports biopsy confirmed in [facility], diagnosis approximately 2006 Family History Medical History [...] POS O POS O POS O POS [address] [facility] [place] [address] POS S[address] POS [employer] [place] POS [facility] [place] POS [id number] POS Care Teams Annealing Furnace Tender Relationship Specialty Start Date End Date Venkata Banegas MD [address] [place] [address] [place] [id number] PCP - General Internal Medicine 02/16/17 Additional Source Comments The information contained in this document represents components of the legal health record. It is not the complete legal health record.[facility]
== END 2025-03-04 17:01 | disposition home or self-care (01) ==
LOC: HO.HMCH 15:25
PROVIDERS: PCP Internal Medicine; Visit Provider Internal Medicine
DX: R51.9 Headache, unspecified (principal); B00.4 Herpesviral encephalitis; G93.89 Other specified disorders of brain; G40.909 Epilepsy, unspecified, not intractable, without status epilepticus; J38.3 Other diseases of vocal cords; G25.2 Other specified forms of tremor; G24.3 Spasmodic torticollis; R07.9 Chest pain, unspecified; E78.2 Mixed hyperlipidemia; I10 Essential (primary) hypertension; R73.01 Impaired fasting glucose; J45.30 Mild persistent asthma, uncomplicated; E55.9 Vitamin D deficiency, unspecified; K29.70 Gastritis, unspecified, without bleeding; K59.00 Constipation, unspecified; G47.00 Insomnia, unspecified; F41.9 Anxiety disorder, unspecified; F32.9 Major depressive disorder, single episode, unspecified; E66.3 Overweight